=== PATIENT | male | born 1960 | race Caucasian/White ===

== ENCOUNTER 2016-07-23 10:42 | Emergency (ER) | payer MEDICAID ==
[2016-07-23] MEDS ORDERED: OXYCODONE-ACETAMINOPHEN 5-325 MG TABLET PO ONE (11:09)
--- NOTE | 2016-07-23 11:10 | ER Document Report ---
ED Medical Screen (RME) - General Stated Complaint: LEG PAIN Mode of Arrival: Wheelchair Information source: Patient Notes: Patient states he was on a ladder yesterday and fell about 5 feet. Patient complains of right thigh pain is concerned about possible fracture. I have greeted and performed a rapid initial assessment of this patient. A comprehensive ED assessment and evaluation of the patient, analysis of test results and completion of the medical decision making process will be conducted by additional ED providers. TRAVEL OUTSIDE OF THE [place] IN LAST 30 DAYS: No - Related Data Allergies/Adverse Reactions: No Known Allergies Allergy (Verified 07/23/16 11:08) Past Medical History Pulmonary Medical History: Reports: Hx Bronchitis, Hx COPD Malignancy Medical History: Reports Hx Skin Cancer GI Medical History: Reports: Hx Diverticulitis Musculoskeltal Medical History: Reports Hx Arthritis - Immunizations Hx Diphtheria, Pertussis, Tetanus Vaccination: Yes Physical Exam - Extremities General lower extremity: Tender - Right thigh
--- NOTE | 2016-07-23 12:08 | ER Document Report ---
HPI - HPI Patient complains to provider of: right leg pain Onset: Yesterday Onset/Duration: Persistent Severity: Severe Pain Level: 5 Associated Symptoms: None Exacerbated by: Movement Relieved by: Denies Similar symptoms previously: No Recently seen / treated by doctor: No - DERM Skin Color: Normal Past Medical History - General Information source: Patient - Social History Smoking Status: Current Every Day Smoker Cigarette use (# per day): Yes - 1ppd Chew tobacco use (# tins/day): No Frequency of alcohol use: Occasional Drug Abuse: None Occupation: [employer] Lives with: Alone Family History: Arthritis, CAD, CVA, DM, Hyperlipidemia, Hypertension, Malignancy, Thyroid Disfunction Patient has suicidal ideation: No Patient has homicidal ideation: No - Past Medical History Cardiac Medical History: Reports: Hx Congestive Heart Failure, Hx Coronary Artery Disease, Hx Hypertension Pulmonary Medical History: Reports: Hx Bronchitis, Hx COPD Renal/ Medical History: Denies: Hx Peritoneal Dialysis Malignancy Medical History: Reports Hx Skin Cancer GI Medical History: Reports: Hx Diverticulitis Musculoskeltal Medical History: Reports Hx Arthritis Past Surgical History: Reports: Hx Cardiac Surgery - Immunizations Hx Diphtheria, Pertussis, Tetanus Vaccination: Yes Vertical Provider Document - CONSTITUTIONAL Agree With Documented VS: Yes Exam Limitations: No Limitations General Appearance: WD/WN, Mild Distress - winces when anterior thigh palpated, no obvious deformity, no ecchymosis, left thigh 48.5cm, right thigh 49cm - INFECTION CONTROL TRAVEL OUTSIDE OF THE [place] IN LAST 30 DAYS: No - HEENT HEENT: Atraumatic, Normocephalic - NECK Neck: Normal Inspection, Supple. negative: Lymphadenopathy-Left, Lymphadenopathy-Right - RESPIRATORY Respiratory: Breath Sounds Normal, No Respiratory Distress O2 Sat by Pulse Oximetry: 98 - CARDIOVASCULAR Cardiovascular: Regular Rate - MUSCULOSKELETAL/EXTREMETIES Musculoskeletal/Extremeties: MAEW, FROM, Tender - reports pain anterior thigh, extends/flexes at knee and hip, no obvious deformity, no ecchymosis, left thigh 48.5cm, right thigh 49cm - NEURO Level of Consciousness: Awake, Alert, Appropriate Motor/Sensory: No Motor Deficit - DERM Integumentary: Warm, Dry Adult Front & Back Diagram: 1 - c/o tenderness Course - Vital Signs Vital signs: Temp Pulse Resp BP Pulse Ox 98.4 F 91 20 148/92 H 98 07/23/16 11:08 07/23/16 11:08 07/23/16 11:08 07/23/16 11:08 07/23/16 11:08
[2016-07-23] MEDS ORDERED: ASPIRIN 81 MG TABLET, CHEWABLE PO ONE (12:20)
--- NOTE | 2016-07-23 12:23 | ER Document Report ---
ED General - General Chief Complaint: Leg Injury Stated Complaint: LEG PAIN Mode of Arrival: Wheelchair Information source: Patient Notes: Patient presents to the emergency department with complaints of extreme cold cannot good reported shaking chest pain headache and productive cough. Patient reports symptoms started on with a sinus headache. He reports since then he's been extremely tired had diarrhea. Patient also complains of having sharp heartburn type chest pain suicide of his chest. He reports the pain radiates to his back. He also reports he has hot flashes when this happens. Patient does have a history of NC 2. Reports father of NC when he was approximately 37-38 years old. Patient also gives history of acute kidney failure years ago. Denies vomiting, reports slight fever a few days ago. TRAVEL OUTSIDE OF THE [place] IN LAST 30 DAYS: No - HPI Onset: Other - Onset/Duration: Persistent Quality of pain: Achy Severity: Moderate Pain Level: 3 Associated symptoms: Chest pain, Productive cough, Diarrhea, Fever Exacerbated by: Denies Relieved by: Denies - Related Data Allergies/Adverse Reactions: No Known Allergies Allergy (Verified 07/23/16 11:08) Past Medical History - General Information source: Patient - Social History Smoking Status: Current Every Day Smoker Cigarette use (# per day): Yes Chew tobacco use (# tins/day): No Frequency of alcohol use: Occasional Drug Abuse: None Family History: Arthritis, CAD - father of NC at age 37-38 yo, CVA, DM, Hyperlipidemia, Hypertension, Malignancy, Thyroid Disfunction Patient has suicidal ideation: No Patient has homicidal ideation: No - Past Medical History Cardiac Medical History: Reports: Hx Coronary Artery Disease, Hx Heart Attack Pulmonary Medical History: Reports: Hx Bronchitis, Hx COPD Renal/ Medical History: Reports: Other - acute renal failure. Denies: Hx Peritoneal Dialysis Malignancy Medical History: Reports Hx Skin Cancer GI Medical History: Reports: Hx Diverticulitis Musculoskeltal Medical History: Reports Hx Arthritis Past Surgical History: Reports: Hx Orthopedic Surgery - Immunizations Hx Diphtheria, Pertussis, Tetanus Vaccination: Yes Review of Systems - Review of Systems Notes: Review HPI for review of systems., All other systems negative Physical Exam - Vital signs Vitals: Temp Pulse Resp BP Pulse Ox 98.4 F 91 20 148/92 H 98 07/23/16 11:08 07/23/16 11:08 07/23/16 11:08 07/23/16 11:08 07/23/16 11:08 - Notes Notes: PHYSICAL EXAMINATION: GENERAL: Looks like he doesn't feel well, nontoxic looking HEAD: Atraumatic, normocephalic. EYES: Pupils equal round , extraocular movements intact, sclera anicteric, conjunctiva are normal. ENT: nares patent, Moist mucous membranes. NECK: Normal range of motion, supple without lymphadenopathy LUNGS: CTAB and equal. No wheezes rales or rhonchi. HEART: Regular rate and rhythm without murmurs left side chest wall ttp ABDOMEN: Soft, no tenderness. No guarding, no rebound BACK: C/O Left upper back trapezius area ttp EXTREMITIES: Normal range of motion, no pitting edema. No cyanosis. NEUROLOGICAL: Cranial nerves grossly intact. Normal sensory/motor SKIN: Warm, Dry, normal turgor, no rashes or lesions noted Course - Vital Signs Vital signs: Temp Pulse Resp BP Pulse Ox 98.4 F 91 20 148/92 H 98 07/23/16 11:08 07/23/16 11:08 07/23/16 11:08 07/23/16 11:08 07/23/16 11:08
--- NOTE | 2016-07-23 12:42 | ER Document Report ---
HPI - HPI Patient complains to provider of: right leg pain Onset: Yesterday Onset/Duration: Persistent Quality of pain: Achy Severity: Severe Pain Level: 5 Context: Patient presents emergency department with complaints of right thigh pain. Patient reports he was on a 5 foot ladder yesterday fell off onto grass/hard dirt. He reports he felt fine after he fell got up and walked around. Last night he woke up with right thigh pain. He denies past medical history of injury to the thigh. Denies other symptoms like fever headache nausea vomiting diarrhea. Patient is on Plavix. He did not hit his head. He is not confused denies headache. Answers all questions appropriately. 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 Lives with: Alone Family History: Arthritis, CAD, CVA, DM, Hyperlipidemia, Hypertension, Malignancy, Thyroid Disfunction Patient has suicidal ideation: No Patient has homicidal ideation: No - Past Medical History Cardiac Medical History: Reports: Hx Congestive Heart Failure, Hx Coronary Artery Disease Pulmonary Medical History: Reports: Hx Bronchitis, Hx COPD Renal/ Medical History: Denies: Hx Peritoneal Dialysis Malignancy Medical History: Reports Hx Skin Cancer GI Medical History: Reports: Hx Diverticulitis Musculoskeltal Medical History: Reports Hx Arthritis Past Surgical History: Reports: Hx Cardiac Surgery - Immunizations Hx Diphtheria, Pertussis, Tetanus Vaccination: Yes Vertical Provider Document - CONSTITUTIONAL Agree With Documented VS: Yes Exam Limitations: No Limitations General Appearance: WD/WN, Mild Distress - winces when thigh palpated - INFECTION CONTROL TRAVEL OUTSIDE OF THE [place] IN LAST 30 DAYS: No - HEENT HEENT: Atraumatic, Normocephalic - NECK Neck: Normal Inspection, Supple. negative: Lymphadenopathy-Left, Lymphadenopathy-Right - RESPIRATORY Respiratory: Breath Sounds Normal, No Respiratory Distress O2 Sat by Pulse Oximetry: 98 - CARDIOVASCULAR Cardiovascular: Regular Rate - MUSCULOSKELETAL/EXTREMETIES Musculoskeletal/Extremeties: MAEW, FROM, Tender - right thigh ttp, no obvious deformity, swelling no erythema no ecchymosis right eye 49 cm left thigh 48.5 cm , patient able to flex and extend that knee and hip. - NEURO Level of Consciousness: Awake, Alert, Appropriate Motor/Sensory: No Motor Deficit - DERM Integumentary: Warm, Dry Adult Front & Back Diagram: 1 - c/o pain Course - Re-evaluation Re-evalutation: 07/23/16 12:39 I have consulted the attending provider per [facility] guidelines. no ct advised, pt denies hitting his head on fall yesterday, no AMARAL, no confusion, no nv/ Patient instructed on results of x-ray. He reports the Percocet does help flexing the pain now. He was also instructed to follow up with his primary care provider. He verbalized understanding. - Vital Signs Vital signs: Temp Pulse Resp BP Pulse Ox 98.4 F 91 20 148/92 H 98 07/23/16 11:08 07/23/16 11:08 07/23/16 11:08 07/23/16 11:08 07/23/16 11:08 - Diagnostic Test Radiology reviewed: Image reviewed, Reports reviewed Discharge - Discharge Clinical Impression: Pain in right thigh Condition: Stable Disposition: HOME, SELF-CARE Instructions: Oral Narcotic Medication ([facility]), Ice Packs ([facility]) Additional Instructions: *You have been evaluated for right thigh pain *Rest/Ice packs/Elevate the thigh *Follow up with your primary care provider for recheck within 3 days *Take medication as prescribed *Return to ED for worsening condition, changes, needs Prescriptions: Oxycodone HCl/Acetaminophen [Percocet 5-325 mg Tablet] 1 - 2 tab PO ASDIR PRN # 15 tablet PRN Reason: Forms: Return to Work Referrals: LUIS VARGAS MD [Primary Care Provider] - Follow up in 3-5 days
[2016-07-23 12:55] VITALS: BP 138/88
== END 2016-07-23 12:55 | disposition home or self-care (01) ==
LOC: ER 10:42
DX: M79.604 Pain in right leg (principal); M79.651 Pain in right thigh; F17.210 Nicotine dependence, cigarettes, uncomplicated; W11.XXXA Fall on and from ladder, initial encounter; I50.9 Heart failure, unspecified; I25.10 Atherosclerotic heart disease of native coronary artery without angina pectoris; J44.9 Chronic obstructive pulmonary disease, unspecified; Z85.828 Personal history of other malignant neoplasm of skin
CPT/HCPCS: 99283

== ENCOUNTER → 2017-08-01 | Outpatient (CLI) | payer MEDICAID ==
[2017-08-01 19:45] LABS: ALANINE AMINOTRANSFERASE 37 U/L (21-72); ALBUMIN 4.5 g/dL (3.5-5.0); ALKALINE PHOSPHATASE 89 U/L (38-126); ASPARTATE AMINO TRANSFERASE 30 U/L (17-59); BILIRUBIN,DIRECT 0.4 mg/dL (0.0-0.4); BILIRUBIN,TOTAL 0.4 mg/dL (0.2-1.3); CHOLESTEROL 211.88 mg/dL (0-200); TOTAL PROTEIN 7.1 g/dL (6.3-8.2); TRIGLYCERIDES 264 mg/dL (<150)
[2017-08-01 19:55] LABS: FREE T3 3.99 pg/mL (2.77-5.27); FREE T4 (FREE THYROXINE) 1.52 ng/dL (0.78-2.19)
[2017-08-01 19:56] LABS: DIRECT LDL 136 mg/dL (<100)
[2017-08-01 19:57] LABS: VLDL CHOLESTEROL 52.8 mg/dL (10-31)
[2017-08-01 20:08] LABS: THYROID STIMULATING HORMONE 8.94 uIU/mL (0.47-4.68)
== END ==
LOC: OD 17:47
PROVIDERS: ATTEND Specialist
DX: I50.22 Chronic systolic (congestive) heart failure (principal); I42.8 Other cardiomyopathies; I25.10 Atherosclerotic heart disease of native coronary artery without angina pectoris; I10 Essential (primary) hypertension; F17.210 Nicotine dependence, cigarettes, uncomplicated; F10.188 Alcohol abuse with other alcohol-induced disorder; Z98.61 Coronary angioplasty status; E66.9 Obesity, unspecified; Z79.899 Other long term (current) drug therapy
CPT/HCPCS: 36415; 80061; 80076; 84439; 84443; 84481

== ENCOUNTER 2017-10-15 22:31 | Inpatient (IN) | payer SELFPAY ==
--- NOTE | 2017-10-16 00:02 | ER Document Report ---
ED Medical Screen (RME) - General Chief Complaint: Abdominal Pain Stated Complaint: ABDOMINAL PAIN Time Seen by Provider: 10/16/17 00:00 Mode of Arrival: Medic Information source: Patient TRAVEL OUTSIDE OF THE [place] IN LAST 30 DAYS: No - HPI Patient complains to provider of: DORA PAIN Notes: 10/16/17 00:01 Patient is here with complaints of abdominal pain. He states the pain is been present for about a week now. Pain is located in the left side of his abdomen. He has no nausea or vomiting. He does complain of some diarrhea. He denies any blood in the stool. No fever. No dysuria or hematuria. Is a prior history of diverticulitis. He believes that this may be what is causing his pain. Physical exam: Patient is in no distress. Left-sided abdominal tenderness on limited triage exam. Plan: CBC, CMP, lipase, urine, CT abdomen and pelvis with IV contrast. An initial examination was made on the patient as part of the triage process, and it was determined a more comprehensive evaluation was necessary. Initial labs were ordered and patient was transferred to another provider in the ED who assumed care and finished evaluation and plan. - Related Data Allergies/Adverse Reactions: No Known Allergies Allergy (Verified 07/23/16 11:08) Past Medical History - Past Medical History Cardiac Medical History: Reports: Hx Congestive Heart Failure, Hx Coronary Artery Disease Pulmonary Medical History: Reports: Hx Bronchitis, Hx COPD Renal/ Medical History: Denies: Hx Peritoneal Dialysis Malignancy Medical History: Reports Hx Skin Cancer GI Medical History: Reports: Hx Diverticulitis Musculoskeltal Medical History: Reports Hx Arthritis Past Surgical History: Reports: Hx Cardiac Surgery - Immunizations Hx Diphtheria, Pertussis, Tetanus Vaccination: Yes Physical Exam - Vital signs Vitals: Temp Pulse Resp BP 99.1 F 92 18 125/75 10/15/17 22:45 10/15/17 22:45 10/15/17 22:45 10/15/17 22:45 Course - Vital Signs Vital signs: Temp Pulse Resp BP Pulse Ox 99.1 F 92 18 125/75 10/15/17 22:45 10/15/17 22:45 10/15/17 22:45 10/15/17 22:45
[2017-10-16 00:22] LABS: ABSOLUTE BASOPHILS # (AUTO) 0.1 10^3/uL (0.0-0.2); ABSOLUTE LYMPHOCYTES (AUTO) 1.1 10^3/uL (0.5-4.7); ABSOLUTE MONOCYTES (AUTO) 1.5 10^3/uL (0.1-1.4); ABSOLUTE NEUT (AUTO) 10.9 10^3/uL (1.7-8.2); BASOPHILS % (AUTO) 0.5 % (0-2); EOSINOPHILS % (AUTO) 0.2 % (0-6); HEMATOCRIT 42.6 % (37.9-51.0); HEMOGLOBIN 14.2 g/dL (13.5-17.0); LYMPHOCYTES % (AUTO) 7.8 % (13-45); MEAN CORPUSCULAR HEMOGLOBIN 32.4 pg (27.0-33.4); MEAN CORPUSCULAR HGB CONC 33.3 g/dL (32.0-36.0); MEAN CORPUSCULAR VOLUME 97 fl (80-97); MONOCYTES % (AUTO) 11.3 % (3-13); PLATELET COUNT 111 10^3/uL (150-450); RED BLOOD COUNT 4.39 10^6/uL (4.35-5.55); SEGMENTED NEUTROPHILS % (AUTO) 80.2 % (42-78); TOTAL CELLS COUNTED % (AUTO) 100 %; WHITE BLOOD COUNT 13.6 10^3/uL (4.0-10.5)
[2017-10-16 00:49] LABS: ALANINE AMINOTRANSFERASE 43 U/L (21-72); ALBUMIN 3.6 g/dL (3.5-5.0); ALKALINE PHOSPHATASE 90 U/L (38-126); ANION GAP 10 (5-19); ASPARTATE AMINO TRANSFERASE 32 U/L (17-59); BILIRUBIN,DIRECT 0.4 mg/dL (0.0-0.4); BILIRUBIN,TOTAL 0.6 mg/dL (0.2-1.3); BLOOD UREA NITROGEN 25 mg/dL (7-20); CALCIUM 9.1 mg/dL (8.4-10.2); CARBON DIOXIDE 29 mmol/L (22-30); CHLORIDE 94 mmol/L (98-107); GLUCOSE 130 mg/dL (75-110); LIPASE 62.1 U/L (23-300); POTASSIUM 4.6 mmol/L (3.6-5.0); TOTAL PROTEIN 6.5 g/dL (6.3-8.2)
[2017-10-16] MEDS ORDERED: NORMAL SALINE 1000 ML 1,000 ML IV ONE (01:04)
[2017-10-16] MEDS ORDERED: CIPROFLOXACIN 400 MG/D5W RTU 400 MG/200 ML RTUPB IV ONE (01:50)
--- NOTE | 2017-10-16 01:54 | RADIOLOGY REPORT (SQ) ---
EXAM DESCRIPTION: CT ABDOMEN AND PELVIS WITH CONTRAST CLINICAL HISTORY: Left abdominal pain. COMPARISON: 04/07/2013 TECHNIQUE: CT of the abdomen and pelvis performed following IV administration of 100 mL of Isovue-370. DLP: 1957.26 mGycm FINDINGS: Lung Bases: The visualized lung bases are clear. Bones: No destructive bone lesions identified. Generative spondylosis of the visualized spine. Abdomen: Liver: The liver has normal size and density. No solid intrahepatic mass or biliary dilatation. Left renal cyst. Gallbladder: No calcified gallstones. Spleen, Pancreas, and Adrenal Glands: The spleen, pancreas, and adrenal glands are unremarkable. Kidneys: The kidneys have normal size and contour without evidence of solid mass or hydronephrosis. Vasculature: Aortoiliac atherosclerosis. IVC is unremarkable. The portal vein is patent. The proximal visceral and renal arteries are patent. Stomach: The stomach and duodenum have normal course. Other: No definite lymphadenopathy. Pelvis: Bladder: Urinary bladder is unremarkable. Bowel: Scattered diverticula of the colon. Short segment pericolic fat stranding as well as a well-circumscribed pericolic air and fluid collection measuring 3.4 x 2.0 cm compatible with an abscess. Appendix: Normal appendix. Pelvis: Prostate is not enlarged. IMPRESSION: 1. Acute diverticulitis of the descending colon with a 3.4 cm pericolic abscess. This exam was performed according to our departmental dose-optimization program, which includes automated exposure control, adjustment of the mA and/or kV according to patient size and/or use of iterative reconstruction technique.
[2017-10-16] MEDS ORDERED: METRONIDAZOLE 500 MG/NS RTU 100 ML IV ONE (02:01)
[2017-10-16] MEDS ORDERED: FENTANYL CITRATE INJ/PF 100 MCG/2 ML AMPUL IV ONE (02:06)
--- NOTE | 2017-10-16 02:07 | ER Document Report ---
ED GI/ - General Chief Complaint: Abdominal Pain Stated Complaint: ABDOMINAL PAIN Time Seen by Provider: 10/16/17 00:00 Mode of Arrival: Medic Notes: Patient is a 57-year-old male who has had worsening left lower quadrant pain for the last week. He is complaining of nausea but no vomiting denies diarrhea. Patient has a history of diverticulitis and this feels similar. Denies any dysuria. Possible fever at home. States that it hurts when he is walking TRAVEL OUTSIDE OF THE [place] IN LAST 30 DAYS: No - HPI Patient complains to provider of: Abdominal pain Onset: Other Timing/Duration: Worse Location: LLQ Associated symptoms: Nausea Exacerbated by: Movement Relieved by: Remaining still - Related Data Allergies/Adverse Reactions: No Known Allergies Allergy (Verified 07/23/16 11:08) Past Medical History - General Information source: Patient - Social History Smoking Status: Current Every Day Smoker Frequency of alcohol use: Occasional Family History: Arthritis, CAD, CVA, DM, Hyperlipidemia, Hypertension, Malignancy, Thyroid Disfunction Patient has suicidal ideation: No Patient has homicidal ideation: No - Past Medical History Cardiac Medical History: Reports: Hx Congestive Heart Failure, Hx Coronary Artery Disease Pulmonary Medical History: Reports: Hx Bronchitis, Hx COPD Renal/ Medical History: Denies: Hx Peritoneal Dialysis Malignancy Medical History: Reports Hx Skin Cancer GI Medical History: Reports: Hx Diverticulitis Musculoskeltal Medical History: Reports Hx Arthritis Past Surgical History: Reports: Hx Cardiac Surgery - Immunizations Hx Diphtheria, Pertussis, Tetanus Vaccination: Yes Review of Systems - Review of Systems Constitutional: Malaise EENT: No symptoms reported Cardiovascular: No symptoms reported Respiratory: No symptoms reported Gastrointestinal: See HPI Genitourinary: No symptoms reported Male Genitourinary: No symptoms reported Musculoskeletal: No symptoms reported Skin: No symptoms reported Hematologic/Lymphatic: No symptoms reported Neurological/Psychological: No symptoms reported Physical Exam - Vital signs Vitals: Temp Pulse Resp BP 99.1 F 92 18 125/75 10/15/17 22:45 10/15/17 22:45 10/15/17 22:45 10/15/17 22:45 Interpretation: Normal - General General appearance: Alert, Other - Appears uncomfortable - HEENT Head: Normocephalic, Atraumatic Eyes: Normal Pupils: PERRL - Respiratory Respiratory status: No respiratory distress Chest status: Nontender Breath sounds: Normal Chest palpation: Normal - Cardiovascular Rhythm: Regular Heart sounds: Normal auscultation Murmur: No - Abdominal Inspection: Normal Distension: Distended Bowel sounds: Normal Tenderness: Tender - Left lower quadrant, Guarding. No: Rebound Organomegaly: No organomegaly - Back Back: Normal, Nontender - Extremities General upper extremity: Normal inspection, Nontender, Normal color, Normal ROM , Normal temperature General lower extremity: Normal inspection, Nontender, Normal color, Normal ROM , Normal temperature, Normal weight bearing. No: Mary's sign - Neurological Neuro grossly intact: Yes Cognition: Normal Orientation: AAOx4 Mellissa Coma Scale Eye Opening: Spontaneous Mellissa Coma Scale Verbal: Oriented [place] Coma Scale Motor: Obeys Commands Mellissa Coma Scale Total: 15 Speech: Normal Motor strength normal: LUE, RUE, LLE, RLE Sensory: Normal - Psychological Associated symptoms: Normal affect, Normal mood - Skin Skin Temperature: Warm Skin Moisture: Dry Skin Color: Normal Course - Re-evaluation Re-evalutation: 10/16/17 01:[address] Bhandari regarding CT report of perforated diverticulitis with abscess. Will start IV ciprofloxacin and Flagyl, keep n.p.o., and admit to his service. 10/16/17 02:06 Patient is a 57-year-old male who presents with left lower quadrant pain over the last week that has been worsening as well as nausea. He has a history of diverticulitis. Unfortunately, tonight, CT showing perforation of diverticulitis with abscess formation. I have explained the results of the CT to the patient. He will be kept n.p.o. at this time. Cipro and Flagyl will be started. He will be getting fentanyl as needed for pain. He does not have any nausea since receiving Zofran in triage. Patient will continue to be fluid resuscitated. He is agreeable to this plan. Stable time of admission to the surgical service. - Vital Signs Vital signs: Temp Pulse Resp BP Pulse Ox 99.1 F 92 18 125/75 10/15/17 22:45 10/15/17 22:45 10/15/17 22:45 10/15/17 22:45 - Laboratory Result Diagrams: 10/15/17 22:10 10/15/17 22:10 Laboratory results interpreted by me: 10/15/17 10/15/17 22:10 22:10 WBC 13.6 H RDW 15.0 H Plt Count 111 L Seg Neutrophils % 80.2 H Lymphocytes % 7.8 L Absolute Neutrophils 10.9 H Absolute Monocytes 1.5 H Sodium 133.0 L Chloride 94 L BUN 25 H Creatinine 1.57 H Est GFR ( Amer) 55 L Est GFR (Non-Af Amer) 46 L Glucose 130 H Critical Care Note - Critical Care Note Total time excluding time spent on procedures (mins): 15 - Evaluation and management of perforated diverticulitis with abscess, multiple re-evaluations, coordination of admission, consultation with specialist, counseling of patient Discharge - Discharge Clinical Impression: Diverticulitis of large intestine with abscess Qualifiers: Diverticulitis bleeding: without bleeding Qualified Code(s): K57.20 - Diverticulitis of large intestine with perforation and abscess without bleeding Condition: Stable Disposition: ADMITTED INPATIENT Admitting Provider[facility] Admitted: Surgical Floor Scribe Attestation: 10/16/17 02:23 I personally performed the services described in the documentation, reviewed and edited the documentation which was dictated to the scribe in my presence, and it accurately records my words and actions.
[2017-10-16 02:40] LABS: APPEARANCE,URINE CLEAR; BILIRUBIN,URINE NEGATIVE (NEGATIVE); COLOR,URINE YELLOW; GLUCOSE, URINE NEGATIVE (NEGATIVE); KETONES,URINE NEGATIVE (NEGATIVE); LEUKOCYTE ESTERASE,URINE NEGATIVE (NEGATIVE); NITRITE,URINE NEGATIVE (NEGATIVE); PROTEIN,URINE 100 mg/dL (NEGATIVE); URINE SPECIFIC GRAVITY 1.023
[2017-10-16] MEDS ORDERED: ONDANSETRON HCL INJ/PF 4 MG/2 ML SDV IV PRN (06:50)
--- NOTE | 2017-10-16 08:41 | CONSULT/HISTORY AND PHYSICAL E ---
Consultation/History and Physical PATIENT NAME: CAT HECK : 1960 AGE: 57Y DATE: 10/16/2017 ROOM: 401 REFERRAL: Patient is seen at the request of a DrEdgardo ------ CHIEF COMPLAINT: Complicated diverticulitis. REPORT OF CONSULTATION: Patient is a 57-year-old white male with a history of morbid obesity, coronary artery disease, previous history of non-complicated diverticulitis who presents to the emergency department with a 1-week history of abdominal pain of the left lower quadrant, increased difficulty moving his bowels, fever and chills, although he did not take his temperature. He was seen in the emergency department where he was found to have abdominal tenderness, left lower quadrant; leukocytosis; and a CT scan obtained showing pericolonic abscess of the sigmoid colon consistent with Hinchey classification 1 complicated diverticulitis. Surgery was consulted. The patient was advised admission. He remained hemodynamically stable throughout his emergency department stay. PAST MEDICAL HISTORY: Significant for: Superficial skin cancers, history of coronary artery disease, history of impaired ejection fraction; morbid obesity, alcohol use, smoking abuse, arthritis. PAST SURGICAL HISTORY: Significant for skin cancer removal. IMMUNIZATIONS: Up to date. SOCIAL HISTORY: Patient smokes a pack plus cigarettes every day; uses alcohol several times a week. FAMILY HISTORY: Significant for coronary artery disease, diabetes, hypertension, hyperlipidemia and thyroid disease. 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 REVIEW OF SYSTEMS: CONSTITUTIONAL: Patient acknowledges malaise. EARS, NOSE, THROAT: Patient denies. CARDIOVASCULAR: Mild shortness of breath. RESPIRATORY: As above. GASTROINTESTINAL: As per HPI. GENITOURINARY: Patient denies. MUSCULOSKELETAL: Patient denies. Of note: Patient has never had a colonoscopy. PHYSICAL EXAMINATION: Patient examined on the 4th floor of [facility]. VITAL SIGNS: Heart rate 80, blood pressure 112/66, temperature 99.8, respirations 18. GENERAL: Patient appears to be in no acute distress. SKIN: Facial flushing. NECK: No obvious masses. SKIN: Multiple seborrheic keratoses. LUNGS: Occasional wheeze bilaterally. HEART: No evidence of murmur or gallop. ABDOMEN: Very distended with mild tympany. There are no peritoneal signs. There is left lower quadrant tenderness. The umbilicus is thinned. Organomegaly cannot be appreciated. Groin is without hernias. EXTREMITIES: Lower extremities with mild lichenification of the skin on the toes. There is +1-2 pretibial edema at the ankles. VASCULAR: Vascular exam reveals palpable radial, carotid, femoral, and popliteal pulses. DIAGNOSTICS: Laboratory profile shows a white blood cell count of 15,600; hemoglobin of 14.2, platelets of 111, and a BUN and creatinine of 25 and 1.57. Blood sugar of 130. Independent interpretation of a CT scan of the abdomen and pelvis with IV and with oral contrast shows obesity centrally; extensive diverticuloses of the colon; descending-sigmoid colon medially located pericolonic abscess approximately 3.5 cm in diameter; no free air; element of pericolonic stranding of the fat. IMPRESSION: 1. ACUTE DIVERTICULITIS WITH PERICOLONIC ABSCESS, CONTAINED; HINCHEY CLASSIFICATION 1. 2. MORBID OBESITY. 3. CHRONIC SMOKER WITH CHRONIC OBSTRUCTIVE PULMONARY DISEASE. 4. ALCOHOL USE. 5. HISTORY OF CONGESTIVE HEART FAILURE. 6. ACUTE RENAL INSUFFICIENCY, LIKELY DUE TO DEHYDRATION. 7. THROMBOCYTOPENIA. PLAN: 1. Will admit, keep n.p.o. and IV fluids and intravenous antibiotics; pericolonic abscess is medially positioned off of the sigmoid colon and may be inaccessible to percutaneous drainage. There is no clinical indication for operative intervention at this moment. 2. Patient's comorbidities including COPD, smoking abuse, morbid obesity, and history of congestive heart failure will place patient at increased perioperative risks for complications should he require surgery. TOTAL TIME: 40 minutes; critical time 12 minutes. [id number] PHY#: [id number] ID: [id number] JOB#: [id number] ACCT: [id number] cc:Mariah EASON, > [facility]
[2017-10-16] MEDS: NICOTINE 21 MG/24 HR PATCH.TD24 TD SCH (09:14)
[2017-10-16] MEDS: DOCUSATE SODIUM 100 MG CAPSULE PO SCH ×2 (09:14→16:50)
[2017-10-16] MEDS: KETOROLAC TROMETHAMINE INJ/PF 30 MG/1 ML SDV IV PRN ×2 (13:24→23:27)
[2017-10-16] MEDS ORDERED: NORMAL SALINE 1000 ML 1,000 ML IV PRN (13:29)
[2017-10-16] MEDS: METRONIDAZOLE 500 MG/NS RTU 100 ML IV SCH ×2 (15:18→22:10)
--- NOTE | 2017-10-16 18:21 | PDOC PROGRESS REPORT ---
Subjective Progress Note for:: 10/16/17 Subjective:: A little less abdominal pains Reason For Visit: ACUTE DIVERTICULITIS WITH PERICOLONIC ABSCESS Physical Exam Vital Signs: Temp Pulse Resp BP Pulse Ox 98.4 F 69 16 130/74 H 94 10/16/17 16:12 10/16/17 16:12 10/16/17 16:12 10/16/17 16:12 10/16/17 16:12 Intake & Output 10/15/17 10/16/17 10/17/17 06:59 06:59 06:59 Intake Total 240 Output Total 300 425 Balance -60 -425 Weight 105.7 kg Exam: Abdomen is soft with tenderness at the LLQ,localized. Results Impressions: Abdomen/Pelvis CT 10/16/17 00:00 IMPRESSION: 1. Acute diverticulitis of the descending colon with a 3.4 cm pericolic abscess. This exam was performed according to our departmental dose-optimization program, which includes automated exposure control, adjustment of the mA and/or kV according to patient size and/or use of iterative reconstruction technique. Assessment & Plan - Time Time Spent with patient: 15-24 minutes - Plan Summary Plan Summary: Continue bowel rest and IV antibiotics Check follow up blood work in am Resume cardiac meds po but hold Plavix until sure not needing surgery. Continue hydration.
[2017-10-16] MEDS: CARVEDILOL 12.5 MG TABLET PO SCH (22:10)
[2017-10-16] MEDS: CIPROFLOXACIN 400 MG/D5W RTU 400 MG/200 ML RTUPB IV SCH (22:11)
[2017-10-17 05:05] LABS: ABSOLUTE EOSINOPHILS # (AUTO) 0.1 10^3/uL (0.0-0.6); ABSOLUTE LYMPHOCYTES (AUTO) 0.7 10^3/uL (0.5-4.7); ABSOLUTE MONOCYTES (AUTO) 1.1 10^3/uL (0.1-1.4); ABSOLUTE NEUT (AUTO) 7.9 10^3/uL (1.7-8.2); BASOPHILS % (AUTO) 0.4 % (0-2); HEMATOCRIT 41.4 % (37.9-51.0); HEMOGLOBIN 13.9 g/dL (13.5-17.0); LYMPHOCYTES % (AUTO) 6.8 % (13-45); MEAN CORPUSCULAR HEMOGLOBIN 32.5 pg (27.0-33.4); MEAN CORPUSCULAR HGB CONC 33.5 g/dL (32.0-36.0); MEAN CORPUSCULAR VOLUME 97 fl (80-97); PLATELET COUNT 112 10^3/uL (150-450); RED BLOOD COUNT 4.27 10^6/uL (4.35-5.55); RED CELL DISTRIBUTION WIDTH 15.1 % (11.5-14.0); SEGMENTED NEUTROPHILS % (AUTO) 80.8 % (42-78); TOTAL CELLS COUNTED % (AUTO) 100 %; WHITE BLOOD COUNT 9.8 10^3/uL (4.0-10.5)
[2017-10-17] MEDS: METRONIDAZOLE 500 MG/NS RTU 100 ML IV SCH ×3 (05:09→22:12)
[2017-10-17 05:26] LABS: ANION GAP 13 (5-19); BLOOD UREA NITROGEN 29 mg/dL (7-20); CALCIUM 8.7 mg/dL (8.4-10.2); CARBON DIOXIDE 23 mmol/L (22-30); CHLORIDE 102 mmol/L (98-107); GLUCOSE 98 mg/dL (75-110); POTASSIUM 4.8 mmol/L (3.6-5.0); SODIUM 137.5 mmol/L (137-145)
[2017-10-17] MEDS: DOCUSATE SODIUM 100 MG CAPSULE PO SCH ×2 (09:40→17:36)
[2017-10-17] MEDS: CIPROFLOXACIN 400 MG/D5W RTU 400 MG/200 ML RTUPB IV SCH ×2 (09:40→22:11)
[2017-10-17] MEDS: NICOTINE 21 MG/24 HR PATCH.TD24 TD SCH (09:40)
[2017-10-17] MEDS: AMIODARONE HCL 200 MG TABLET PO SCH (09:40)
[2017-10-17] MEDS: CARVEDILOL 12.5 MG TABLET PO SCH ×2 (09:40→22:11)
--- NOTE | 2017-10-17 10:26 | PDOC PROGRESS REPORT ---
Subjective Progress Note for:: 10/17/17 Subjective:: Much less painful at the LLQ Had a good BM this am without discomfort Reason For Visit: ACUTE DIVERTICULITIS WITH PERICOLONIC ABSCESS Physical Exam Vital Signs: Temp Pulse Resp BP Pulse Ox 101.8 F H 94 16 189/92 H 90 L 10/17/17 08:50 10/17/17 08:50 10/17/17 08:50 10/17/17 08:50 10/17/17 08:50 Intake & Output 10/16/17 10/17/17 10/18/17 06:59 06:59 06:59 Intake Total 240 3000 Output Total 300 925 Balance -60 2075 Weight 105.7 kg 105.7 kg Exam: Abd is soft with mild LLQ tenderness. Results Laboratory Results: 10/17/17 03:59 10/17/17 03:50 10/17/17 10/17/17 03:50 03:59 WBC 9.8 RBC 4.27 L Hgb 13.9 Hct 41.4 MCV 97 MCH 32.5 MCHC 33.5 RDW 15.1 H Plt Count 112 L Seg Neutrophils % 80.8 H Lymphocytes % 6.8 L Monocytes % 11.0 Eosinophils % 1.0 Basophils % 0.4 Absolute Neutrophils 7.9 Absolute Lymphocytes 0.7 Absolute Monocytes 1.1 Absolute Eosinophils 0.1 Absolute Basophils 0.0 Sodium 137.5 Potassium 4.8 Chloride 102 Carbon Dioxide 23 Anion Gap 13 BUN 29 H Creatinine 1.36 H Est GFR ( Amer) > 60 Est GFR (Non-Af Amer) 54 L Glucose 98 Calcium 8.7 Impressions: Abdomen/Pelvis CT 10/16/17 00:00 IMPRESSION: 1. Acute diverticulitis of the descending colon with a 3.4 cm pericolic abscess. This exam was performed according to our departmental dose-optimization program, which includes automated exposure control, adjustment of the mA and/or kV according to patient size and/or use of iterative reconstruction technique. Assessment & Plan - Time Time Spent with patient: 15-24 minutes - Plan Summary Plan Summary: Start clears Continue IV antibiotics
[2017-10-17] MEDS ORDERED: FUROSEMIDE INJ/PF 40 MG/4 ML SDV IV ONE (20:30)
--- NOTE | 2017-10-17 21:22 | RADIOLOGY REPORT (SQ) ---
EXAM DESCRIPTION: CHEST SINGLE VIEW COMPLETED DATE/TIME: 10/17/2017 8:52 pm REASON FOR STUDY: chest congestion COMPARISON: 03/26/2015 EXAM PARAMETERS: NUMBER OF VIEWS: One view. TECHNIQUE: Single frontal radiographic view of the chest acquired. RADIATION DOSE: NA LIMITATIONS: None. FINDINGS: LUNGS AND PLEURA: No opacities, masses or pneumothorax. No pleural effusion. MEDIASTINUM AND HILAR STRUCTURES: No masses. Contour normal. HEART AND VASCULAR STRUCTURES: Heart normal in size. Normal vasculature. BONES: No acute findings. HARDWARE: None in the chest. OTHER: No other significant finding. IMPRESSION: NO ACUTE RADIOGRAPHIC FINDING IN THE CHEST. TECHNICAL DOCUMENTATION: JOB ID: [id number] [employer]- All Rights Reserved Reading location - IP/workstation name: [email or web address]
[2017-10-18] MEDS: METRONIDAZOLE 500 MG/NS RTU 100 ML IV SCH ×3 (05:19→21:57)
[2017-10-18] MEDS: AMIODARONE HCL 200 MG TABLET PO SCH (10:52)
[2017-10-18] MEDS: DOCUSATE SODIUM 100 MG CAPSULE PO SCH ×2 (10:52→18:53)
[2017-10-18] MEDS: CARVEDILOL 12.5 MG TABLET PO SCH ×2 (10:53→21:56)
[2017-10-18] MEDS: CIPROFLOXACIN 400 MG/D5W RTU 400 MG/200 ML RTUPB IV SCH ×2 (10:53→21:57)
[2017-10-18] MEDS: FUROSEMIDE 40 MG TABLET PO SCH ×2 (10:53→18:53)
[2017-10-18] MEDS: NICOTINE 21 MG/24 HR PATCH.TD24 TD SCH (10:53)
--- NOTE | 2017-10-18 20:49 | PDOC PROGRESS REPORT ---
Subjective Progress Note for:: 10/18/17 Subjective:: Had BM. Denies any pains Reason For Visit: ACUTE DIVERTICULITIS WITH PERICOLONIC ABSCESS Physical Exam Vital Signs: Temp Pulse Resp BP Pulse Ox 99.3 F 76 18 134/73 H 92 10/18/17 16:00 10/18/17 16:00 10/18/17 16:00 10/18/17 16:00 10/18/17 16:00 Intake & Output 10/17/17 10/18/17 10/19/17 06:59 06:59 06:59 Intake Total 3000 1874 Output Total 925 300 Balance 2075 1574 Weight 105.7 kg 106 kg Exam: Abd is soft with minimal tenderness LLQ Results Laboratory Results: 10/17/17 03:59 10/17/17 03:50 Impressions: Abdomen/Pelvis CT 10/16/17 00:00 IMPRESSION: 1. Acute diverticulitis of the descending colon with a 3.4 cm pericolic abscess. This exam was performed according to our departmental dose-optimization program, which includes automated exposure control, adjustment of the mA and/or kV according to patient size and/or use of iterative reconstruction technique. Chest X-Ray 10/17/17 00:00 IMPRESSION: NO ACUTE RADIOGRAPHIC FINDING IN THE CHEST. Assessment & Plan - Time Time Spent with patient: 15-24 minutes - Plan Summary Plan Summary: Continue to increase diet Continue IV antibiotics for at least 24 hrs. Re -evaluate in am for possible discharge on PO antibiotics next 10 days.
[2017-10-19] MEDS: METRONIDAZOLE 500 MG/NS RTU 100 ML IV SCH (05:32)
[2017-10-19 06:13] LABS: ANION GAP 10 (5-19); BLOOD UREA NITROGEN 20 mg/dL (7-20); CALCIUM 8.3 mg/dL (8.4-10.2); CARBON DIOXIDE 27 mmol/L (22-30); CHLORIDE 103 mmol/L (98-107); GLUCOSE 129 mg/dL (75-110); POTASSIUM 4.6 mmol/L (3.6-5.0); SODIUM 139.9 mmol/L (137-145)
--- NOTE | 2017-10-19 07:20 | PDOC CONSULTATION ---
Consultation Consult Date: 10/18/17 Attending physician:: THU PENN Consult reason:: Multiple medical problems History of Present Illness Admission Date/PCP: 10/16/17 02:30 Patient complains of: abdominal pain History of Present Illness: CAT HECK is a 57 year old male who presented with left lower quadrant pain x 1 week that has been worsening as well as nausea. He has a history of diverticulitis. Unfortunately, CT Abd/Pelvis showing perforation of diverticulitis with abscess formation. Cipro and Flagyl will be started in the emergency department. PMH includes COPD, CAD, CHF, continued tobacco use, and ETOH use "multiple times " per week. Past Medical History Cardiac Medical History: Reports: Congestive Heart Failure, Coronary Artery Disease Pulmonary Medical History: Reports: Bronchitis, Chronic Obstructive Pulmonary Disease (COPD) Malignancy Medical History: Reports: Skin Cancer GI Medical History: Reports: Diverticulitis Musculoskeltal Medical History: Reports: Arthritis Social History Smoking Status: Current Every Day Smoker Cigarettes Packs Per Day: 1 Number of Years Smokin Last Time Smoked: 10/15/17 Frequency of Alcohol Use: Occasional Hx Recreational Drug Use: No Hx Prescription Drug Abuse: No - Advance Directive Resuscitation Status: Full Code Family History Family History: Arthritis, CAD, CVA, DM, Hyperlipidemia, Hypertension, Malignancy, Thyroid Disfunction Parental Family History Reviewed: No Children Family History Reviewed: No Sibling(s) Family History Reviewed.: No Medication/Allergy Home Medications: Amiodarone HCl [Cordarone 200 mg Tablet] 200 mg PO DAILY 10/16/17 Carvedilol [Coreg 25 mg Tablet] 25 mg PO Q12 10/16/17 Clopidogrel Bisulfate [Plavix 75 mg Tablet] 75 mg PO DAILY 10/16/17 Furosemide [Lasix 40 mg Tablet] 40 mg PO BID 10/16/17 Spironolactone [Aldactone 25 mg Tablet] 25 mg PO DAILY 10/16/17 Allergies/Adverse Reactions: No Known Allergies Allergy (Verified 07/23/16 11:08) Physical Exam Vital Signs: Temp Pulse Resp BP Pulse Ox 99.3 F 76 18 134/73 H 92 10/18/17 16:00 10/18/17 16:00 10/18/17 16:00 10/18/17 16:00 10/18/17 16:00 Intake & Output 10/17/17 10/18/17 10/19/17 06:59 06:59 06:59 Intake Total 3000 1874 Output Total 925 300 Balance 2075 1574 Weight 105.7 kg 106 kg Results Laboratory Results: 10/17/17 03:59 10/17/17 03:50 Impressions: Abdomen/Pelvis CT 10/16/17 00:00 IMPRESSION: 1. Acute diverticulitis of the descending colon with a 3.4 cm pericolic abscess. This exam was performed according to our departmental dose-optimization program, which includes automated exposure control, adjustment of the mA and/or kV according to patient size and/or use of iterative reconstruction technique. Chest X-Ray 10/17/17 00:00 IMPRESSION: NO ACUTE RADIOGRAPHIC FINDING IN THE CHEST. Assessment & Plan - Diagnosis (1) Diverticulitis of large intestine with abscess Qualifiers: Diverticulitis bleeding: without bleeding Qualified Code(s): K57.20 - Diverticulitis of large intestine with perforation and abscess without bleeding Is this a current diagnosis for this admission?: Yes Plan: Patient presented with LLQ abdominal pain x [address] Abd/Pelvis shows perforation of diverticulitis with abscess formation. Patient admitted to surgical service. They are managing. No surgical intervention at this time. Pain adequately controlled. Advanced to clear liquid diet. Patient able to have bowel movements. (2) CHF (congestive heart failure) Qualifiers: Heart failure type: unspecified Heart failure chronicity: chronic Qualified Code(s): I50.9 - Heart failure, unspecified Is this a current diagnosis for this admission?: Yes Plan: Patient endorses a history of CHF. He was admitted to [facility] in 2015 for a new diagnosis of heart failure. ECHO from 2015 demonstrated LVEF 20%, global HYPOkinesis of the LV, significant systolic failure, small PFO with L to R shunt Continue home dose lasix, coreg, amiodarone and aldactone. No plan for aspirin therapy. (3) Coronary artery disease Qualifiers: Coronary Disease-Associated Artery/Lesion type: [place] artery [place] vs. transplanted heart: [place] heart Associated angina: without angina Qualified Code(s): I25.10 - Atherosclerotic heart disease of [place] coronary artery without angina pectoris Is this a current diagnosis for this admission?: Yes Plan: Patient endorses a history of CAD. Since he is at a high risk for bleeding, no plan to restart PLAVIX at this time.
[2017-10-19 08:13] VITALS: BP 148/87
[2017-10-19] MEDS ORDERED: CIPROFLOXACIN HCL 500 MG TABLET PO SCH (10:00)
== END 2017-10-19 08:28 | disposition home or self-care (01) | DRG 392 ==
LOC: ER 22:31 → EH 10-16 02:30 → 4N 10-16 03:47
PROVIDERS: ADMIT Surgery; ATTEND Surgery
DX: K57.20 Diverticulitis of large intestine with perforation and abscess without bleeding (principal); I50.9 Heart failure, unspecified; D69.6 Thrombocytopenia, unspecified; J44.9 Chronic obstructive pulmonary disease, unspecified; I25.10 Atherosclerotic heart disease of native coronary artery without angina pectoris; E86.0 Dehydration; N28.9 Disorder of kidney and ureter, unspecified; F17.210 Nicotine dependence, cigarettes, uncomplicated; E66.01 Morbid (severe) obesity due to excess calories; Z68.33 Body mass index [BMI] 33.0-33.9, adult; Z72.89 Other problems related to lifestyle
CPT/HCPCS: 36415; 71045; 74177; 80048; 80053; 81001; 83690; 83735; 84100; 85025; 87040; 99285; J0744; J1885; J1940; J3010; J3490; J7030

== ENCOUNTER 2017-12-07 16:00 | Inpatient (IN) | payer MEDICAID ==
[2017-12-07 17:17] LABS: HEMATOCRIT 41.8 % (37.9-51.0); HEMOGLOBIN 13.9 g/dL (13.5-17.0); MEAN CORPUSCULAR HEMOGLOBIN 30.8 pg (27.0-33.4); MEAN CORPUSCULAR HGB CONC 33.3 g/dL (32.0-36.0); MEAN CORPUSCULAR VOLUME 93 fl (80-97); PLATELET COUNT 234 10^3/uL (150-450); RED BLOOD COUNT 4.51 10^6/uL (4.35-5.55); RED CELL DISTRIBUTION WIDTH 15.2 % (11.5-14.0); WHITE BLOOD COUNT 22.1 10^3/uL (4.0-10.5)
[2017-12-07] MEDS ORDERED: HYDROMORPHONE HCL INJ/PF 2 MG/ML AMPULE IV ONE ×2 (17:32→20:14)
[2017-12-07] MEDS ORDERED: ONDANSETRON 4 MG TAB.RAPDIS PO ONE (17:33)
[2017-12-07 17:41] LABS: ABSOLUTE LYMPHOCYTES# (MANUAL) 2.7 10^3/uL (0.5-4.7); ABSOLUTE MONOCYTES # (MANUAL) 2.2 10^3/uL (0.1-1.4); ANISOCYTOSIS SLIGHT; BASOPHILS % (MANUAL) 0 % (0-2); EOSINOPHILS % (MANUAL) 1 % (0-6); LYMPHOCYTES % (MANUAL) 12 % (13-45); MONOCYTES % (MANUAL) 10 % (3-13); PLATELET CLUMPS PRESENT; PLATELET GIANT PRESENT; PLATELET LARGE PRESENT; POLYCHROMASIA SLIGHT; SEGMENTED NEUTROPHILS % (MAN) 77 % (42-78); TOTAL CELLS COUNTED 100; TOXIC GRANULATION SLIGHT
[2017-12-07 17:42] LABS: ALANINE AMINOTRANSFERASE 27 U/L (21-72); ALBUMIN 4.1 g/dL (3.5-5.0); ALKALINE PHOSPHATASE 101 U/L (38-126); ANION GAP 13 (5-19); ASPARTATE AMINO TRANSFERASE 18 U/L (17-59); BILIRUBIN,DIRECT 0.4 mg/dL (0.0-0.4); BILIRUBIN,TOTAL 0.6 mg/dL (0.2-1.3); BLOOD UREA NITROGEN 25 mg/dL (7-20); CALCIUM 9.7 mg/dL (8.4-10.2); CARBON DIOXIDE 28 mmol/L (22-30); CHLORIDE 105 mmol/L (98-107); GLUCOSE 100 mg/dL (75-110); LIPASE 142.8 U/L (23-300); POTASSIUM 4.2 mmol/L (3.6-5.0); SODIUM 145.5 mmol/L (137-145); TOTAL PROTEIN 7.3 g/dL (6.3-8.2)
[2017-12-07 17:55] LABS: APPEARANCE,URINE CLEAR; BILIRUBIN,URINE NEGATIVE (NEGATIVE); COLOR,URINE YELLOW; GLUCOSE, URINE NEGATIVE (NEGATIVE); KETONES,URINE NEGATIVE (NEGATIVE); LEUKOCYTE ESTERASE,URINE NEGATIVE (NEGATIVE); NITRITE,URINE NEGATIVE (NEGATIVE); PROTEIN,URINE 30 mg/dL (NEGATIVE); URINE SPECIFIC GRAVITY 1.019; UROBILINOGEN,URINE NEGATIVE mg/dL (<2.0)
[2017-12-07] MEDS ORDERED: METRONIDAZOLE 500 MG/NS RTU 500 MG/100 ML RTUPB IV ONE (18:14)
[2017-12-07] MEDS ORDERED: NORMAL SALINE 1000 ML 1,000 ML IV ONE ×2 (18:15→23:45)
--- NOTE | 2017-12-07 18:25 | ER Document Report ---
ED GI/ - General TRAVEL OUTSIDE OF THE [place] IN LAST 30 DAYS: No <CHRISTIANO KHAN - Last Filed: 12/07/17 18:43> <RICO MONK - Last Filed: 12/07/17 23:13> - General Chief Complaint: Abdominal Pain Stated Complaint: ABDOMINAL PAIN Time Seen by Provider: 12/07/17 17:13 Notes: Patient is here complaining of pain in the lower abdomen, more on the than on the right. The pain is similar to pain that he has had several times in the last couple of months and was diagnosed with diverticulitis. He was first seen here in early October and the light is and treated with IV antibiotics and then discharged on oral antibiotics. He returned in early November with a recurrence of the diverticulitis with abscess formation in the left abdomen and required percutaneous drainage. He went home and now has had recurrent pain and low- grade fever last night. Try to go to work today and was only able to take 4 hours before he decided to come here now. Has not had any vomiting. Had a bowel movement today. No blood seen in the bowel movement. Has had a low- grade fever. No other abdominal surgical procedures. (CHRISTIANO KHAN) - Related Data Allergies/Adverse Reactions: No Known Allergies Allergy (Verified 07/23/16 11:08) Past Medical History - Social History Smoking Status: Unknown if Ever Smoked Family History: Reviewed & Not Pertinent, Arthritis, CAD, CVA, DM, Hyperlipidemia, Hypertension, Malignancy, Thyroid Disfunction Patient has suicidal ideation: No Patient has homicidal ideation: No - Past Medical History Cardiac Medical History: Reports: Hx Congestive Heart Failure, Hx Coronary Artery Disease Pulmonary Medical History: Reports: Hx Bronchitis, Hx COPD Malignancy Medical History: Reports Hx Skin Cancer GI Medical History: Reports: Hx Diverticulitis Musculoskeltal Medical History: Reports Hx Arthritis Past Surgical History: Reports: Hx Abdominal Surgery - Percutaneous drainage of abscess earlier this month., Hx Cardiac Surgery - Immunizations Hx Diphtheria, Pertussis, Tetanus Vaccination: Yes <CHRISTIANO KHAN - Last Filed: 12/07/17 18:43> Review of Systems <CHRISTIANO KHAN - Last Filed: 12/07/17 18:43> <RICO MONK - Last Filed: 12/07/17 23:13> - Review of Systems Notes: REVIEW OF SYSTEMS: CONSTITUTIONAL : Denies fever. EENT: Denies eye, ear, nose or mouth or throat pain or other symptoms. CARDIOVASCULAR: Denies chest pain. RESPIRATORY: Denies cough, chest congestion, or shortness of breath. GASTROINTESTINAL: See HPI. GENITOURINARY: Denies difficulty or painful urinating, urinary frequency, blood in urine. MUSCULOSKELETAL: Denies back or neck pain. Denies joint pain or swelling. SKIN: Denies rash or skin lesions. NEUROLOGICAL: Denies LOC or altered mental status. Denies headache. Denies sensory loss or motor deficits. ALL OTHER SYSTEMS REVIEWED AND NEGATIVE. (CHRISTIANO KHAN) Physical Exam - Vital signs Interpretation: Normal. No: Febrile <CHRISTIANO KHAN - Last Filed: 12/07/17 18:43> <RICO MONK - Last Filed: 12/07/17 23:13> - Vital signs Vitals: Temp Pulse Resp BP Pulse Ox 98.6 F 98 17 148/78 H 94 12/07/17 16:24 12/07/17 16:24 12/07/17 16:24 12/07/17 16:24 12/07/17 16:24 - Notes Notes: PHYSICAL EXAMINATION: GENERAL: Well-appearing, in no acute distress. Anxious. Vital signs are all essentially normal. HEAD: Atraumatic, normocephalic. EYES: Pupils equal round and reactive to light, extraocular movements intact. ENT: oropharynx clear without exudates. Moist mucous membranes. NECK: Normal range of motion, supple. LUNGS: Breath sounds clear and equal bilaterally. HEART: Regular rate and rhythm without murmurs. ABDOMEN: Diffuse tenderness in the lower abdomen, more so on the left side with some guarding on the left. No actual rebound felt. Bowel sounds are present. No bruits heard. BACK: No tenderness throughout entire back. EXTREMITIES: Normal range of motion without pain. NEUROLOGICAL: Normal speech, normal gait. Normal sensory, motor, and reflex exams. Awake, alert, and oriented x3. Cranial nerves normal. PSYCH: Normal mood, normal affect. SKIN: Warm, dry, no rashes. (CHRISTIANO KHAN) Course - Laboratory Result Diagrams: 12/07/17 16:47 12/07/17 16:47 <CHRISTIANO KHAN - Last Filed: 12/07/17 18:43> - Laboratory Result Diagrams: 12/07/17 16:47 12/07/17 16:47 <RICO MONK - Last Filed: 12/07/17 23:13> - Re-evaluation Re-evalutation: 12/07/17 18:43 approximately 1 hour ago, I contacted Dr. Roberson, employee relations consultant surgeon, regarding what type of CT to order. He wants a CT with oral contrast. I will be turning this patient over to Dr. Monk, as my shift is coming to an end (CHRISTIANO KHAN) 12/07/17 22:10 There does not appear to be an abscess but with patient's WBC count elevated contacted surgery for consult. At this time will admit to the hospitalist for IV antibiotics and possible surgical consult/surgery if needed. (RICO MONK ) - Vital Signs Vital signs: Temp Pulse Resp BP Pulse Ox 98.6 F 98 17 148/78 H 94 12/07/17 16:24 12/07/17 16:24 12/07/17 16:24 12/07/17 16:24 12/07/17 16:24 - Laboratory Laboratory results interpreted by me: 12/07/17 12/07/17 12/07/17 16:47 16:47 16:47 WBC 22.1 H RDW 15.2 H Lymphocytes % (Manual) 12 L Abs Neuts (Manual) 17.0 H Abs Monocytes (Manual) 2.2 H Sodium 145.5 H BUN 25 H Urine Protein 30 H Discharge <CHRISTIANO KHAN - Last Filed: 12/07/17 18:43> - Discharge Admitting Provider: Surgicalist Lobo Roberson Unit Admitted: Medical Floor <RICO MONK - Last Filed: 12/07/17 23:13> - Discharge Clinical Impression: Diverticulitis large intestine Qualifiers: Diverticulitis bleeding: without bleeding Diverticulitis complication: unspecified complication status Qualified Code(s): K57.32 - Diverticulitis of large intestine without perforation or abscess without bleeding Condition: Good Disposition: ADMITTED INPATIENT
--- NOTE | 2017-12-07 21:33 | RADIOLOGY REPORT (SQ) ---
EXAM DESCRIPTION: CT ABD/PELVIS WITH IV ORAL COMPLETED DATE/TIME: 12/07/2017 9:04 pm REASON FOR STUDY: Abdominal pain, Hx diverticulitis 2 recent COMPARISON: 11/13/2017. TECHNIQUE: CT scan of the abdomen and pelvis performed using helical scanning technique with dynamic intravenous contrast injection. No oral contrast. Images reviewed with lung, soft tissue, and bone windows. Reconstructed coronal and sagittal MPR images reviewed. Delayed images for evaluation of the urinary system also acquired. All images stored on PACS. All CT scanners at this facility use dose modulation, iterative reconstruction, and/or weight based d osing when appropriate to reduce radiation dose to as low as reasonably achievable (ALARA). [facility]: Dose Right [facility]: CareDose [facility]: Dose Right [facility]: Teradose 4D [facility]: [employer] CONTRAST TYPE AND DOSE: contrast/concentration: Isovue 370.00 mg/ml; Total Contrast Delivered: 100.0 ml; Total Saline Delivered: 70.0 ml RENAL FUNCTION: BUN 25 creatinine 1.09. RADIATION DOSE: CT Rad equipment meets quality standard of care and radiation dose reduction techniq ues were employed. CTDIvol: 17.2 - 18.8 mGy. DLP: 1935 mGy-cm.. LIMITATIONS: None. FINDINGS: LOWER CHEST: No significant findings. No nodules or infiltrates. LIVER: Normal size. Small cyst. No masses. No dilated ducts. SPLEEN: Normal size. No focal lesions. PANCREAS: No masses. No significant calcifications. No adjacent inflammation or peripancreatic fluid collections. Pancreatic duct not dilated. GALLBLADDER: No identified stones by CT criteria. No inflammatory changes to suggest cholecystitis. ADRENAL GLANDS: No significant masses or asymmetry. RIGHT KIDNEY AND URETER: No solid masses. No significant calcifications. No hydronephrosis or hyd roureter. LEFT KIDNEY AND URETER: No solid masses. No significant calcifications. No hydronephrosis or hydr oureter. AORTA AND VESSELS: No aneurysm. No dissection. Renal arteries, SMA, celiac without stenosis. RETROPERITONEUM: No retroperitoneal adenopathy, hemorrhage or masses. BOWEL AND PERITONEAL CAVITY: Numerous colonic diverticuli in the descending and sigmoid colon. Mild focal density medial to the descending colon at the site of previous abscess and drainage. Currently no drainable abscess. There is also focal inflammatory change in the mid sigmoid colon which was no t present on the prior study. No focal abscess in this area. No free fluid or peritoneal masses. APPENDIX: Normal. PELVIS: No mass. No free fluid. Normal bladder. ABDOMINAL WALL: No masses. No hernias. BONES: No significant or acute findings. Degenerative changes in the spine. OTHER: No other significant finding. IMPRESSION: 1. NEW AREA OF ACUTE DIVERTICULITIS IN THE MID SIGMOID COLON. NO EVIDENCE OF ABSCESS. 2. PREVIOUS AREA OF DIVERTICULITIS INVOLVING THE DESCENDING COLON. THERE IS MILD FOCAL DENSITY MEDIA L TO THE DESCENDING COLON AT THE SITE OF THE PREVIOUS ABSCESS WHICH HAD BEEN DRAINED PERCUTANEOUSLY. CURRENTLY NO DRAINABLE ABSCESS. 3. NO OTHER SIGNIFICANT OR ACUTE FINDING IN THE ABDOMEN OR PELVIS ON CT SCAN WITH IV CONTRAST. TECHNICAL DOCUMENTATION: JOB ID: [id number] Quality ID # [id number]: Final reports with documentation of one or more dose reduction techniques (e.g., Au tomated exposure control, adjustment of the mA and/or kV according to patient size, use of iterative reconstruction technique) 2010 [employer]- All Rights Reserved Reading location - IP/workstation name: [email or web address]
[2017-12-07] MEDS ORDERED: CIPROFLOXACIN 400 MG/D5W RTU 400 MG/200 ML RTUPB IV SCH (22:00)
[2017-12-07] MEDS ORDERED: VANCOMYCIN HCL INJ 1000 MG VIAL IV ONE (23:26)
[2017-12-07] MEDS ORDERED: PIPERACILLIN/TAZOBACTAM 3.375 GM VIAL IV ONE (23:26)
[2017-12-07] MEDS ORDERED: ENOXAPARIN SODIUM INJ 40 MG/0.4 ML DISP.SYRIN SUBCUT ONE (23:45)
[2017-12-07] MEDS ORDERED: FAMOTIDINE INJ/PF 20 MG/2 ML SDV IV ONE (23:45)
[2017-12-07] MEDS ORDERED: PIPERACILLIN/TAZOBACTAM 3.375 GM VIAL IV PRN (23:45)
[2017-12-07] MEDS ORDERED: ONDANSETRON HCL INJ/PF 4 MG/2 ML SDV IV PRN (23:47)
[2017-12-08] MEDS ORDERED: PIPERACILLIN SODIUM/TAZOBACTAM 3.375 GM in NORMAL SALINE 100 ML IV SCH ×2
[2017-12-08] MEDS: HYDROMORPHONE HCL INJ/PF 2 MG/ML AMPULE IV PRN ×2 (00:26→03:42)
[2017-12-08] MEDS ORDERED: PIPERACILLIN/TAZOBACTAM 3.375 GM VIAL IV ONE (04:58)
[2017-12-08 04:59] LABS: ABSOLUTE BASOPHILS # (AUTO) 0.1 10^3/uL (0.0-0.2); ABSOLUTE EOSINOPHILS # (AUTO) 0.2 10^3/uL (0.0-0.6); ABSOLUTE LYMPHOCYTES (AUTO) 1.9 10^3/uL (0.5-4.7); ABSOLUTE MONOCYTES (AUTO) 1.3 10^3/uL (0.1-1.4); ABSOLUTE NEUT (AUTO) 12.1 10^3/uL (1.7-8.2); BASOPHILS % (AUTO) 0.7 % (0-2); EOSINOPHILS % (AUTO) 1.5 % (0-6); HEMATOCRIT 35.9 % (37.9-51.0); MEAN CORPUSCULAR HEMOGLOBIN 31.2 pg (27.0-33.4); MEAN CORPUSCULAR HGB CONC 33.4 g/dL (32.0-36.0); MEAN CORPUSCULAR VOLUME 93 fl (80-97); MONOCYTES % (AUTO) 8.3 % (3-13); PLATELET COUNT 228 10^3/uL (150-450); RED BLOOD COUNT 3.85 10^6/uL (4.35-5.55); RED CELL DISTRIBUTION WIDTH 15.1 % (11.5-14.0); SEGMENTED NEUTROPHILS % (AUTO) 77.5 % (42-78); TOTAL CELLS COUNTED % (AUTO) 100 %; WHITE BLOOD COUNT 15.6 10^3/uL (4.0-10.5)
[2017-12-08] MEDS: NORMAL SALINE 1000 ML 1,000 ML IV PRN ×2 (05:21→14:40)
[2017-12-08] MEDS: PIPERACILLIN SODIUM/TAZOBACTAM 3.375 GM in NORMAL SALINE 100 ML IV SCH ×4 (05:21→23:12)
[2017-12-08 05:29] LABS: ANION GAP 8 (5-19); BLOOD UREA NITROGEN 19 mg/dL (7-20); CALCIUM 8.4 mg/dL (8.4-10.2); CARBON DIOXIDE 23 mmol/L (22-30); CHLORIDE 108 mmol/L (98-107); GLUCOSE 138 mg/dL (75-110); SODIUM 139.2 mmol/L (137-145)
[2017-12-08] MEDS: MORPHINE SULFATE 10 MG/ML INJ IV PRN ×8 (06:03→23:12)
[2017-12-08] MEDS ORDERED: PHARMACY COMMUNICATION ORDER MC NR (07:45)
--- NOTE | 2017-12-08 08:31 | RADIOLOGY REPORT (SQ) ---
EXAM DESCRIPTION: CHEST SINGLE VIEW COMPLETED DATE/TIME: 12/08/2017 8:19 am REASON FOR STUDY: NGT placement verification COMPARISON: 11/17/2017. FINDINGS: Single-view lower chest upper abdomen. Nasogastric tube has its tip appropriately located in the stomach. Probable basilar subsegmental atelectasis. Nonobstructive bowel gas pattern. IMPRESSION: Nasogastric tube with tip appropriately within the stomach. TECHNICAL DOCUMENTATION: JOB ID: [id number] Reading location - IP/workstation name: [email or web address]
[2017-12-08] MEDS: BENZOCAINE/MENTHOL SORE THROAT LOZENGE BUCCAL PRN ×5 (08:38→20:38)
[2017-12-08] MEDS: CARVEDILOL 12.5 MG TABLET NG SCH ×2 (09:12→21:49)
[2017-12-08] MEDS: CLOPIDOGREL BISULFATE 75 MG TABLET NG SCH (09:13)
[2017-12-08] MEDS: AMIODARONE HCL 200 MG TABLET NG SCH (09:13)
[2017-12-08] MEDS: ASPIRIN 81 MG TABLET, CHEWABLE NG SCH (09:13)
[2017-12-08] MEDS: SPIRONOLACTONE 25 MG TABLET NG SCH (09:13)
[2017-12-08] MEDS: NICOTINE 21 MG/24 HR PATCH.TD24 TD SCH (09:13)
[2017-12-08] MEDS: FAMOTIDINE INJ/PF 20 MG/2 ML SDV IV SCH ×2 (09:14→21:48)
[2017-12-08] MEDS: VANCOMYCIN HCL 1,000 MG in DEXTROSE 5%-WATER 250 ML IV SCH ×2 (09:59→19:04)
[2017-12-08] MEDS ORDERED: CARVEDILOL 12.5 MG TABLET PO SCH (10:00)
[2017-12-08] MEDS ORDERED: ASPIRIN 81 MG TABLET, ENT COATED PO SCH (10:00)
[2017-12-08] MEDS ORDERED: CLOPIDOGREL BISULFATE 75 MG TABLET PO SCH (10:00)
[2017-12-08] MEDS ORDERED: SPIRONOLACTONE 25 MG TABLET PO SCH (10:00)
[2017-12-08] MEDS ORDERED: AMIODARONE HCL 200 MG TABLET PO SCH (10:00)
--- NOTE | 2017-12-08 12:46 | RADIOLOGY REPORT (SQ) ---
EXAM DESCRIPTION: CHEST SINGLE VIEW COMPLETED DATE/TIME: 12/08/2017 12:25 pm REASON FOR STUDY: assess NG tube placement COMPARISON: 12/08/2017 earlier. FINDINGS: Single view AP portable semi upright image including the lower chest and upper abdomen. Diminished bibasilar aeration, unchanged. Nasogastric tube with its tip appropriately within the stomach. TECHNICAL DOCUMENTATION: JOB ID: [id number] Reading location - IP/workstation name: [email or web address]
--- NOTE | 2017-12-08 12:54 | PDOC PROGRESS REPORT ---
Subjective Progress Note for:: 12/08/17 Subjective:: reports flatus and liquid stools, decreased abdominal pain Reason For Visit: DIVERTICULITIS OF LARGE INTESTINE Physical Exam Vital Signs: Temp Pulse Resp BP Pulse Ox 98.9 F 70 16 118/64 100 12/08/17 11:26 12/08/17 11:26 12/08/17 11:26 12/08/17 11:26 12/08/17 11:26 Intake & Output 12/07/17 12/08/17 12/09/17 06:59 06:59 06:59 Intake Total 806 0 Balance 806 0 Weight 98 kg General appearance: PRESENT: no acute distress, cooperative Respiratory exam: PRESENT: clear to auscultation adelaida Cardiovascular exam: PRESENT: RRR GI/Abdominal exam: PRESENT: distended, normal bowel sounds, soft, tenderness - lower quadrants Results Laboratory Results: 12/08/17 04:50 12/08/17 04:50 12/08/17 12/08/17 04:50 04:50 WBC 15.6 H RBC 3.85 L Hgb 12.0 L Hct 35.9 L MCV 93 MCH 31.2 MCHC 33.4 RDW 15.1 H Plt Count 228 Seg Neutrophils % 77.5 Lymphocytes % 12.0 L Monocytes % 8.3 Eosinophils % 1.5 Basophils % 0.7 Absolute Neutrophils 12.1 H Absolute Lymphocytes 1.9 Absolute Monocytes 1.3 Absolute Eosinophils 0.2 Absolute Basophils 0.1 Sodium 139.2 Potassium 4.0 Chloride 108 H Carbon Dioxide 23 Anion Gap 8 BUN 19 Creatinine 0.88 Est GFR ( Amer) > 60 Est GFR (Non-Af Amer) > 60 Glucose 138 H Calcium 8.4 Impressions: Abdomen/Pelvis CT 12/07/17 00:00 IMPRESSION: 1. NEW AREA OF ACUTE DIVERTICULITIS IN THE MID SIGMOID COLON. NO EVIDENCE OF ABSCESS. 2. PREVIOUS AREA OF DIVERTICULITIS INVOLVING THE DESCENDING COLON. THERE IS MILD FOCAL DENSITY MEDIAL TO THE DESCENDING COLON AT THE SITE OF THE PREVIOUS ABSCESS WHICH HAD BEEN DRAINED PERCUTANEOUSLY. CURRENTLY NO DRAINABLE ABSCESS. 3. NO OTHER SIGNIFICANT OR ACUTE FINDING IN THE ABDOMEN OR PELVIS ON CT SCAN WITH IV CONTRAST. Assessment & Plan - Diagnosis (1) Diverticulitis large intestine Qualifiers: Diverticulitis bleeding: without bleeding Diverticulitis complication: without perforation or abscess Qualified Code(s): K57.32 - Diverticulitis of large intestine without perforation or abscess without bleeding Is this a current diagnosis for this admission?: Yes - Plan Summary Plan Summary: A/ Acute sigmoid diverticulits, new infectious focus from more recent in past October when left colon was affected with abscess formation No recurrent or pericolonic abscess remnant VSS, AF WBC decreased to 15 Flatus and stools (liquid present) Scant NGT output Decreased abdominal girth and pain P/ Cntinue NPO Continue Vanco/Zosy when patient WBC normalizes and symptoms regress, diet can be advanced Possible phone consultation with [facility] specialist to plan appropriate home abx regimen (oral vs IV) and duration When infection is under control, patient should have colonoscopy and left colectomy at once during surgery to minimize the risk of perforating the colon during elective colonoscopy which might require emergent surgery
[2017-12-08] MEDS: ENOXAPARIN SODIUM INJ 40 MG/0.4 ML DISP.SYRIN SUBCUT SCH (21:48)
[2017-12-08] MEDS ORDERED: VANCOMYCIN HCL 1,000 MG in DEXTROSE 5%-WATER 250 ML IV SCH (22:00)
[2017-12-09] MEDS: MORPHINE SULFATE 10 MG/ML INJ IV PRN ×9 (01:10→21:42)
[2017-12-09] MEDS: BENZOCAINE/MENTHOL SORE THROAT LOZENGE BUCCAL PRN ×4 (01:10→10:01)
[2017-12-09] MEDS: VANCOMYCIN HCL 1,000 MG in DEXTROSE 5%-WATER 250 ML IV SCH ×3 (01:38→18:17)
[2017-12-09] MEDS: NORMAL SALINE 1000 ML 1,000 ML IV PRN ×2 (01:39→15:06)
[2017-12-09 05:14] LABS: ABSOLUTE BASOPHILS # (AUTO) 0.1 10^3/uL (0.0-0.2); ABSOLUTE EOSINOPHILS # (AUTO) 0.5 10^3/uL (0.0-0.6); ABSOLUTE LYMPHOCYTES (AUTO) 1.1 10^3/uL (0.5-4.7); ABSOLUTE NEUT (AUTO) 5.7 10^3/uL (1.7-8.2); BASOPHILS % (AUTO) 1.2 % (0-2); EOSINOPHILS % (AUTO) 5.6 % (0-6); HEMATOCRIT 34.3 % (37.9-51.0); HEMOGLOBIN 11.6 g/dL (13.5-17.0); LYMPHOCYTES % (AUTO) 13.3 % (13-45); MEAN CORPUSCULAR HEMOGLOBIN 31.5 pg (27.0-33.4); MEAN CORPUSCULAR VOLUME 93 fl (80-97); MONOCYTES % (AUTO) 11.6 % (3-13); PLATELET COUNT 220 10^3/uL (150-450); RED BLOOD COUNT 3.69 10^6/uL (4.35-5.55); RED CELL DISTRIBUTION WIDTH 15.1 % (11.5-14.0); SEGMENTED NEUTROPHILS % (AUTO) 68.3 % (42-78); TOTAL CELLS COUNTED % (AUTO) 100 %; WHITE BLOOD COUNT 8.3 10^3/uL (4.0-10.5)
[2017-12-09] MEDS: PIPERACILLIN SODIUM/TAZOBACTAM 3.375 GM in NORMAL SALINE 100 ML IV SCH ×3 (05:44→17:43)
[2017-12-09 06:18] LABS: ANION GAP 9 (5-19); BLOOD UREA NITROGEN 13 mg/dL (7-20); CALCIUM 8.7 mg/dL (8.4-10.2); CARBON DIOXIDE 23 mmol/L (22-30); CHLORIDE 109 mmol/L (98-107); GLUCOSE 118 mg/dL (75-110); SODIUM 140.5 mmol/L (137-145)
[2017-12-09] MEDS: AMIODARONE HCL 200 MG TABLET NG SCH (10:02)
[2017-12-09] MEDS: FAMOTIDINE INJ/PF 20 MG/2 ML SDV IV SCH ×2 (10:02→21:42)
[2017-12-09] MEDS: CLOPIDOGREL BISULFATE 75 MG TABLET NG SCH (10:02)
[2017-12-09] MEDS: CARVEDILOL 12.5 MG TABLET NG SCH (10:02)
[2017-12-09] MEDS: ASPIRIN 81 MG TABLET, CHEWABLE NG SCH (10:03)
[2017-12-09] MEDS: SPIRONOLACTONE 25 MG TABLET NG SCH (10:03)
[2017-12-09] MEDS: NICOTINE 21 MG/24 HR PATCH.TD24 TD SCH (10:04)
--- NOTE | 2017-12-09 17:07 | PDOC PROGRESS REPORT ---
Subjective Progress Note for:: 12/09/17 Subjective:: continues to pass flatus Less LLQ pains Reason For Visit: DIVERTICULITIS OF LARGE INTESTINE Physical Exam Vital Signs: Temp Pulse Resp BP Pulse Ox 98.1 F 73 17 140/81 H 98 12/09/17 15:24 12/09/17 15:24 12/09/17 15:24 12/09/17 15:24 12/09/17 15:24 Intake & Output 12/08/17 12/09/17 12/10/17 06:59 06:59 06:59 Intake Total 806 2914 0 Output Total 550 1100 Balance 806 2364 -1100 Weight 98 kg 100.1 kg Exam: abd is soft with mild tenderness RLQ Results Laboratory Results: 12/09/17 05:05 12/09/17 10:11 12/09/17 12/09/17 12/09/17 05:05 05:05 10:11 WBC 8.3 RBC 3.69 L Hgb 11.6 L Hct 34.3 L MCV 93 MCH 31.5 MCHC 34.0 RDW 15.1 H Plt Count 220 Seg Neutrophils % 68.3 Lymphocytes % 13.3 Monocytes % 11.6 Eosinophils % 5.6 Basophils % 1.2 Absolute Neutrophils 5.7 Absolute Lymphocytes 1.1 Absolute Monocytes 1.0 Absolute Eosinophils 0.5 Absolute Basophils 0.1 Sodium 140.5 Potassium 4.0 Chloride 109 H Carbon Dioxide 23 Anion Gap 9 BUN 13 Creatinine 0.90 0.93 Est GFR ( Amer) > 60 > 60 Est GFR (Non-Af Amer) > 60 > 60 Glucose 118 H Calcium 8.7 Impressions: Abdomen/Pelvis CT 12/07/17 00:00 IMPRESSION: 1. NEW AREA OF ACUTE DIVERTICULITIS IN THE MID SIGMOID COLON. NO EVIDENCE OF ABSCESS. 2. PREVIOUS AREA OF DIVERTICULITIS INVOLVING THE DESCENDING COLON. THERE IS MILD FOCAL DENSITY MEDIAL TO THE DESCENDING COLON AT THE SITE OF THE PREVIOUS ABSCESS WHICH HAD BEEN DRAINED PERCUTANEOUSLY. CURRENTLY NO DRAINABLE ABSCESS. 3. NO OTHER SIGNIFICANT OR ACUTE FINDING IN THE ABDOMEN OR PELVIS ON CT SCAN WITH IV CONTRAST. Assessment & Plan - Time Time Spent with patient: 15-24 minutes - Plan Summary Plan Summary: D/C NGT and start clears Continue antibiotic therapy PIC line for continued IV antibiotics x 14 days
[2017-12-09] MEDS ORDERED: NORMAL SALINE 1000 ML 1,000 ML IV PRN (20:58)
[2017-12-09] MEDS: ENOXAPARIN SODIUM INJ 40 MG/0.4 ML DISP.SYRIN SUBCUT SCH (21:42)
[2017-12-09] MEDS: CARVEDILOL 12.5 MG TABLET PO SCH (21:42)
[2017-12-10] MEDS: PIPERACILLIN SODIUM/TAZOBACTAM 3.375 GM in NORMAL SALINE 100 ML IV SCH ×2 (00:42→05:59)
[2017-12-10] MEDS: MORPHINE SULFATE 10 MG/ML INJ IV PRN ×3 (00:42→08:17)
[2017-12-10] MEDS: VANCOMYCIN HCL 1,000 MG in DEXTROSE 5%-WATER 250 ML IV SCH (03:04)
[2017-12-10 07:45] LABS: ABSOLUTE BASOPHILS # (AUTO) 0.1 10^3/uL (0.0-0.2); ABSOLUTE EOSINOPHILS # (AUTO) 0.4 10^3/uL (0.0-0.6); ABSOLUTE LYMPHOCYTES (AUTO) 1.3 10^3/uL (0.5-4.7); BASOPHILS % (AUTO) 1.1 % (0-2); EOSINOPHILS % (AUTO) 5.2 % (0-6); HEMATOCRIT 37.2 % (37.9-51.0); HEMOGLOBIN 12.6 g/dL (13.5-17.0); LYMPHOCYTES % (AUTO) 16.7 % (13-45); MEAN CORPUSCULAR HEMOGLOBIN 32.5 pg (27.0-33.4); MEAN CORPUSCULAR VOLUME 96 fl (80-97); MONOCYTES % (AUTO) 12.6 % (3-13); PLATELET COUNT 193 10^3/uL (150-450); RED BLOOD COUNT 3.89 10^6/uL (4.35-5.55); RED CELL DISTRIBUTION WIDTH 14.9 % (11.5-14.0); SEGMENTED NEUTROPHILS % (AUTO) 64.4 % (42-78); TOTAL CELLS COUNTED % (AUTO) 100 %; WHITE BLOOD COUNT 7.7 10^3/uL (4.0-10.5)
[2017-12-10 08:04] LABS: ANION GAP 11 (5-19); BLOOD UREA NITROGEN 18 mg/dL (7-20); CALCIUM 8.9 mg/dL (8.4-10.2); CARBON DIOXIDE 22 mmol/L (22-30); CHLORIDE 108 mmol/L (98-107); GLUCOSE 99 mg/dL (75-110); POTASSIUM 4.4 mmol/L (3.6-5.0); SODIUM 140.9 mmol/L (137-145)
[2017-12-10] MEDS: SPIRONOLACTONE 25 MG TABLET PO SCH (10:03)
[2017-12-10] MEDS: FAMOTIDINE INJ/PF 20 MG/2 ML SDV IV SCH ×2 (10:04→21:49)
[2017-12-10] MEDS: AMIODARONE HCL 200 MG TABLET PO SCH (10:04)
[2017-12-10] MEDS: CARVEDILOL 12.5 MG TABLET PO SCH ×2 (10:04→21:49)
[2017-12-10] MEDS: NICOTINE 21 MG/24 HR PATCH.TD24 TD SCH (10:04)
[2017-12-10] MEDS: CLOPIDOGREL BISULFATE 75 MG TABLET PO SCH (10:04)
[2017-12-10] MEDS: ASPIRIN 81 MG TABLET, CHEWABLE PO SCH (10:04)
[2017-12-10] MEDS: RINGERS SOLUTION,LACTATED 1,000 ML IV PRN ×2 (10:05→20:56)
[2017-12-10] MEDS ORDERED: KETOROLAC TROMETHAMINE INJ/PF 30 MG/1 ML SDV IV PRN (14:02)
[2017-12-10 15:54] LABS: ANION GAP 9 (5-19); BLOOD UREA NITROGEN 20 mg/dL (7-20); CALCIUM 8.8 mg/dL (8.4-10.2); CARBON DIOXIDE 23 mmol/L (22-30); CHLORIDE 108 mmol/L (98-107); GLUCOSE 117 mg/dL (75-110); POTASSIUM 4.7 mmol/L (3.6-5.0); SODIUM 139.9 mmol/L (137-145)
[2017-12-10] MEDS: PIPERACILLIN SODIUM/TAZOBACTAM 2.25 GM in NORMAL SALINE 50 ML IV SCH ×2 (16:02→21:49)
[2017-12-10] MEDS ORDERED: ACETAMINOPHEN INJ/PF 1000 MG/100 ML SDV IV SCH (18:00)
[2017-12-10] MEDS: ACETAMINOPHEN 1,000 MG/100 ML RTUPB IV SCH (18:21)
--- NOTE | 2017-12-10 18:25 | PDOC PROGRESS REPORT ---
Subjective Progress Note for:: 12/10/17 Subjective:: No new complaints, tolerating full liquids This morning patient's creatinine was noted to have jumped up to 1 2.78. His vancomycin was held and started on IV. His creatinine was repeated this afternoon and it is now up to 3.34 Reason For Visit: DIVERTICULITIS OF LARGE INTESTINE Physical Exam Vital Signs: Temp Pulse Resp BP Pulse Ox 98.6 F 64 16 148/82 H 98 12/10/17 14:48 12/10/17 14:48 12/10/17 14:48 12/10/17 14:48 12/10/17 14:48 Intake & Output 12/09/17 12/10/17 12/11/17 06:59 06:59 06:59 Intake Total 2914 2880 625 Output Total 550 1200 275 Balance 2364 1680 350 Weight 100.1 kg 101.2 kg General appearance: PRESENT: no acute distress GI/Abdominal exam: PRESENT: other - Remains distended and mildly tympanitic sore no peritoneal signs mild guarding left lower quadrant Results Laboratory Results: 12/10/17 07:15 12/10/17 15:30 12/10/17 12/10/17 12/10/17 07:15 07:15 15:30 WBC 7.7 RBC 3.89 L Hgb 12.6 L Hct 37.2 L MCV 96 MCH 32.5 MCHC 34.0 RDW 14.9 H Plt Count 193 Seg Neutrophils % 64.4 Lymphocytes % 16.7 Monocytes % 12.6 Eosinophils % 5.2 Basophils % 1.1 Absolute Neutrophils 5.0 Absolute Lymphocytes 1.3 Absolute Monocytes 1.0 Absolute Eosinophils 0.4 Absolute Basophils 0.1 Sodium 140.9 139.9 Potassium 4.4 4.7 Chloride 108 H 108 H Carbon Dioxide 22 23 Anion Gap 11 9 BUN 18 20 Creatinine 2.78 H 3.34 H Est GFR ( Amer) 29 L 23 L Est GFR (Non-Af Amer) 24 L 19 L Glucose 99 117 H Calcium 8.9 8.8 Impressions: Abdomen/Pelvis CT 12/07/17 00:00 IMPRESSION: 1. NEW AREA OF ACUTE DIVERTICULITIS IN THE MID SIGMOID COLON. NO EVIDENCE OF ABSCESS. 2. PREVIOUS AREA OF DIVERTICULITIS INVOLVING THE DESCENDING COLON. THERE IS MILD FOCAL DENSITY MEDIAL TO THE DESCENDING COLON AT THE SITE OF THE PREVIOUS ABSCESS WHICH HAD BEEN DRAINED PERCUTANEOUSLY. CURRENTLY NO DRAINABLE ABSCESS. 3. NO OTHER SIGNIFICANT OR ACUTE FINDING IN THE ABDOMEN OR PELVIS ON CT SCAN WITH IV CONTRAST. Assessment & Plan - Diagnosis (1) Diverticulitis large intestine Qualifiers: Diverticulitis bleeding: without bleeding Diverticulitis complication: without perforation or abscess Qualified Code(s): K57.32 - Diverticulitis of large intestine without perforation or abscess without bleeding Is this a current diagnosis for this admission?: Yes Plan: Recurrence complicated left colonic and sigmoid colon diverticulitis with abscess, currently on intravenous antibiotics. His vancomycin has been stopped , and his PICC line has been held according to radiology guidelines. Currently the patient's gastrointestinal system appears to be functioning satisfactorily with him tolerating full liquids, and having minimal abdominal pain. Recommendations: 1. We will consult nephrology 2. We will keep in house;I believe given the complexity of this patient's recurrent complicated diverticular problem with multiple abscesses that he will require surgery this admission. This may require a diverting ileostomy versus a colostomy. 3. We will also have him evaluated by cardiology. (3) CHF (congestive heart failure) Qualifiers: Heart failure type: unspecified Heart failure chronicity: chronic Qualified Code(s): I50.9 - Heart failure, unspecified Is this a current diagnosis for this admission?: Yes
[2017-12-10] MEDS: ENOXAPARIN SODIUM INJ 40 MG/0.4 ML DISP.SYRIN SUBCUT SCH (21:31)
[2017-12-11] MEDS: ACETAMINOPHEN 1,000 MG/100 ML RTUPB IV SCH ×4 (00:06→18:32)
[2017-12-11] MEDS: PIPERACILLIN SODIUM/TAZOBACTAM 2.25 GM in NORMAL SALINE 50 ML IV SCH ×3 (03:02→15:14)
[2017-12-11 05:45] LABS: ABSOLUTE BASOPHILS # (AUTO) 0.1 10^3/uL (0.0-0.2); ABSOLUTE EOSINOPHILS # (AUTO) 0.5 10^3/uL (0.0-0.6); ABSOLUTE LYMPHOCYTES (AUTO) 1.3 10^3/uL (0.5-4.7); ABSOLUTE MONOCYTES (AUTO) 0.8 10^3/uL (0.1-1.4); ABSOLUTE NEUT (AUTO) 3.3 10^3/uL (1.7-8.2); BASOPHILS % (AUTO) 1.8 % (0-2); EOSINOPHILS % (AUTO) 8.3 % (0-6); HEMATOCRIT 35.2 % (37.9-51.0); HEMOGLOBIN 11.7 g/dL (13.5-17.0); LYMPHOCYTES % (AUTO) 21.9 % (13-45); MEAN CORPUSCULAR HEMOGLOBIN 30.9 pg (27.0-33.4); MEAN CORPUSCULAR HGB CONC 33.2 g/dL (32.0-36.0); MEAN CORPUSCULAR VOLUME 93 fl (80-97); MONOCYTES % (AUTO) 12.8 % (3-13); PLATELET COUNT 110 10^3/uL (150-450); RED BLOOD COUNT 3.79 10^6/uL (4.35-5.55); RED CELL DISTRIBUTION WIDTH 14.8 % (11.5-14.0); SEGMENTED NEUTROPHILS % (AUTO) 55.2 % (42-78); TOTAL CELLS COUNTED % (AUTO) 100 %
[2017-12-11] MEDS: RINGERS SOLUTION,LACTATED 1,000 ML IV PRN ×2 (05:51→13:48)
[2017-12-11 06:08] LABS: ANION GAP 9 (5-19); BLOOD UREA NITROGEN 23 mg/dL (7-20); CALCIUM 8.7 mg/dL (8.4-10.2); CARBON DIOXIDE 23 mmol/L (22-30); CHLORIDE 107 mmol/L (98-107); GLUCOSE 98 mg/dL (75-110); POTASSIUM 4.9 mmol/L (3.6-5.0)
[2017-12-11] MEDS: CARVEDILOL 12.5 MG TABLET PO SCH ×2 (11:07→21:58)
[2017-12-11] MEDS: FAMOTIDINE INJ/PF 20 MG/2 ML SDV IV SCH ×2 (11:07→22:00)
[2017-12-11] MEDS: AMIODARONE HCL 200 MG TABLET PO SCH (11:08)
[2017-12-11] MEDS: SPIRONOLACTONE 25 MG TABLET PO SCH (11:08)
[2017-12-11] MEDS: CLOPIDOGREL BISULFATE 75 MG TABLET PO SCH (11:09)
[2017-12-11] MEDS: ASPIRIN 81 MG TABLET, CHEWABLE PO SCH (11:09)
[2017-12-11] MEDS: NICOTINE 21 MG/24 HR PATCH.TD24 TD SCH (11:09)
--- NOTE | 2017-12-11 14:25 | XCELERA REPORT ---
[address] [address] Transthoracic Echocardiogram Report Name: CAT HECK Age: 57 yrs Gender: Male : 1960 Patient Status: Inpatient Patient Location: [address] [place] [address] Study Date: 12/11/2017 08:31 AM Procedure: A two-dimensional transthoracic echocardiogram with color flow and Doppler was performed. Study Quality: Fair. Reason For Study: Heart murmur and preop cardiac clearance History: Heart murmur and preop cardiac clearance. Ordering Physician: JOAN AMIN Performed By: Mary Contreras Interpretation Summary The left ventricle is normal in size. There is normal left ventricular wall thickness. LV EF is 65% Left ventricular systolic function is normal. Doppler measurements suggest impaired left ventricular relaxation, which is associated with grade I/IV or mild diastolic dysfunction No defenite regional wall motion abnormality. There is no thrombus. The right ventricle is grossly normal size. The left atrial size is normal. There is no evidence of mitral valve prolapse. There is no mitral valve stenosis. There is no mitral regurgitation noted. There is no aortic valve stenosis There is no LVOT obstruction. No aortic regurgitation is present. There is no tricuspid stenosis. No tricuspid regurgitation. Unable to calculate RVSP ( Pulmonary Hypertension ) due to insufficiet TR jet. There is no pulmonic valvular regurgitation. There is no pulmonic valvular stenosis. There is no pericardial effusion. MMode/2D Measurements & Calculations RVDd: 3.6 cm LVIDd: 6.4 cm FS: 41.2 % Ao root diam: 3.3 cm IVSd: 0.87 cm LVIDs: 3.8 cm EDV(Teich): 209.9 mlAo root area: 8.4 cm2 LVPWd: 0.87 cmESV(Teich): 61.0 ml EF(Teich): 71.0 % LVOT diam: 2.2 cm LVOT area: 3.7 cm2 Doppler Measurements & Calculations MV E max ace: MV dec slope: Ao V2 max: LV V1 max P.1 cm/sec 128.9 cm/sec 4.8 mmHg MV A max ace: 549.9 cm/sec2 Ao max PG: LV V1 max: 138.3 cm/sec MV dec time: 6.6 mmHg 109.6 cm/sec MV E/A: 0.82 0.21 sec JOCELYN(V,D): 3.2 cm2 PA V2 max: Pulm Sys Ace: 85.2 cm/sec 58.9 cm/sec PA max P.9 mmHgPulm [place] Ace: 53.3 cm/sec Pulm A Revs Ace: 25.5 cm/sec Pulm A Revs Dur: 0.13 sec Pulm S/D: 1.1 Left Ventricle The left ventricle is normal in size. There is normal left ventricular wall thickness. LV EF is 65%. Left ventricular systolic function is normal. Doppler measurements suggest impaired left ventricular relaxation, which is associated with grade I/IV or mild diastolic dysfunction. No defenite regional wall motion abnormality. There is no thrombus. There is no ventricular septal defect visualized. Right Ventricle The right ventricle is grossly normal size. Atria The right atrium is normal. The left atrial size is normal. The interatrial septum is intact with no evidence for an atrial septal defect. Mitral Valve There is no evidence of mitral valve prolapse. There is no vegetation seen on the mitral valve. There is no mitral valve stenosis. There is no mitral regurgitation noted. Aortic Valve There is no aortic valvular vegetation. There is no aortic valve stenosis. There is no LVOT obstruction. No aortic regurgitation is present. Tricuspid Valve There is no tricuspid stenosis. No tricuspid regurgitation. Unable to calculate RVSP ( Pulmonary Hypertension ) due to insufficiet TR jet. Pulmonic Valve There is no pulmonic valvular stenosis. There is no pulmonic valvular regurgitation. Great Vessels The aortic root is not well visualized but is probably normal size. Effusions There is no pericardial effusion. : JOAN AMIN > Joan Amin
--- NOTE | 2017-12-11 15:40 | PDOC PROGRESS REPORT ---
Subjective Progress Note for:: 12/11/17 Subjective:: Less LLQ pains today and tolerating liquid diet Reason For Visit: DIVERTICULITIS OF LARGE INTESTINE Physical Exam Vital Signs: Temp Pulse Resp BP Pulse Ox 97.9 F 66 18 164/91 H 100 12/11/17 10:52 12/11/17 10:52 12/11/17 10:52 12/11/17 10:52 12/11/17 10:52 Intake & Output 12/10/17 12/11/17 12/12/17 06:59 06:59 06:59 Intake Total 2880 5015 450 Output Total 1200 275 Balance 1680 4740 450 Weight 101.2 kg 104.6 kg Exam: Abdomen relatively soft with mild tenderness LLQ Results Laboratory Results: 12/11/17 05:38 12/11/17 05:38 12/10/17 12/11/17 12/11/17 15:30 05:38 05:38 WBC 6.0 RBC 3.79 L Hgb 11.7 L Hct 35.2 L MCV 93 MCH 30.9 MCHC 33.2 RDW 14.8 H Plt Count 110 L Seg Neutrophils % 55.2 Lymphocytes % 21.9 Monocytes % 12.8 Eosinophils % 8.3 H Basophils % 1.8 Absolute Neutrophils 3.3 Absolute Lymphocytes 1.3 Absolute Monocytes 0.8 Absolute Eosinophils 0.5 Absolute Basophils 0.1 Sodium 139.9 139.0 Potassium 4.7 4.9 Chloride 108 H 107 Carbon Dioxide 23 23 Anion Gap 9 9 BUN 20 23 H Creatinine 3.34 H 4.03 H Est GFR ( Amer) 23 L 19 L Est GFR (Non-Af Amer) 19 L 15 L Glucose 117 H 98 Calcium 8.8 8.7 Impressions: Abdomen/Pelvis CT 12/07/17 00:00 IMPRESSION: 1. NEW AREA OF ACUTE DIVERTICULITIS IN THE MID SIGMOID COLON. NO EVIDENCE OF ABSCESS. 2. PREVIOUS AREA OF DIVERTICULITIS INVOLVING THE DESCENDING COLON. THERE IS MILD FOCAL DENSITY MEDIAL TO THE DESCENDING COLON AT THE SITE OF THE PREVIOUS ABSCESS WHICH HAD BEEN DRAINED PERCUTANEOUSLY. CURRENTLY NO DRAINABLE ABSCESS. 3. NO OTHER SIGNIFICANT OR ACUTE FINDING IN THE ABDOMEN OR PELVIS ON CT SCAN WITH IV CONTRAST. Assessment & Plan - Time Time Spent with patient: 15-24 minutes - Plan Summary Plan Summary: Creatinine 4. Obtaining cardio and renal consults Hold Picc line and Plavix
--- NOTE | 2017-12-11 16:27 | PDOC CONSULTATION ---
Consultation Consult Date: 12/11/17 Consult reason:: ROLAN Mares History of Present Illness Admission Date/PCP: 12/07/17 23:14 History of Present Illness: CAT HECK is a 57 year old male With a history of hypertension, hyperlipidemia, CAD, and history of recurrent diverticulitis came in with complaints of nausea, vomiting,fever with chills and left lower quadrant pain quite similar to his previous attacks of acute diverticulitis. In the past he has had recurrent acute diverticulitis with history of abscess formation and has had drainage done. He had a CT scan with contrast done on the and confirmed he had left colon diverticulitis and was admitted for further evaluation and management. He was initially begun on Cipro/Flagyl/vancomycin and then later converted to IV Pip - Tazo. His Vanco levels on the was 15. His abdominal pains are better. He continues to have 2-3 loose stools a day. His urine output has been good untill the last 24 hours it might have dropped some. No history of any fever or chills now. His labs and medications were reviewed. I also did review the echocardiogram done on this admission by Dr. Lemus that shows normal LV ejection fraction with a mild LV diastolic function. Past Medical History Cardiac Medical History: Reports: Atrial Fibrillation, Coronary Artery Disease, Hypertension-primary Pulmonary Medical History: Reports: Bronchitis, Chronic Obstructive Pulmonary Disease (COPD) Malignancy Medical History: Reports: Skin Cancer GI Medical History: Reports: Diverticulitis Musculoskeltal Medical History: Reports: Arthritis Psychiatric Medical History: Denies: Depression Past Surgical History Past Surgical History: Reports: Coronary Stent Social History Smoking Status: Current Every Day Smoker Cigarettes Packs Per Day: 1 Number of Years Smokin Last Time Smoked: 12/07/17 Frequency of Alcohol Use: Rare Hx Recreational Drug Use: Yes - in 1970s denies current alcohol Drugs: Marijuana Hx Prescription Drug Abuse: No Family History Parental Family History Reviewed: Yes - Negative for CKD Children Family History Reviewed: No Sibling(s) Family History Reviewed.: No Medication/Allergy Home Medications: Amiodarone HCl [Cordarone 200 mg Tablet] 200 mg PO DAILY 10/16/17 Carvedilol [Coreg 25 mg Tablet] 25 mg PO Q12 10/16/17 Clopidogrel Bisulfate [Plavix 75 mg Tablet] 75 mg PO DAILY 10/16/17 Spironolactone [Aldactone 25 mg Tablet] 25 mg PO DAILY 10/16/17 Aspirin [Aspirin EC] 81 mg PO DAILY 11/13/17 Furosemide [Lasix 40 mg Tablet] 40 mg PO BID 12/08/17 Wilmer-3 Fatty Acids/Fish Oil [Fish Oil 1,000 mg Capsule] 1 each PO DAILY Allergies/Adverse Reactions: No Known Allergies Allergy (Verified 07/23/16 11:08) Review of Systems Constitutional: ABSENT: fatigue, fever(s), headache(s), night sweats, weakness Nose, Mouth, and Throat: ABSENT: mouth pain, sore throat Cardiovascular: ABSENT: dyspnea on exertion, edema, orthropnea, palpitations Respiratory: ABSENT: dyspnea, hemoptysis Gastrointestinal: PRESENT: abdominal pain, diarrhea, nausea. ABSENT: dysphagia , heartburn, hematemesis, hematochezia, vomiting Genitourinary: ABSENT: difficulty urinating, dysuria, hematuria Integumentary: ABSENT: lesions, pruritus, rash Neurological: ABSENT: abnormal gait, abnormal speech, focal weakness Hematologic/Lymphatic: ABSENT: easy bleeding, easy bruising, lymphadenopathy Physical Exam Vital Signs: Temp Pulse Resp BP Pulse Ox 97.9 F 66 18 164/91 H 100 12/11/17 10:52 12/11/17 10:52 12/11/17 10:52 12/11/17 10:52 12/11/17 10:52 Intake & Output 12/10/17 12/11/17 12/12/17 06:59 06:59 06:59 Intake Total 2880 5015 450 Output Total 1200 275 Balance 1680 4740 450 Weight 101.2 kg 104.6 kg General appearance: PRESENT: no acute distress Eye exam: PRESENT: conjunctiva pink, EOMI, PERRLA. ABSENT: scleral icterus Mouth exam: PRESENT: moist, neck supple Neck exam: ABSENT: lymphadenopathy, meningismus, tenderness, thyromegaly, tracheal deviation Respiratory exam: PRESENT: clear to auscultation adelaida. ABSENT: crackles, rhonchi Cardiovascular exam: PRESENT: +S1, +S2 GI/Abdominal exam: PRESENT: soft, tenderness - Mild in the left lower quadrant.. ABSENT: guarding, organomegaly Extremities exam: ABSENT: pedal edema Neurological exam: PRESENT: alert, awake, oriented to person, oriented to place , oriented to time Skin exam: ABSENT: erythema, rash Results Laboratory Results: 12/11/17 05:38 12/11/17 05:38 12/10/17 12/11/17 12/11/17 15:30 05:38 05:38 WBC 6.0 RBC 3.79 L Hgb 11.7 L Hct 35.2 L MCV 93 MCH 30.9 MCHC 33.2 RDW 14.8 H Plt Count 110 L Seg Neutrophils % 55.2 Lymphocytes % 21.9 Monocytes % 12.8 Eosinophils % 8.3 H Basophils % 1.8 Absolute Neutrophils 3.3 Absolute Lymphocytes 1.3 Absolute Monocytes 0.8 Absolute Eosinophils 0.5 Absolute Basophils 0.1 Sodium 139.9 139.0 Potassium 4.7 4.9 Chloride 108 H 107 Carbon Dioxide 23 23 Anion Gap 9 9 BUN 20 23 H Creatinine 3.34 H 4.03 H Est GFR ( Amer) 23 L 19 L Est GFR (Non-Af Amer) 19 L 15 L Glucose 117 H 98 Calcium 8.8 8.7 Impressions: Abdomen/Pelvis CT 12/07/17 00:00 IMPRESSION: 1. NEW AREA OF ACUTE DIVERTICULITIS IN THE MID SIGMOID COLON. NO EVIDENCE OF ABSCESS. 2. PREVIOUS AREA OF DIVERTICULITIS INVOLVING THE DESCENDING COLON. THERE IS MILD FOCAL DENSITY MEDIAL TO THE DESCENDING COLON AT THE SITE OF THE PREVIOUS ABSCESS WHICH HAD BEEN DRAINED PERCUTANEOUSLY. CURRENTLY NO DRAINABLE ABSCESS. 3. NO OTHER SIGNIFICANT OR ACUTE FINDING IN THE ABDOMEN OR PELVIS ON CT SCAN WITH IV CONTRAST. Assessment & Plan - Diagnosis (1) WYATT (acute kidney injury) Plan: Progressively worsening renal numbers. His urine output had been good but since yesterday it shows it is also dropping.Differentials here includes ATN/ contrast-induced nephropathy/acute interstitial nephritis.Rare possibility of diverticulitis and obstructive uropathy.Will discontinue his Piperacillin and instead start him on a combination of IV ceftazidime and Flagyl. If surgicalist wants to change the antibiotic regimen please feel free to do so if this seems inadequate. DC Ringer lactate and start him on half normal saline. Get labs and a renal ultrasound.We will continue to monitor. (2) Diverticulitis large intestine Qualifiers: Diverticulitis bleeding: without bleeding Diverticulitis complication: without perforation or abscess Qualified Code(s): K57.32 - Diverticulitis of large intestine without perforation or abscess without bleeding Is this a current diagnosis for this admission?: Yes Plan: Clinically and symptomatically improving. Changes have been made to his antibiotics for obvious reasons including possible allergic interstitial nephritis. (3) Hypertension Plan: Stable.
[2017-12-11] MEDS: 1/2 NORMAL SALINE 1,000 ML IV PRN (18:31)
--- NOTE | 2017-12-11 19:44 | EKG REPORT ---
SEVERITY:- ABNORMAL ECG - SINUS RHYTHM.BASELINE ARTIFACT FIRST DEGREE AV BLOCK REPEAT EKG : Confirmed by: Joan Zarate MD 11-Dec-2017 19:43:15
[2017-12-11] MEDS: FUROSEMIDE INJ/PF 20 MG/2 ML SDV IV SCH (21:59)
[2017-12-11] MEDS ORDERED: ENOXAPARIN SODIUM INJ 30 MG/0.3 ML DISP.SYRIN SUBCUT SCH (22:00)
[2017-12-11] MEDS ORDERED: METRONIDAZOLE 500 MG/NS RTU 250 MG in CONTAINER,EMPTY 1 EACH IV SCH (22:00)
--- NOTE | 2017-12-11 22:20 | PROGRESS NOTE E ---
Progress Note NAME: CAT HECK : 1960 AGE: 57Y DATE: 12/11/2017 ROOM: 335 INITIAL NOTE: The date of initial visit is 12/11/2017, but formal consult will be done after the patient's stress test, which I have ordered. Reason For Consultation: Preoperative cardiac risk assessment for bowel surgery , in a patient with coronary artery disease, history of circumflex stent, and prior history of cardiomyopathy. HISTORY: The patient is well known to me. 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 The patient is not yet ready for surgery. His renal functions are also worsening. 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 The patient has no anginal symptoms. His EF which was severely reduced at the time of his CA in 2014 later normalized and his ejection fraction now is normal. The patient has no anginal symptoms but he is not very active and he is an active smoker. Hence, an IV Lexiscan Cardiolite stress test will be ordered for tomorrow. This has been discussed with the patient. Formal consult will follow after the results of the stress test. We will follow with you. DICTATING PHYSICIAN: MINNIE AMIN M.D. [id number] YUVALY#: [id number] ID: [id number] JOB#: [id number] ACCT: [id number] cc: > YOSHID
[2017-12-12] MEDS: ACETAMINOPHEN 1,000 MG/100 ML RTUPB IV SCH ×5 (00:09→23:09)
[2017-12-12] MEDS ORDERED: METRONIDAZOLE 500 MG/NS RTU 250 MG in CONTAINER,EMPTY 1 EACH IV ONE (00:15)
[2017-12-12 00:34] LABS: APPEARANCE,URINE CLEAR; BILIRUBIN,URINE NEGATIVE (NEGATIVE); COLOR,URINE STRAW; GLUCOSE, URINE NEGATIVE (NEGATIVE); KETONES,URINE NEGATIVE (NEGATIVE); LEUKOCYTE ESTERASE,URINE NEGATIVE (NEGATIVE); NITRITE,URINE NEGATIVE (NEGATIVE); PROTEIN,URINE NEGATIVE (NEGATIVE); URINE SPECIFIC GRAVITY 1.004; UROBILINOGEN,URINE NEGATIVE mg/dL (<2.0)
[2017-12-12] MEDS: METRONIDAZOLE 500 MG/NS RTU 250 MG in CONTAINER,EMPTY 1 EACH IV SCH ×3 (05:51→21:38)
[2017-12-12 07:21] LABS: ALANINE AMINOTRANSFERASE 25 U/L (21-72); ALBUMIN 2.9 g/dL (3.5-5.0); ALKALINE PHOSPHATASE 74 U/L (38-126); ANION GAP 9 (5-19); ASPARTATE AMINO TRANSFERASE 15 U/L (17-59); BILIRUBIN,DIRECT 0.4 mg/dL (0.0-0.4); BILIRUBIN,TOTAL 0.4 mg/dL (0.2-1.3); BLOOD UREA NITROGEN 26 mg/dL (7-20); CALCIUM 8.3 mg/dL (8.4-10.2); CARBON DIOXIDE 24 mmol/L (22-30); CHLORIDE 106 mmol/L (98-107); GLUCOSE 97 mg/dL (75-110); SODIUM 138.6 mmol/L (137-145); TOTAL PROTEIN 5.3 g/dL (6.3-8.2)
--- NOTE | 2017-12-12 07:54 | RADIOLOGY REPORT (SQ) ---
EXAM DESCRIPTION: U/S RETROPERITON (RENAL/AORTA) COMPLETED DATE/TIME: 12/12/2017 7:09 am REASON FOR STUDY: WYATT inbackground of left diverticulitis COMPARISON: CT abdomen pelvis 12/07/2017 TECHNIQUE: Dynamic and static grayscale images acquired of the kidneys and bladder and recorded on P ACS. Additional selected color Doppler and spectral images recorded. LIMITATIONS: Large patient, limited view of the left kidney because of left upper quadrant bowel gas FINDINGS: RIGHT KIDNEY: Normal size, 9 cm in length. Normal echogenicity. No solid or suspicious mas ses. No hydronephrosis. No calcifications. LEFT KIDNEY: Normal size, 11 cm in length. Not well visualized, no gross hydronephrosis. BLADDER: No masses. Incompletely distended OTHER FINDINGS: No other significant finding. IMPRESSION: No hydronephrosis TECHNICAL DOCUMENTATION: JOB ID: [id number] [employer]- All Rights Reserved Reading location - IP/workstation name: [email or web address]
[2017-12-12] MEDS: CEFTAZIDIME PENTAHYDRATE 1 GM in DEXTROSE 5%-WATER 50 ML IV SCH (08:38)
[2017-12-12 09:07] LABS: ABSOLUTE BASOPHILS # (AUTO) 0.1 10^3/uL (0.0-0.2); ABSOLUTE EOSINOPHILS # (AUTO) 0.4 10^3/uL (0.0-0.6); ABSOLUTE LYMPHOCYTES (AUTO) 1.3 10^3/uL (0.5-4.7); ABSOLUTE MONOCYTES (AUTO) 0.9 10^3/uL (0.1-1.4); ABSOLUTE NEUT (AUTO) 5.2 10^3/uL (1.7-8.2); BASOPHILS % (AUTO) 1.4 % (0-2); EOSINOPHILS % (AUTO) 5.3 % (0-6); HEMOGLOBIN 12.2 g/dL (13.5-17.0); LYMPHOCYTES % (AUTO) 16.9 % (13-45); MEAN CORPUSCULAR HEMOGLOBIN 30.6 pg (27.0-33.4); MEAN CORPUSCULAR HGB CONC 33.1 g/dL (32.0-36.0); MEAN CORPUSCULAR VOLUME 93 fl (80-97); MONOCYTES % (AUTO) 10.9 % (3-13); RED CELL DISTRIBUTION WIDTH 14.4 % (11.5-14.0); SEGMENTED NEUTROPHILS % (AUTO) 65.5 % (42-78); TOTAL CELLS COUNTED % (AUTO) 100 %
[2017-12-12 09:10] LABS: PLATELET COUNT 241 10^3/uL (150-450)
[2017-12-12] MEDS: ASPIRIN 81 MG TABLET, CHEWABLE PO SCH (09:40)
[2017-12-12] MEDS: CARVEDILOL 12.5 MG TABLET PO SCH ×2 (09:40→21:36)
[2017-12-12] MEDS: CLONIDINE HCL 0.1 MG TABLET PO SCH (09:40)
[2017-12-12] MEDS: AMIODARONE HCL 200 MG TABLET PO SCH (09:40)
[2017-12-12] MEDS: FAMOTIDINE INJ/PF 20 MG/2 ML SDV IV SCH ×2 (09:40→21:35)
[2017-12-12] MEDS: NICOTINE 21 MG/24 HR PATCH.TD24 TD SCH (09:41)
[2017-12-12] MEDS: FUROSEMIDE INJ/PF 20 MG/2 ML SDV IV SCH ×2 (09:41→21:36)
[2017-12-12] MEDS: CLOPIDOGREL BISULFATE 75 MG TABLET PO SCH (09:42)
--- NOTE | 2017-12-12 12:50 | PDOC PROGRESS REPORT ---
Subjective Progress Note for:: 12/12/17 Subjective:: Feels more comfortable. Practically no pains. Has bm Reason For Visit: DIVERTICULITIS OF LARGE INTESTINE Physical Exam Vital Signs: Temp Pulse Resp BP Pulse Ox 98.3 F 69 18 139/84 H 97 12/12/17 11:13 12/12/17 11:13 12/12/17 11:13 12/12/17 11:13 12/12/17 11:13 Intake & Output 12/11/17 12/12/17 12/13/17 06:59 06:59 06:59 Intake Total 5015 3775 275 Output Total 275 Balance 4740 3775 275 Weight 104.6 kg 107.7 kg Exam: ABD ID SOFT WITH MINIMAL TENDERNESS llq Results Laboratory Results: 12/12/17 08:52 12/12/17 06:44 12/12/17 12/12/17 12/12/17 00:10 06:44 06:44 WBC Cancelled RBC Cancelled Hgb Cancelled Hct Cancelled MCV Cancelled MCH Cancelled MCHC Cancelled RDW Cancelled Plt Count Cancelled Seg Neutrophils % Cancelled Lymphocytes % Cancelled Monocytes % Cancelled Eosinophils % Cancelled Basophils % Cancelled Absolute Neutrophils Cancelled Absolute Lymphocytes Cancelled Absolute Monocytes Cancelled Absolute Eosinophils Cancelled Absolute Basophils Cancelled Sodium 138.6 Potassium 5.0 Chloride 106 Carbon Dioxide 24 Anion Gap 9 BUN 26 H Creatinine 5.23 H Est GFR ( Amer) 14 L Est GFR (Non-Af Amer) 11 L Glucose 97 Calcium 8.3 L Total Bilirubin 0.4 AST 15 L ALT 25 Alkaline Phosphatase 74 Total Protein 5.3 L Albumin 2.9 L Urine Color STRAW Urine Appearance CLEAR Urine pH 5.0 Ur Specific [place] 1.004 Urine Protein NEGATIVE Urine Glucose (UA) NEGATIVE Urine Ketones NEGATIVE Urine Blood NEGATIVE Urine Nitrite NEGATIVE Ur Leukocyte Esterase NEGATIVE Urine WBC (Auto) 1 12/12/17 08:52 WBC 8.0 RBC 4.00 L Hgb 12.2 L Hct 37.0 L MCV 93 MCH 30.6 MCHC 33.1 RDW 14.4 H Plt Count 241 D Seg Neutrophils % 65.5 Lymphocytes % 16.9 Monocytes % 10.9 Eosinophils % 5.3 Basophils % 1.4 Absolute Neutrophils 5.2 Absolute Lymphocytes 1.3 Absolute Monocytes 0.9 Absolute Eosinophils 0.4 Absolute Basophils 0.1 Sodium Potassium Chloride Carbon Dioxide Anion Gap BUN Creatinine Est GFR ( Amer) Est GFR (Non-Af Amer) Glucose Calcium Total Bilirubin AST ALT Alkaline Phosphatase Total Protein Albumin Urine Color Urine Appearance Urine pH Ur Specific [place] Urine Protein Urine Glucose (UA) Urine Ketones Urine Blood Urine Nitrite Ur Leukocyte Esterase Urine WBC (Auto) Impressions: Abdomen/Pelvis CT 12/07/17 00:00 IMPRESSION: 1. NEW AREA OF ACUTE DIVERTICULITIS IN THE MID SIGMOID COLON. NO EVIDENCE OF ABSCESS. 2. PREVIOUS AREA OF DIVERTICULITIS INVOLVING THE DESCENDING COLON. THERE IS MILD FOCAL DENSITY MEDIAL TO THE DESCENDING COLON AT THE SITE OF THE PREVIOUS ABSCESS WHICH HAD BEEN DRAINED PERCUTANEOUSLY. CURRENTLY NO DRAINABLE ABSCESS. 3. NO OTHER SIGNIFICANT OR ACUTE FINDING IN THE ABDOMEN OR PELVIS ON CT SCAN WITH IV CONTRAST. Renal Ultrasound 12/12/17 00:00 IMPRESSION: No hydronephrosis Assessment & Plan - Time Time Spent with patient: 15-24 minutes - Plan Summary Plan Summary: Appreciate Renal and cardio consults. Creat today is increased to about 5 For Cardiac Stress testing in am May not be ready for surgery tomorrow with increasing Creatinine.
[2017-12-12] MEDS: HEPARIN SOD (PORCINE) 5,000 UNIT/ML 1 ML SYRINGE SUBCUT SCH ×2 (14:07→21:38)
--- NOTE | 2017-12-12 14:30 | PDOC PROGRESS REPORT ---
Subjective Progress Note for:: 12/12/17 Reason For Visit: Patient seen today. Generally feeling better. Pain in his left lower abdomen is also improving. Is having more formed stools. He denies any history of fever or chills. No complaints of any chest pain or shortness of breath. Labs and medications were reviewed with the patient. His creatinine is progressively worsening and currently is over 5. No strict I's and O's have been done. However he states he is making decent amount of urine.He is in the process of going to get a stress test today. Physical Exam Vital Signs: Temp Pulse Resp BP Pulse Ox 98.3 F 69 18 139/84 H 97 12/12/17 11:13 12/12/17 11:13 12/12/17 11:13 12/12/17 11:13 12/12/17 11:13 Intake & Output 12/11/17 12/12/17 12/13/17 06:59 06:59 06:59 Intake Total 5015 3775 275 Output Total 275 Balance 4740 3775 275 Weight 104.6 kg 107.7 kg General appearance: PRESENT: no acute distress Respiratory exam: PRESENT: clear to auscultation adelaida. ABSENT: crackles, rhonchi Cardiovascular exam: PRESENT: +S1, +S2 GI/Abdominal exam: PRESENT: soft. ABSENT: guarding, organomegaly Extremities exam: PRESENT: pedal edema Neurological exam: PRESENT: alert, awake, oriented to person, oriented to place , oriented to time Psychiatric exam: PRESENT: appropriate affect Skin exam: ABSENT: erythema, mottled, rash Results Laboratory Results: 12/12/17 08:52 12/12/17 06:44 12/12/17 12/12/17 12/12/17 00:10 06:44 06:44 WBC Cancelled RBC Cancelled Hgb Cancelled Hct Cancelled MCV Cancelled MCH Cancelled MCHC Cancelled RDW Cancelled Plt Count Cancelled Seg Neutrophils % Cancelled Lymphocytes % Cancelled Monocytes % Cancelled Eosinophils % Cancelled Basophils % Cancelled Absolute Neutrophils Cancelled Absolute Lymphocytes Cancelled Absolute Monocytes Cancelled Absolute Eosinophils Cancelled Absolute Basophils Cancelled Sodium 138.6 Potassium 5.0 Chloride 106 Carbon Dioxide 24 Anion Gap 9 BUN 26 H Creatinine 5.23 H Est GFR ( Amer) 14 L Est GFR (Non-Af Amer) 11 L Glucose 97 Calcium 8.3 L Total Bilirubin 0.4 AST 15 L ALT 25 Alkaline Phosphatase 74 Total Protein 5.3 L Albumin 2.9 L Urine Color STRAW Urine Appearance CLEAR Urine pH 5.0 Ur Specific [place] 1.004 Urine Protein NEGATIVE Urine Glucose (UA) NEGATIVE Urine Ketones NEGATIVE Urine Blood NEGATIVE Urine Nitrite NEGATIVE Ur Leukocyte Esterase NEGATIVE Urine WBC (Auto) 1 12/12/17 08:52 WBC 8.0 RBC 4.00 L Hgb 12.2 L Hct 37.0 L MCV 93 MCH 30.6 MCHC 33.1 RDW 14.4 H Plt Count 241 D Seg Neutrophils % 65.5 Lymphocytes % 16.9 Monocytes % 10.9 Eosinophils % 5.3 Basophils % 1.4 Absolute Neutrophils 5.2 Absolute Lymphocytes 1.3 Absolute Monocytes 0.9 Absolute Eosinophils 0.4 Absolute Basophils 0.1 Sodium Potassium Chloride Carbon Dioxide Anion Gap BUN Creatinine Est GFR ( Amer) Est GFR (Non-Af Amer) Glucose Calcium Total Bilirubin AST ALT Alkaline Phosphatase Total Protein Albumin Urine Color Urine Appearance Urine pH Ur Specific [place] Urine Protein Urine Glucose (UA) Urine Ketones Urine Blood Urine Nitrite Ur Leukocyte Esterase Urine WBC (Auto) Impressions: Abdomen/Pelvis CT 12/07/17 00:00 IMPRESSION: 1. NEW AREA OF ACUTE DIVERTICULITIS IN THE MID SIGMOID COLON. NO EVIDENCE OF ABSCESS. 2. PREVIOUS AREA OF DIVERTICULITIS INVOLVING THE DESCENDING COLON. THERE IS MILD FOCAL DENSITY MEDIAL TO THE DESCENDING COLON AT THE SITE OF THE PREVIOUS ABSCESS WHICH HAD BEEN DRAINED PERCUTANEOUSLY. CURRENTLY NO DRAINABLE ABSCESS. 3. NO OTHER SIGNIFICANT OR ACUTE FINDING IN THE ABDOMEN OR PELVIS ON CT SCAN WITH IV CONTRAST. Renal Ultrasound 12/12/17 00:00 IMPRESSION: No hydronephrosis Assessment & Plan - Diagnosis (1) WYATT (acute kidney injury) Plan: Apparently nonoliguric. Strict I's and O's needs to be documented. 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 No indications for renal replacements currently. Obviously worsening renal numbers are concerning. Continue current medications. Monitor closely. (2) Diverticulitis large intestine Qualifiers: Diverticulitis bleeding: without bleeding Diverticulitis complication: without perforation or abscess Qualified Code(s): K57.32 - Diverticulitis of large intestine without perforation or abscess without bleeding Is this a current diagnosis for this admission?: Yes Plan: Currently improving. Continue current medications. Further management as per surgicallist. (3) Hypertension Plan: Uncontrolled. Start on clonidine.
[2017-12-13] MEDS: ACETAMINOPHEN 1,000 MG/100 ML RTUPB IV SCH ×2 (05:01→11:11)
[2017-12-13] MEDS: METRONIDAZOLE 500 MG/NS RTU 250 MG in CONTAINER,EMPTY 1 EACH IV SCH ×3 (05:01→21:55)
[2017-12-13] MEDS: HEPARIN SOD (PORCINE) 5,000 UNIT/ML 1 ML SYRINGE SUBCUT SCH ×3 (05:01→21:56)
[2017-12-13 07:03] LABS: ANION GAP 10 (5-19); BLOOD UREA NITROGEN 30 mg/dL (7-20); CALCIUM 8.2 mg/dL (8.4-10.2); CARBON DIOXIDE 22 mmol/L (22-30); CHLORIDE 107 mmol/L (98-107); CREATINE KINASE 23 U/L (55-170); GLUCOSE 89 mg/dL (75-110); POTASSIUM 4.9 mmol/L (3.6-5.0); SODIUM 138.5 mmol/L (137-145)
[2017-12-13] MEDS: CEFTAZIDIME PENTAHYDRATE 1 GM in DEXTROSE 5%-WATER 50 ML IV SCH (09:21)
[2017-12-13] MEDS: CLONIDINE HCL 0.1 MG TABLET PO SCH (11:08)
[2017-12-13] MEDS: CARVEDILOL 12.5 MG TABLET PO SCH ×2 (11:09→21:53)
[2017-12-13] MEDS: AMIODARONE HCL 200 MG TABLET PO SCH (11:09)
[2017-12-13] MEDS: ASPIRIN 81 MG TABLET, CHEWABLE PO SCH (11:09)
[2017-12-13] MEDS: FAMOTIDINE INJ/PF 20 MG/2 ML SDV IV SCH ×2 (11:10→21:54)
[2017-12-13] MEDS: FUROSEMIDE INJ/PF 20 MG/2 ML SDV IV SCH ×2 (11:10→21:54)
[2017-12-13] MEDS: CLOPIDOGREL BISULFATE 75 MG TABLET PO SCH (11:11)
[2017-12-13] MEDS: NICOTINE 21 MG/24 HR PATCH.TD24 TD SCH (12:19)
[2017-12-13] MEDS ORDERED: REGADENOSON INJ 0.4 MG/5 ML DISP.SYRIN IV ONE (12:35)
--- NOTE | 2017-12-13 14:49 | PDOC PROGRESS REPORT ---
Subjective Progress Note for:: 12/13/17 Reason For Visit: Patient was seen today. He denies any specific complaints. Overall he says he feels better compared to what he was when he came in. No abdominal pains. Began on liquid feeds. Tolerating. No complaints of any chest pain or shortness of breath. He has had a stress test done earlier. No history of any fever or chills. He still continues to make decent amount of urine output. Labs and medications were reviewed with the patient. Physical Exam Vital Signs: Temp Pulse Resp BP Pulse Ox 97.3 F 71 16 152/87 H 97 12/12/17 23:24 12/12/17 23:24 12/12/17 23:24 12/12/17 23:24 12/12/17 23:24 Intake & Output 12/12/17 12/13/17 12/14/17 06:59 06:59 06:59 Intake Total 3775 4719 Output Total 1275 Balance 3775 3444 Weight 107.7 kg 106.4 kg General appearance: PRESENT: no acute distress Respiratory exam: PRESENT: clear to auscultation adelaida. ABSENT: crackles, rhonchi Cardiovascular exam: PRESENT: +S1, +S2 GI/Abdominal exam: PRESENT: soft. ABSENT: guarding, organomegaly Extremities exam: PRESENT: pedal edema Neurological exam: PRESENT: alert, awake, oriented to person, oriented to place , oriented to time Skin exam: PRESENT: normal color. ABSENT: erythema, rash Results Laboratory Results: 12/12/17 08:52 12/13/17 06:33 12/13/17 06:33 Sodium 138.5 Potassium 4.9 Chloride 107 Carbon Dioxide 22 Anion Gap 10 BUN 30 H Creatinine 6.10 H Est GFR ( Amer) 12 L Est GFR (Non-Af Amer) 10 L Glucose 89 Calcium 8.2 L 12/13/17 06:33 Creatine Kinase 23 L Impressions: Abdomen/Pelvis CT 12/07/17 00:00 IMPRESSION: 1. NEW AREA OF ACUTE DIVERTICULITIS IN THE MID SIGMOID COLON. NO EVIDENCE OF ABSCESS. 2. PREVIOUS AREA OF DIVERTICULITIS INVOLVING THE DESCENDING COLON. THERE IS MILD FOCAL DENSITY MEDIAL TO THE DESCENDING COLON AT THE SITE OF THE PREVIOUS ABSCESS WHICH HAD BEEN DRAINED PERCUTANEOUSLY. CURRENTLY NO DRAINABLE ABSCESS. 3. NO OTHER SIGNIFICANT OR ACUTE FINDING IN THE ABDOMEN OR PELVIS ON CT SCAN WITH IV CONTRAST. Renal Ultrasound 12/12/17 00:00 IMPRESSION: No hydronephrosis Assessment & Plan - Diagnosis (1) WYATT (acute kidney injury) Plan: Worsening renal numbers. However remains nonoliguric. I would continue current lines of management. No indications for renal replacements. However I did talk about hemodialysis if he continues to get worse over the next few days. He understands the reasonings, the procedure and the complications and is willing to proceed along those lines if it comes to that. (2) Diverticulitis large intestine Qualifiers: Diverticulitis bleeding: without bleeding Diverticulitis complication: without perforation or abscess Qualified Code(s): K57.32 - Diverticulitis of large intestine without perforation or abscess without bleeding Is this a current diagnosis for this admission?: Yes Plan: Currently improving. Continue current medications. Further management as per surgicallist. (3) Hypertension Plan: Relatively controlled.Monitor.
--- NOTE | 2017-12-13 16:53 | PDOC PROGRESS REPORT ---
Subjective Progress Note for:: 12/13/17 Subjective:: This is a 57-year-old male with acute diverticulitis and acute renal failure. The patient is feeling better today. His abdominal pain is lessening. The patient is scheduled to complete his stress test today. The patient denies any chest pain, shortness of breath, fevers, chills, nausea, vomiting, malaise, fatigue, dizziness, orthostasis, or headache. Reason For Visit: DIVERTICULITIS OF LARGE INTESTINE Physical Exam Vital Signs: Temp Pulse Resp BP Pulse Ox 97.3 F 71 16 152/87 H 97 12/12/17 23:24 12/12/17 23:24 12/12/17 23:24 12/12/17 23:24 12/12/17 23:24 Intake & Output 12/12/17 12/13/17 12/14/17 06:59 06:59 06:59 Intake Total 3775 4719 Output Total 1275 Balance 3775 3444 Weight 107.7 kg 106.4 kg General appearance: PRESENT: morbidly obese Eye exam: PRESENT: EOMI, PERRLA. ABSENT: scleral icterus Mouth exam: PRESENT: neck supple Teeth exam: PRESENT: poor dentation Neck exam: ABSENT: lymphadenopathy, tenderness, thyromegaly, tracheal deviation Respiratory exam: PRESENT: clear to auscultation adelaida. ABSENT: chest wall tenderness, wheezes Cardiovascular exam: PRESENT: RRR Pulses: PRESENT: normal radial pulses Vascular exam: PRESENT: normal capillary refill. ABSENT: pallor GI/Abdominal exam: PRESENT: soft - Mild left-sided, other - Obese. ABSENT: ascites, distended Rectal exam: PRESENT: deferred Extremities exam: ABSENT: clubbing Musculoskeletal exam: ABSENT: deformity Neurological exam: PRESENT: alert, awake, oriented to person, oriented to place , oriented to time, oriented to situation, CN II-XII grossly intact. ABSENT: motor sensory deficit Psychiatric exam: ABSENT: agitated, anxious, depressed Skin exam: ABSENT: cyanosis, erythema, jaundice Results Laboratory Results: 12/12/17 08:52 12/13/17 06:33 12/13/17 06:33 Sodium 138.5 Potassium 4.9 Chloride 107 Carbon Dioxide 22 Anion Gap 10 BUN 30 H Creatinine 6.10 H Est GFR ( Amer) 12 L Est GFR (Non-Af Amer) 10 L Glucose 89 Calcium 8.2 L 06/28/18 06:33 Creatine Kinase 23 L Impressions: Abdomen/Pelvis CT 12/07/17 00:00 IMPRESSION: 1. NEW AREA OF ACUTE DIVERTICULITIS IN THE MID SIGMOID COLON. NO EVIDENCE OF ABSCESS. 2. PREVIOUS AREA OF DIVERTICULITIS INVOLVING THE DESCENDING COLON. THERE IS MILD FOCAL DENSITY MEDIAL TO THE DESCENDING COLON AT THE SITE OF THE PREVIOUS ABSCESS WHICH HAD BEEN DRAINED PERCUTANEOUSLY. CURRENTLY NO DRAINABLE ABSCESS. 3. NO OTHER SIGNIFICANT OR ACUTE FINDING IN THE ABDOMEN OR PELVIS ON CT SCAN WITH IV CONTRAST. Renal Ultrasound 12/12/17 00:00 IMPRESSION: No hydronephrosis Assessment & Plan - Diagnosis (1) WYATT (acute kidney injury) Is this a current diagnosis for this admission?: Yes (2) Diverticulitis large intestine Qualifiers: Diverticulitis bleeding: without bleeding Diverticulitis complication: without perforation or abscess Qualified Code(s): K57.32 - Diverticulitis of large intestine without perforation or abscess without bleeding Is this a current diagnosis for this admission?: Yes - Plan Summary Plan Summary: This is a 57-year-old male with acute diverticulitis that is recurrent. I recommended that the patient undergo surgical intervention for his diverticulitis, however his acute renal failure is complicating the issue. Patient underwent a stress test today. Are awaiting these results. Hopefully, his kidney function will improve and surgery can be performed. Will follow closely. Abdominal exam appears to be improving.
[2017-12-13] MEDS: 1/2 NORMAL SALINE 1,000 ML IV PRN (21:55)
[2017-12-14] MEDS: METRONIDAZOLE 500 MG/NS RTU 250 MG in CONTAINER,EMPTY 1 EACH IV SCH ×3 (05:02→21:29)
[2017-12-14] MEDS: HEPARIN SOD (PORCINE) 5,000 UNIT/ML 1 ML SYRINGE SUBCUT SCH ×3 (05:02→21:30)
[2017-12-14 06:54] LABS: HEMATOCRIT 35.7 % (37.9-51.0); MEAN CORPUSCULAR HEMOGLOBIN 30.8 pg (27.0-33.4); MEAN CORPUSCULAR HGB CONC 33.5 g/dL (32.0-36.0); MEAN CORPUSCULAR VOLUME 92 fl (80-97); RED BLOOD COUNT 3.88 10^6/uL (4.35-5.55); RED CELL DISTRIBUTION WIDTH 14.7 % (11.5-14.0); WHITE BLOOD COUNT 7.7 10^3/uL (4.0-10.5)
[2017-12-14 06:55] LABS: PLATELET COUNT 190 10^3/uL (150-450)
[2017-12-14 07:14] LABS: ANION GAP 10 (5-19); BLOOD UREA NITROGEN 33 mg/dL (7-20); CALCIUM 8.5 mg/dL (8.4-10.2); CARBON DIOXIDE 23 mmol/L (22-30); CHLORIDE 109 mmol/L (98-107); GLUCOSE 93 mg/dL (75-110); POTASSIUM 5.2 mmol/L (3.6-5.0); SODIUM 141.7 mmol/L (137-145)
[2017-12-14] MEDS: FAMOTIDINE INJ/PF 20 MG/2 ML SDV IV SCH ×2 (11:18→21:30)
[2017-12-14] MEDS: ASPIRIN 81 MG TABLET, CHEWABLE PO SCH (11:19)
[2017-12-14] MEDS: FUROSEMIDE INJ/PF 20 MG/2 ML SDV IV SCH ×2 (11:19→21:30)
[2017-12-14] MEDS: CARVEDILOL 12.5 MG TABLET PO SCH ×2 (11:19→21:29)
[2017-12-14] MEDS: CEFTAZIDIME PENTAHYDRATE 1 GM in DEXTROSE 5%-WATER 50 ML IV SCH (11:20)
[2017-12-14] MEDS: NICOTINE 21 MG/24 HR PATCH.TD24 TD SCH (11:20)
[2017-12-14] MEDS: CLONIDINE HCL 0.1 MG TABLET PO SCH (11:20)
[2017-12-14] MEDS: CLOPIDOGREL BISULFATE 75 MG TABLET PO SCH (11:21)
--- NOTE | 2017-12-14 17:17 | PDOC PROGRESS REPORT ---
Subjective Progress Note for:: 12/14/17 Reason For Visit: Patient seen today. Generally doing better. No abdominal pains nausea vomiting or fever. Good urine output. Labs and medications were reviewed with the patient. Unfortunately renal numbers are still on a downward trend. Fortunately he is nonoliguric which augurs well for him.Denies any chest pain or shortness of breath. Physical Exam Vital Signs: Temp Pulse Resp BP Pulse Ox 98.3 F 74 16 151/79 H 97 12/14/17 08:24 12/14/17 08:24 12/14/17 08:24 12/14/17 08:24 12/14/17 08:24 Intake & Output 12/13/17 12/14/17 12/15/17 06:59 06:59 06:59 Intake Total 4719 3388 Output Total 1275 2075 Balance 3444 1313 Weight 106.4 kg 105.5 kg General appearance: PRESENT: no acute distress Respiratory exam: PRESENT: clear to auscultation adelaida. ABSENT: crackles, rhonchi Cardiovascular exam: PRESENT: +S1, +S2 GI/Abdominal exam: PRESENT: soft. ABSENT: guarding, organomegaly Extremities exam: PRESENT: pedal edema Neurological exam: PRESENT: alert, awake, oriented to person, oriented to place , oriented to time Psychiatric exam: PRESENT: anxious Skin exam: ABSENT: cyanosis, erythema, mottled, rash Results Laboratory Results: 12/14/17 06:39 12/14/17 06:39 12/14/17 12/14/17 06:39 06:39 WBC 7.7 RBC 3.88 L Hgb 12.0 L Hct 35.7 L MCV 92 MCH 30.8 MCHC 33.5 RDW 14.7 H Plt Count 190 Sodium 141.7 Potassium 5.2 H Chloride 109 H Carbon Dioxide 23 Anion Gap 10 BUN 33 H Creatinine 6.73 H Est GFR ( Amer) 10 L Est GFR (Non-Af Amer) 9 L Glucose 93 Calcium 8.5 12/13/17 06:33 Creatine Kinase 23 L Impressions: Abdomen/Pelvis CT 12/07/17 00:00 IMPRESSION: 1. NEW AREA OF ACUTE DIVERTICULITIS IN THE MID SIGMOID COLON. NO EVIDENCE OF ABSCESS. 2. PREVIOUS AREA OF DIVERTICULITIS INVOLVING THE DESCENDING COLON. THERE IS MILD FOCAL DENSITY MEDIAL TO THE DESCENDING COLON AT THE SITE OF THE PREVIOUS ABSCESS WHICH HAD BEEN DRAINED PERCUTANEOUSLY. CURRENTLY NO DRAINABLE ABSCESS. 3. NO OTHER SIGNIFICANT OR ACUTE FINDING IN THE ABDOMEN OR PELVIS ON CT SCAN WITH IV CONTRAST. Renal Ultrasound 12/12/17 00:00 IMPRESSION: No hydronephrosis Assessment & Plan - Diagnosis (1) WYATT (acute kidney injury) Is this a current diagnosis for this admission?: Yes Plan: Worsening renal numbers. However remains nonoliguric. electrolytes are stable but for mild hyperkalemia whch needs to be monitored. I would continue current lines of management. No indications for renal replacements. However I did talk about hemodialysis if he continues to get worse over the next few days. He understands the reasonings, the procedure and the complications and is willing to proceed along those lines if it comes to that.Unfortunately I am going to be off for the weekend. Please consult me over the phone via the switchboard if needs be. (2) Diverticulitis large intestine Qualifiers: Diverticulitis bleeding: without bleeding Diverticulitis complication: without perforation or abscess Qualified Code(s): K57.32 - Diverticulitis of large intestine without perforation or abscess without bleeding Is this a current diagnosis for this admission?: Yes Plan: Currently improving. Continue current medications. Further management as per surgicallist. (3) Hypertension Plan: Relatively controlled.Monitor.
--- NOTE | 2017-12-14 20:29 | Progress Note ---
Provider Note Provider Note: I was told by Dr. Long that he had reviewed patient's stress test. Patient was noted to have severe fixed defect in the inferolateral wall of the left ventricle and no ischemia. He verbally told me that the patient was cleared for surgery.
[2017-12-14] MEDS: 1/2 NORMAL SALINE 1,000 ML IV PRN (21:40)
[2017-12-15] MEDS: METRONIDAZOLE 500 MG/NS RTU 250 MG in CONTAINER,EMPTY 1 EACH IV SCH ×3 (05:13→21:36)
[2017-12-15] MEDS: HEPARIN SOD (PORCINE) 5,000 UNIT/ML 1 ML SYRINGE SUBCUT SCH ×3 (05:13→21:38)
[2017-12-15 06:47] LABS: ANION GAP 11 (5-19); BLOOD UREA NITROGEN 34 mg/dL (7-20); CALCIUM 8.4 mg/dL (8.4-10.2); CARBON DIOXIDE 24 mmol/L (22-30); CHLORIDE 109 mmol/L (98-107); GLUCOSE 97 mg/dL (75-110); SODIUM 143.8 mmol/L (137-145)
--- NOTE | 2017-12-15 08:08 | PDOC PROGRESS REPORT ---
Subjective Progress Note for:: 12/14/17 Subjective:: no pains Reason For Visit: DIVERTICULITIS OF LARGE INTESTINE Physical Exam Vital Signs: Temp Pulse Resp BP Pulse Ox 98.0 F 70 18 164/98 H 98 12/15/17 03:34 12/15/17 03:34 12/15/17 03:34 12/15/17 03:34 12/15/17 03:34 Intake & Output 12/14/17 12/15/17 12/16/17 06:59 06:59 06:59 Intake Total 3388 5221 Output Total 2075 2400 Balance 1313 2821 Weight 105.5 kg 106.4 kg Exam: abdomen is soft and non tender Results Laboratory Results: 12/14/17 06:39 12/15/17 06:26 12/15/17 06:26 Sodium 143.8 Potassium 5.0 Chloride 109 H Carbon Dioxide 24 Anion Gap 11 BUN 34 H Creatinine 6.85 H Est GFR ( Amer) 10 L Est GFR (Non-Af Amer) 8 L Glucose 97 Calcium 8.4 12/13/17 06:33 Creatine Kinase 23 L Impressions: Abdomen/Pelvis CT 12/07/17 00:00 IMPRESSION: 1. NEW AREA OF ACUTE DIVERTICULITIS IN THE MID SIGMOID COLON. NO EVIDENCE OF ABSCESS. 2. PREVIOUS AREA OF DIVERTICULITIS INVOLVING THE DESCENDING COLON. THERE IS MILD FOCAL DENSITY MEDIAL TO THE DESCENDING COLON AT THE SITE OF THE PREVIOUS ABSCESS WHICH HAD BEEN DRAINED PERCUTANEOUSLY. CURRENTLY NO DRAINABLE ABSCESS. 3. NO OTHER SIGNIFICANT OR ACUTE FINDING IN THE ABDOMEN OR PELVIS ON CT SCAN WITH IV CONTRAST. Renal Ultrasound 12/12/17 00:00 IMPRESSION: No hydronephrosis Assessment & Plan - Time Time Spent with patient: 15-24 minutes - Plan Summary Plan Summary: BUN and creatinine increasing. K5.2. Patient however voided >1200 ccs past 24 hrs. Appreciate Nephrology follow up. If needs Dialysis we can place HD catheter Continue monitoring Kidney function and antibiotic
[2017-12-15] MEDS: CEFTAZIDIME PENTAHYDRATE 1 GM in DEXTROSE 5%-WATER 50 ML IV SCH (08:24)
[2017-12-15] MEDS: CLOPIDOGREL BISULFATE 75 MG TABLET PO SCH (09:24)
[2017-12-15] MEDS: ASPIRIN 81 MG TABLET, CHEWABLE PO SCH (09:39)
[2017-12-15] MEDS: NICOTINE 21 MG/24 HR PATCH.TD24 TD SCH (09:39)
[2017-12-15] MEDS: FUROSEMIDE INJ/PF 20 MG/2 ML SDV IV SCH ×2 (09:39→21:37)
[2017-12-15] MEDS: FAMOTIDINE INJ/PF 20 MG/2 ML SDV IV SCH ×2 (09:39→21:37)
[2017-12-15] MEDS: CLONIDINE HCL 0.1 MG TABLET PO SCH (09:39)
[2017-12-15] MEDS: CARVEDILOL 12.5 MG TABLET PO SCH ×2 (09:39→21:37)
--- NOTE | 2017-12-15 12:22 | PDOC PROGRESS REPORT ---
Subjective Progress Note for:: 12/14/17 Subjective:: Patient seems to be doing better with gradual improvement. Pt is denying any chest arm or neck discomfort. Patient denying any PND, orthopnea. Patient denied any sustained palpitations, dizziness, syncope, near syncope. Patient denying any fever chills. Patient denying any other significant discomfort. Patient is maintaining sinus rhythm. Patient had a nuclear stress test which showed mainly fixed defect in the inferolateral wall. Review of systems: Rest review of systems negative. Medications: Medications have been reviewed. Reason For Visit: DIVERTICULITIS OF LARGE INTESTINE Physical Exam Vital Signs: Temp Pulse Resp BP Pulse Ox 97.8 F 69 20 159/92 H 99 12/14/17 19:36 12/14/17 19:36 12/14/17 19:36 12/14/17 19:36 12/14/17 19:36 Intake & Output 12/13/17 12/14/17 12/15/17 06:59 06:59 06:59 Intake Total 4719 3388 4271 Output Total 1275 2075 1050 Balance 3444 1313 3221 Weight 106.4 kg 105.5 kg Exam: GENERAL: well-nourished and in no acute distress. Alert and oriented x3 HEAD: Atraumatic, normocephalic. EYES: Pupils equal round and reactive to light, extraocular movements intact, sclera anicteric, conjunctiva are normal. ENT: TMs normal, nares patent, oropharynx clear without exudates. Moist mucous membranes. No oral ulcerations or bleeding gums noted NECK: supple without lymphadenopathy. Trachea is central. No cervical or axillary lymphadenopathy noted. Carotids are 2+, JVD WNL LUNGS: Respiration seems nonlabored, no significant accessory muscle action noted. Breath sounds clear to auscultation bilaterally and equal noted. No wheezes rales or rhonchi noted. No significant dullness noted on percussion. CHEST: Palpation of the chest wall shows no significant chest wall tenderness. 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 ABDOMEN: Soft, no significant tenderness appreciated, normoactive bowel sounds. No guarding, no rebound. No rigidity noted . No masses appreciated. EXTREMITIES: Pedal pulses are 1-2+, no calf tenderness noted. No clubbing or cyanosis. negative pedal edema noted NEUROLOGICAL: Focused neurological exam showed no significant neurologic deficit. Normal speech, no focal weakness appreciated. PSYCH: Normal mood, normal affect. Judgment and insight within normal limits. SKIN: No significant ecchymosis, skin is noted to be warm. MUSCULOSKELETAL EXAM: No significant acute joint swelling noted. Results Laboratory Results: 12/14/17 06:39 12/14/17 06:39 12/14/17 12/14/17 06:39 06:39 WBC 7.7 RBC 3.88 L Hgb 12.0 L Hct 35.7 L MCV 92 MCH 30.8 MCHC 33.5 RDW 14.7 H Plt Count 190 Sodium 141.7 Potassium 5.2 H Chloride 109 H Carbon Dioxide 23 Anion Gap 10 BUN 33 H Creatinine 6.73 H Est GFR ( Amer) 10 L Est GFR (Non-Af Amer) 9 L Glucose 93 Calcium 8.5 12/13/17 06:33 Creatine Kinase 23 L EKG Comments: Telemetry showed sinus rhythm without any sustained tachycardia or bradycardia. Impressions: Abdomen/Pelvis CT 12/07/17 00:00 IMPRESSION: 1. NEW AREA OF ACUTE DIVERTICULITIS IN THE MID SIGMOID COLON. NO EVIDENCE OF ABSCESS. 2. PREVIOUS AREA OF DIVERTICULITIS INVOLVING THE DESCENDING COLON. THERE IS MILD FOCAL DENSITY MEDIAL TO THE DESCENDING COLON AT THE SITE OF THE PREVIOUS ABSCESS WHICH HAD BEEN DRAINED PERCUTANEOUSLY. CURRENTLY NO DRAINABLE ABSCESS. 3. NO OTHER SIGNIFICANT OR ACUTE FINDING IN THE ABDOMEN OR PELVIS ON CT SCAN WITH IV CONTRAST. Renal Ultrasound 12/12/17 00:00 IMPRESSION: No hydronephrosis Assessment & Plan - Diagnosis (1) Preoperative cardiovascular examination Is this a current diagnosis for this admission?: Yes (2) Diverticulitis large intestine Qualifiers: Diverticulitis bleeding: without bleeding Diverticulitis complication: without perforation or abscess Qualified Code(s): K57.32 - Diverticulitis of large intestine without perforation or abscess without bleeding Is this a current diagnosis for this admission?: Yes (3) Coronary artery disease Qualifiers: Coronary Disease-Associated Artery/Lesion type: [place] artery [place] vs. transplanted heart: [place] heart Associated angina: without angina Qualified Code(s): I25.10 - Atherosclerotic heart disease of [place] coronary artery without angina pectoris Is this a current diagnosis for this admission?: Yes (4) Hypertension Qualifiers: Hypertension type: essential hypertension Qualified Code(s): I10 - Essential (primary) hypertension Is this a current diagnosis for this admission?: Yes (5) COPD (chronic obstructive pulmonary disease) Qualifiers: Emphysema type: unspecified Is this a current diagnosis for this admission?: Yes (6) Acute renal failure Qualifiers: Acute renal failure type: unspecified Qualified Code(s): N17.9 - Acute kidney failure, unspecified Is this a current diagnosis for this admission?: Yes - Notes Notes: Preop cardiovascular examination: Patient currently is stable without any chest pain. Nuclear stress test was negative for ischemia but positive for fixed defect. Patient maintaining sinus rhythm. No clinical CHF noted. Patient therefore cleared for surgery. Diverticulitis: Currently stable. Surgeons following. Coronary artery disease: Patient on a stable regimen. Patient has history of prior myocardial infarction but there is no ongoing angina or angina equivalent symptoms. Hypertension: Currently stable. Blood pressure goal is 135/85 or less. COPD: Currently stable. Acute renal failure: Patient being followed by rock worker. Results of nuclear stress test were discussed with the patient. Previously completed echocardiogram results were reviewed. - Time Time with patient: Greater than 35 minutes - CODE STATUS was discussed, patient remains full code. Surrogate decision-maker unchanged. Multiple medical problems were addressed. More than 50% of the time spent coordinating care, discussing management plans with involved caregivers. Management plans discussed with involved personnels. Medical decision making was of moderate to high complexity, patient's has multiple comorbidities. Medications reviewed and adjusted accordingly: Yes
--- NOTE | 2017-12-15 12:25 | PDOC PROGRESS REPORT ---
Subjective Progress Note for:: 12/15/17 Subjective:: Patient seems to be doing better. Surgeons note reviewed. It seems patient may not have abdominal surgery. Pt is denying any chest arm or neck discomfort. Patient denying any PND, orthopnea. Patient denied any sustained palpitations, dizziness, syncope, near syncope. Patient denying any fever chills. Patient denying any other significant discomfort. Patient is maintaining sinus rhythm. Patient had a nuclear stress test which showed mainly fixed defect in the inferolateral wall. 2D echocardiogram results were reviewed. Review of systems: Rest review of systems negative. Medications: Medications have been reviewed. Reason For Visit: DIVERTICULITIS OF LARGE INTESTINE Physical Exam Vital Signs: Temp Pulse Resp BP Pulse Ox 98.5 F 73 16 164/97 H 99 12/15/17 08:00 12/15/17 08:00 12/15/17 08:00 12/15/17 08:00 12/15/17 08:00 Intake & Output 12/14/17 12/15/17 12/16/17 06:59 06:59 06:59 Intake Total 3388 5221 Output Total 2075 2400 Balance 1313 2821 Weight 105.5 kg 106.4 kg Exam: GENERAL: well-nourished and in no acute distress. Alert and oriented x3 HEAD: Atraumatic, normocephalic. EYES: Pupils equal round and reactive to light, extraocular movements intact, sclera anicteric, conjunctiva are normal. ENT: TMs normal, nares patent, oropharynx clear without exudates. Moist mucous membranes. No oral ulcerations or bleeding gums noted NECK: supple without lymphadenopathy. Trachea is central. No cervical or axillary lymphadenopathy noted. Carotids are 2+, JVD WNL LUNGS: Respiration seems nonlabored, no significant accessory muscle action noted. Breath sounds clear to auscultation bilaterally and equal noted. No wheezes rales or rhonchi noted. No significant dullness noted on percussion. CHEST: Palpation of the chest wall shows no significant chest wall tenderness. 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 ABDOMEN: Soft, no significant tenderness appreciated, normoactive bowel sounds. No guarding, no rebound. No rigidity noted . No masses appreciated. EXTREMITIES: Pedal pulses are 1-2+, no calf tenderness noted. No clubbing or cyanosis. negative pedal edema noted NEUROLOGICAL: Focused neurological exam showed no significant neurologic deficit. Normal speech, no focal weakness appreciated. PSYCH: Normal mood, normal affect. Judgment and insight within normal limits. SKIN: No significant ecchymosis, skin is noted to be warm. MUSCULOSKELETAL EXAM: No significant acute joint swelling noted. Results Laboratory Results: 12/14/17 06:39 12/15/17 06:26 12/15/17 06:26 Sodium 143.8 Potassium 5.0 Chloride 109 H Carbon Dioxide 24 Anion Gap 11 BUN 34 H Creatinine 6.85 H Est GFR ( Amer) 10 L Est GFR (Non-Af Amer) 8 L Glucose 97 Calcium 8.4 12/13/17 06:33 Creatine Kinase 23 L Impressions: Abdomen/Pelvis CT 12/07/17 00:00 IMPRESSION: 1. NEW AREA OF ACUTE DIVERTICULITIS IN THE MID SIGMOID COLON. NO EVIDENCE OF ABSCESS. 2. PREVIOUS AREA OF DIVERTICULITIS INVOLVING THE DESCENDING COLON. THERE IS MILD FOCAL DENSITY MEDIAL TO THE DESCENDING COLON AT THE SITE OF THE PREVIOUS ABSCESS WHICH HAD BEEN DRAINED PERCUTANEOUSLY. CURRENTLY NO DRAINABLE ABSCESS. 3. NO OTHER SIGNIFICANT OR ACUTE FINDING IN THE ABDOMEN OR PELVIS ON CT SCAN WITH IV CONTRAST. Renal Ultrasound 12/12/17 00:00 IMPRESSION: No hydronephrosis Assessment & Plan - Diagnosis (1) Preoperative cardiovascular examination Is this a current diagnosis for this admission?: Yes (2) Diverticulitis large intestine Qualifiers: Diverticulitis bleeding: without bleeding Diverticulitis complication: without perforation or abscess Qualified Code(s): K57.32 - Diverticulitis of large intestine without perforation or abscess without bleeding Is this a current diagnosis for this admission?: Yes (3) Coronary artery disease Qualifiers: Coronary Disease-Associated Artery/Lesion type: [place] artery [place] vs. transplanted heart: [place] heart Associated angina: without angina Qualified Code(s): I25.10 - Atherosclerotic heart disease of [place] coronary artery without angina pectoris Is this a current diagnosis for this admission?: Yes (4) Hypertension Qualifiers: Hypertension type: essential hypertension Qualified Code(s): I10 - Essential (primary) hypertension Is this a current diagnosis for this admission?: Yes (5) COPD (chronic obstructive pulmonary disease) Qualifiers: Emphysema type: unspecified Is this a current diagnosis for this admission?: Yes (6) Acute renal failure Qualifiers: Acute renal failure type: unspecified Qualified Code(s): N17.9 - Acute kidney failure, unspecified Is this a current diagnosis for this admission?: Yes - Notes Notes: Preop cardiovascular examination: Patient cleared for surgery. Timing at the choosing of surgeons. Diverticulitis: Currently stable. Surgeons following. Patient currently being treated medically. Coronary artery disease: Patient on a stable regimen. Patient has history of prior myocardial infarction but there is no ongoing angina or angina equivalent symptoms. Hypertension: Currently stable. Blood pressure goal is 135/85 or less. COPD: Currently stable. Acute renal failure: Patient being followed by operations intelligence superintendent. Results of nuclear stress test were discussed with the patient. Previously completed echocardiogram results were reviewed. At this point, will see patient on as needed basis. Please reconsult if needed. - Time Time with patient: 15-25 minutes - CODE STATUS was discussed, patient remains full code. Surrogate decision-maker unchanged. Multiple medical problems were addressed. More than 50% of the time spent coordinating care, discussing management plans with involved caregivers. Management plans discussed with involved personnels. Medical decision making was of moderate to high complexity , patient's has multiple comorbidities. Medications reviewed and adjusted accordingly: Yes
--- NOTE | 2017-12-15 20:05 | CONSULTATION REPORT E ---
Consultation Report NAME: CAT HECK : 1960 AGE: 57Y DATE: 12/13/2017 336 A TO: MINNIE AMIN M.D. FROM: RHONDA POWERS M.D. Requesting Physician The patient is seen at 5:00 p.m. on 12/13/2017. Although the patient has been previously seen by me, official consult was on 12/13/2017. REASON FOR CONSULTATION: Patient with history of coronary artery disease, cardiomyopathy, history of circumflex stent, for preoperative cardiac risk assessment for abdominal surgery due to diverticulitis. HISTORY: The patient is well known to me. He is a patient of mine in the office. I first met him in 2014. Since then, he has been following up with me. The patient is a 57-year-old male who presented with left lower abdominal pain and was diagnosed with diverticulitis. He has been treated with antibiotics and the thought process is that the patient is going to need surgery, but this has been postponed due to the patient's renal function being abnormal. The patient's GFR is normal. The patient came down to 19 mL/hour, which is acute renal failure, nonoliguric. The patient denies any chest pain or discomfort. There is no shortness of breath. There is no PND, orthopnea, or leg edema. There are no palpitations. There is no ventricular or atrial arrhythmias, and there is no syncope or presyncope. PAST MEDICAL HISTORY: Positive for history of COPD. The patient has cut down on his smoking, but continues to smoke. He has a past history of significant alcohol abuse, which he has now cut down. He rarely takes alcohol. He has a history of COPD and was admitted with acute exacerbation of COPD and CHF in 2014. Then, he was found to have severe LV systolic dysfunction and LV ejection fraction being severely reduced. He had a stress test, which was abnormal in the inferolateral area, showing reversible ischemia, and he was transferred to [facility], where he had a stent in his circumflex. He also had a LifeVest at the time. Subsequently, due to ventricular arrhythmia, was placed on amiodarone. The patient subsequently had echocardiogram serially. In 2015, the LV ejection fraction, which was severely reduced, came to low normal. At present this admission, the LV ejection fraction is 60%. The patient has no anginal symptoms, although he probably had a myocardial infarction in the past. He has a history of ventricular arrhythmias, for which he is on amiodarone. There is no history of atrial fibrillation or flutter. He has no history of hypertension, diabetes mellitus, or thyroid disease. There is no history of TIA or CVA. No history of peptic ulcer disease. PAST SURGICAL HISTORY: Positive for skin cancer removal, cardiac catheterization and stent placement. FAMILY HISTORY: Positive for arthritis, coronary artery disease, diabetes mellitus, hyperlipidemia, hypertension, malignancy, thyroid dysfunction, and CVA. ADVANCE DIRECTIVES: The patient is a full code. His mother is the surrogate healthcare decision maker. REVIEW OF SYMPTOMS: CONSTITUTIONAL: Denies any fever, chills, or rigors. HEAD: Denies history of headache or head injury. EYES: No history of amblyopia or diplopia. No history of amaurosis fugax. EARS: No history of hearing loss, no history of tinnitus, no history of recurrent ear infections. NOSE: No history of nosebleeds. No history of hay fever. No history of nasal polyps. MOUTH: No history of altered taste sensation. No ulcers in the mouth. No bleeding from the gums. THROAT: No odynophagia, dysphagia. No history of recurrent sore throats. SKIN: No skin rashes. No urticaria or ecchymosis. No skin lesions. No history of bruises or yellowish discoloration of the skin. There is no psoriasis. LUNGS: History of COPD. The patient continues to smoke, but has cut down. No recent symptoms of wheezing or symptoms of acute exacerbation of COPD. He has no history of asthma, although he has wheezing intermittently when he has acute exacerbation of COPD, which has not occurred in a long time. He has no history of sleep apnea. No history of pulmonary embolism, no history of hemoptysis. No history of pleuritic chest pain. CARDIAC: History of cardiomyopathy, ischemic, which has recovered. History of circumflex stent. No anginal symptoms. No PND, orthopnea, or leg edema. No shortness of breath with moderate or less than moderate exertion. No palpitations, no syncope. No leg edema. GASTROINTESTINAL: Abdominal patient. Patient diagnosed with diverticulitis. No history of gastrointestinal bleed. No history of fatty food intolerance. No history of cirrhosis. No history of hepatitis. No history of jaundice. MUSCULOSKELETAL: Denies arthritis or collagen vascular disease. ENDOCRINE: No history of diabetes mellitus or thyroid disease. No history of polydipsia or polyuria. No history of heat or cold intolerance. RENAL: No past history of chronic kidney disease, but the patient has acute renal failure. GFR is 19. There are no symptoms of hematuria, pyuria, or dysuria. No symptoms of UTI. No symptoms of enlarged prostate. GLASS CHECKER: No history of TIA or CVA. No history of headache, migraines, or seizures. No gait imbalance. PSYCHIATRIC: No history of anxiety or depression. No suicidal ideation. No homicidal ideation. VASCULAR: No history of calf or buttock claudication. No history of DVT. HEMATOLOGIC: No history of bleeding diathesis. No history of clotting disorders. ALLERGIES: The patient has no known allergies. MEDICATIONS: 1. Aspirin 81 mg p.o. daily. 2. Benzocaine menthol 1 per mouth q.12 hours as needed. 3. Coreg 25 mg p.o. q.12 hours. 4. Amiodarone 200 mg p.o. daily. 5. Plavix 75 mg p.o. daily. 6. Pepcid 10 mg IV q.12 hours. 7. Lasix 20 mg IV q.12 hours. 8. Heparin 5000 units subcutaneously q.8 hours. 9. Ceftazidime 1 gram IV every morning. 10. IV normal saline at 50 mL per hour. 11. Nicoderm patch 21 mg/24 hours, 1 daily. 12. Flagyl 250 mg IV q.8 hours. 13. Zofran 4 mg IV q.6 hours as needed. PHYSICAL EXAMINATION: GENERAL: The patient is moderately obese, but well groomed at present, in no acute distress. HEENT: Head is atraumatic/normocephalic. Eyes: Pupils are equal, round, regular, reactive to light and accommodation. Extraocular movements are normal. There is no conjunctival pallor. There is no scleral icterus. Ears: Tympanic membranes are intact. External auditory canals are clear. Nose: There is no deviation of the nasal septum. There is no inflammation of the nasal mucous membranes. There are no nasal polyps. Mouth: Mucous membranes in the mouth are moist. Tongue is moist. There are no ulcers. There is no bleeding from the gums. Throat: There is no redness of the oropharynx. There are no exudates. VITAL SIGNS: Temperature 97.7 degrees Fahrenheit, pulse 66 beats per minute, blood pressure 159/81, respirations 18 per minute, O2 sat 100% on room air. NECK: Supple. There is no JVD. Carotids are equal. There is no bruit. There is no lymphadenopathy. There is no goiter. Trachea is central. SKIN: There are no skin rashes. There are no skin lesions. There is no petechiae or ecchymosis. LUNGS: Diminished air entry, prolonged expiration without any rhonchi, rales, or wheezing. On percussion, there is hyperresonance. HEART: S1, S2 heard. There is no S3 gallop. There is no S4 gallop. There is a systolic murmur left sternal border and apex. There is no rub. ABDOMEN: Soft, obese. There is mild discomfort on pressing the right lower quadrant, but there is no rebound, guarding, or rigidity. There is no hepatosplenomegaly. Bowel sounds are well heard. EXTREMITIES: Femorals are diminished. Leg pulses are diminished. There is no femoral bruit. There is no pedal edema. There is no DVT or cellulitis. There is no cyanosis or clubbing. There is no calf tenderness. GLASS CHECKER: The patient is conscious, awake, alert, oriented x3 with no focal deficits. NOTE: The patient's chest x-ray on 12/08/2017 shows diminished bibasilar atelectasis, unchanged. Most likely secondary to atelectasis. The patient's echocardiogram done on 12/11/2017 shows that the left ventricle is normal in size. There is normal left ventricular wall thickness. LV ejection fraction is normal at 65%. There is mild LV diastolic dysfunction. There is no definite regional wall motion abnormality. There is no thrombus. There is no tricuspid regurgitation. Unable to calculate RVSP. There is no tricuspid stenosis. There is no aortic stenosis. There is no aortic regurgitation. There is no evidence of mitral valve stenosis or mitral valve prolapse. There is no mitral regurgitation. There is no pericardial effusion. The patient had a Cardiolite stress test on 12/13/2017 which showed no reversible ischemia. There is a fixed defect to the inferior wall, AND inferolateral wall. White count 8000, hemoglobin 12.2, hematocrit 37, platelet count 241,000. The patient's C. difficile toxin is negative. The patient's sodium is 138, potassium 4.9, chloride 107. His CO2 is 22. BUN 30, creatinine 6.10. GFR is reduced at 10, which is acute kidney disease, stage V. The patient's liver function tests done on 12/07/2017 are within normal limits. His lipase is 142.8, albumin 4.1, total protein 7.3. His albumin has come down on 12/12/2017 to 2.9. IMPRESSION: 1. Acute diverticulitis. 2. Acute renal failure, most likely ATN secondary to infection. 3. Coronary artery disease, history of circumflex stent. No anginal symptoms. Stress test shows fixed defect with no reversible ischemia. 4. Cardiomyopathy, resolved. LV ejection fraction is within normal limits. 5. Chronic obstructive pulmonary disease without any acute exacerbation. 6. Past history of alcohol abuse. At present, the patient rarely drinks alcohol. 7. Tobacco abuse disorder RECOMMENDATIONS: 1. As mentioned, discontinue the patient's amiodarone since the patient's LV ejection fraction is normal and there is no evidence of any ventricular arrhythmia. The patient does not have any syncope. 2. Watch the patient closely for any type of angina or congestive heart failure. 3. Note Nephrology is on consult for Renal. Would follow his advice and direction of management. 4. Preoperative cardiac risk assessment. The patient would be an acceptable risk for this procedure under general or spinal anesthesia. Perioperatively monitor the patient on school lunch monitor, and postoperatively will get serial EKG 's. The echo and stress findings are discussed with the patient, and discussed with the attending physician, and also discussed with the surgeon. Will follow with you. The patient's medications have been reviewed. The patient was seen at 5:00 p.m., and 55 minutes spent on the patient, with more than 50% of time spent in direct patient care, medical decision making of high complexity. His medications have been reviewed, and medications have been adjusted. Amiodarone has been discontinued. Dr. Ventura will follow tomorrow. DICTATING PHYSICIAN: MINNIE AMIN M.D. [id number] PHY#: [id number] ID: [id number] JOB#: [id number] ACCT: [id number] cc:MINNIE AMIN M.D. > [facility]
[2017-12-15] MEDS: 1/2 NORMAL SALINE 1,000 ML IV PRN (21:33)
--- NOTE | 2017-12-16 02:43 | PDOC PROGRESS REPORT ---
Subjective Progress Note for:: 12/15/17 Subjective:: comfortable. Voiding Reason For Visit: DIVERTICULITIS OF LARGE INTESTINE Physical Exam Vital Signs: Temp Pulse Resp BP Pulse Ox 97.7 F 61 16 149/86 H 99 12/16/17 00:11 12/16/17 00:11 12/16/17 00:11 12/16/17 00:11 12/16/17 00:11 Intake & Output 12/14/17 12/15/17 12/16/17 06:59 06:59 06:59 Intake Total 3388 5221 3171 Output Total 2075 2400 1075 Balance 1313 2821 2096 Weight 105.5 kg 106.4 kg Exam: abd is soft and non tender Results Laboratory Results: 12/14/17 06:39 12/15/17 06:26 12/15/17 06:26 Sodium 143.8 Potassium 5.0 Chloride 109 H Carbon Dioxide 24 Anion Gap 11 BUN 34 H Creatinine 6.85 H Est GFR ( Amer) 10 L Est GFR (Non-Af Amer) 8 L Glucose 97 Calcium 8.4 12/13/17 06:33 Creatine Kinase 23 L Impressions: Abdomen/Pelvis CT 12/07/17 00:00 IMPRESSION: 1. NEW AREA OF ACUTE DIVERTICULITIS IN THE MID SIGMOID COLON. NO EVIDENCE OF ABSCESS. 2. PREVIOUS AREA OF DIVERTICULITIS INVOLVING THE DESCENDING COLON. THERE IS MILD FOCAL DENSITY MEDIAL TO THE DESCENDING COLON AT THE SITE OF THE PREVIOUS ABSCESS WHICH HAD BEEN DRAINED PERCUTANEOUSLY. CURRENTLY NO DRAINABLE ABSCESS. 3. NO OTHER SIGNIFICANT OR ACUTE FINDING IN THE ABDOMEN OR PELVIS ON CT SCAN WITH IV CONTRAST. Renal Ultrasound 12/12/17 00:00 IMPRESSION: No hydronephrosis Assessment & Plan - Time Time Spent with patient: 15-24 minutes - Plan Summary Plan Summary: His Creatinine is plateuing and K decreased to 5.0 without meds. Continue medical mx primarily with hydration. Continue to Monitor Kidney fxn
[2017-12-16] MEDS: HEPARIN SOD (PORCINE) 5,000 UNIT/ML 1 ML SYRINGE SUBCUT SCH ×3 (05:09→21:39)
[2017-12-16] MEDS: METRONIDAZOLE 500 MG/NS RTU 250 MG in CONTAINER,EMPTY 1 EACH IV SCH ×3 (05:09→21:39)
[2017-12-16 06:55] LABS: ALANINE AMINOTRANSFERASE 20 U/L (21-72); ALBUMIN 2.8 g/dL (3.5-5.0); ALKALINE PHOSPHATASE 65 U/L (38-126); ANION GAP 10 (5-19); ASPARTATE AMINO TRANSFERASE 11 U/L (17-59); BILIRUBIN,DIRECT 0.3 mg/dL (0.0-0.4); BILIRUBIN,TOTAL 0.3 mg/dL (0.2-1.3); BLOOD UREA NITROGEN 35 mg/dL (7-20); CALCIUM 8.7 mg/dL (8.4-10.2); CARBON DIOXIDE 24 mmol/L (22-30); CHLORIDE 109 mmol/L (98-107); GLUCOSE 93 mg/dL (75-110); POTASSIUM 5.2 mmol/L (3.6-5.0); SODIUM 143.2 mmol/L (137-145); TOTAL PROTEIN 5.2 g/dL (6.3-8.2)
[2017-12-16] MEDS: CEFTAZIDIME PENTAHYDRATE 1 GM in DEXTROSE 5%-WATER 50 ML IV SCH (07:39)
[2017-12-16] MEDS: CLOPIDOGREL BISULFATE 75 MG TABLET PO SCH (09:44)
--- NOTE | 2017-12-16 09:49 | PDOC PROGRESS REPORT ---
Subjective Progress Note for:: 12/16/17 Subjective:: no pains. Voiding well. Reason For Visit: DIVERTICULITIS OF LARGE INTESTINE Physical Exam Vital Signs: Temp Pulse Resp BP Pulse Ox 97.8 F 78 16 169/94 H 97 12/16/17 08:57 12/16/17 08:57 12/16/17 08:57 12/16/17 08:57 12/16/17 08:57 Intake & Output 12/15/17 12/16/17 12/17/17 06:59 06:59 06:59 Intake Total 5221 4023 Output Total 2400 2175 Balance 2821 1848 Weight 106.4 kg 104.5 kg Exam: abd is soft and non tender Results Laboratory Results: 12/14/17 06:39 12/16/17 06:12 12/16/17 06:12 Sodium 143.2 Potassium 5.2 H Chloride 109 H Carbon Dioxide 24 Anion Gap 10 BUN 35 H Creatinine 6.89 H Est GFR ( Amer) 10 L Est GFR (Non-Af Amer) 8 L Glucose 93 Calcium 8.7 Total Bilirubin 0.3 AST 11 L ALT 20 L Alkaline Phosphatase 65 Total Protein 5.2 L Albumin 2.8 L 12/13/17 06:33 Creatine Kinase 23 L Impressions: Abdomen/Pelvis CT 12/07/17 00:00 IMPRESSION: 1. NEW AREA OF ACUTE DIVERTICULITIS IN THE MID SIGMOID COLON. NO EVIDENCE OF ABSCESS. 2. PREVIOUS AREA OF DIVERTICULITIS INVOLVING THE DESCENDING COLON. THERE IS MILD FOCAL DENSITY MEDIAL TO THE DESCENDING COLON AT THE SITE OF THE PREVIOUS ABSCESS WHICH HAD BEEN DRAINED PERCUTANEOUSLY. CURRENTLY NO DRAINABLE ABSCESS. 3. NO OTHER SIGNIFICANT OR ACUTE FINDING IN THE ABDOMEN OR PELVIS ON CT SCAN WITH IV CONTRAST. Renal Ultrasound 12/12/17 00:00 IMPRESSION: No hydronephrosis Assessment & Plan - Time Time Spent with patient: 15-24 minutes - Plan Summary Plan Summary: BUN Creat plateuing. K 5.[address] Borges and inform him of labs and U.O. 2400 ccs past 24 hrs. Continue gentle hydration and IV antibiotics
[2017-12-16] MEDS: FAMOTIDINE INJ/PF 20 MG/2 ML SDV IV SCH ×2 (10:08→21:38)
[2017-12-16] MEDS: FUROSEMIDE INJ/PF 20 MG/2 ML SDV IV SCH ×2 (10:08→21:38)
[2017-12-16] MEDS: NICOTINE 21 MG/24 HR PATCH.TD24 TD SCH (10:09)
[2017-12-16] MEDS: CARVEDILOL 12.5 MG TABLET PO SCH ×2 (10:12→21:37)
[2017-12-16] MEDS: CLONIDINE HCL 0.1 MG TABLET PO SCH (10:12)
[2017-12-16] MEDS: ASPIRIN 81 MG TABLET, CHEWABLE PO SCH (10:12)
[2017-12-16] MEDS ORDERED: ONDANSETRON 4 MG TAB.RAPDIS PO PRN (13:34)
--- NOTE | 2017-12-16 22:40 | DRAGON STRESS TEST REPORT ---
2 Day Intravenous Lexiscan Cardiolite stress test using single photon emmision computerized tomography. Date of Resting procedure: 12/12/17. Date of Stress procedure: 12/13/17. Ordering Provider: Dr. Joan Zarate Indication: Patient with history of coronary artery disease, history of circumflex stent, for preoperative cardiac risk assessment.. Coronary risk factors: Age, hypertension, and tobacco abuse disorder. Resting EKG: Sinus Rhythm. Nonspecific minor IVCD Stress EKG: No changes of ischemia. The patient had no chest pain or discomfort, and there were no arrhythmias seen. Reason for termination: Protocol. Conclusions: Normal EKG and hemodynamic response to IV Lexiscan. Nuclear data: At rest , on 12/12/2017, the patient was given 14.75 millicuries of technetium 99m sestamibi injected intravenously. As per protocol rest non gated SPECT images were obtained. Subsequently on 12/13/17, the patient was given intravenous Lexiscan at a dose of 0.4 mg in 5 mL intravenously, followed by flush with normal saline. Subsequently the stress dose of 43.9 millicuries of technetium 99m sestamibi was injected intravenously. As per protocol stress gated images were obtained. Nuclear interpretation: Review of images showed that there was a mild perfusion defect in both the rest and stress images involving the inferior wall and inferolateral wall. This area had decreased motion contraction and thickening by gated study, and hence consistent with a prior scar/MD. The rest of the segments of the myocardium had normal perfusion at rest, and normal perfusion post stress with IV Lexiscan. All segments of the myocardium had normal motion, contraction, and thickening by gated study. T. I D. ratio was normal at 1.08. Computer read rest, and stress left ventricular ejection fraction were 39 %, and 45 %, respectively. Visually both the stress and rest ejection fractions were normal, and greater than 55%. Conclusion: 1. There is no scintigraphic evidence of Lexiscan induced myocardial ischemia. 2. There is scintigraphic evidence of mild myocardial infarction/scar involving the inferior wall and the inferolateral wall. Recommendations: 1. Would maximize medical treatment of coronary artery disease. 2. Check echo to correlate LV ejection fraction. 3.Aggressive risk factor modification, and treating the underlying co- morbidities. [facility]
[2017-12-17] MEDS: 1/2 NORMAL SALINE 1,000 ML IV PRN ×2 (02:46→12:54)
[2017-12-17] MEDS: METRONIDAZOLE IV SCH ×3 (06:25→23:06)
[2017-12-17] MEDS: [UNRECOGNIZED DRUG - OTHER] IV SCH ×3 (06:25→23:06)
[2017-12-17] MEDS: HEPARIN SOD (PORCINE) 5,000 UNIT/ML 1 ML SYRINGE SUBCUT SCH ×3 (06:29→23:07)
[2017-12-17] MEDS: FUROSEMIDE INJ/PF 20 MG/2 ML SDV IV SCH ×2 (08:02→18:28)
[2017-12-17] MEDS: CARVEDILOL 12.5 MG TABLET PO SCH ×2 (08:05→23:05)
[2017-12-17 08:07] LABS: ALANINE AMINOTRANSFERASE 18 U/L (21-72); ALBUMIN 3.1 g/dL (3.5-5.0); ALKALINE PHOSPHATASE 69 U/L (38-126); ANION GAP 11 (5-19); ASPARTATE AMINO TRANSFERASE 12 U/L (17-59); BILIRUBIN,DIRECT 0.3 mg/dL (0.0-0.4); BILIRUBIN,TOTAL 0.3 mg/dL (0.2-1.3); BLOOD UREA NITROGEN 29 mg/dL (7-20); CALCIUM 8.8 mg/dL (8.4-10.2); CARBON DIOXIDE 21 mmol/L (22-30); CHLORIDE 117 mmol/L (98-107); GLUCOSE 95 mg/dL (75-110); SODIUM 149.4 mmol/L (137-145); TOTAL PROTEIN 5.6 g/dL (6.3-8.2)
[2017-12-17] MEDS: CLONIDINE HCL 0.1 MG TABLET PO SCH ×2 (08:07→23:04)
--- NOTE | 2017-12-17 09:11 | PDOC PROGRESS REPORT ---
Subjective Reason For Visit: DIVERTICULITIS OF LARGE INTESTINE No complaints; tolerating a diet without limitations. Physical Exam Vital Signs: Temp Pulse Resp BP Pulse Ox 97.6 F 90 16 168/101 H 93 12/17/17 07:45 12/17/17 07:45 12/17/17 07:45 12/17/17 07:45 12/17/17 07:45 Intake & Output 12/16/17 12/17/17 12/18/17 06:59 06:59 06:59 Intake Total 4023 4520 Output Total 2175 1800 Balance 1848 2720 Weight 104.5 kg 104.5 kg General appearance: PRESENT: no acute distress GI/Abdominal exam: PRESENT: other - Rotund, less distended compared to last week. No peritoneal signs Results Laboratory Results: 12/14/17 06:39 12/17/17 07:30 12/17/17 07:30 Sodium 149.4 H Potassium 5.0 Chloride 117 H Carbon Dioxide 21 L Anion Gap 11 BUN 29 H Creatinine 6.47 H Est GFR ( Amer) 11 L Est GFR (Non-Af Amer) 9 L Glucose 95 Calcium 8.8 Total Bilirubin 0.3 AST 12 L ALT 18 L Alkaline Phosphatase 69 Total Protein 5.6 L Albumin 3.1 L 12/13/17 06:33 Creatine Kinase 23 L Impressions: Abdomen/Pelvis CT 12/07/17 00:00 IMPRESSION: 1. NEW AREA OF ACUTE DIVERTICULITIS IN THE MID SIGMOID COLON. NO EVIDENCE OF ABSCESS. 2. PREVIOUS AREA OF DIVERTICULITIS INVOLVING THE DESCENDING COLON. THERE IS MILD FOCAL DENSITY MEDIAL TO THE DESCENDING COLON AT THE SITE OF THE PREVIOUS ABSCESS WHICH HAD BEEN DRAINED PERCUTANEOUSLY. CURRENTLY NO DRAINABLE ABSCESS. 3. NO OTHER SIGNIFICANT OR ACUTE FINDING IN THE ABDOMEN OR PELVIS ON CT SCAN WITH IV CONTRAST. Renal Ultrasound 12/12/17 00:00 IMPRESSION: No hydronephrosis Assessment & Plan - Diagnosis (1) Diverticulitis large intestine Qualifiers: Diverticulitis bleeding: without bleeding Diverticulitis complication: without perforation or abscess Qualified Code(s): K57.32 - Diverticulitis of large intestine without perforation or abscess without bleeding Is this a current diagnosis for this admission?: Yes Plan: Hospital day 10 for the patient admitted with exacerbation complicated diverticulitis, clinically stable, satisfactory GI function tolerating a regular diet; acute kidney injury may have reached its richi Commendations: 1. I spoke with Dr. Scott Borges, urologist. He believes patient should remain hospitalized until creatinine approximately 5. Furthermore we agreed deferring interval colon resection until acute kidney injury resolved would be in the patient's best interest. Undergoing surgical resection would likely to patient over into complete renal failure. 2. I spoke with Dr. Wylie, hospitalist, regarding the above. She will accept patient in transfer. I have recommended continuing intravenous antibiotics while hospitalized then discontinuing antimicrobial therapy. 3. Surgical reconsultation available during this hospitalization if indicated; otherwise patient can follow-up with Dr. Giordano at [place] [facility] who likely perform patient's interval colectomy. (3) CHF (congestive heart failure) Qualifiers: Heart failure type: unspecified Heart failure chronicity: chronic Qualified Code(s): I50.9 - Heart failure, unspecified Is this a current diagnosis for this admission?: Yes
[2017-12-17] MEDS: NICOTINE 21 MG/24 HR PATCH.TD24 TD SCH (10:12)
[2017-12-17] MEDS: LACTOBACILLUS ACIDOPHILUS 250 MG TAB PO SCH ×2 (10:12→18:27)
[2017-12-17] MEDS: ASPIRIN 81 MG TABLET, CHEWABLE PO SCH (10:12)
[2017-12-17] MEDS: CLOPIDOGREL BISULFATE 75 MG TABLET PO SCH (10:13)
[2017-12-17] MEDS: CEFTAZIDIME PENTAHYDRATE 1 GM in DEXTROSE 5%-WATER 50 ML IV SCH (10:14)
[2017-12-17] MEDS: FAMOTIDINE INJ/PF 20 MG/2 ML SDV IV SCH ×2 (10:15→23:06)
[2017-12-17 11:24] LABS: PHOSPHORUS 5.6 mg/dL (2.5-4.5)
[2017-12-17] MEDS ORDERED: BUTALB/ACETAMINOPHEN/CAFFEINE 1 TAB EACH PO ONE (16:15)
--- NOTE | 2017-12-17 17:11 | PDOC PROGRESS REPORT ---
Subjective Progress Note for:: 12/17/17 Subjective:: The patient is a 57-year-old male with past medical history of COPD Tobacco dependence Alcohol abuse-currently in remission Coronary artery disease status post stenting of the left circumflex artery in 2014 Arthritis Morbid obesity Recurrent diverticulitis Prior history of cardiomyopathy which has resolved and currently has normal left ventricular ejection fraction He first presented to this hospital on October 16 with acute diverticulitis associated with a pericolonic abscess. At the time it was felt that there was no clinical indication for surgery and the plan was to possibly perform percutaneous drainage if indicated. He improved with a course of antibiotics and was discharged, however he presented back again on November 13 with abdominal pain and fevers, and was again admitted and treated conservatively with antibiotics since emergent colectomy was not indicated. The abscess was drained by IR and he was discharged on November 20 to complete a course of oral Ciprofloxacin and Flagyl. On December 07 the patient presented back to the hospital with lower abdominal pain. CAT scan of the abdomen and pelvis showed a new site of acute diverticulitis in the sigmoid colon with resolution of the previous site of abscess and inflammation. He was started on IV fluids, IV vancomycin and Zosyn. He subsequently developed acute renal failure with decreasing urine output and rising creatinine levels. The patient was evaluated by Dr. 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 Renal ultrasound was normal. He had a preop cardiology evaluation, in anticipation of possible requirement of a colectomy. This has been postponed given his acute renal failure. Echocardiogram showed a left ventricular ejection fraction of 65% with impaired relaxation. No significant valvular abnormalities. Cardiolite stress test was within normal limits. I was called by Dr. Bhandari this morning requesting to transfer the patient's care to the medical team, given no plans for surgery at present. He has recommended follow-up with Dr. Giordano at the [facility] for an interval colectomy once his kidney function improves. The patient was started on a solid diet last night, which he tolerated ok. Denies abdominal pain. Reason For Visit: DIVERTICULITIS OF LARGE INTESTINE Physical Exam Vital Signs: Temp Pulse Resp BP Pulse Ox 97.6 F 90 16 168/101 H 93 12/17/17 07:45 12/17/17 07:45 12/17/17 07:45 12/17/17 07:45 12/17/17 07:45 Intake & Output 12/16/17 12/17/17 12/18/17 06:59 06:59 06:59 Intake Total 4023 4520 Output Total 2175 1800 Balance 1848 2720 Weight 104.5 kg 104.5 kg General appearance: PRESENT: no acute distress, obese Head exam: PRESENT: normocephalic Ear exam: PRESENT: normal external ear exam Mouth exam: PRESENT: moist Neck exam: ABSENT: tracheal deviation Respiratory exam: PRESENT: rhonchi, symmetrical, unlabored Cardiovascular exam: PRESENT: RRR - he involve GI/Abdominal exam: PRESENT: normal bowel sounds, soft. ABSENT: tenderness Rectal exam: PRESENT: deferred Gentrourinary exam: ABSENT: indwelling catheter Extremities exam: PRESENT: pedal edema Neurological exam: PRESENT: alert - While, awake, oriented to person, oriented to place, oriented to time, oriented to situation Psychiatric exam: PRESENT: appropriate affect Results Laboratory Results: 12/14/17 06:39 12/17/17 07:30 12/17/17 07:30 Sodium 149.4 H Potassium 5.0 Chloride 117 H Carbon Dioxide 21 L Anion Gap 11 BUN 29 H Creatinine 6.47 H Est GFR ( Amer) 11 L Est GFR (Non-Af Amer) 9 L Glucose 95 Calcium 8.8 Total Bilirubin 0.3 AST 12 L ALT 18 L Alkaline Phosphatase 69 Total Protein 5.6 L Albumin 3.1 L 12/13/17 06:33 Creatine Kinase 23 L Impressions: Abdomen/Pelvis CT 12/07/17 00:00 IMPRESSION: 1. NEW AREA OF ACUTE DIVERTICULITIS IN THE MID SIGMOID COLON. NO EVIDENCE OF ABSCESS. 2. PREVIOUS AREA OF DIVERTICULITIS INVOLVING THE DESCENDING COLON. THERE IS MILD FOCAL DENSITY MEDIAL TO THE DESCENDING COLON AT THE SITE OF THE PREVIOUS ABSCESS WHICH HAD BEEN DRAINED PERCUTANEOUSLY. CURRENTLY NO DRAINABLE ABSCESS. 3. NO OTHER SIGNIFICANT OR ACUTE FINDING IN THE ABDOMEN OR PELVIS ON CT SCAN WITH IV CONTRAST. Renal Ultrasound 12/12/17 00:00 IMPRESSION: No hydronephrosis Assessment & Plan - Diagnosis (1) Acute diverticulitis of intestine Is this a current diagnosis for this admission?: Yes Plan: Date 11 of antibiotics. Would complete a 2-week course, and switch to oral once able to tolerate. He is currently on a regular diet. (2) Acute renal failure Qualifiers: Acute renal failure type: unspecified Qualified Code(s): N17.9 - Acute kidney failure, unspecified Is this a current diagnosis for this admission?: Yes Plan: [place] to be secondary to allergic interstitial nephritis most likely due to antibiotics. He is being followed by the nephrology service. Continue to monitor renal function, urine output. Continue IV fluids. Avoid nephrotoxic agents. (3) COPD (chronic obstructive pulmonary disease) Qualifiers: Emphysema type: unspecified Is this a current diagnosis for this admission?: Yes (4) Coronary artery disease Qualifiers: Coronary Disease-Associated Artery/Lesion type: [place] artery [place] vs. transplanted heart: [place] heart Associated angina: without angina Qualified Code(s): I25.10 - Atherosclerotic heart disease of [place] coronary artery without angina pectoris Is this a current diagnosis for this admission?: Yes Plan: On aspirin Plavix and Coreg. (5) Hypertension Is this a current diagnosis for this admission?: Yes Plan: On Coreg and clonidine. Lasix and spironolactone on hold. (6) Tobacco abuse Is this a current diagnosis for this admission?: Yes Plan: Nicotine patch - Time Time Spent with patient: 35 or more minutes
[2017-12-17] MEDS ORDERED: POLYETHYLENE GLYCOL 3350 POWDER 17 GM/1 PACKET PO ONE (17:30)
[2017-12-17] MEDS ORDERED: DOCUSATE SODIUM 100 MG CAPSULE PO ONE (18:00)
[2017-12-18 04:28] LABS: ABSOLUTE BASOPHILS # (AUTO) 0.1 10^3/uL (0.0-0.2); ABSOLUTE EOSINOPHILS # (AUTO) 0.5 10^3/uL (0.0-0.6); ABSOLUTE LYMPHOCYTES (AUTO) 1.5 10^3/uL (0.5-4.7); ABSOLUTE MONOCYTES (AUTO) 0.8 10^3/uL (0.1-1.4); ABSOLUTE NEUT (AUTO) 5.8 10^3/uL (1.7-8.2); BASOPHILS % (AUTO) 1.3 % (0-2); EOSINOPHILS % (AUTO) 5.3 % (0-6); HEMATOCRIT 32.6 % (37.9-51.0); HEMOGLOBIN 10.8 g/dL (13.5-17.0); MEAN CORPUSCULAR HEMOGLOBIN 30.5 pg (27.0-33.4); MEAN CORPUSCULAR HGB CONC 33.1 g/dL (32.0-36.0); MEAN CORPUSCULAR VOLUME 92 fl (80-97); PLATELET COUNT 140 10^3/uL (150-450); RED BLOOD COUNT 3.54 10^6/uL (4.35-5.55); RED CELL DISTRIBUTION WIDTH 15.2 % (11.5-14.0); SEGMENTED NEUTROPHILS % (AUTO) 67.4 % (42-78); TOTAL CELLS COUNTED % (AUTO) 100 %; WHITE BLOOD COUNT 8.5 10^3/uL (4.0-10.5)
[2017-12-18 04:53] LABS: ANION GAP 11 (5-19); BLOOD UREA NITROGEN 33 mg/dL (7-20); CALCIUM 8.6 mg/dL (8.4-10.2); CARBON DIOXIDE 23 mmol/L (22-30); CHLORIDE 112 mmol/L (98-107); GLUCOSE 114 mg/dL (75-110); PHOSPHORUS 5.1 mg/dL (2.5-4.5); POTASSIUM 5.4 mmol/L (3.6-5.0); SODIUM 145.7 mmol/L (137-145)
[2017-12-18] MEDS: [UNRECOGNIZED DRUG - OTHER] IV SCH (06:05)
[2017-12-18] MEDS: METRONIDAZOLE IV SCH (06:05)
--- NOTE | 2017-12-18 08:03 | PDOC PROGRESS REPORT ---
Subjective Progress Note for:: 12/17/17 Reason For Visit: Patient seen today. He is still in good spirits. He denies any such chest pain or shortness of breath. No abdominal pains. Tolerating a good diet. No complaints of any fever or chills. Good urine output. Labs and medications were reviewed with the patient shows a slight improvement in his renal functions as of today. Physical Exam Vital Signs: Temp Pulse Resp BP Pulse Ox 97.6 F 90 16 168/101 H 93 12/17/17 07:45 12/17/17 07:45 12/17/17 07:45 12/17/17 07:45 12/17/17 07:45 Intake & Output 12/16/17 12/17/17 12/18/17 06:59 06:59 06:59 Intake Total 4023 4520 473 Output Total 2175 1800 275 Balance 1848 2720 198 Weight 104.5 kg 104.5 kg General appearance: PRESENT: no acute distress Respiratory exam: PRESENT: clear to auscultation adelaida. ABSENT: crackles, rhonchi Cardiovascular exam: PRESENT: +S1, +S2 GI/Abdominal exam: PRESENT: soft. ABSENT: guarding, organomegaly Neurological exam: PRESENT: alert, awake, oriented to person, oriented to place Psychiatric exam: PRESENT: appropriate affect Skin exam: ABSENT: dry, erythema, mottled, rash Results Laboratory Results: 12/14/17 06:39 12/17/17 07:30 12/17/17 07:30 Sodium 149.4 H Potassium 5.0 Chloride 117 H Carbon Dioxide 21 L Anion Gap 11 BUN 29 H Creatinine 6.47 H Est GFR ( Amer) 11 L Est GFR (Non-Af Amer) 9 L Glucose 95 Calcium 8.8 Total Bilirubin 0.3 AST 12 L ALT 18 L Alkaline Phosphatase 69 Total Protein 5.6 L Albumin 3.1 L 12/13/17 06:33 Creatine Kinase 23 L Impressions: Abdomen/Pelvis CT 12/07/17 00:00 IMPRESSION: 1. NEW AREA OF ACUTE DIVERTICULITIS IN THE MID SIGMOID COLON. NO EVIDENCE OF ABSCESS. 2. PREVIOUS AREA OF DIVERTICULITIS INVOLVING THE DESCENDING COLON. THERE IS MILD FOCAL DENSITY MEDIAL TO THE DESCENDING COLON AT THE SITE OF THE PREVIOUS ABSCESS WHICH HAD BEEN DRAINED PERCUTANEOUSLY. CURRENTLY NO DRAINABLE ABSCESS. 3. NO OTHER SIGNIFICANT OR ACUTE FINDING IN THE ABDOMEN OR PELVIS ON CT SCAN WITH IV CONTRAST. Renal Ultrasound 12/12/17 00:00 IMPRESSION: No hydronephrosis Assessment & Plan - Diagnosis (1) WYATT (acute kidney injury) Is this a current diagnosis for this admission?: Yes Plan: Nonoliguric. Electrolytes are stable. Renal numbers shows is stabilizing and slightly better. I would continue present lines of management. It looks like he should be better in the next couple of days. Once his creatinine drops into the fives he can be discharged home and I can see him in my office in about few days with labs. I would postpone any interval surgery until renal functions are better and was discussed with Dr. Bhandari earlier today. (2) Diverticulitis large intestine Qualifiers: Diverticulitis bleeding: without bleeding Diverticulitis complication: without perforation or abscess Qualified Code(s): K57.32 - Diverticulitis of large intestine without perforation or abscess without bleeding Is this a current diagnosis for this admission?: Yes Plan: Improving. Asymptomatic. Tolerating diet well. (3) Hypertension Is this a current diagnosis for this admission?: Yes Plan: Uncontrolled. Titrate medications. Monitor. See response as renal functions improves.
[2017-12-18] MEDS: 1/2 NORMAL SALINE 1,000 ML IV PRN (08:57)
[2017-12-18] MEDS: HEPARIN SOD (PORCINE) 5,000 UNIT/ML 1 ML SYRINGE SUBCUT SCH ×2 (09:11→22:21)
[2017-12-18] MEDS: CARVEDILOL 12.5 MG TABLET PO SCH ×2 (09:13→22:15)
[2017-12-18] MEDS: ASPIRIN 81 MG TABLET, CHEWABLE PO SCH (09:14)
[2017-12-18] MEDS: NICOTINE 21 MG/24 HR PATCH.TD24 TD SCH (09:14)
[2017-12-18] MEDS: CLOPIDOGREL BISULFATE 75 MG TABLET PO SCH (09:15)
[2017-12-18] MEDS: LACTOBACILLUS ACIDOPHILUS 250 MG TAB PO SCH ×2 (09:15→17:06)
[2017-12-18] MEDS: DOCUSATE SODIUM 100 MG CAPSULE PO SCH (09:15)
[2017-12-18] MEDS: CLONIDINE HCL 0.1 MG TABLET PO SCH ×2 (09:15→22:20)
[2017-12-18] MEDS: POLYETHYLENE GLYCOL 3350 POWDER 17 GM/1 PACKET PO SCH (09:16)
[2017-12-18] MEDS: FUROSEMIDE INJ/PF 20 MG/2 ML SDV IV SCH (09:17)
[2017-12-18] MEDS: FAMOTIDINE INJ/PF 20 MG/2 ML SDV IV SCH ×2 (09:18→22:15)
[2017-12-18] MEDS: CEFTAZIDIME PENTAHYDRATE 1 GM in DEXTROSE 5%-WATER 50 ML IV SCH (09:20)
[2017-12-18] MEDS ORDERED: BUTALB/ACETAMINOPHEN/CAFFEINE 1 TAB EACH PO PRN (09:27)
[2017-12-18] MEDS: MAGNESIUM OXIDE 400 MG TABLET PO SCH (12:31)
--- NOTE | 2017-12-18 13:57 | PDOC PROGRESS REPORT ---
Subjective Progress Note for:: 12/18/17 Subjective:: The patient is a 57-year-old male with past medical history of COPD Tobacco dependence Alcohol abuse-currently in remission Coronary artery disease status post stenting of the left circumflex artery in 2015 Arthritis Morbid obesity Recurrent diverticulitis Prior history of cardiomyopathy which has resolved and currently has normal left ventricular ejection fraction He first presented to this hospital on October 16 with acute diverticulitis associated with a pericolonic abscess. At the time it was felt that there was no clinical indication for surgery and the plan was to possibly perform percutaneous drainage if indicated. He improved with a course of antibiotics and was discharged, however he presented back again on November 13 with abdominal pain and fevers, and was again admitted and treated conservatively with antibiotics since emergent colectomy was not indicated. The abscess was drained by IR and he was discharged on November 20 to complete a course of oral Ciprofloxacin and Flagyl. On December 07 the patient presented back to the hospital with lower abdominal pain. CAT scan of the abdomen and pelvis showed a new site of acute diverticulitis in the sigmoid colon with resolution of the previous site of abscess and inflammation. He was started on IV fluids, IV vancomycin and Zosyn. He subsequently developed acute renal failure with decreasing urine output and rising creatinine levels. The patient was evaluated by Dr. 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 Renal ultrasound was normal. He had a preop cardiology evaluation, in anticipation of possible requirement of a colectomy. This has been postponed given his acute renal failure. Echocardiogram showed a left ventricular ejection fraction of 65% with impaired relaxation. No significant valvular abnormalities. Cardiolite stress test was within normal limits. I was called by Dr. Bhandari on 12/17/17 requesting to transfer the patient's care to the medical team, given no plans for surgery at present due to renal function. He has recommended follow-up with Dr. Giordano at the [place] [facility] for an interval colectomy once his kidney function improves. The patient was started on a solid diet which he has been able to tolerate. He is having regular bowel movements. His renal failure is being managed by Dr. Borges with IV fluids and Lasix. Denies abdominal pain. He reported a tension headache which resolved with Fioricet. Reason For Visit: DIVERTICULITIS OF LARGE INTESTINE Physical Exam Vital Signs: Temp Pulse Resp BP Pulse Ox 97.4 F 72 18 150/89 H 94 12/18/17 11:13 12/18/17 11:13 12/18/17 11:13 12/18/17 11:13 12/18/17 11:13 Intake & Output 12/17/17 12/18/17 12/19/17 06:59 06:59 06:59 Intake Total 4520 4735 Output Total 1800 2175 Balance 2720 2560 Weight 104.5 kg 107.6 kg General appearance: PRESENT: no acute distress, obese Head exam: PRESENT: normocephalic Mouth exam: PRESENT: moist Neck exam: ABSENT: tracheal deviation Respiratory exam: PRESENT: symmetrical, unlabored. ABSENT: wheezes Cardiovascular exam: PRESENT: RRR GI/Abdominal exam: PRESENT: normal bowel sounds, soft. ABSENT: tenderness Rectal exam: PRESENT: deferred Gentrourinary exam: ABSENT: indwelling catheter Extremities exam: PRESENT: pedal edema Neurological exam: PRESENT: alert, awake, oriented to person, oriented to place , oriented to time, oriented to situation Psychiatric exam: PRESENT: appropriate affect Results Laboratory Results: 12/18/17 04:20 12/18/17 04:20 12/18/17 12/18/17 04:20 04:20 WBC 8.5 RBC 3.54 L Hgb 10.8 L Hct 32.6 L MCV 92 MCH 30.5 MCHC 33.1 RDW 15.2 H Plt Count 140 L Seg Neutrophils % 67.4 Lymphocytes % 17.0 Monocytes % 9.0 Eosinophils % 5.3 Basophils % 1.3 Absolute Neutrophils 5.8 Absolute Lymphocytes 1.5 Absolute Monocytes 0.8 Absolute Eosinophils 0.5 Absolute Basophils 0.1 Sodium 145.7 H Potassium 5.4 H Chloride 112 H Carbon Dioxide 23 Anion Gap 11 BUN 33 H Creatinine 6.01 H Est GFR ( Amer) 12 L Est GFR (Non-Af Amer) 10 L Glucose 114 H Calcium 8.6 Phosphorus 5.1 H Magnesium 1.7 12/13/17 12/18/17 06:33 04:20 Creatine Kinase 23 L NT-Pro-B Natriuret Pep 9070 H Impressions: Abdomen/Pelvis CT 12/07/17 00:00 IMPRESSION: 1. NEW AREA OF ACUTE DIVERTICULITIS IN THE MID SIGMOID COLON. NO EVIDENCE OF ABSCESS. 2. PREVIOUS AREA OF DIVERTICULITIS INVOLVING THE DESCENDING COLON. THERE IS MILD FOCAL DENSITY MEDIAL TO THE DESCENDING COLON AT THE SITE OF THE PREVIOUS ABSCESS WHICH HAD BEEN DRAINED PERCUTANEOUSLY. CURRENTLY NO DRAINABLE ABSCESS. 3. NO OTHER SIGNIFICANT OR ACUTE FINDING IN THE ABDOMEN OR PELVIS ON CT SCAN WITH IV CONTRAST. Renal Ultrasound 12/12/17 00:00 IMPRESSION: No hydronephrosis Assessment & Plan - Diagnosis (1) Acute diverticulitis of intestine Is this a current diagnosis for this admission?: Yes Plan: Date 12 of antibiotics. He should complete a 2-week course, and switch to oral once able to tolerate. He is currently on a regular diet. (2) Acute renal failure Qualifiers: Acute renal failure type: unspecified Qualified Code(s): N17.9 - Acute kidney failure, unspecified Is this a current diagnosis for this admission?: Yes Plan: [place]oy to be secondary to allergic interstitial nephritis most likely due to antibiotics. Continue to monitor renal function. Urine output is adequate. Continue IV fluids and lasix per Dr. Borges who is managing his renal failure. Avoid nephrotoxic agents. (3) COPD (chronic obstructive pulmonary disease) Qualifiers: Emphysema type: unspecified Is this a current diagnosis for this admission?: Yes (4) Coronary artery disease Qualifiers: Coronary Disease-Associated Artery/Lesion type: [place] artery [place] vs. transplanted heart: [place] heart Associated angina: without angina Qualified Code(s): I25.10 - Atherosclerotic heart disease of [place] coronary artery without angina pectoris Is this a current diagnosis for this admission?: Yes Plan: On Aspirin Plavix and Coreg. (5) Hypertension Is this a current diagnosis for this admission?: Yes Plan: On Coreg and clonidine. (6) Tobacco abuse Is this a current diagnosis for this admission?: Yes Plan: Nicotine patch - Time Time Spent with patient: 25-34 minutes
[2017-12-18] MEDS ORDERED: METRONIDAZOLE 250 MG in NORMAL SALINE 50 ML IV SCH (14:00)
--- NOTE | 2017-12-18 16:53 | PDOC PROGRESS REPORT ---
Subjective Progress Note for:: 12/18/17 Reason For Visit: Patient seen today in the hospital. He continues to do better. No abdominal pains, fever or chills. No complaints of chest pain or shortness of breath. Labs and medications were reviewed with the patient. Good urine output. Renal numbers are slowly improving. Physical Exam Vital Signs: Temp Pulse Resp BP Pulse Ox 97.4 F 72 18 150/89 H 94 12/18/17 11:13 12/18/17 11:13 12/18/17 11:13 12/18/17 11:13 12/18/17 11:13 Intake & Output 12/17/17 12/18/17 12/19/17 06:59 06:59 06:59 Intake Total 4520 4735 Output Total 1800 2175 Balance 2720 2560 Weight 104.5 kg 107.6 kg General appearance: PRESENT: no acute distress Respiratory exam: PRESENT: clear to auscultation adelaida. ABSENT: crackles, rhonchi Cardiovascular exam: PRESENT: +S1, +S2 GI/Abdominal exam: PRESENT: soft. ABSENT: guarding, organomegaly Extremities exam: PRESENT: +1 edema Neurological exam: PRESENT: alert, awake, oriented to person, oriented to place Skin exam: ABSENT: erythema, mottled Results Laboratory Results: 12/18/17 04:20 12/18/17 04:20 12/18/17 12/18/17 04:20 04:20 WBC 8.5 RBC 3.54 L Hgb 10.8 L Hct 32.6 L MCV 92 MCH 30.5 MCHC 33.1 RDW 15.2 H Plt Count 140 L Seg Neutrophils % 67.4 Lymphocytes % 17.0 Monocytes % 9.0 Eosinophils % 5.3 Basophils % 1.3 Absolute Neutrophils 5.8 Absolute Lymphocytes 1.5 Absolute Monocytes 0.8 Absolute Eosinophils 0.5 Absolute Basophils 0.1 Sodium 145.7 H Potassium 5.4 H Chloride 112 H Carbon Dioxide 23 Anion Gap 11 BUN 33 H Creatinine 6.01 H Est GFR ( Amer) 12 L Est GFR (Non-Af Amer) 10 L Glucose 114 H Calcium 8.6 Phosphorus 5.1 H Magnesium 1.7 12/13/17 12/18/17 06:33 04:20 Creatine Kinase 23 L NT-Pro-B Natriuret Pep 9070 H Impressions: Abdomen/Pelvis CT 12/07/17 00:00 IMPRESSION: 1. NEW AREA OF ACUTE DIVERTICULITIS IN THE MID SIGMOID COLON. NO EVIDENCE OF ABSCESS. 2. PREVIOUS AREA OF DIVERTICULITIS INVOLVING THE DESCENDING COLON. THERE IS MILD FOCAL DENSITY MEDIAL TO THE DESCENDING COLON AT THE SITE OF THE PREVIOUS ABSCESS WHICH HAD BEEN DRAINED PERCUTANEOUSLY. CURRENTLY NO DRAINABLE ABSCESS. 3. NO OTHER SIGNIFICANT OR ACUTE FINDING IN THE ABDOMEN OR PELVIS ON CT SCAN WITH IV CONTRAST. Renal Ultrasound 12/12/17 00:00 IMPRESSION: No hydronephrosis Assessment & Plan - Diagnosis (1) WYATT (acute kidney injury) Is this a current diagnosis for this admission?: Yes Plan: Nonoliguric. Electrolytes are stable. Renal numbers shows is stabilizing and improving. However now developing fluid overload which is mutifactorial/ Will dc all IV antibiotics and IVF. Start PO Flagyl and cipro instead. It looks like he should be better in the next couple of days. Once his creatinine drops into the fives he can be discharged home and I can see him in my office in about few days with labs. (2) Diverticulitis large intestine Qualifiers: Diverticulitis bleeding: without bleeding Diverticulitis complication: without perforation or abscess Qualified Code(s): K57.32 - Diverticulitis of large intestine without perforation or abscess without bleeding Is this a current diagnosis for this admission?: Yes Plan: Improving. Asymptomatic. Tolerating diet well. Convert IV to PO antibiotics. (3) Hypertension Is this a current diagnosis for this admission?: Yes Plan: Uncontrolled. Titrate medications. Increase clonidine to 3 times daily. Monitor. See response as renal functions improves.
[2017-12-18] MEDS ORDERED: FUROSEMIDE INJ/PF 20 MG/2 ML SDV IV ONE ×2 (17:15→22:00)
[2017-12-18] MEDS ORDERED: FUROSEMIDE INJ/PF 20 MG/2 ML SDV IV SCH (18:00)
[2017-12-18] MEDS: METRONIDAZOLE 250 MG TABLET PO SCH (22:16)
[2017-12-19] MEDS: CLONIDINE HCL 0.1 MG TABLET PO SCH ×3 (06:38→22:33)
[2017-12-19] MEDS: METRONIDAZOLE 250 MG TABLET PO SCH ×3 (06:38→22:32)
[2017-12-19] MEDS: FUROSEMIDE INJ/PF 20 MG/2 ML SDV IV SCH ×3 (06:39→22:33)
[2017-12-19 07:51] LABS: ANION GAP 11 (5-19); BLOOD UREA NITROGEN 35 mg/dL (7-20); CALCIUM 8.9 mg/dL (8.4-10.2); CARBON DIOXIDE 24 mmol/L (22-30); CHLORIDE 110 mmol/L (98-107); GLUCOSE 107 mg/dL (75-110); POTASSIUM 5.4 mmol/L (3.6-5.0); SODIUM 145.1 mmol/L (137-145)
[2017-12-19] MEDS: HEPARIN SOD (PORCINE) 5,000 UNIT/ML 1 ML SYRINGE SUBCUT SCH ×2 (09:46→22:34)
[2017-12-19] MEDS: NICOTINE 21 MG/24 HR PATCH.TD24 TD SCH (09:48)
[2017-12-19] MEDS: FAMOTIDINE INJ/PF 20 MG/2 ML SDV IV SCH ×2 (09:48→22:33)
[2017-12-19] MEDS: CARVEDILOL 12.5 MG TABLET PO SCH ×2 (09:50→22:32)
[2017-12-19] MEDS: LACTOBACILLUS ACIDOPHILUS 250 MG TAB PO SCH ×2 (09:50→17:48)
[2017-12-19] MEDS: POLYETHYLENE GLYCOL 3350 POWDER 17 GM/1 PACKET PO SCH (09:50)
[2017-12-19] MEDS: CLOPIDOGREL BISULFATE 75 MG TABLET PO SCH (09:51)
[2017-12-19] MEDS: ASPIRIN 81 MG TABLET, CHEWABLE PO SCH (09:51)
[2017-12-19] MEDS: CIPROFLOXACIN HCL 500 MG TABLET PO SCH (09:51)
[2017-12-19] MEDS: MAGNESIUM OXIDE 400 MG TABLET PO SCH (09:51)
[2017-12-19] MEDS: DOCUSATE SODIUM 100 MG CAPSULE PO SCH (09:51)
--- NOTE | 2017-12-19 13:03 | PDOC PROGRESS REPORT ---
Subjective Progress Note for:: 12/19/17 Reason For Visit: Seen patient today. He is enjoying his lunch as I see him. No c/o chest pains, dyspnea, abdominal pains, fever or chills. Labs and medications were reviewed with him. His creatinine is coming down and K is some high t 5.5. Physical Exam Vital Signs: Temp Pulse Resp BP Pulse Ox 97.9 F 74 18 161/90 H 95 12/19/17 08:00 12/19/17 08:00 12/19/17 08:00 12/19/17 08:00 12/19/17 08:00 Intake & Output 12/18/17 12/19/17 12/20/17 06:59 06:59 06:59 Intake Total 4735 2521 Output Total 2175 2180 Balance 2560 341 Weight 107.6 kg 107.2 kg General appearance: PRESENT: no acute distress Respiratory exam: PRESENT: clear to auscultation adelaida. ABSENT: crackles Cardiovascular exam: PRESENT: +S1, +S2 GI/Abdominal exam: PRESENT: soft. ABSENT: guarding, organomegaly Neurological exam: PRESENT: alert, awake, oriented to person, oriented to place , oriented to time Psychiatric exam: PRESENT: appropriate affect Skin exam: ABSENT: cyanosis, erythema, rash Results Laboratory Results: 12/18/17 04:20 12/19/17 07:04 12/19/17 07:04 Sodium 145.1 H Potassium 5.4 H Chloride 110 H Carbon Dioxide 24 Anion Gap 11 BUN 35 H Creatinine 5.55 H Est GFR ( Amer) 13 L Est GFR (Non-Af Amer) 11 L Glucose 107 Calcium 8.9 12/13/17 12/18/17 06:33 04:20 Creatine Kinase 23 L NT-Pro-B Natriuret Pep 9070 H Impressions: Abdomen/Pelvis CT 12/07/17 00:00 IMPRESSION: 1. NEW AREA OF ACUTE DIVERTICULITIS IN THE MID SIGMOID COLON. NO EVIDENCE OF ABSCESS. 2. PREVIOUS AREA OF DIVERTICULITIS INVOLVING THE DESCENDING COLON. THERE IS MILD FOCAL DENSITY MEDIAL TO THE DESCENDING COLON AT THE SITE OF THE PREVIOUS ABSCESS WHICH HAD BEEN DRAINED PERCUTANEOUSLY. CURRENTLY NO DRAINABLE ABSCESS. 3. NO OTHER SIGNIFICANT OR ACUTE FINDING IN THE ABDOMEN OR PELVIS ON CT SCAN WITH IV CONTRAST. Renal Ultrasound 12/12/17 00:00 IMPRESSION: No hydronephrosis Assessment & Plan - Diagnosis (1) WYATT (acute kidney injury) Is this a current diagnosis for this admission?: Yes Plan: Non Oliguric. Pottasium is high at 5.5. Renal numbers shows is stabilizing and improving. I believe if his renal numbers are continuing to be better as of tomorrow he can be discharged home and I can see him in my office in about few days with labs. I have given a lab slip to him that needs to be done before he sees me in my office. Advised him on a low K diet till I see him in my office. (2) Diverticulitis large intestine Qualifiers: Diverticulitis bleeding: without bleeding Diverticulitis complication: without perforation or abscess Qualified Code(s): K57.32 - Diverticulitis of large intestine without perforation or abscess without bleeding Is this a current diagnosis for this admission?: Yes Plan: Improving. Asymptomatic. Tolerating diet well. Currently on PO antibiotics. (3) Hypertension Is this a current diagnosis for this admission?: Yes Plan: Uncontrolled. Titrate medications. Monitor. See response as renal functions and fluid status improves.
--- NOTE | 2017-12-19 17:02 | PDOC PROGRESS REPORT ---
Subjective Progress Note for:: 12/19/17 Subjective:: Doing better. Renal function slowing improving. Major complaint is volume overload, has gained ~20lbs since admission. Feels that abdomen and legs are more distended. IV Lasix has helped. Denies fevers, chills, CP, SOB. PO appetite has been good. UOP excellent. Closely followed by nephrology this admission. Reason For Visit: DIVERTICULITIS OF LARGE INTESTINE Physical Exam Vital Signs: Temp Pulse Resp BP Pulse Ox 97.9 F 74 18 161/90 H 95 12/19/17 08:00 12/19/17 08:00 12/19/17 08:00 12/19/17 08:00 12/19/17 08:00 Intake & Output 12/18/17 12/19/17 12/20/17 06:59 06:59 06:59 Intake Total 4735 2521 Output Total 2175 2180 Balance 2560 341 Weight 107.6 kg 107.2 kg General appearance: PRESENT: no acute distress, cooperative, obese Head exam: PRESENT: normocephalic Mouth exam: PRESENT: moist Respiratory exam: PRESENT: unlabored. ABSENT: tachypnea Cardiovascular exam: PRESENT: +S1, +S2. ABSENT: tachycardia GI/Abdominal exam: PRESENT: distended, normal bowel sounds, soft Extremities exam: PRESENT: +2 edema Neurological exam: PRESENT: alert, awake, CN II-XII grossly intact Psychiatric exam: PRESENT: appropriate affect Skin exam: PRESENT: warm Results Laboratory Results: 12/18/17 04:20 12/19/17 07:04 12/19/17 07:04 Sodium 145.1 H Potassium 5.4 H Chloride 110 H Carbon Dioxide 24 Anion Gap 11 BUN 35 H Creatinine 5.55 H Est GFR ( Amer) 13 L Est GFR (Non-Af Amer) 11 L Glucose 107 Calcium 8.9 12/13/17 12/18/17 06:33 04:20 Creatine Kinase 23 L NT-Pro-B Natriuret Pep 9070 H Impressions: Abdomen/Pelvis CT 12/07/17 00:00 IMPRESSION: 1. NEW AREA OF ACUTE DIVERTICULITIS IN THE MID SIGMOID COLON. NO EVIDENCE OF ABSCESS. 2. PREVIOUS AREA OF DIVERTICULITIS INVOLVING THE DESCENDING COLON. THERE IS MILD FOCAL DENSITY MEDIAL TO THE DESCENDING COLON AT THE SITE OF THE PREVIOUS ABSCESS WHICH HAD BEEN DRAINED PERCUTANEOUSLY. CURRENTLY NO DRAINABLE ABSCESS. 3. NO OTHER SIGNIFICANT OR ACUTE FINDING IN THE ABDOMEN OR PELVIS ON CT SCAN WITH IV CONTRAST. Renal Ultrasound 12/12/17 00:00 IMPRESSION: No hydronephrosis Assessment & Plan - Diagnosis (1) Acute diverticulitis of intestine Is this a current diagnosis for this admission?: Yes Plan: Improved clinically, on Day 13/14 of antibiotics. Currently on Cipro and Flagyl. - Plan to have surgical intervention (tomasa-colectomy) after acute infection has resolved - Will follow up with gen surgery as an outpatient (2) Acute renal failure Qualifiers: Acute renal failure type: unspecified Qualified Code(s): N17.9 - Acute kidney failure, unspecified Is this a current diagnosis for this admission?: Yes Plan: Thought to be secondary to AIN secondary to antibiotics. - Cr improved, 5.5 today - Good UOP - Continue IV lasix to help with diuresis given massive volume overload - Avoid nephrotoxic agents - Followed by nephrology, Dr. Borges, who plans to see patient as outpatient - If Cr continues to downtrend, likely can d/c to home in next 24 hours (3) Hypertension Qualifiers: Hypertension type: essential hypertension Qualified Code(s): I10 - Essential (primary) hypertension Is this a current diagnosis for this admission?: Yes (4) Acute on chronic systolic (congestive) heart failure Is this a current diagnosis for this admission?: Yes Plan: HFpEF - TTE from 12/11: EF 65% with Grade 1-2 DD - Has had volume overload from IVF - Now diuresing - Time Time Spent with patient: Less than 15 minutes Anticipated discharge: Home, Home with Homehealth Within: within 24 hours
[2017-12-19] MEDS ORDERED: IPRATROPIUM/ALBUTEROL 0.5-2.5 MG/3 ML AMPUL NEB PRN (20:11)
[2017-12-20] MEDS: IPRATROPIUM/ALBUTEROL 0.5-2.5 MG/3 ML AMPUL NEB SCH ×2 (00:32→07:49)
[2017-12-20] MEDS ORDERED: IPRATROPIUM/ALBUTEROL 0.5-2.5 MG/3 ML AMPUL NEB PRN (04:30)
[2017-12-20] MEDS: CLONIDINE HCL 0.1 MG TABLET PO SCH ×2 (06:08→13:57)
[2017-12-20] MEDS: FUROSEMIDE INJ/PF 20 MG/2 ML SDV IV SCH (06:09)
[2017-12-20] MEDS: METRONIDAZOLE 250 MG TABLET PO SCH ×2 (06:09→13:58)
[2017-12-20 06:35] LABS: ANION GAP 10 (5-19); BLOOD UREA NITROGEN 41 mg/dL (7-20); CARBON DIOXIDE 26 mmol/L (22-30); CHLORIDE 110 mmol/L (98-107); GLUCOSE 110 mg/dL (75-110); SODIUM 145.9 mmol/L (137-145)
[2017-12-20 10:45] LABS: PHOSPHORUS 4.3 mg/dL (2.5-4.5)
[2017-12-20] MEDS: CIPROFLOXACIN HCL 500 MG TABLET PO SCH (11:20)
[2017-12-20] MEDS: ASPIRIN 81 MG TABLET, CHEWABLE PO SCH (11:21)
[2017-12-20] MEDS: CARVEDILOL 12.5 MG TABLET PO SCH (11:21)
[2017-12-20] MEDS: DOCUSATE SODIUM 100 MG CAPSULE PO SCH (11:23)
[2017-12-20] MEDS: MAGNESIUM OXIDE 400 MG TABLET PO SCH (11:23)
[2017-12-20] MEDS: CLOPIDOGREL BISULFATE 75 MG TABLET PO SCH (11:23)
[2017-12-20] MEDS: LACTOBACILLUS ACIDOPHILUS 250 MG TAB PO SCH (11:23)
[2017-12-20] MEDS: POLYETHYLENE GLYCOL 3350 POWDER 17 GM/1 PACKET PO SCH (11:24)
[2017-12-20] MEDS: FAMOTIDINE INJ/PF 20 MG/2 ML SDV IV SCH (11:25)
[2017-12-20] MEDS: NICOTINE 21 MG/24 HR PATCH.TD24 TD SCH (11:25)
--- NOTE | 2017-12-20 13:36 | PDOC DISCHARGE SUMMARY ---
General - Admit/Disc Date/PCP Admission Date/Primary Care Provider: 12/07/17 23:14 Discharge Date: 12/20/17 - Discharge Diagnosis (1) Acute diverticulitis of intestine Is this a current diagnosis for this admission?: Yes (2) Acute renal failure Is this a current diagnosis for this admission?: Yes (3) COPD (chronic obstructive pulmonary disease) Is this a current diagnosis for this admission?: Yes (4) Coronary artery disease Is this a current diagnosis for this admission?: Yes (5) Hypertension Is this a current diagnosis for this admission?: Yes (6) Tobacco abuse Is this a current diagnosis for this admission?: Yes - Additional Information Discharge Diet: As Tolerated, Other (Comments) - Low potassium Discharge Activity: Activity As Tolerated Prescriptions: Ciprofloxacin HCl [Cipro 500 mg Tablet] 500 mg PO DAILY 5 Days #5 tablet Clonidine HCl [Catapres 0.1 mg Tablet] 0.1 mg PO Q8 30 Days #90 tablet Furosemide [Lasix 40 mg Tablet] 40 mg PO BID 10 Days #20 tablet Ipratropium/Albuterol Sulfate [Duoneb 3 ml Ampul] 3 ml NEB RTQ6HP PRN 30 Days # 30 vial.neb PRN Reason: Lactobacillus Acidophilus [Bacid 250 mg Tablet] 500 mg PO BID 30 Days #60 tab Magnesium Oxide [Mag-Ox 400 mg Tablet] 400 mg PO MOWEFR 30 Days #20 tablet Metronidazole [Flagyl 250 mg Tablet] 250 mg PO Q8 5 Days #15 tablet Nicotine [Nicoderm 21 mg/24 Hr Transderm Patch] 1 each TD DAILY 30 Days #30 patch.td24 Home Medications: Carvedilol [Coreg 25 mg Tablet] 25 mg PO Q12 10/16/17 Clopidogrel Bisulfate [Plavix 75 mg Tablet] 75 mg PO DAILY 10/16/17 Aspirin [Aspirin EC] 81 mg PO DAILY 11/13/17 Starlight-3 Fatty Acids/Fish Oil [Fish Oil 1,000 mg Capsule] 1 each PO DAILY Carvedilol [Coreg 12.5 mg Tablet] 25 mg PO Q12 tablet 12/20/17 Ciprofloxacin HCl [Cipro 500 mg Tablet] 500 mg PO DAILY 5 Days #5 tablet Clonidine HCl [Catapres 0.1 mg Tablet] 0.1 mg PO Q8 30 Days #90 tablet 12/20/17 Docusate Sodium [Colace 100 mg Capsule] 200 mg PO DAILY capsule 12/20/17 Furosemide [Lasix 40 mg Tablet] 40 mg PO BID tablet 12/20/17 Furosemide [Lasix 40 mg Tablet] 40 mg PO BID 10 Days #20 tablet 12/20/17 Ipratropium/Albuterol Sulfate [Duoneb 3 ml Ampul] 3 ml NEB RTQ6HP PRN 30 Days # 30 vial.neb 12/20/17 Lactobacillus Acidophilus [Bacid 250 mg Tablet] 500 mg PO BID 30 Days #60 tab Magnesium Oxide [Mag-Ox 400 mg Tablet] 400 mg PO MOWEFR 30 Days #20 tablet 12/20 Metronidazole [Flagyl 250 mg Tablet] 250 mg PO Q8 5 Days #15 tablet 12/20/17 Nicotine [Nicoderm 21 mg/24 Hr Transderm Patch] 1 each TD DAILY 30 Days #30 patch.td24 12/20/17 Polyethylene Glycol 3350 [Miralax Powder 17 gm/Packet] 17 gm PO DAILY powd.pack 12/20/17 History of Present Illness History of Present Illness: The patient is a 57-year-old male with past medical history of COPD Tobacco dependence Alcohol abuse-currently in remission Coronary artery disease status post stenting of the left circumflex artery in 2014 Arthritis Morbid obesity Recurrent diverticulitis Prior history of cardiomyopathy which has resolved and currently has normal left ventricular ejection fraction He first presented to this hospital on October 16 with acute diverticulitis associated with a pericolonic abscess. At the time it was felt that there was no clinical indication for surgery and the plan was to possibly perform percutaneous drainage if indicated. He improved with a course of antibiotics and was discharged, however he presented back again on November 13 with abdominal pain and fevers, and was again admitted and treated conservatively with antibiotics since emergent colectomy was not indicated. The abscess was drained by IR and he was discharged on November 20 to complete a course of oral Ciprofloxacin and Flagyl. On December 07 the patient presented back to the hospital with lower abdominal pain. CAT scan of the abdomen and pelvis showed a new site of acute diverticulitis in the sigmoid colon with resolution of the previous site of abscess and inflammation. He was started on IV fluids, IV vancomycin and Zosyn. He subsequently developed acute renal failure with decreasing urine output and rising creatinine levels. The patient was evaluated by Dr. 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 Renal ultrasound was normal. He had a preop cardiology evaluation, in anticipation of possible requirement of a colectomy. This has been postponed given his acute renal failure. Echocardiogram showed a left ventricular ejection fraction of 65% with impaired relaxation. No significant valvular abnormalities. Cardiolite stress test was within normal limits. I was called by Dr. Bhandari on 12/17/17 requesting to transfer the patient's care to the medical team, given no plans for surgery at present due to renal function. He has recommended follow-up with Dr. Giordano at the [facility] for an interval colectomy once his kidney function improves. The patient was started on a solid diet which he has been able to tolerate. He is having regular bowel movements. His renal failure was being managed by Dr. Borges with IV fluids and Lasix. Creatinine today is 5.1. IV fluids were stopped since he is positive. I discussed the case with Dr. Borges who agrees with discharging him home with 40 of Lasix p.o. twice a day. He is to follow-up with Dr. Giordano from the surgical service later this week. He is to follow-up with his primary care physician in [address] Borges next week with follow-up kidney function testing next week. He was also given a prescription for Flagyl and ciprofloxacin for another 5 days. He was instructed to come back to the hospital for increasing pain or fever. The patient has been tolerating a regular diet well. He was instructed on a low potassium diet. He denies any abdominal pain. Hospital Course Hospital Course: As above. Physical Exam Vital Signs: Temp Pulse Resp BP Pulse Ox 98.2 F 73 18 152/82 H 95 12/19/17 23:31 12/20/17 07:49 12/20/17 07:49 12/20/17 00:00 12/20/17 07:49 Intake & Output 12/19/17 12/20/17 12/21/17 06:59 06:59 06:59 Intake Total 2521 1142 Output Total 2180 2500 Balance 341 -1358 Weight 107.2 kg 105.324 kg General appearance: PRESENT: no acute distress Respiratory exam: PRESENT: symmetrical, unlabored GI/Abdominal exam: PRESENT: soft. ABSENT: tenderness Results Laboratory Results: 12/18/17 04:20 12/20/17 06:01 12/20/17 12/20/17 06:01 06:01 Sodium 145.9 H Potassium 5.0 Chloride 110 H Carbon Dioxide 26 Anion Gap 10 BUN 41 H Creatinine 5.15 H Est GFR ( Amer) 14 L Est GFR (Non-Af Amer) 12 L Glucose 110 Calcium 9.0 Phosphorus 4.3 Magnesium 1.8 12/13/17 12/18/17 06:33 04:20 Creatine Kinase 23 L NT-Pro-B Natriuret Pep 9070 H Impressions: Abdomen/Pelvis CT 12/07/17 00:00 IMPRESSION: 1. NEW AREA OF ACUTE DIVERTICULITIS IN THE MID SIGMOID COLON. NO EVIDENCE OF ABSCESS. 2. PREVIOUS AREA OF DIVERTICULITIS INVOLVING THE DESCENDING COLON. THERE IS MILD FOCAL DENSITY MEDIAL TO THE DESCENDING COLON AT THE SITE OF THE PREVIOUS ABSCESS WHICH HAD BEEN DRAINED PERCUTANEOUSLY. CURRENTLY NO DRAINABLE ABSCESS. 3. NO OTHER SIGNIFICANT OR ACUTE FINDING IN THE ABDOMEN OR PELVIS ON CT SCAN WITH IV CONTRAST. Renal Ultrasound 12/12/17 00:00 IMPRESSION: No hydronephrosis Qualifiers - * PATIENT BEING DISCHARGED WITH ANY OF THE FOLLOWING DIAGNOSIS: No
[2017-12-20 14:36] VITALS: BP 108/69
[2017-12-20] MEDS ORDERED: FUROSEMIDE 40 MG TABLET PO SCH (18:00)
== END 2017-12-20 15:25 | disposition home or self-care (01) | DRG 392 ==
LOC: ER 16:00 → EH 23:14 → 3S 12-08 02:15 → 5 12-17 02:18
PROVIDERS: ADMIT Surgery; ATTEND Surgery
PROC: 0D9670Z Drainage of Stomach with Drainage Device, Via Natural or Artificial Opening (ICD-10-PCS; principal; 2017-12-08)
DX: K57.32 Diverticulitis of large intestine without perforation or abscess without bleeding (principal); N17.9 Acute kidney failure, unspecified; J44.9 Chronic obstructive pulmonary disease, unspecified; I49.8 Other specified cardiac arrhythmias; I25.10 Atherosclerotic heart disease of native coronary artery without angina pectoris; I10 Essential (primary) hypertension; F10.11 Alcohol abuse, in remission; M19.90 Unspecified osteoarthritis, unspecified site; E66.9 Obesity, unspecified; Z68.35 Body mass index [BMI] 35.0-35.9, adult; Z79.82 Long term (current) use of aspirin; Z79.02 Long term (current) use of antithrombotics/antiplatelets; Z79.899 Other long term (current) drug therapy; Z95.5 Presence of coronary angioplasty implant and graft; Z85.828 Personal history of other malignant neoplasm of skin; F17.200 Nicotine dependence, unspecified, uncomplicated
CPT/HCPCS: 36415; 71045; 74177; 76770; 78452; 80048; 80053; 80202; 81001; 82550; 82565; 83605; 83690; 83735; 83880; 84100; 85025; 85027; 87040; 87493; 93005; 93010; 93017; 93306; 94640; 94799; 96361; 96365; 96366; 96367; 96375; 96376; 99285; A9500; J0131; J0713; J0744; J1170; J1644; J1650; J1885; J1940; J2270; J2543; J2785; J3370; J3490; J7030; J7060; J7120; J7620; Q9969; S0028; S0119

== ENCOUNTER → 2017-12-26 | Outpatient (CLI) | payer MEDICAID ==
[2017-12-26 12:29] LABS: HEMATOCRIT 38.6 % (37.9-51.0); HEMOGLOBIN 12.9 g/dL (13.5-17.0); MEAN CORPUSCULAR HEMOGLOBIN 31.1 pg (27.0-33.4); MEAN CORPUSCULAR HGB CONC 33.4 g/dL (32.0-36.0); MEAN CORPUSCULAR VOLUME 93 fl (80-97); PLATELET COUNT 165 10^3/uL (150-450); RED BLOOD COUNT 4.15 10^6/uL (4.35-5.55); WHITE BLOOD COUNT 10.3 10^3/uL (4.0-10.5)
[2017-12-26 12:45] LABS: APPEARANCE,URINE CLEAR; BILIRUBIN,URINE NEGATIVE (NEGATIVE); COLOR,URINE YELLOW; GLUCOSE, URINE NEGATIVE (NEGATIVE); KETONES,URINE NEGATIVE (NEGATIVE); LEUKOCYTE ESTERASE,URINE NEGATIVE (NEGATIVE); NITRITE,URINE NEGATIVE (NEGATIVE); PROTEIN,URINE NEGATIVE (NEGATIVE); URINE SPECIFIC GRAVITY 1.008; UROBILINOGEN,URINE NEGATIVE mg/dL (<2.0)
[2017-12-26 12:55] LABS: ANION GAP 13 (5-19); BLOOD UREA NITROGEN 30 mg/dL (7-20); CALCIUM 9.5 mg/dL (8.4-10.2); CARBON DIOXIDE 33 mmol/L (22-30); CHLORIDE 101 mmol/L (98-107); GLUCOSE 111 mg/dL (75-110); POTASSIUM 5.4 mmol/L (3.6-5.0); SODIUM 146.7 mmol/L (137-145)
== END ==
LOC: OD 11:29
PROVIDERS: ATTEND Internal Medicine Nephrology
DX: I10 Essential (primary) hypertension (principal); N17.8 Other acute kidney failure; K57.00 Diverticulitis of small intestine with perforation and abscess without bleeding
CPT/HCPCS: 36415; 80048; 81001; 85027

== ENCOUNTER → 2018-01-04 | Outpatient (CLI) | payer MEDICAID ==
[2018-01-04 14:28] LABS: ANION GAP 15 (5-19); BLOOD UREA NITROGEN 32 mg/dL (7-20); CALCIUM 9.8 mg/dL (8.4-10.2); CARBON DIOXIDE 28 mmol/L (22-30); CHLORIDE 99 mmol/L (98-107); GLUCOSE 121 mg/dL (75-110); POTASSIUM 5.4 mmol/L (3.6-5.0); SODIUM 142.2 mmol/L (137-145)
== END ==
LOC: OD 12:34
PROVIDERS: ATTEND Internal Medicine Nephrology
DX: N17.9 Acute kidney failure, unspecified (principal); E87.5 Hyperkalemia
CPT/HCPCS: 36415; 80048; 83735

== ENCOUNTER 2018-02-05 06:15 | Day surgery (SDC) | payer MEDICAID ==
[2018-01-29 09:57] LABS: HEMATOCRIT 40.9 % (37.9-51.0); HEMOGLOBIN 14.2 g/dL (13.5-17.0); MEAN CORPUSCULAR HEMOGLOBIN 32.9 pg (27.0-33.4); MEAN CORPUSCULAR HGB CONC 34.7 g/dL (32.0-36.0); MEAN CORPUSCULAR VOLUME 95 fl (80-97); PLATELET COUNT 118 10^3/uL (150-450); RED BLOOD COUNT 4.31 10^6/uL (4.35-5.55); RED CELL DISTRIBUTION WIDTH 16.8 % (11.5-14.0); WHITE BLOOD COUNT 7.6 10^3/uL (4.0-10.5)
--- NOTE | 2018-01-29 14:02 | EKG REPORT ---
SEVERITY:- NORMAL ECG - SINUS RHYTHM : Confirmed by: Robert Rosales MD 29-Jan-2018 14:01:33
[~2018-02-05 06:15] MED LIST: ACETAMINOPHEN 325 MG TABLET PO PRN; RINGERS SOLUTION,LACTATED 1,000 ML IV PRN
[2018-02-05] MEDS ORDERED: PROPOFOL INJ 200 MG/20 ML VIAL IV ONE (06:42)
[2018-02-05 07:14] LABS: INTERNATIONAL RATION (INR) 0.94; PARTIAL THROMBOPLASTIN TIME 30.5 SEC (23.5-35.8); PROTHROMBIN TIME 13.1 SEC (11.4-15.4)
[2018-02-05] MEDS ORDERED: FENTANYL CITRATE INJ/PF 100 MCG/2 ML AMPUL IV PRN ×3 (08:20)
[2018-02-05] MEDS ORDERED: PROMETHAZINE HCL INJ 25 MG/1 ML VIAL IV PRN ×2 (08:20)
[2018-02-05] MEDS ORDERED: DIPHENHYDRAMINE HCL 50 MG/ML VIAL IV PRN (08:20)
[2018-02-05] MEDS ORDERED: MEPERIDINE HCL/PF INJ 25 MG/1 ML DISP.SYRIN IV PRN (08:20)
--- NOTE | 2018-02-05 08:50 | Discharge Summary ---
Discharge Summary (SDC) - Discharge Final Diagnosis: History of diverticulitis, diverticulosis, colon polyps Date of Surgery: 02/05/18 Discharge Date: 02/05/18 Condition: Stable Discharge Diet: As Tolerated Respiratory Treatments at Home: Deep Breathing/Coughing, Incentive Spirometer Discharge Activity: Slowly Increase Activity Report the Following to Your Physician Immediately: Shortness of Breath, Nausea , Vomiting, Increase in Pain, Fever over 101 Degrees, Unusual Bleeding, Redness , Swelling, Warmth, Increased Soreness
--- NOTE | 2018-02-05 08:56 | Operative Report ---
Nonrecallable Operative Report DATE OF SURGERY: 02/05/18 PREOPERATIVE DIAGNOSIS: History of diverticulitis POSTOPERATIVE DIAGNOSIS: 1. Diverticulosis. 2. Multiple colon polyps. OPERATION: 1. Colonoscopy to the cecum. 2. Hot biopsy of smaller colon polyps. 3. Snare polypectomy of large or colon polyps. SURGEON: LONNY MCCRACKEN ANESTHESIA: GA TISSUE REMOVED OR ALTERED: 1. Descending colon polyp 2. 2. Polyp at 30 cm. 3. Polyp at 20 cm 3. 4. Rectal polyp. COMPLICATIONS: None apparent ESTIMATED BLOOD LOSS: Minimal PROCEDURE: Procedure in detail: After informed consent was obtained, the patient was laid in the left lateral decubitus position in the operating room. The colonoscope was inserted into the rectum. It was passed up the rectum, sigmoid colon, descending colon, across the transverse colon, down the ascending colon, and into the cecum. The ileocecal valve and appendiceal orifice were identified. The scope was then withdrawn, circumferentially noting the mucosa. The prep was good. The scope was pulled back past the ascending colon. In the ascending colon 2 small polyps were identified adjacent to one another. They were very small, and were not amenable to snare polypectomy. Hot biopsy forcep was used to remove the small polyps in their entirety. The scope was pulled down past the transverse colon, descending colon, and into the sigmoid colon. In the sigmoid colon at approximately 30 cm another small polyp was identified. This was also removed via hot biopsy forceps. Scope was pulled down to 20 cm , near the rectosigmoid junction. There were 3 larger polyps identified in this area. These were removed via snare polypectomy. Scope was pulled into the rectum. In the rectum another larger polyp was identified and removed via snare polypectomy. A retroflexion maneuver was performed in the rectum, noting no significant internal hemorrhoids. The scope was straightened, air was suctioned from the rectum, the scope was removed, and the procedure was concluded. All sponge, instrument, and needle counts were correct 2. Condition: Stable.
[2018-02-05 10:27] VITALS: BP 112/58
== END 2018-02-05 10:35 | disposition home or self-care (01) ==
LOC: OROUT 06:15
PROVIDERS: ATTEND Surgery
DX: K57.30 Diverticulosis of large intestine without perforation or abscess without bleeding (principal); K63.5 Polyp of colon; D12.2 Benign neoplasm of ascending colon; D12.6 Benign neoplasm of colon, unspecified; F17.210 Nicotine dependence, cigarettes, uncomplicated; E66.9 Obesity, unspecified; J43.9 Emphysema, unspecified; I25.10 Atherosclerotic heart disease of native coronary artery without angina pectoris; M19.90 Unspecified osteoarthritis, unspecified site; I11.0 Hypertensive heart disease with heart failure; I50.20 Unspecified systolic (congestive) heart failure; F10.188 Alcohol abuse with other alcohol-induced disorder; Z68.30 Body mass index [BMI] 30.0-30.9, adult; Z79.899 Other long term (current) drug therapy; Z79.02 Long term (current) use of antithrombotics/antiplatelets; Z79.82 Long term (current) use of aspirin; Z01.810 Encounter for preprocedural cardiovascular examination; Z98.61 Coronary angioplasty status
CPT/HCPCS: 45384; 45385; 93005; 36415 ×2; 84132; 85027; 85610; 85730; 88305 ×2; 93010; J2704; 811

== ENCOUNTER → 2018-02-05 | Outpatient (CLI) | payer MEDICAID ==
[2018-02-05 13:29] LABS: APPEARANCE,URINE CLEAR; BILIRUBIN,URINE NEGATIVE (NEGATIVE); COLOR,URINE YELLOW; GLUCOSE, URINE NEGATIVE (NEGATIVE); KETONES,URINE NEGATIVE (NEGATIVE); LEUKOCYTE ESTERASE,URINE NEGATIVE (NEGATIVE); NITRITE,URINE NEGATIVE (NEGATIVE); PROTEIN,URINE NEGATIVE (NEGATIVE); URINE SPECIFIC GRAVITY 1.016; UROBILINOGEN,URINE NEGATIVE mg/dL (<2.0)
[2018-02-05 13:31] LABS: HEMATOCRIT 41.5 % (37.9-51.0); HEMOGLOBIN 13.7 g/dL (13.5-17.0); MEAN CORPUSCULAR HEMOGLOBIN 31.5 pg (27.0-33.4); MEAN CORPUSCULAR VOLUME 95 fl (80-97); PLATELET COUNT 102 10^3/uL (150-450); RED BLOOD COUNT 4.36 10^6/uL (4.35-5.55); RED CELL DISTRIBUTION WIDTH 17.3 % (11.5-14.0); WHITE BLOOD COUNT 12.8 10^3/uL (4.0-10.5)
[2018-02-05 14:02] LABS: ANION GAP 12 (5-19); BLOOD UREA NITROGEN 20 mg/dL (7-20); CALCIUM 9.2 mg/dL (8.4-10.2); CARBON DIOXIDE 27 mmol/L (22-30); CHLORIDE 102 mmol/L (98-107); GLUCOSE 99 mg/dL (75-110); POTASSIUM 3.9 mmol/L (3.6-5.0); SODIUM 140.7 mmol/L (137-145)
== END ==
LOC: OD 11:59
PROVIDERS: ATTEND Internal Medicine Nephrology
DX: N17.9 Acute kidney failure, unspecified (principal); E87.5 Hyperkalemia
CPT/HCPCS: 36415; 80048; 81001; 85027

== ENCOUNTER → 2018-02-13 | Outpatient (CLI) | payer MEDICAID ==
--- NOTE | 2018-02-13 13:10 | RADIOLOGY REPORT (SQ) ---
EXAM DESCRIPTION: LUMBAR SPINE 2 VIEWS COMPLETED DATE/TIME: 02/13/2018 12:45 pm REASON FOR STUDY: MARIFER LBP WITH RT SIDED SCIATICA, UNSPEC CHRONICITY M54.41 LUMBAGO WITH SCIATICA, R IGHT SIDE COMPARISON: None. NUMBER OF VIEWS: Two views. TECHNIQUE: AP and lateral radiographic images acquired of the lumbar spine. LIMITATIONS: None. FINDINGS: MINERALIZATION: Normal. SEGMENTATION: Normal. No transitional anatomy. ALIGNMENT: Minimal grade 1 anterolisthesis of L4 on L5. VERTEBRAE: Maintained height. No fracture or worrisome bone lesion. DISCS: Mild disc space narrowing throughout the spine. Prominent bridging osteophytes throughout the lumbar spine. POSTERIOR ELEMENTS: Hypertrophic facet changes from L3-S1. HARDWARE: None in the spine. PARASPINAL SOFT TISSUES: Normal. PELVIS: Intact as visualized. No fractures or worrisome bone lesions. SI joints intact. OTHER: No other significant finding. IMPRESSION: Minimal anterolisthesis of L4 on L5. Multilevel degenerative disc disease, spondylosis, and facet arthropathy. TECHNICAL DOCUMENTATION: JOB ID: [id number] [employer] All Rights Reserved Reading location - IP/workstation name: [email or web address]
== END ==
LOC: OD 12:27
PROVIDERS: ATTEND Family Medicine
DX: M54.41 Lumbago with sciatica, right side (principal); M51.36 Other intervertebral disc degeneration, lumbar region
CPT/HCPCS: 72100

== ENCOUNTER 2018-03-22 08:50 | Inpatient (IN) | payer MEDICAID ==
--- NOTE | 2018-03-14 09:30 | RADIOLOGY REPORT (SQ) ---
EXAM DESCRIPTION: CHEST PA/LATERAL COMPLETED DATE/TIME: 03/14/2018 9:16 am REASON FOR STUDY: PRE-OP COMPARISON: 11/17/2017 EXAM PARAMETERS: NUMBER OF VIEWS: two views TECHNIQUE: Digital Frontal and Lateral radiographic views of the chest acquired. RADIATION DOSE: NA LIMITATIONS: none FINDINGS: LUNGS AND PLEURA: Interstitial markings are prominent bilaterally. Similar findings were present on prior exam. No effusions. No consolidation. MEDIASTINUM AND HILAR STRUCTURES: No masses or contour abnormalities. HEART AND VASCULAR STRUCTURES: Heart normal size. No evidence for failure. BONES: No acute findings. HARDWARE: None in the chest. OTHER: No other significant finding. IMPRESSION: Stable chest with mild prominence of interstitial markings. No consolidation or overt f ailure. TECHNICAL DOCUMENTATION: JOB ID: [id number] [employer]- All Rights Reserved Reading location - IP/workstation name: [email or web address]
[2018-03-14 09:49] LABS: ALANINE AMINOTRANSFERASE 31 U/L (21-72); ALBUMIN 3.9 g/dL (3.5-5.0); ALKALINE PHOSPHATASE 81 U/L (38-126); ANION GAP 6 (5-19); ASPARTATE AMINO TRANSFERASE 23 U/L (17-59); BILIRUBIN,DIRECT 0.5 mg/dL (0.0-0.4); BILIRUBIN,TOTAL 0.6 mg/dL (0.2-1.3); BLOOD UREA NITROGEN 27 mg/dL (7-20); CALCIUM 9.3 mg/dL (8.4-10.2); CARBON DIOXIDE 31 mmol/L (22-30); CHLORIDE 101 mmol/L (98-107); GLUCOSE 159 mg/dL (75-110); POTASSIUM 4.9 mmol/L (3.6-5.0); SODIUM 138.3 mmol/L (137-145); TOTAL PROTEIN 6.8 g/dL (6.3-8.2)
--- NOTE | 2018-03-14 14:39 | EKG REPORT ---
SEVERITY:- NORMAL ECG - SINUS RHYTHM : Confirmed by: Joan Zarate MD 14-Mar-2018 14:39:17
[2018-03-15 07:27] LABS: HEMATOCRIT 46.7 % (37.9-51.0); HEMOGLOBIN 15.9 g/dL (13.5-17.0); MEAN CORPUSCULAR HEMOGLOBIN 32.3 pg (27.0-33.4); MEAN CORPUSCULAR VOLUME 95 fl (80-97); RED BLOOD COUNT 4.91 10^6/uL (4.35-5.55); RED CELL DISTRIBUTION WIDTH 15.7 % (11.5-14.0); WHITE BLOOD COUNT 10.5 10^3/uL (4.0-10.5)
[2018-03-15 08:03] LABS: PLATELET COUNT 110 10^3/uL (150-450)
[~2018-03-22 08:50] MED LIST changes: +ACETAMINOPHEN 1,000 MG/100 ML RTUPB IV ONE; -ACETAMINOPHEN 325 MG TABLET PO PRN; +BUPIVACAINE HCL 0.5 % INJ/PF 30 ML SDV ONE; +CEFOXITIN SODIUM 2 GM in DEXTROSE 5%-WATER 100 ML IV PRN; +DEXAMETHASONE SOD PHOSPHATE INJ 4 MG/1 ML VIAL ONE; +FENTANYL CITRATE INJ/PF 100 MCG/2 ML AMPUL ONE; +HYDROMORPHONE HCL INJ/PF 2 MG/ML AMPULE ONE; +LACTATED RINGERS 1000 ML IV PRN; +LIDOCAINE 0.5% INJ-PF (5 MG/ML) 50 ML SDV SUBCUT PRN; +MIDAZOLAM 2 MG/2 ML INJ ONE; +ONDANSETRON HCL INJ/PF 4 MG/2 ML SDV ONE; +PROPOFOL INJ 200 MG/20 ML VIAL IV ONE; -RINGERS SOLUTION,LACTATED 1,000 ML IV PRN; +SUGAMMADEX SODIUM 200 MG/2 ML SDV IV ONE
--- NOTE | 2018-03-22 09:30 | RADIOLOGY REPORT (SQ) ---
EXAM DESCRIPTION: CHEST SINGLE VIEW COMPLETED DATE/TIME: 03/22/2018 9:23 am REASON FOR STUDY: preop COMPARISON: 03/14/2018 EXAM PARAMETERS: NUMBER OF VIEWS: One view. TECHNIQUE: Single frontal radiographic view of the chest acquired. RADIATION DOSE: NA LIMITATIONS: None. FINDINGS: LUNGS AND PLEURA: No opacities, masses or pneumothorax. No pleural effusion. MEDIASTINUM AND HILAR STRUCTURES: No masses. Contour normal. HEART AND VASCULAR STRUCTURES: Heart normal in size. Normal vasculature. BONES: No acute findings. HARDWARE: None in the chest. OTHER: No other significant finding. IMPRESSION: NO ACUTE RADIOGRAPHIC FINDING IN THE CHEST. TECHNICAL DOCUMENTATION: JOB ID: [id number] [employer]- All Rights Reserved Reading location - IP/workstation name: [email or web address]
[2018-03-22] MEDS ORDERED: ALBUTEROL SULFATE 0.083% NEB 2.5 MG/3 ML AMPUL NEB ONE (09:38)
[2018-03-22 10:06] LABS: INTERNATIONAL RATION (INR) 0.91; PROTHROMBIN TIME 12.7 SEC (11.4-15.4)
[2018-03-22 10:07] LABS: PARTIAL THROMBOPLASTIN TIME 34.1 SEC (23.5-35.8)
[2018-03-22 10:23] LABS: ABSOLUTE BASOPHILS # (AUTO) 0.1 10^3/uL (0.0-0.2); ABSOLUTE EOSINOPHILS # (AUTO) 0.2 10^3/uL (0.0-0.6); ABSOLUTE LYMPHOCYTES (AUTO) 1.7 10^3/uL (0.5-4.7); ABSOLUTE MONOCYTES (AUTO) 0.8 10^3/uL (0.1-1.4); ABSOLUTE NEUT (AUTO) 6.6 10^3/uL (1.7-8.2); BASOPHILS % (AUTO) 0.7 % (0-2); EOSINOPHILS % (AUTO) 1.9 % (0-6); HEMATOCRIT 47.2 % (37.9-51.0); HEMOGLOBIN 15.9 g/dL (13.5-17.0); LYMPHOCYTES % (AUTO) 18.1 % (13-45); MEAN CORPUSCULAR HGB CONC 33.7 g/dL (32.0-36.0); MEAN CORPUSCULAR VOLUME 95 fl (80-97); MONOCYTES % (AUTO) 8.6 % (3-13); PLATELET COUNT 196 10^3/uL (150-450); RED BLOOD COUNT 4.97 10^6/uL (4.35-5.55); RED CELL DISTRIBUTION WIDTH 15.1 % (11.5-14.0); SEGMENTED NEUTROPHILS % (AUTO) 70.7 % (42-78); TOTAL CELLS COUNTED % (AUTO) 100 %; WHITE BLOOD COUNT 9.3 10^3/uL (4.0-10.5)
[2018-03-22] MEDS ORDERED: MEPERIDINE HCL/PF INJ 25 MG/1 ML DISP.SYRIN IV PRN ×2 (12:11→17:41)
[2018-03-22] MEDS ORDERED: DIPHENHYDRAMINE HCL 50 MG/ML VIAL IV PRN ×2 (12:11→17:41)
[2018-03-22] MEDS ORDERED: PROMETHAZINE HCL INJ 25 MG/1 ML VIAL IV PRN ×3 (12:11→17:41)
[2018-03-22] MEDS ORDERED: FENTANYL CITRATE INJ/PF 100 MCG/2 ML AMPUL IV PRN ×6 (12:11→17:41)
[2018-03-22] MEDS ORDERED: FENTANYL CITRATE INJ/PF 100 MCG/2 ML AMPUL ONE ×2 (13:04→20:43)
[2018-03-22] MEDS ORDERED: DEXMEDETOMIDINE INJ 80 MCG/20 ML VIAL IV ONE (14:46)
[2018-03-22] MEDS ORDERED: ONDANSETRON HCL INJ/PF 4 MG/2 ML SDV IV PRN (17:41)
[2018-03-22] MEDS ORDERED: MORPHINE SULFATE 10 MG/ML INJ ONE ×2 (18:25→22:56)
[2018-03-22] MEDS ORDERED: MIDAZOLAM 2 MG/2 ML INJ ONE ×2 (18:25→20:24)
[2018-03-22] MEDS ORDERED: IPRATROPIUM/ALBUTEROL 0.5-2.5 MG/3 ML AMPUL NEB ONE (20:14)
[2018-03-22] MEDS: MIDAZOLAM 2 MG/2 ML INJ IV PRN ×3 (20:22→23:00)
[2018-03-22] MEDS: RINGERS SOLUTION,LACTATED 1,000 ML IV PRN (20:34)
--- NOTE | 2018-03-22 20:51 | RADIOLOGY REPORT (SQ) ---
EXAM DESCRIPTION: CHEST SINGLE VIEW COMPLETED DATE/TIME: 03/22/2018 8:37 pm REASON FOR STUDY: ETT placement COMPARISON: Chest films 03/22/2018, 03/14/2018 EXAM PARAMETERS: NUMBER OF VIEWS: One view. TECHNIQUE: Single frontal radiographic view of the chest acquired. RADIATION DOSE: NA LIMITATIONS: None. FINDINGS: LUNGS AND PLEURA: Patchy left retrocardiac airspace disease worrisome for pneumonia. Ques tion trace left pleural. Right lung well inflated and clear. No pneumothorax MEDIASTINUM AND HILAR STRUCTURES: No masses. Contour normal. HEART AND VASCULAR STRUCTURES: Mild cardiomegaly BONES: No acute findings. HARDWARE: Endotracheal tube tip 5 cm above the nelly. Nasogastric tube tip and side port in the sto mach. OTHER: No other significant finding. IMPRESSION: Left lower lobe airspace disease with trace left pleural effusion Endotracheal and nasogastric tubes in good positioning TECHNICAL DOCUMENTATION: JOB ID: [id number] [employer]- All Rights Reserved Reading location - IP/workstation name: [email or web address]
[2018-03-22] MEDS: METOPROLOL TARTRATE PF/INJ 5 MG/5 ML SDV IV SCH (21:27)
[2018-03-22] MEDS: FENTANYL CITRATE/PF 600 MCG/60 ML BAG IV PRN (21:32)
[2018-03-22] MEDS: CEFOXITIN SODIUM 2 GM in DEXTROSE 5%-WATER 100 ML IV SCH (22:13)
[2018-03-22] MEDS ORDERED: PHARMACY COMMUNICATION ORDER MC NR (23:45)
[2018-03-23] MEDS ORDERED: MORPHINE SULFATE 10 MG/ML INJ IV PRN (00:18)
[2018-03-23] MEDS: MIDAZOLAM 2 MG/2 ML INJ IV PRN ×3 (00:18→02:33)
[2018-03-23] MEDS ORDERED: ONDANSETRON HCL INJ/PF 4 MG/2 ML SDV IV PRN (00:18)
[2018-03-23] MEDS ORDERED: ACETAMINOPHEN 1,000 MG/100 ML RTUPB IV ONE (00:30)
[2018-03-23] MEDS: FENTANYL CITRATE/PF 600 MCG/60 ML BAG IV PRN (02:34)
[2018-03-23] MEDS: RINGERS SOLUTION,LACTATED 1,000 ML IV PRN (04:50)
[2018-03-23 04:58] LABS: ALANINE AMINOTRANSFERASE 33 U/L (21-72); ALKALINE PHOSPHATASE 56 U/L (38-126); ANION GAP 5 (5-19); ASPARTATE AMINO TRANSFERASE 30 U/L (17-59); BILIRUBIN,DIRECT 0.5 mg/dL (0.0-0.4); BILIRUBIN,TOTAL 0.6 mg/dL (0.2-1.3); BLOOD UREA NITROGEN 23 mg/dL (7-20); CARBON DIOXIDE 24 mmol/L (22-30); CHLORIDE 106 mmol/L (98-107); GLUCOSE 133 mg/dL (75-110); SODIUM 135.2 mmol/L (137-145); TOTAL PROTEIN 5.6 g/dL (6.3-8.2)
[2018-03-23 05:20] LABS: POTASSIUM 5.7 mmol/L (3.6-5.0)
[2018-03-23] MEDS: METOPROLOL TARTRATE PF/INJ 5 MG/5 ML SDV IV SCH ×3 (05:49→21:33)
[2018-03-23] MEDS: CEFOXITIN SODIUM 2 GM in DEXTROSE 5%-WATER 100 ML IV SCH (05:50)
[2018-03-23] MEDS: MORPHINE SULFATE 10 MG/ML INJ IV PRN ×2 (07:12→09:21)
--- NOTE | 2018-03-23 08:30 | PDOC PROGRESS REPORT ---
Subjective Progress Note for:: 03/23/18 Reason For Visit: K57.80 DVTRCLI OF INTEST, PART UNSP, W PERF AND A Physical Exam Vital Signs: Temp Pulse Resp BP Pulse Ox 98.1 F 70 15 150/92 H 100 03/23/18 06:23 03/22/18 20:22 03/23/18 07:15 03/23/18 06:23 03/23/18 07:15 Intake & Output 03/22/18 03/23/18 03/24/18 06:59 06:59 06:59 Intake Total 1293 1000 Output Total 742 30 Balance 551 970 Weight 102.1 kg Results Laboratory Results: 03/23/18 06:42 03/23/18 04:27 03/22/18 03/22/18 03/23/18 09:37 09:37 04:27 WBC 9.3 Cancelled RBC 4.97 Cancelled Hgb 15.9 Cancelled Hct 47.2 Cancelled MCV 95 Cancelled MCH 32.0 Cancelled MCHC 33.7 Cancelled RDW 15.1 H Cancelled Plt Count 196 Cancelled Seg Neutrophils % 70.7 Cancelled Lymphocytes % 18.1 Cancelled Monocytes % 8.6 Cancelled Eosinophils % 1.9 Cancelled Basophils % 0.7 Cancelled Absolute Neutrophils 6.6 Cancelled Absolute Lymphocytes 1.7 Cancelled Absolute Monocytes 0.8 Cancelled Absolute Eosinophils 0.2 Cancelled Absolute Basophils 0.1 Cancelled Sodium Potassium 4.6 Chloride Carbon Dioxide Anion Gap BUN Creatinine Est GFR ( Amer) Est GFR (Non-Af Amer) Glucose Calcium Total Bilirubin AST ALT Alkaline Phosphatase Total Protein Albumin 03/23/18 03/23/18 04:27 06:42 WBC Cancelled RBC Cancelled Hgb Cancelled Hct Cancelled MCV Cancelled MCH Cancelled MCHC Cancelled RDW Cancelled Plt Count Cancelled Seg Neutrophils % Cancelled Lymphocytes % Cancelled Monocytes % Cancelled Eosinophils % Cancelled Basophils % Cancelled Absolute Neutrophils Cancelled Absolute Lymphocytes Cancelled Absolute Monocytes Cancelled Absolute Eosinophils Cancelled Absolute Basophils Cancelled Sodium 135.2 L Potassium 5.7 H D Chloride 106 Carbon Dioxide 24 Anion Gap 5 BUN 23 H Creatinine 1.18 Est GFR ( Amer) > 60 Est GFR (Non-Af Amer) > 60 Glucose 133 H Calcium 8.0 L Total Bilirubin 0.6 AST 30 ALT 33 Alkaline Phosphatase 56 Total Protein 5.6 L Albumin 3.0 L Impressions: Chest X-Ray 03/22/18 00:00 IMPRESSION: Left lower lobe airspace disease with trace left pleural effusion Endotracheal and nasogastric tubes in good positioning Assessment & Plan - Diagnosis (1) Diverticulitis of large intestine with abscess Qualifiers: Diverticulitis bleeding: without bleeding Is this a current diagnosis for this admission?: Yes - Plan Summary Plan Summary: This is a 58-year-old male status post laparoscopic/hand-assisted left hemicolectomy with splenic flexure takedown handsewn anastomosis. Patient also underwent diverting loop ileostomy for protection. Patient was left on the ventilator overnight. He awakens to command. Spontaneous breaths on CPAP approach 1400. Patient has good urine output. Vital signs are stable. Plan for extubation today. Hyperkalemia: Change IV fluids to normal saline. One dose of IV Lasix. Once extubated, initiate aggressive pulmonary toilet. Start subcutaneous heparin for DVT prophylaxis. Continue teds and SCDs.
[2018-03-23 08:36] LABS: ABSOLUTE LYMPHOCYTES (AUTO) 1.2 10^3/uL (0.5-4.7); ABSOLUTE MONOCYTES (AUTO) 1.3 10^3/uL (0.1-1.4); ABSOLUTE NEUT (AUTO) 14.2 10^3/uL (1.7-8.2); BASOPHILS % (AUTO) 0.2 % (0-2); HEMATOCRIT 42.2 % (37.9-51.0); LYMPHOCYTES % (AUTO) 7.2 % (13-45); MEAN CORPUSCULAR HGB CONC 33.3 g/dL (32.0-36.0); MEAN CORPUSCULAR VOLUME 96 fl (80-97); MONOCYTES % (AUTO) 7.9 % (3-13); PLATELET COUNT 181 10^3/uL (150-450); RED BLOOD COUNT 4.39 10^6/uL (4.35-5.55); RED CELL DISTRIBUTION WIDTH 15.2 % (11.5-14.0); SEGMENTED NEUTROPHILS % (AUTO) 84.7 % (42-78); TOTAL CELLS COUNTED % (AUTO) 100 %; WHITE BLOOD COUNT 16.8 10^3/uL (4.0-10.5)
[2018-03-23] MEDS ORDERED: FUROSEMIDE INJ/PF 20 MG/2 ML SDV IV ONE (09:00)
[2018-03-23] MEDS: ACETAMINOPHEN 1,000 MG/100 ML RTUPB IV SCH ×2 (09:19→17:21)
[2018-03-23] MEDS: ASPIRIN 81 MG TABLET, CHEWABLE GT SCH (09:20)
[2018-03-23] MEDS: NORMAL SALINE 1000 ML 1,000 ML IV PRN ×2 (09:21→17:22)
[2018-03-23] MEDS ORDERED: ASPIRIN 81 MG TABLET, ENT COATED PO SCH (10:00)
[2018-03-23] MEDS: HYDROMORPHONE HCL INJ/PF 2 MG/ML AMPULE IV PRN ×5 (11:34→23:57)
[2018-03-23] MEDS: HEPARIN SOD (PORCINE) 5,000 UNIT/ML 1 ML SYRINGE SUBCUT SCH ×2 (13:26→21:33)
--- NOTE | 2018-03-23 15:12 | Operative Report ---
Nonrecallable Operative Report DATE OF SURGERY: 03/22/18 PREOPERATIVE DIAGNOSIS: Recurrent diverticulitis POSTOPERATIVE DIAGNOSIS: Recurrent diverticulitis of the entire left and sigmoid colon OPERATION: 1. Laparoscopic, hand-assisted left hemicolectomy. 2. Laparoscopic splenic flexure takedown. 3. Handsewn colorectal anastomosis. 4. Flexible sigmoidoscopy. 5. Diverting loop ileostomy. SURGEON: LONNY MCCRACKEN ANESTHESIA: GA TISSUE REMOVED OR ALTERED: Left hemicolectomy COMPLICATIONS: Failure of the EEA stapler to adequately seal the anastomosis. This required a hand sewn anastomosis. ESTIMATED BLOOD LOSS: 300 cc PROCEDURE: Drains/implants: 15 Italian round Zhen drain in the pelvis. Procedure in detail: After informed consent was obtained, the patient was brought into the operating room and laid in the lithotomy position. The area of the abdomen was prepped and draped in a normal sterile fashion. A 15 blade scalpel was used to create a supraumbilical incision. This was deepened through the use of sharp and blunt dissection. The linea alba fascia was incised sharply. The abdomen was entered sharply. The balloon trocar was inserted, and pneumoperitoneum was achieved. A right lower quadrant 12 mm trocar was placed under direct laparoscopic visualization another 5 mm left upper quadrant trocar was placed in similar fashion. The camera was inserted into the abdomen, and a survey was taken. There were a large amount of adhesions and chronic inflammation throughout the left and sigmoid colon. The patient was obese, with a large amount of omentum and intra-abdominal fat. Secondary to these reasons, a hand-assisted approach was preferred. A lower midline incision was created. The applied medical gel port was inserted into the abdominal cavity. Dissection was begun at the sigmoid colon. The rectosigmoid junction was identified. Using a mixture of blunt and sharp dissection the sigmoid colon was elevated away from the left lateral pelvic sidewall and retracted anteriorly. The rectosigmoid junction was identified. The colon was divided at the rectosigmoid junction, where the tenia were found to splay out. This was completed with an Endo NELDA stapling device, using blue loads. Next, dissection was carried up the sigmoid and left colon. This was done in the lateral to medial fashion. The colon was retracted anteriorly and the mesentery was divided immediately adjacent to the wall of the colon. This was done using the harmonic scalpel. Next attention was turned to freeing of the splenic flexure. Another right upper quadrant 5 mm trocar was placed under direct laparoscopic visualization. The omentum was elevated anteriorly and removed from the transverse colon. Next, the attachments of the proximal descending colon, splenic flexure, and distal transverse colon were divided superiorly and laterally. This allowed mobilization of the splenic flexure down into the pelvis. Once this was completed, the distal transverse colon was divided with the Endo NELDA stapling device. The left colon was then removed from the patient , through the hand assist port. Attention was then turned to dilation of the rectum. Serial dilators were inserted into the anus and up the rectum to the rectosigmoid junction. 25, 29, and 33 mm dilators were used in sequence. All of these passed easily. Secondary to this, a 29 EEA stapler was chosen to create the anastomosis. The distal transverse colon was brought out through the hand port and the anvil was inserted into the colon. The colon was then divided using the Endo NELDA stapling device, leaving the anvil within the colon. The spike was then brought out through the staple line, leaving the anvil in place in the distal transverse colon. The transverse colon was returned to the abdominal cavity and pneumoperitoneum was re-achieved. The EEA stapler was inserted into the rectum. It passed very easily to the rectosigmoid junction. The spike was deployed through the staple line. The anvil was attached to the handpiece. The stapler was tightened and fired according to court messenger recommendation. The stapler was then removed from the anus and the interior of the stapler was checked. 2 concentric donuts of tissue were found within the stapler. Once this was confirmed, flexible sigmoidoscopy was undertaken. The flexible sigmoidoscope was inserted into the rectum and air was insufflated. The anastomosis was found to be leaking with air insufflation. This confirmed that the stapled anastomosis did not deploy correctly. Once this was confirmed air was suctioned from the rectum, and the flexible sigmoidoscope was removed. I then returned to the table to address the leaking anastomosis. The gel port was removed from the patient and retractors were placed on the patient. The anastomosis was visualized through the hand port incision. The anastomosis was taken down sharply. It was felt that a handsewn anastomosis would be required in light of the stapler failure. The colorectal anastomosis was created using 3-0 PDS suture in simple running fashion for the inner layer. 3-0 Vicryl Lembert sutures were used for the outer layer. The anastomosis was then tested using the flexible sigmoidoscope. Air was insufflated into the rectum and the anastomosis was visualized. The anastomosis was large enough to admit the passage of the flexible sigmoidoscope. No air could be seen leaking from the anastomosis. Air was suctioned from the rectum, and the sigmoidoscope was removed from the patient. The anastomosis appeared to be in good order, however owing to the long and difficult surgery, a diverting loop ileostomy was felt to be prudent. The 12 mm trocar was removed from the right lower quadrant and the incision was lengthened somewhat. The small bowel was brought up through the incision and held in place with an 18 Italian red rubber catheter. Attention was then turned to closure of the abdomen. Abdomen was copiously irrigated and suctioned. A 15 Italian round Zhen drain was placed in the pelvis, in the vicinity of the anastomosis. The drain was sutured in place using 2-0 nylon suture. The lower midline GelPort incision was closed using #1 PDS suture in simple running fashion. The superior 12 mm trocar site was closed using 0 Vicryl suture in [id number] fashion. The overlying skin was then closed using skin jose manuel. Attention was then turned to the maturing of the ileostomy. The small bowel was opened and matured in Aretha fashion. It was done using 3-0 Vicryl suture circumferentially. Once this was complete, an ostomy appliance was placed. Dressings were fashioned, and the procedure was concluded. All sponge, instrument, and needle counts were correct x2. Condition: Fair.
[2018-03-23] MEDS ORDERED: HYDROMORPHONE HCL INJ/PF 2 MG/ML AMPULE IV ONE (17:30)
[2018-03-23] MEDS: IPRATROPIUM/ALBUTEROL 0.5-2.5 MG/3 ML AMPUL NEB PRN ×2 (20:03→23:43)
[2018-03-23] MEDS ORDERED: CALCIUM CARBONATE 500 MG TAB.CHEW GT PRN (22:58)
[2018-03-23] MEDS ORDERED: FAMOTIDINE 20 MG TABLET GT ONE (23:30)
[2018-03-23] MEDS: HYDRALAZINE HCL INJ/PF 20 MG/1 ML SDV IV PRN (23:57)
[2018-03-24] MEDS: ACETAMINOPHEN 1,000 MG/100 ML RTUPB IV SCH ×3 (02:30→18:22)
[2018-03-24] MEDS: HYDROMORPHONE HCL INJ/PF 2 MG/ML AMPULE IV PRN ×7 (03:05→21:26)
[2018-03-24] MEDS: NORMAL SALINE 1000 ML 1,000 ML IV PRN (04:04)
[2018-03-24 04:14] LABS: ABSOLUTE LYMPHOCYTES (AUTO) 0.9 10^3/uL (0.5-4.7); ABSOLUTE NEUT (AUTO) 13.4 10^3/uL (1.7-8.2); EOSINOPHILS % (AUTO) 0.2 % (0-6); HEMATOCRIT 41.2 % (37.9-51.0); HEMOGLOBIN 13.7 g/dL (13.5-17.0); LYMPHOCYTES % (AUTO) 5.9 % (13-45); MEAN CORPUSCULAR HGB CONC 33.2 g/dL (32.0-36.0); MEAN CORPUSCULAR VOLUME 97 fl (80-97); MONOCYTES % (AUTO) 6.8 % (3-13); PLATELET COUNT 145 10^3/uL (150-450); RED BLOOD COUNT 4.27 10^6/uL (4.35-5.55); RED CELL DISTRIBUTION WIDTH 15.1 % (11.5-14.0); SEGMENTED NEUTROPHILS % (AUTO) 87.1 % (42-78); TOTAL CELLS COUNTED % (AUTO) 100 %; WHITE BLOOD COUNT 15.3 10^3/uL (4.0-10.5)
[2018-03-24 04:47] LABS: ANION GAP 9 (5-19); BLOOD UREA NITROGEN 17 mg/dL (7-20); CALCIUM 8.4 mg/dL (8.4-10.2); CARBON DIOXIDE 25 mmol/L (22-30); CHLORIDE 106 mmol/L (98-107); GLUCOSE 128 mg/dL (75-110); SODIUM 139.7 mmol/L (137-145)
[2018-03-24 05:15] LABS: POTASSIUM 4.4 mmol/L (3.6-5.0)
[2018-03-24] MEDS: METOPROLOL TARTRATE PF/INJ 5 MG/5 ML SDV IV SCH ×3 (05:41→21:26)
[2018-03-24] MEDS: HEPARIN SOD (PORCINE) 5,000 UNIT/ML 1 ML SYRINGE SUBCUT SCH ×3 (05:42→21:26)
[2018-03-24] MEDS ORDERED: NORMAL SALINE 1000 ML 1,000 ML IV PRN (07:02)
[2018-03-24] MEDS ORDERED: GLUCAGON,HUMAN RECOMB 1 MG INJ SUBCUT PRN (07:54)
[2018-03-24] MEDS ORDERED: DEXTROSE 40% GEL 15 GM TUBE PO PRN (07:54)
[2018-03-24] MEDS ORDERED: DEXTROSE 50%-WATER 25 GM/50 ML DISP.SYRIN IV PRN ×2 (07:54)
--- NOTE | 2018-03-24 07:56 | PDOC PROGRESS REPORT ---
Subjective Reason For Visit: K57.80 DVTRCLI OF INTEST, PART UNSP, W PERF AND A Physical Exam Vital Signs: Temp Pulse Resp BP Pulse Ox 98.1 F 95 16 163/88 H 96 03/24/18 07:00 03/24/18 04:00 03/24/18 07:00 03/24/18 06:23 03/24/18 07:00 Intake & Output 03/23/18 03/24/18 03/25/18 06:59 06:59 06:59 Intake Total 1293 3722 Output Total 742 2195 Balance 551 1527 Weight 102.1 kg 103.3 kg Results Laboratory Results: 03/24/18 03:51 03/24/18 03:51 03/23/18 03/24/18 03/24/18 08:29 03:51 03:51 WBC 16.8 H 15.3 H RBC 4.39 4.27 L Hgb 14.0 13.7 Hct 42.2 41.2 MCV 96 97 MCH 32.0 32.0 MCHC 33.3 33.2 RDW 15.2 H 15.1 H Plt Count 181 145 L Seg Neutrophils % 84.7 H 87.1 H Lymphocytes % 7.2 L 5.9 L Monocytes % 7.9 6.8 Eosinophils % 0.0 0.2 Basophils % 0.2 0.0 Absolute Neutrophils 14.2 H 13.4 H Absolute Lymphocytes 1.2 0.9 Absolute Monocytes 1.3 1.0 Absolute Eosinophils 0.0 0.0 Absolute Basophils 0.0 0.0 Sodium 139.7 Potassium 4.4 D Chloride 106 Carbon Dioxide 25 Anion Gap 9 BUN 17 Creatinine 0.86 Est GFR ( Amer) > 60 Est GFR (Non-Af Amer) > 60 Glucose 128 H Calcium 8.4 Impressions: Chest X-Ray 03/22/18 00:00 IMPRESSION: Left lower lobe airspace disease with trace left pleural effusion Endotracheal and nasogastric tubes in good positioning Assessment & Plan - Diagnosis (1) Diverticulitis of large intestine with abscess Qualifiers: Diverticulitis bleeding: without bleeding Qualified Code(s): K57.20 - Diverticulitis of large intestine with perforation and abscess without bleeding Is this a current diagnosis for this admission?: Yes - Plan Summary Plan Summary: This is a 58-year-old male status post laparoscopic/hand-assisted left hemicolectomy with splenic flexure takedown and handsewn anastomosis. Patient also underwent diverting loop ileostomy for protection. Patient was extubated yesterday. The patient still complains of pain. He complains of distention today. His ileostomy is pink and patent, but it is not productive of air or stool yet. His incisions are clean, dry, and intact. His drain is productive of serosanguineous output. I will make the patient n.p.o. except for meds and await bowel function. Continue IV fluids. Discontinue Cheek today. Aggressive pulmonary toilet. Out of bed, physical therapy, ambulate. Continue subcutaneous heparin for DVT prophylaxis. Continue teds and SCDs.
[2018-03-24] MEDS: ASPIRIN 81 MG TABLET, CHEWABLE GT SCH (09:21)
[2018-03-24] MEDS: FAMOTIDINE 20 MG TABLET GT SCH ×2 (09:22→21:25)
[2018-03-24] MEDS: IPRATROPIUM/ALBUTEROL 0.5-2.5 MG/3 ML AMPUL NEB PRN (18:06)
[2018-03-25] MEDS: HYDROMORPHONE HCL INJ/PF 2 MG/ML AMPULE IV PRN ×6 (00:26→20:12)
[2018-03-25] MEDS: ACETAMINOPHEN 1,000 MG/100 ML RTUPB IV SCH (01:07)
[2018-03-25] MEDS: HYDRALAZINE HCL INJ/PF 20 MG/1 ML SDV IV PRN (02:22)
[2018-03-25 04:05] LABS: HEMATOCRIT 42.8 % (37.9-51.0); HEMOGLOBIN 14.2 g/dL (13.5-17.0); MEAN CORPUSCULAR HEMOGLOBIN 32.2 pg (27.0-33.4); MEAN CORPUSCULAR HGB CONC 33.2 g/dL (32.0-36.0); MEAN CORPUSCULAR VOLUME 97 fl (80-97); PLATELET COUNT 187 10^3/uL (150-450); RED BLOOD COUNT 4.41 10^6/uL (4.35-5.55); RED CELL DISTRIBUTION WIDTH 15.2 % (11.5-14.0); WHITE BLOOD COUNT 8.4 10^3/uL (4.0-10.5)
[2018-03-25 04:28] LABS: ANION GAP 10 (5-19); BLOOD UREA NITROGEN 15 mg/dL (7-20); CALCIUM 8.8 mg/dL (8.4-10.2); CARBON DIOXIDE 23 mmol/L (22-30); CHLORIDE 106 mmol/L (98-107); GLUCOSE 105 mg/dL (75-110); POTASSIUM 5.2 mmol/L (3.6-5.0); SODIUM 138.8 mmol/L (137-145)
[2018-03-25] MEDS: METOPROLOL TARTRATE PF/INJ 5 MG/5 ML SDV IV SCH (05:05)
[2018-03-25] MEDS: HEPARIN SOD (PORCINE) 5,000 UNIT/ML 1 ML SYRINGE SUBCUT SCH ×3 (05:05→21:06)
--- NOTE | 2018-03-25 07:25 | RADIOLOGY REPORT (SQ) ---
EXAM DESCRIPTION: X-ray single view chest. CLINICAL HISTORY: 58 years Male, shortness of breath COMPARISON: 03/22/2018 TECHNIQUE: Single portable view of the chest performed on 03/25/2018 at 6:37 AM FINDINGS: The lungs are relatively well expanded. Again, there is mild opacification along the inferior medial left hemithorax which may be due to atelectasis versus a possible pneumonic infiltrate. There is slightly improved aeration of the left lung base since the prior study. There is no evidence of a pneumothorax. The cardiac silhouette is mildly prominent and may be accentuated by the portable technique. The mediastinal contours are normal. No acute osseous abnormality is identified. No focal soft tissue abnormalities are seen. Lines and tubes: There has been interval removal of the endotracheal tube and feeding tube. IMPRESSION: 1. Interval removal of the endotracheal tube and feeding tube. 2. Mild opacification along the inferior medial left hemithorax which may be due to atelectasis versus a possible pneumonic infiltrate. 3. Slightly improved aeration of the left lung base since the prior study. 4. Prominence of the cardiac silhouette.
[2018-03-25] MEDS ORDERED: OXYCODONE-ACETAMINOPHEN 5-325 MG TABLET PO PRN (08:07)
[2018-03-25] MEDS ORDERED: FUROSEMIDE INJ/PF 20 MG/2 ML SDV IV ONE (09:00)
--- NOTE | 2018-03-25 09:10 | PDOC PROGRESS REPORT ---
Subjective Reason For Visit: K57.80 DVTRCLI OF INTEST, PART UNSP, W PERF AND A Physical Exam Vital Signs: Temp Pulse Resp BP Pulse Ox 97.9 F 96 14 170/95 H 97 03/25/18 08:00 03/25/18 08:00 03/25/18 06:00 03/25/18 05:55 03/25/18 06:00 Intake & Output 03/24/18 03/25/18 03/26/18 06:59 06:59 06:59 Intake Total 3822 1300 Output Total 2195 1515 225 Balance 1627 -215 -225 Weight 103.3 kg 101.9 kg Results Laboratory Results: 03/25/18 03:51 03/25/18 03:51 03/25/18 03/25/18 03:51 03:51 WBC 8.4 RBC 4.41 Hgb 14.2 Hct 42.8 MCV 97 MCH 32.2 MCHC 33.2 RDW 15.2 H Plt Count 187 Sodium 138.8 Potassium 5.2 H Chloride 106 Carbon Dioxide 23 Anion Gap 10 BUN 15 Creatinine 0.72 Est GFR ( Amer) > 60 Est GFR (Non-Af Amer) > 60 Glucose 105 Calcium 8.8 Impressions: Chest X-Ray 03/25/18 06:00 IMPRESSION: 1. Interval removal of the endotracheal tube and feeding tube. 2. Mild opacification along the inferior medial left hemithorax which may be due to atelectasis versus a possible pneumonic infiltrate. 3. Slightly improved aeration of the left lung base since the prior study. 4. Prominence of the cardiac silhouette. Assessment & Plan - Diagnosis (1) Diverticulitis of large intestine with abscess Qualifiers: Diverticulitis bleeding: without bleeding Qualified Code(s): K57.20 - Diverticulitis of large intestine with perforation and abscess without bleeding Is this a current diagnosis for this admission?: Yes - Plan Summary Plan Summary: This is a 58-year-old male status post laparoscopic/hand-assisted left hemicolectomy with splenic flexure takedown and handsewn anastomosis. Patient also underwent diverting loop ileostomy for protection. The patient still complains of pain. His distention is improving. His ileostomy is pink and patent, and he has a small amount of liquid stool in the bag. His incisions are clean, dry, and intact. His drain is productive of serosanguineous output. I will restart the patient on liquids. Discontinue IV fluids. Continue aggressive pulmonary toilet. Out of bed, physical therapy, ambulate. Continue subcutaneous heparin for DVT prophylaxis. Continue teds and SCDs. Transfer to floor. One dose of IV Lasix today. Recheck labs tomorrow.
[2018-03-25] MEDS: OXYCODONE-ACETAMINOPHEN 5-325 MG TABLET GT PRN ×4 (09:49→22:26)
[2018-03-25] MEDS: FAMOTIDINE 20 MG TABLET GT SCH ×2 (09:49→21:06)
[2018-03-25] MEDS: ASPIRIN 81 MG TABLET, CHEWABLE GT SCH (09:50)
[2018-03-26] MEDS: HYDROMORPHONE HCL INJ/PF 2 MG/ML AMPULE IV PRN ×8 (00:11→23:32)
[2018-03-26] MEDS: OXYCODONE-ACETAMINOPHEN 5-325 MG TABLET GT PRN ×5 (02:26→21:05)
[2018-03-26 04:22] LABS: ANION GAP 5 (5-19); BLOOD UREA NITROGEN 15 mg/dL (7-20); CALCIUM 8.7 mg/dL (8.4-10.2); CARBON DIOXIDE 27 mmol/L (22-30); CHLORIDE 104 mmol/L (98-107); GLUCOSE 118 mg/dL (75-110); POTASSIUM 4.2 mmol/L (3.6-5.0); SODIUM 135.7 mmol/L (137-145)
[2018-03-26] MEDS: HEPARIN SOD (PORCINE) 5,000 UNIT/ML 1 ML SYRINGE SUBCUT SCH ×3 (05:26→21:05)
[2018-03-26] MEDS: ASPIRIN 81 MG TABLET, CHEWABLE GT SCH (11:11)
[2018-03-26] MEDS: FAMOTIDINE 20 MG TABLET GT SCH ×2 (11:12→21:05)
[2018-03-26] MEDS ORDERED: NITROGLYCERIN 0.3 MG SL PRN (11:32)
[2018-03-26] MEDS ORDERED: CARVEDILOL 12.5 MG TABLET PO SCH (12:00)
[2018-03-26] MEDS: CLONIDINE HCL 0.1 MG TABLET GT SCH ×2 (14:21→21:06)
--- NOTE | 2018-03-26 16:40 | PDOC PROGRESS REPORT ---
Subjective Progress Note for:: 03/26/18 Reason For Visit: K57.80 DVTRCLI OF INTEST, PART UNSP, W PERF AND A Physical Exam Vital Signs: Temp Pulse Resp BP Pulse Ox 98.1 F 109 H 16 169/91 H 95 03/26/18 08:47 03/26/18 16:12 03/26/18 16:12 03/26/18 08:47 03/26/18 16:12 Intake & Output 03/25/18 03/26/18 03/27/18 06:59 06:59 06:59 Intake Total 1300 1400 742 Output Total 1515 2495 410 Balance -215 -1095 332 Weight 101.9 kg Results Laboratory Results: 03/25/18 03:51 03/26/18 03:55 03/26/18 03:55 Sodium 135.7 L Potassium 4.2 Chloride 104 Carbon Dioxide 27 Anion Gap 5 BUN 15 Creatinine 0.75 Est GFR ( Amer) > 60 Est GFR (Non-Af Amer) > 60 Glucose 118 H Calcium 8.7 Impressions: Chest X-Ray 03/25/18 06:00 IMPRESSION: 1. Interval removal of the endotracheal tube and feeding tube. 2. Mild opacification along the inferior medial left hemithorax which may be due to atelectasis versus a possible pneumonic infiltrate. 3. Slightly improved aeration of the left lung base since the prior study. 4. Prominence of the cardiac silhouette. Assessment & Plan - Diagnosis (1) Diverticulitis of large intestine with abscess Qualifiers: Diverticulitis bleeding: without bleeding Qualified Code(s): K57.20 - Diverticulitis of large intestine with perforation and abscess without bleeding Is this a current diagnosis for this admission?: Yes - Plan Summary Plan Summary: This is a 58-year-old male status post laparoscopic/hand-assisted left hemicolectomy with splenic flexure takedown and handsewn anastomosis. Patient also underwent diverting loop ileostomy for protection. The patient's pain is improving. His distention has almost completely resolved. His ileostomy is pink, patent, and he has a good amount of liquid stool in the bag. His lower midline incision is slightly erythematous. His drain is productive of serosanguineous fluid. Continue aggressive pulmonary toilet. Out of bed, physical therapy, ambulate. Continue subcutaneous heparin for DVT prophylaxis. Continue teds and SCDs. Recheck labs tomorrow. Advance diet. Will remove several jose manuel from lower abdominal wound at bedside and initiate damp dressing changes.
[2018-03-26] MEDS: GABAPENTIN 100 MG CAPSULE GT SCH (19:39)
[2018-03-26] MEDS: CARVEDILOL 12.5 MG TABLET GT SCH (21:08)
[2018-03-27] MEDS: HYDROMORPHONE HCL INJ/PF 2 MG/ML AMPULE IV PRN ×6 (04:03→22:38)
[2018-03-27 05:00] LABS: ABSOLUTE BASOPHILS # (AUTO) 0.1 10^3/uL (0.0-0.2); ABSOLUTE EOSINOPHILS # (AUTO) 0.4 10^3/uL (0.0-0.6); ABSOLUTE LYMPHOCYTES (AUTO) 1.3 10^3/uL (0.5-4.7); ABSOLUTE MONOCYTES (AUTO) 1.2 10^3/uL (0.1-1.4); ABSOLUTE NEUT (AUTO) 7.1 10^3/uL (1.7-8.2); BASOPHILS % (AUTO) 0.6 % (0-2); EOSINOPHILS % (AUTO) 4.4 % (0-6); HEMATOCRIT 37.2 % (37.9-51.0); HEMOGLOBIN 12.5 g/dL (13.5-17.0); LYMPHOCYTES % (AUTO) 12.8 % (13-45); MEAN CORPUSCULAR HEMOGLOBIN 31.8 pg (27.0-33.4); MEAN CORPUSCULAR HGB CONC 33.7 g/dL (32.0-36.0); MEAN CORPUSCULAR VOLUME 94 fl (80-97); MONOCYTES % (AUTO) 11.6 % (3-13); PLATELET COUNT 229 10^3/uL (150-450); RED BLOOD COUNT 3.95 10^6/uL (4.35-5.55); RED CELL DISTRIBUTION WIDTH 14.8 % (11.5-14.0); SEGMENTED NEUTROPHILS % (AUTO) 70.6 % (42-78); TOTAL CELLS COUNTED % (AUTO) 100 %
[2018-03-27] MEDS: OXYCODONE-ACETAMINOPHEN 5-325 MG TABLET GT PRN ×4 (05:34→20:36)
[2018-03-27] MEDS: CLONIDINE HCL 0.1 MG TABLET GT SCH ×3 (05:35→21:02)
[2018-03-27] MEDS: HEPARIN SOD (PORCINE) 5,000 UNIT/ML 1 ML SYRINGE SUBCUT SCH ×3 (05:35→21:03)
[2018-03-27] MEDS: ASPIRIN 81 MG TABLET, CHEWABLE GT SCH (10:58)
[2018-03-27] MEDS: FUROSEMIDE 40 MG TABLET GT SCH (10:58)
[2018-03-27] MEDS: CLOPIDOGREL BISULFATE 75 MG TABLET GT SCH (10:58)
[2018-03-27] MEDS: GABAPENTIN 100 MG CAPSULE GT SCH ×2 (10:59→17:42)
[2018-03-27] MEDS: CARVEDILOL 12.5 MG TABLET GT SCH ×2 (10:59→21:02)
[2018-03-27] MEDS: FAMOTIDINE 20 MG TABLET GT SCH ×2 (10:59→21:03)
--- NOTE | 2018-03-27 11:50 | PDOC PROGRESS REPORT ---
Subjective Reason For Visit: K57.80 DVTRCLI OF INTEST, PART UNSP, W PERF AND A Physical Exam Vital Signs: Temp Pulse Resp BP Pulse Ox 98.8 F 72 18 116/71 97 03/27/18 07:54 03/27/18 07:54 03/27/18 07:54 03/27/18 07:54 03/27/18 08:10 Intake & Output 03/26/18 03/27/18 03/28/18 06:59 06:59 06:59 Intake Total 1400 1494 Output Total 2495 985 Balance -1095 509 Weight 103.2 kg Results Laboratory Results: 03/27/18 04:53 03/26/18 03:55 03/27/18 04:53 WBC 10.0 RBC 3.95 L Hgb 12.5 L Hct 37.2 L MCV 94 MCH 31.8 MCHC 33.7 RDW 14.8 H Plt Count 229 Seg Neutrophils % 70.6 Lymphocytes % 12.8 L Monocytes % 11.6 Eosinophils % 4.4 Basophils % 0.6 Absolute Neutrophils 7.1 Absolute Lymphocytes 1.3 Absolute Monocytes 1.2 Absolute Eosinophils 0.4 Absolute Basophils 0.1 Impressions: Chest X-Ray 03/25/18 06:00 IMPRESSION: 1. Interval removal of the endotracheal tube and feeding tube. 2. Mild opacification along the inferior medial left hemithorax which may be due to atelectasis versus a possible pneumonic infiltrate. 3. Slightly improved aeration of the left lung base since the prior study. 4. Prominence of the cardiac silhouette. Assessment & Plan - Diagnosis (1) Diverticulitis of large intestine with abscess Qualifiers: Diverticulitis bleeding: without bleeding Qualified Code(s): K57.20 - Diverticulitis of large intestine with perforation and abscess without bleeding Is this a current diagnosis for this admission?: Yes - Plan Summary Plan Summary: This is a 58-year-old male status post laparoscopic/hand-assisted left hemicolectomy with splenic flexure takedown and handsewn anastomosis. Patient also underwent diverting loop ileostomy for protection. The patient's pain is improving. His distention has resolved. His ileostomy is pink, patent, and he has a good amount of liquid stool in the bag. His lower midline incision is slightly erythematous. His drain is productive of serosanguineous fluid. Continue aggressive pulmonary toilet. Out of bed, physical therapy, ambulate. Continue subcutaneous heparin for DVT prophylaxis. Continue teds and SCDs. Damp dressing changes to lower midline incision.
[2018-03-27] MEDS: CHOLESTYRAMINE/ASPARTAME 4 GM PACKET PO SCH (14:26)
[2018-03-28] MEDS: OXYCODONE-ACETAMINOPHEN 5-325 MG TABLET GT PRN ×6 (00:38→22:58)
[2018-03-28] MEDS: HYDROMORPHONE HCL INJ/PF 2 MG/ML AMPULE IV PRN ×5 (02:02→16:04)
[2018-03-28] MEDS: HEPARIN SOD (PORCINE) 5,000 UNIT/ML 1 ML SYRINGE SUBCUT SCH ×3 (05:04→22:59)
[2018-03-28] MEDS: CLONIDINE HCL 0.1 MG TABLET GT SCH ×3 (05:05→22:55)
[2018-03-28] MEDS: CARVEDILOL 12.5 MG TABLET GT SCH ×2 (09:00→22:58)
[2018-03-28] MEDS: FAMOTIDINE 20 MG TABLET GT SCH ×2 (09:00→22:57)
[2018-03-28] MEDS: CLOPIDOGREL BISULFATE 75 MG TABLET GT SCH (09:01)
[2018-03-28] MEDS: ASPIRIN 81 MG TABLET, CHEWABLE GT SCH (09:01)
[2018-03-28] MEDS: GABAPENTIN 100 MG CAPSULE GT SCH ×2 (09:01→17:27)
[2018-03-28] MEDS: FUROSEMIDE 40 MG TABLET GT SCH (09:01)
[2018-03-28] MEDS: CHOLESTYRAMINE/ASPARTAME 4 GM PACKET PO SCH (09:13)
[2018-03-28] MEDS: NICOTINE 21 MG/24 HR PATCH.TD24 TD SCH (11:18)
[2018-03-28] MEDS: OXYCODONE HCL IR 5 MG TABLET PO PRN ×2 (18:27→22:55)
[2018-03-29] MEDS: OXYCODONE HCL IR 5 MG TABLET PO PRN ×5 (03:41→20:19)
[2018-03-29] MEDS: OXYCODONE-ACETAMINOPHEN 5-325 MG TABLET GT PRN ×5 (03:42→20:20)
[2018-03-29] MEDS: HEPARIN SOD (PORCINE) 5,000 UNIT/ML 1 ML SYRINGE SUBCUT SCH ×3 (06:04→22:10)
[2018-03-29] MEDS: CLONIDINE HCL 0.1 MG TABLET GT SCH ×3 (06:12→22:09)
--- NOTE | 2018-03-29 07:48 | PDOC PROGRESS REPORT ---
Subjective Progress Note for:: 03/28/18 Reason For Visit: K57.80 DVTRCLI OF INTEST, PART UNSP, W PERF AND A Physical Exam Vital Signs: Intake & Output 03/28/18 06:59 Intake Total 595 Output Total 1608 Balance -1013 Weight 97.5 kg Results Laboratory Results: 03/27/18 04:53 03/26/18 03:55 Impressions: Chest X-Ray 03/25/18 06:00 IMPRESSION: 1. Interval removal of the endotracheal tube and feeding tube. 2. Mild opacification along the inferior medial left hemithorax which may be due to atelectasis versus a possible pneumonic infiltrate. 3. Slightly improved aeration of the left lung base since the prior study. 4. Prominence of the cardiac silhouette. Assessment & Plan - Diagnosis (1) Diverticulitis of large intestine with abscess Qualifiers: Diverticulitis bleeding: without bleeding Qualified Code(s): K57.20 - Diverticulitis of large intestine with perforation and abscess without bleeding Is this a current diagnosis for this admission?: Yes - Plan Summary Plan Summary: This is a 58-year-old male status post laparoscopic/hand-assisted left hemicolectomy with splenic flexure takedown and handsewn anastomosis. Patient also underwent diverting loop ileostomy for protection. The patient's pain is improving. His distention has resolved. His ileostomy is pink, patent, and he has a good amount of liquid stool in the bag. His lower midline incision has a dressing in-place. His drain is productive of serosanguineous fluid. Continue aggressive pulmonary toilet. Out of bed, physical therapy, ambulate. Continue subcutaneous heparin for DVT prophylaxis. Continue teds and SCDs. Cont damp dressing changes to lower midline incision.
[2018-03-29] MEDS: ASPIRIN 81 MG TABLET, CHEWABLE GT SCH (11:23)
[2018-03-29] MEDS: CARVEDILOL 12.5 MG TABLET GT SCH ×2 (11:24→22:08)
[2018-03-29] MEDS: FAMOTIDINE 20 MG TABLET GT SCH ×2 (11:25→22:09)
[2018-03-29] MEDS: GABAPENTIN 100 MG CAPSULE GT SCH ×2 (11:25→17:53)
[2018-03-29] MEDS: FUROSEMIDE 40 MG TABLET GT SCH (11:25)
[2018-03-29] MEDS: CLOPIDOGREL BISULFATE 75 MG TABLET GT SCH (11:25)
[2018-03-29] MEDS: NICOTINE 21 MG/24 HR PATCH.TD24 TD SCH (11:27)
[2018-03-29] MEDS: CHOLESTYRAMINE/ASPARTAME 4 GM PACKET PO SCH (11:27)
--- NOTE | 2018-03-29 13:16 | PDOC PROGRESS REPORT ---
Subjective Reason For Visit: K57.80 DVTRCLI OF INTEST, PART UNSP, W PERF AND A Physical Exam Vital Signs: Temp Pulse Resp BP Pulse Ox 98.0 F 64 20 118/62 98 03/29/18 07:18 03/29/18 07:18 03/29/18 07:18 03/29/18 07:18 03/29/18 07:18 Intake & Output 03/28/18 03/29/18 03/30/18 06:59 06:59 06:59 Intake Total 595 983 459 Output Total 1608 350 400 Balance -1013 633 59 Weight 97.5 kg 98 kg Results Laboratory Results: 03/27/18 04:53 03/26/18 03:55 Impressions: Chest X-Ray 03/25/18 06:00 IMPRESSION: 1. Interval removal of the endotracheal tube and feeding tube. 2. Mild opacification along the inferior medial left hemithorax which may be due to atelectasis versus a possible pneumonic infiltrate. 3. Slightly improved aeration of the left lung base since the prior study. 4. Prominence of the cardiac silhouette. Assessment & Plan - Diagnosis (1) Diverticulitis of large intestine with abscess Qualifiers: Diverticulitis bleeding: without bleeding Qualified Code(s): K57.20 - Diverticulitis of large intestine with perforation and abscess without bleeding Is this a current diagnosis for this admission?: Yes - Plan Summary Plan Summary: This is a 58-year-old male status post laparoscopic/hand-assisted left hemicolectomy with splenic flexure takedown and handsewn anastomosis. Patient also underwent diverting loop ileostomy for protection. The patient's pain is improving. His distention has resolved. His ileostomy is pink, patent, and he has a good amount of liquid stool in the bag. His lower midline incision has a dressing in-place. His drain is productive of serosanguineous fluid. Continue aggressive pulmonary toilet. Out of bed, physical therapy, ambulate. Continue subcutaneous heparin for DVT prophylaxis. Continue teds and SCDs. Cont damp dressing changes to lower midline incision. Still requiring IV pain medications. Discharge planning.
[2018-03-30] MEDS: OXYCODONE-ACETAMINOPHEN 5-325 MG TABLET GT PRN ×6 (00:25→21:56)
[2018-03-30] MEDS: OXYCODONE HCL IR 5 MG TABLET PO PRN ×6 (00:26→21:55)
[2018-03-30] MEDS: CLONIDINE HCL 0.1 MG TABLET GT SCH ×3 (06:14→21:54)
[2018-03-30] MEDS: HEPARIN SOD (PORCINE) 5,000 UNIT/ML 1 ML SYRINGE SUBCUT SCH ×3 (06:17→21:55)
[2018-03-30] MEDS: CARVEDILOL 12.5 MG TABLET GT SCH ×2 (10:53→21:53)
[2018-03-30] MEDS: NICOTINE 21 MG/24 HR PATCH.TD24 TD SCH (10:53)
[2018-03-30] MEDS: CLOPIDOGREL BISULFATE 75 MG TABLET GT SCH (10:56)
[2018-03-30] MEDS: FAMOTIDINE 20 MG TABLET GT SCH ×2 (10:56→21:54)
[2018-03-30] MEDS: GABAPENTIN 100 MG CAPSULE GT SCH ×2 (10:56→17:54)
[2018-03-30] MEDS: CHOLESTYRAMINE/ASPARTAME 4 GM PACKET PO SCH (10:58)
[2018-03-30] MEDS: ASPIRIN 81 MG TABLET, CHEWABLE GT SCH (11:00)
--- NOTE | 2018-03-30 13:38 | PDOC PROGRESS REPORT ---
Subjective Reason For Visit: K57.80 DVTRCLI OF INTEST, PART UNSP, W PERF AND A Physical Exam Vital Signs: Temp Pulse Resp BP Pulse Ox 98.2 F 65 16 133/69 H 96 03/30/18 10:55 03/30/18 10:55 03/30/18 10:55 03/30/18 10:55 03/30/18 10:55 Intake & Output 03/29/18 03/30/18 03/31/18 06:59 06:59 06:59 Intake Total 983 1021 473 Output Total 350 1475 300 Balance 633 -454 173 Weight 98 kg 97.4 kg Results Laboratory Results: 03/27/18 04:53 03/26/18 03:55 Impressions: Chest X-Ray 03/25/18 06:00 IMPRESSION: 1. Interval removal of the endotracheal tube and feeding tube. 2. Mild opacification along the inferior medial left hemithorax which may be due to atelectasis versus a possible pneumonic infiltrate. 3. Slightly improved aeration of the left lung base since the prior study. 4. Prominence of the cardiac silhouette. Assessment & Plan - Diagnosis (1) Diverticulitis of large intestine with abscess Qualifiers: Diverticulitis bleeding: without bleeding Qualified Code(s): K57.20 - Diverticulitis of large intestine with perforation and abscess without bleeding Is this a current diagnosis for this admission?: Yes - Plan Summary Plan Summary: This is a 58-year-old male status post laparoscopic/hand-assisted left hemicolectomy with splenic flexure takedown and handsewn anastomosis. Patient also underwent diverting loop ileostomy for protection. The patient's pain is improving. His distention has resolved. His ileostomy is pink, patent, and he has a good amount of liquid stool in the bag. His lower midline incision has a dressing in-place. His drain is productive of serosanguineous fluid. Continue aggressive pulmonary toilet. Out of bed, physical therapy, ambulate. Continue subcutaneous heparin for DVT prophylaxis. Continue teds and SCDs. Cont damp dressing changes to lower midline incision. Still requiring IV pain medications, increase oral meds Discharge planning.
[2018-03-31] MEDS: OXYCODONE HCL IR 5 MG TABLET PO PRN ×5 (02:22→20:27)
[2018-03-31] MEDS: OXYCODONE-ACETAMINOPHEN 5-325 MG TABLET GT PRN ×5 (02:23→20:26)
[2018-03-31] MEDS: CLONIDINE HCL 0.1 MG TABLET GT SCH ×3 (05:53→21:42)
[2018-03-31] MEDS: HEPARIN SOD (PORCINE) 5,000 UNIT/ML 1 ML SYRINGE SUBCUT SCH ×3 (05:53→21:43)
[2018-03-31 06:08] LABS: ANION GAP 7 (5-19); BLOOD UREA NITROGEN 15 mg/dL (7-20); CALCIUM 8.8 mg/dL (8.4-10.2); CARBON DIOXIDE 23 mmol/L (22-30); CHLORIDE 105 mmol/L (98-107); GLUCOSE 122 mg/dL (75-110); POTASSIUM 4.4 mmol/L (3.6-5.0)
[2018-03-31] MEDS: CHOLESTYRAMINE/ASPARTAME 4 GM PACKET PO SCH (09:49)
[2018-03-31] MEDS: CLOPIDOGREL BISULFATE 75 MG TABLET GT SCH (09:50)
[2018-03-31] MEDS: FAMOTIDINE 20 MG TABLET GT SCH ×2 (09:50→21:42)
[2018-03-31] MEDS: ASPIRIN 81 MG TABLET, CHEWABLE GT SCH (09:50)
[2018-03-31] MEDS: GABAPENTIN 100 MG CAPSULE GT SCH ×2 (09:50→17:26)
[2018-03-31] MEDS: NICOTINE 21 MG/24 HR PATCH.TD24 TD SCH (09:50)
[2018-03-31] MEDS: CARVEDILOL 12.5 MG TABLET GT SCH ×2 (09:50→21:43)
--- NOTE | 2018-03-31 11:31 | PDOC PROGRESS REPORT ---
Subjective Progress Note for:: 03/31/18 Reason For Visit: K57.80 DVTRCLI OF INTEST, PART UNSP, W PERF AND A Physical Exam Vital Signs: Temp Pulse Resp BP Pulse Ox 97.4 F 62 14 107/58 L 95 03/31/18 07:33 03/31/18 07:33 03/31/18 07:33 03/31/18 07:33 03/31/18 07:33 Intake & Output 03/30/18 03/31/18 04/01/18 06:59 06:59 06:59 Intake Total 1021 1032 Output Total 1475 970 140 Balance -454 62 -140 Weight 97.4 kg 96.2 kg Results Laboratory Results: 03/27/18 04:53 03/31/18 05:15 03/31/18 05:15 Sodium 135.0 L Potassium 4.4 Chloride 105 Carbon Dioxide 23 Anion Gap 7 BUN 15 Creatinine 0.81 Est GFR ( Amer) > 60 Est GFR (Non-Af Amer) > 60 Glucose 122 H Calcium 8.8 Impressions: Chest X-Ray 03/25/18 06:00 IMPRESSION: 1. Interval removal of the endotracheal tube and feeding tube. 2. Mild opacification along the inferior medial left hemithorax which may be due to atelectasis versus a possible pneumonic infiltrate. 3. Slightly improved aeration of the left lung base since the prior study. 4. Prominence of the cardiac silhouette. Assessment & Plan - Diagnosis (1) Diverticulitis of large intestine with abscess Qualifiers: Diverticulitis bleeding: without bleeding Qualified Code(s): K57.20 - Diverticulitis of large intestine with perforation and abscess without bleeding Is this a current diagnosis for this admission?: Yes - Plan Summary Plan Summary: This is a 58-year-old male status post laparoscopic/hand-assisted left hemicolectomy with splenic flexure takedown and handsewn anastomosis. Patient also underwent diverting loop ileostomy for protection. The patient's pain is improving. His distention has resolved. His ileostomy is pink, patent, and he has a good amount of liquid stool in the bag. His lower midline incision has a dressing in-place. There was a small amount of bleeding from the wound yeterday , but it has resolved. His drain is productive of serosanguineous fluid. Continue aggressive pulmonary toilet. Out of bed, physical therapy, ambulate. Continue subcutaneous heparin for DVT prophylaxis. Continue teds and SCDs. Cont damp dressing changes to lower midline incision. Cont current pain meds. Discharge planning for ileostomy care and home wound VAC. Pt had 70cc out of SEE over 12 hours. Keep SEE in-place for today. OK to shower. Restart Lasix.
[2018-03-31] MEDS: FUROSEMIDE 40 MG TABLET PO SCH (12:12)
[2018-04-01] MEDS: OXYCODONE-ACETAMINOPHEN 5-325 MG TABLET GT PRN ×2 (00:32→04:49)
[2018-04-01] MEDS: OXYCODONE HCL IR 5 MG TABLET PO PRN ×7 (00:33→21:21)
[2018-04-01] MEDS: CLONIDINE HCL 0.1 MG TABLET GT SCH ×3 (05:14→21:21)
[2018-04-01] MEDS: HEPARIN SOD (PORCINE) 5,000 UNIT/ML 1 ML SYRINGE SUBCUT SCH (05:14)
[2018-04-01] MEDS ORDERED: HYDROMORPHONE HCL INJ/PF 2 MG/ML AMPULE ONE (09:09)
[2018-04-01] MEDS: NICOTINE 21 MG/24 HR PATCH.TD24 TD SCH (09:53)
[2018-04-01] MEDS: FAMOTIDINE 20 MG TABLET GT SCH ×2 (09:53→21:21)
[2018-04-01] MEDS: ASPIRIN 81 MG TABLET, CHEWABLE GT SCH (09:53)
[2018-04-01] MEDS: GABAPENTIN 100 MG CAPSULE GT SCH ×2 (09:53→17:12)
[2018-04-01] MEDS: FUROSEMIDE 40 MG TABLET PO SCH (09:54)
[2018-04-01] MEDS: CHOLESTYRAMINE/ASPARTAME 4 GM PACKET PO SCH (10:04)
[2018-04-01 10:09] LABS: HEMATOCRIT 37.2 % (37.9-51.0); HEMOGLOBIN 12.2 g/dL (13.5-17.0); MEAN CORPUSCULAR HGB CONC 32.9 g/dL (32.0-36.0); MEAN CORPUSCULAR VOLUME 94 fl (80-97); PLATELET COUNT 293 10^3/uL (150-450); RED BLOOD COUNT 3.95 10^6/uL (4.35-5.55); RED CELL DISTRIBUTION WIDTH 14.7 % (11.5-14.0); WHITE BLOOD COUNT 14.9 10^3/uL (4.0-10.5)
[2018-04-01] MEDS: OXYCODONE-ACETAMINOPHEN 5-325 MG TABLET PO PRN ×3 (12:21→21:21)
[2018-04-01] MEDS: CARVEDILOL 12.5 MG TABLET GT SCH ×2 (12:32→21:22)
--- NOTE | 2018-04-01 13:51 | PDOC PROGRESS REPORT ---
Subjective Reason For Visit: K57.80 DVTRCLI OF INTEST, PART UNSP, W PERF AND A Physical Exam Vital Signs: Temp Pulse Resp BP Pulse Ox 98.3 F 74 17 117/65 96 04/01/18 11:24 04/01/18 11:24 04/01/18 11:24 04/01/18 11:24 04/01/18 11:24 Intake & Output 03/31/18 04/01/18 04/02/18 06:59 06:59 06:59 Intake Total 1032 950 375 Output Total 970 1470 60 Balance 62 -520 315 Weight 96.2 kg 96.8 kg Results Laboratory Results: 04/01/18 09:59 03/31/18 05:15 04/01/18 09:59 WBC 14.9 H RBC 3.95 L Hgb 12.2 L Hct 37.2 L MCV 94 MCH 31.0 MCHC 32.9 RDW 14.7 H Plt Count 293 Impressions: Chest X-Ray 03/25/18 06:00 IMPRESSION: 1. Interval removal of the endotracheal tube and feeding tube. 2. Mild opacification along the inferior medial left hemithorax which may be due to atelectasis versus a possible pneumonic infiltrate. 3. Slightly improved aeration of the left lung base since the prior study. 4. Prominence of the cardiac silhouette. Assessment & Plan - Diagnosis (1) Diverticulitis of large intestine with abscess Qualifiers: Diverticulitis bleeding: without bleeding Qualified Code(s): K57.20 - Diverticulitis of large intestine with perforation and abscess without bleeding Is this a current diagnosis for this admission?: Yes - Plan Summary Plan Summary: This is a 58-year-old male status post laparoscopic/hand-assisted left hemicolectomy with splenic flexure takedown and handsewn anastomosis. Patient also underwent diverting loop ileostomy for protection. The patient's pain is improving. His distention has resolved. His ileostomy is pink, patent, and he has a good amount of liquid stool in the bag. There was bleeding from the wound again today. The dressing was removed, and the wound was inspected. There is no significant active bleeding. There is some nonspecific oozing in the base of the wound. His drain is productive of serosanguineous fluid. Continue aggressive pulmonary toilet. Out of bed, physical therapy, ambulate. Discontinue subcutaneous heparin and Plavix due to bleeding. For DVT prophylaxis, continue teds and SCDs. Wound VAC to midline incision. Cont current pain meds. Discharge planning for ileostomy care and home wound VAC. Discontinue SEE drain. OK to shower.
--- NOTE | 2018-04-01 13:57 | Operative Report ---
Nonrecallable Operative Report DATE OF SURGERY: 04/01/18 PREOPERATIVE DIAGNOSIS: Large, midline joseph wound POSTOPERATIVE DIAGNOSIS: Large, midline abdominal wound. Measurements: 13 x 6 x 4 cm. OPERATION: Placement of negative pressure wound management system to lower midline abdominal wound. SURGEON: LONNY MCCRACKEN ANESTHESIA: Other - None TISSUE REMOVED OR ALTERED: None COMPLICATIONS: None apparent ESTIMATED BLOOD LOSS: Minimal PROCEDURE: Drains/implants: Negative pressure wound management system placed on lower midline abdominal wound. Procedure in detail: After informed consent was obtained from the patient, he was laid in the supine position in the hospital room. The damp dressing was removed from the lower midline abdominal incision. A Xeroform dressing was placed at the base of the wound. The midline wound measured 13 cm long x 6 cm wide by 4 cm deep. The black wound VAC sponge was cut to an appropriate size and placed into the wound. The occlusive dressing was placed, and suction was applied. The wound VAC was found to have a good seal. At this time the procedure was concluded. All sponge, instrument, and needle counts were correct. Condition: Stable.
[2018-04-02] MEDS: OXYCODONE-ACETAMINOPHEN 5-325 MG TABLET PO PRN ×4 (01:20→23:03)
[2018-04-02] MEDS: OXYCODONE HCL IR 5 MG TABLET PO PRN ×5 (01:20→23:02)
[2018-04-02 05:24] LABS: HEMOGLOBIN 11.8 g/dL (13.5-17.0); MEAN CORPUSCULAR HEMOGLOBIN 31.1 pg (27.0-33.4); MEAN CORPUSCULAR HGB CONC 33.6 g/dL (32.0-36.0); MEAN CORPUSCULAR VOLUME 93 fl (80-97); PLATELET COUNT 387 10^3/uL (150-450); RED BLOOD COUNT 3.78 10^6/uL (4.35-5.55); RED CELL DISTRIBUTION WIDTH 14.4 % (11.5-14.0); WHITE BLOOD COUNT 16.9 10^3/uL (4.0-10.5)
[2018-04-02] MEDS: CLONIDINE HCL 0.1 MG TABLET GT SCH ×3 (05:31→23:04)
[2018-04-02 06:00] LABS: ANION GAP 7 (5-19); BLOOD UREA NITROGEN 18 mg/dL (7-20); CARBON DIOXIDE 24 mmol/L (22-30); CHLORIDE 101 mmol/L (98-107); GLUCOSE 119 mg/dL (75-110); POTASSIUM 5.6 mmol/L (3.6-5.0)
[2018-04-02 06:06] LABS: ABSOLUTE LYMPHOCYTES# (MANUAL) 3.4 10^3/uL (0.5-4.7); ABSOLUTE MONOCYTES # (MANUAL) 1.5 10^3/uL (0.1-1.4); ABSOLUTE NEUTROPHILS# (MANUAL) 11.8 10^3/uL (1.7-8.2); BASOPHILS % (MANUAL) 0 % (0-2); EOSINOPHILS % (MANUAL) 1 % (0-6); LYMPHOCYTES % (MANUAL) 20 % (13-45); MONOCYTES % (MANUAL) 9 % (3-13); SEGMENTED NEUTROPHILS % (MAN) 70 % (42-78); TOTAL CELLS COUNTED 100
[2018-04-02 06:18] LABS: ANISOCYTOSIS SLIGHT; OVALOCYTES SLIGHT; PLATELET COMMENT ADEQUATE; POIKILOCYTOSIS SLIGHT; TOXIC GRANULATION 1+; TOXIC VACUOLATION PRESENT
[2018-04-02] MEDS: NICOTINE 21 MG/24 HR PATCH.TD24 TD SCH (09:34)
[2018-04-02] MEDS: ASPIRIN 81 MG TABLET, CHEWABLE GT SCH (09:34)
[2018-04-02] MEDS: CHOLESTYRAMINE/ASPARTAME 4 GM PACKET PO SCH (09:34)
[2018-04-02] MEDS: GABAPENTIN 100 MG CAPSULE GT SCH ×2 (09:35→17:21)
[2018-04-02] MEDS: FAMOTIDINE 20 MG TABLET GT SCH ×2 (09:35→23:04)
[2018-04-02] MEDS: CARVEDILOL 12.5 MG TABLET GT SCH ×2 (09:35→23:04)
[2018-04-02] MEDS: FUROSEMIDE 40 MG TABLET PO SCH (09:36)
--- NOTE | 2018-04-02 15:53 | PDOC PROGRESS REPORT ---
Subjective Progress Note for:: 04/02/18 Reason For Visit: K57.80 DVTRCLI OF INTEST, PART UNSP, W PERF AND A Physical Exam Vital Signs: Temp Pulse Resp BP Pulse Ox 98.2 F 79 13 120/66 96 04/02/18 12:00 04/02/18 12:00 04/02/18 12:00 04/02/18 12:00 04/02/18 12:00 Intake & Output 04/01/18 04/02/18 04/03/18 06:59 06:59 06:59 Intake Total 950 834 Output Total 1470 1385 Balance -520 -551 Weight 96.8 kg 97.7 kg Results Laboratory Results: 04/02/18 05:16 04/02/18 05:16 04/02/18 04/02/18 05:16 05:16 WBC 16.9 H RBC 3.78 L Hgb 11.8 L Hct 35.0 L MCV 93 MCH 31.1 MCHC 33.6 RDW 14.4 H Plt Count 387 Seg Neutrophils % Not Reportable Lymphocytes % Not Reportable Monocytes % Not Reportable Eosinophils % Not Reportable Basophils % Not Reportable Absolute Neutrophils Not Reportable Absolute Lymphocytes Not Reportable Absolute Monocytes Not Reportable Absolute Eosinophils Not Reportable Absolute Basophils Not Reportable Sodium 132.0 L Potassium 5.6 H Chloride 101 Carbon Dioxide 24 Anion Gap 7 BUN 18 Creatinine 0.99 Est GFR ( Amer) > 60 Est GFR (Non-Af Amer) > 60 Glucose 119 H Calcium 9.0 Impressions: Chest X-Ray 03/25/18 06:00 IMPRESSION: 1. Interval removal of the endotracheal tube and feeding tube. 2. Mild opacification along the inferior medial left hemithorax which may be due to atelectasis versus a possible pneumonic infiltrate. 3. Slightly improved aeration of the left lung base since the prior study. 4. Prominence of the cardiac silhouette. Assessment & Plan - Diagnosis (1) Diverticulitis of large intestine with abscess Qualifiers: Diverticulitis bleeding: without bleeding Qualified Code(s): K57.20 - Diverticulitis of large intestine with perforation and abscess without bleeding Is this a current diagnosis for this admission?: Yes - Plan Summary Plan Summary: This is a 58-year-old male status post laparoscopic/hand-assisted left hemicolectomy with splenic flexure takedown and handsewn anastomosis. Patient also underwent diverting loop ileostomy for protection. The patient's pain is improving. His ileostomy is pink, patent, and he has a good amount of liquid stool in the bag. There was bleeding from the wound again yesterday. The dressing was removed, and the wound was inspected. There was no significant active bleeding. A wound VAC was placed in the lower midline wound. There is a good seal at present. Continue aggressive pulmonary toilet. Out of bed, physical therapy, ambulate. No subcutaneous heparin or Plavix due to bleeding. For DVT prophylaxis, continue teds and SCDs. Cont wound VAC to midline incision. Cont current pain meds. Discharge planning for ileostomy care and home wound VAC. Awaiting wound VAC approval. OK to shower.
[2018-04-03] MEDS: OXYCODONE HCL IR 5 MG TABLET PO PRN ×5 (03:32→21:18)
[2018-04-03] MEDS: OXYCODONE-ACETAMINOPHEN 5-325 MG TABLET PO PRN ×5 (03:33→21:18)
[2018-04-03] MEDS: CLONIDINE HCL 0.1 MG TABLET GT SCH ×3 (05:37→21:19)
[2018-04-03] MEDS: FUROSEMIDE 40 MG TABLET PO SCH (10:08)
[2018-04-03] MEDS: ASPIRIN 81 MG TABLET, CHEWABLE GT SCH (10:09)
[2018-04-03] MEDS: FAMOTIDINE 20 MG TABLET GT SCH ×2 (10:09→21:19)
[2018-04-03] MEDS: CARVEDILOL 12.5 MG TABLET GT SCH ×2 (10:09→21:19)
[2018-04-03] MEDS: GABAPENTIN 100 MG CAPSULE GT SCH ×2 (10:10→17:15)
[2018-04-03] MEDS: NICOTINE 21 MG/24 HR PATCH.TD24 TD SCH (10:11)
[2018-04-03] MEDS: CHOLESTYRAMINE/ASPARTAME 4 GM PACKET PO SCH (10:11)
[2018-04-03] MEDS ORDERED: HYDROMORPHONE HCL INJ/PF 2 MG/ML AMPULE IV ONE (12:00)
--- NOTE | 2018-04-03 12:08 | Operative Report ---
Nonrecallable Operative Report DATE OF SURGERY: 04/03/18 PREOPERATIVE DIAGNOSIS: Open midline abdominal wound. POSTOPERATIVE DIAGNOSIS: Same as above OPERATION: Removal and replacement of negative pressure wound management system SURGEON: LONNY MCCRACKEN ANESTHESIA: Other - None TISSUE REMOVED OR ALTERED: None COMPLICATIONS: None apparent ESTIMATED BLOOD LOSS: None PROCEDURE: Procedure in detail: After informed consent was obtained from the patient, he was laid in the supine position in the hospital room. The previous wound VAC device was removed from the patient's abdominal wound. His wound measured 13 x 6 x 4 cm. The base of the wound appeared healthy without obvious necrosis, infection, or active bleeding. The wound VAC sponge was trimmed to an appropriate size and placed into the wound. The occlusive dressing was placed, and the suction was applied. The dressing held good suction. The procedure at this time was concluded. All sponge, instrument, and needle counts were correct. Condition: Stable.
--- NOTE | 2018-04-03 12:10 | PDOC PROGRESS REPORT ---
Subjective Reason For Visit: K57.80 DVTRCLI OF INTEST, PART UNSP, W PERF AND A Physical Exam Vital Signs: Temp Pulse Resp BP Pulse Ox 98.3 F 73 20 123/59 L 90 L 04/03/18 00:22 04/03/18 00:22 04/03/18 00:22 04/03/18 00:22 04/03/18 00:22 Intake & Output 04/02/18 04/03/18 04/04/18 06:59 06:59 06:59 Intake Total 834 644 Output Total 1385 600 Balance -551 44 Weight 97.7 kg 97.5 kg Results Laboratory Results: 04/02/18 05:16 04/02/18 05:16 Impressions: Chest X-Ray 03/25/18 06:00 IMPRESSION: 1. Interval removal of the endotracheal tube and feeding tube. 2. Mild opacification along the inferior medial left hemithorax which may be due to atelectasis versus a possible pneumonic infiltrate. 3. Slightly improved aeration of the left lung base since the prior study. 4. Prominence of the cardiac silhouette. Assessment & Plan - Diagnosis (1) Diverticulitis of large intestine with abscess Qualifiers: Diverticulitis bleeding: without bleeding Qualified Code(s): K57.20 - Diverticulitis of large intestine with perforation and abscess without bleeding Is this a current diagnosis for this admission?: Yes - Plan Summary Plan Summary: This is a 58-year-old male status post laparoscopic/hand-assisted left hemicolectomy with splenic flexure takedown and handsewn anastomosis. Patient also underwent diverting loop ileostomy for protection. The patient's pain is improving. His ileostomy is pink, patent, and he has a good amount of liquid stool in the bag. A wound VAC is in-place in the lower midline wound. Continue aggressive pulmonary toilet. Out of bed, physical therapy, ambulate. No subcutaneous heparin or Plavix due to bleeding. For DVT prophylaxis, continue teds and SCDs. Wound VAC to midline incision. Change today. Cont current pain meds. Discharge planning. Home tomorrow. OK to shower.
[2018-04-04] MEDS: OXYCODONE HCL IR 5 MG TABLET PO PRN ×2 (01:28→06:31)
[2018-04-04] MEDS: OXYCODONE-ACETAMINOPHEN 5-325 MG TABLET PO PRN ×2 (01:28→06:32)
[2018-04-04] MEDS: CLONIDINE HCL 0.1 MG TABLET GT SCH (06:22)
--- NOTE | 2018-04-04 08:24 | PDOC DISCHARGE SUMMARY ---
General - Admit/Disc Date/PCP Admission Date/Primary Care Provider: 03/22/18 08:50 MEGAN GUO MD Discharge Date: 04/04/18 - Discharge Diagnosis (1) Diverticulitis of large intestine with abscess Is this a current diagnosis for this admission?: Yes - Additional Information Discharge Diet: As Tolerated Discharge Activity: No Lifting Over 10 Pounds Home Medications: Aspirin [Ecotrin 81 mg EC Tablet] 81 mg PO DAILY 04/01/18 Carvedilol [Coreg 25 mg Tablet] 25 mg PO Q12 04/01/18 Clopidogrel Bisulfate [Plavix 75 mg Tablet] 75 mg PO DAILY 04/01/18 Fish Oil/Dha/Epa [Fish Oil 1,200 mg Fish Oil] 1 each PO DAILY 04/01/18 Furosemide [Lasix 40 mg Tablet] 40 mg PO BID 04/01/18 Gabapentin [Neurontin 300 mg Capsule] 300 mg PO Q12 04/01/18 Nitroglycerin [Nitrostat 0.4 mg (1/150 Gr) Tabs 25/Bottle] 1 tab SL Q5MP PRN History of Present Illness History of Present Illness: CAT HECK is a 58 year old male with recurrent complicated diverticulitis. The patient presented for elective colon resection. He was admitted to the hospital and underwent laparoscopic, hand-assisted left hemicolectomy with splenic flexure takedown. Hospital Course Hospital Course: The patient was admitted to the hospital and underwent laparoscopic, hand- assisted left hemicolectomy with splenic flexure takedown. The patient required a hand sewn colorectal anastomosis due to failure of the EEA stapler. A diverting ileostomy was placed to protect the anastomosis. Patient was sent to the floor in stable condition. The patient's vital signs were stable, his breathing was good. His ileostomy began functioning, and he was placed on a regular diet. During his stay, the patient accumulated increasing redness of the skin around the lower midline incision. Skin jose manuel were removed and the wound was opened. VAC was placed on the wound to assist with granulation tissue. 04/04/2018 the patient was doing well, he was tolerating regular diet, he was ambulating normally, he was using oral pain medications, his home health/ home wound VAC were approved, and it was felt that he had reached maximal hospital benefit and was fit for discharge. Physical Exam Vital Signs: Temp Pulse Resp BP Pulse Ox 98.4 F 69 18 114/59 L 97 04/04/18 08:01 04/04/18 08:01 04/04/18 08:01 04/04/18 08:01 04/04/18 08:01 Intake & Output 04/03/18 04/04/18 04/05/18 06:59 06:59 06:59 Intake Total 644 1192 Output Total 600 1300 Balance 44 -108 Weight 97.5 kg 96.7 kg Results Laboratory Results: 04/02/18 05:16 04/02/18 05:16 Impressions: Chest X-Ray 03/25/18 06:00 IMPRESSION: 1. Interval removal of the endotracheal tube and feeding tube. 2. Mild opacification along the inferior medial left hemithorax which may be due to atelectasis versus a possible pneumonic infiltrate. 3. Slightly improved aeration of the left lung base since the prior study. 4. Prominence of the cardiac silhouette. Qualifiers - * PATIENT BEING DISCHARGED WITH ANY OF THE FOLLOWING DIAGNOSIS: No Plan Discharge Plan: Discharge home. Diet: As tolerated. Activity: No lifting more than 10 pounds x 6 weeks after surgery. Wound VAC to lower midline incision, change per home health protocol (3 times per week). Oxycodone 15 mg p.o. every 6 hours as needed pain. Time Spent: Less than 30 Minutes
[2018-04-04 08:46] VITALS: BP 94/60
[2018-04-04] MEDS: ASPIRIN 81 MG TABLET, CHEWABLE GT SCH (09:05)
[2018-04-04] MEDS: FAMOTIDINE 20 MG TABLET GT SCH (09:05)
[2018-04-04] MEDS: FUROSEMIDE 40 MG TABLET PO SCH (09:05)
[2018-04-04] MEDS: NICOTINE 21 MG/24 HR PATCH.TD24 TD SCH (09:06)
[2018-04-04] MEDS: CARVEDILOL 12.5 MG TABLET GT SCH (09:06)
[2018-04-04] MEDS: CHOLESTYRAMINE/ASPARTAME 4 GM PACKET PO SCH (09:06)
[2018-04-04] MEDS: GABAPENTIN 100 MG CAPSULE GT SCH (09:06)
--- NOTE | 2018-05-02 07:25 | Progress Note ---
Provider Note Provider Note: Response to query: 1. Bleeding from subcutaneous tissue. 2. Bleeding was not hemodynamically significant. It was absolutely related to Plavix. 3/4. The wound (skin) was opened by me at the bedside due to redness. There was no active purulence or abscess. The fascia was completely intact.
== END 2018-04-04 09:52 | disposition home or self-care (01) | DRG 330 ==
LOC: INOR 08:50 → EDSTATUS 11:00 → ICU 19:55 → 3S 03-26 09:05 → 4N 04-02 10:38
PROVIDERS: ADMIT Surgery; ATTEND Surgery
PROC: 0D1B0Z4 Bypass Ileum to Cutaneous, Open Approach (ICD-10-PCS; 2018-03-22)
PROC: 0DJD8ZZ Inspection of Lower Intestinal Tract, Via Natural or Artificial Opening Endoscopic (ICD-10-PCS; 2018-03-22)
PROC: 0DTG0ZZ Resection of Left Large Intestine, Open Approach (ICD-10-PCS; principal; 2018-03-22 11:00)
PROC: 2W13X6Z Compression of Abdominal Wall using Pressure Dressing (ICD-10-PCS; 2018-04-01)
PROC: 2W03X6Z Change Pressure Dressing on Abdominal Wall (ICD-10-PCS; 2018-04-03)
DX: K57.80 Diverticulitis of intestine, part unspecified, with perforation and abscess without bleeding (principal); L76.22 Postprocedural hemorrhage of skin and subcutaneous tissue following other procedure; D68.32 Hemorrhagic disorder due to extrinsic circulating anticoagulants; M19.90 Unspecified osteoarthritis, unspecified site; I25.10 Atherosclerotic heart disease of native coronary artery without angina pectoris; K66.0 Peritoneal adhesions (postprocedural) (postinfection); T45.525A Adverse effect of antithrombotic drugs, initial encounter; Y92.230 Patient room in hospital as the place of occurrence of the external cause; I10 Essential (primary) hypertension; F17.210 Nicotine dependence, cigarettes, uncomplicated; E66.9 Obesity, unspecified; Z95.5 Presence of coronary angioplasty implant and graft; Z83.3 Family history of diabetes mellitus; Z80.7 Family history of other malignant neoplasms of lymphoid, hematopoietic and related tissues; Z79.82 Long term (current) use of aspirin; Z79.02 Long term (current) use of antithrombotics/antiplatelets
CPT/HCPCS: 00790; 36415; 71045; 71046; 80048; 80053; 84132; 85025; 85027; 85610; 85730; 88307; 93005; 93010; 94002; 94003; 94640; 94799; G8978-GP; G8979-GP; J0131; J0360; J0694; J1100; J1170; J1644; J1940; J2250; J2270; J2405; J2704; J3010; J3490; J7030; J7120; J7620

== ENCOUNTER → 2018-06-04 | Outpatient (CLI) | payer MEDICAID ==
--- NOTE | 2018-06-04 13:25 | RADIOLOGY REPORT (SQ) ---
EXAM DESCRIPTION: BARIUM ENEMA COMPLETED DATE/TIME: 06/04/2018 11:31 am REASON FOR STUDY: DIVERTICULITIS (K57.80), ILEOSTOMY STATUS (Z93.2) Z93.2 ILEOSTOMY STATUS K57.80 DVTRCLI OF INTEST, PART UNSP, W PERF AND ABSCESS W/O COMPARISON: CT abdomen pelvis 12/07/2017 FLUOROSCOPY TIME: 3.2 minutes 36 digital images saved to PACS. TECHNIQUE: Following retrograde filling of the colon with barium and air, fluoroscopic spot and over head imaging of the colon was obtained and saved to PACS. LIMITATIONS: None. FINDINGS: Patient has a right lower quadrant ileostomy and history of left hemicolectomy for diverti cular disease. Client Care Coordinator film demonstrates a normal bowel gas pattern. [place] gentle drip infusion of Gastrografin per rectum was performed. About 20 to 25 cm from the re ctum, a tight stricture is present with apple core appearance, at about the level of the anastomotic jose manuel post left colectomy. This stricture persists throughout the study. Differential is anastomo tic stricture versus colon neoplasm creating an apple core like lesion. Endoscopy recommended for fo llowup. Remainder of the colon is otherwise unremarkable. There is reflux of contrast into a normal-appearing terminal ileum. At least 30 cm of distal ileum i s present, adjacent to the right lower quadrant ileostomy. IMPRESSION: Tight narrowing at the anastomosis post left hemicolectomy. An apple core type lesion i s present about 20 to 25 cm from the rectum, differential is postoperative scarring versus tumor. En doscopic correlation recommended COMMENT: Quality ID 145: Final reports for procedures using fluoroscopy that document radiation exp osure indices, or exposure time and number of fluorographic images (if radiation exposure indices are not available) TECHNICAL DOCUMENTATION: JOB ID: [id number] [employer]- All Rights Reserved Reading location - IP/workstation name: [facility]-[email or web address]
== END ==
LOC: RAD 09:45
PROVIDERS: ATTEND Surgery
DX: K57.80 Diverticulitis of intestine, part unspecified, with perforation and abscess without bleeding (principal); Z93.2 Ileostomy status
CPT/HCPCS: 74270

== ENCOUNTER 2018-07-02 07:51 | Day surgery (SDC) | payer MEDICAID ==
[2018-06-26 09:43] LABS: HEMATOCRIT 42.2 % (37.9-51.0); HEMOGLOBIN 13.8 g/dL (13.5-17.0); MEAN CORPUSCULAR HEMOGLOBIN 28.6 pg (27.0-33.4); MEAN CORPUSCULAR HGB CONC 32.8 g/dL (32.0-36.0); MEAN CORPUSCULAR VOLUME 87 fl (80-97); PLATELET COUNT 231 10^3/uL (150-450); RED BLOOD COUNT 4.84 10^6/uL (4.35-5.55); RED CELL DISTRIBUTION WIDTH 14.4 % (11.5-14.0); WHITE BLOOD COUNT 12.3 10^3/uL (4.0-10.5)
[2018-06-26 10:12] LABS: ANION GAP 9 (5-19); BLOOD UREA NITROGEN 28 mg/dL (7-20); CALCIUM 10.1 mg/dL (8.4-10.2); CARBON DIOXIDE 28 mmol/L (22-30); CHLORIDE 105 mmol/L (98-107); GLUCOSE 128 mg/dL (75-110); POTASSIUM 5.4 mmol/L (3.6-5.0); SODIUM 141.8 mmol/L (137-145)
--- NOTE | 2018-06-26 11:08 | EKG REPORT ---
SEVERITY:- OTHERWISE NORMAL ECG - SINUS RHYTHM ATRIAL PREMATURE COMPLEX : Confirmed by: Robert Rosales MD 26-Jun-2018 11:07:50
[~2018-07-02 07:51] MED LIST changes: -ACETAMINOPHEN 1,000 MG/100 ML RTUPB IV ONE; -BUPIVACAINE HCL 0.5 % INJ/PF 30 ML SDV ONE; -CEFOXITIN SODIUM 2 GM in DEXTROSE 5%-WATER 100 ML IV PRN; -DEXAMETHASONE SOD PHOSPHATE INJ 4 MG/1 ML VIAL ONE; -FENTANYL CITRATE INJ/PF 100 MCG/2 ML AMPUL ONE; -HYDROMORPHONE HCL INJ/PF 2 MG/ML AMPULE ONE; -MIDAZOLAM 2 MG/2 ML INJ ONE; -ONDANSETRON HCL INJ/PF 4 MG/2 ML SDV ONE; -PROPOFOL INJ 200 MG/20 ML VIAL IV ONE; -SUGAMMADEX SODIUM 200 MG/2 ML SDV IV ONE
[2018-07-02] MEDS ORDERED: ALBUTEROL SULFATE 0.083% NEB 2.5 MG/3 ML AMPUL NEB ONE (08:55)
[2018-07-02] MEDS ORDERED: PROPOFOL INJ 200 MG/20 ML VIAL IV ONE (08:59)
[2018-07-02 09:39] LABS: INTERNATIONAL RATION (INR) 0.91; PARTIAL THROMBOPLASTIN TIME 23.2 SEC (23.5-35.8); POTASSIUM 5.9 mmol/L (3.6-5.0); PROTHROMBIN TIME 12.7 SEC (11.4-15.4)
[2018-07-02] MEDS ORDERED: DEXTROSE 50%-WATER 25 GM/50 ML DISP.SYRIN IV ONE (09:57)
[2018-07-02] MEDS ORDERED: INSULIN REG, HUMAN 100 UNIT/ML 3 ML VIAL (PYX) ONE (09:58)
[2018-07-02] MEDS ORDERED: INSULIN REG, HUMAN 100 UNIT/ML 3 ML VIAL (PYX) SUBCUT PRN (10:00)
[2018-07-02] MEDS ORDERED: DEXTROSE 50%-WATER 25 GM/50 ML DISP.SYRIN IV PRN (10:01)
[2018-07-02 10:27] LABS: ANION GAP 10 (5-19); BLOOD UREA NITROGEN 25 mg/dL (7-20); CARBON DIOXIDE 26 mmol/L (22-30); CHLORIDE 105 mmol/L (98-107); GLUCOSE 125 mg/dL (75-110); SODIUM 140.8 mmol/L (137-145)
[2018-07-02] MEDS ORDERED: OXYCODONE-ACETAMINOPHEN 5-325 MG TABLET PO PRN ×2 (11:33)
[2018-07-02] MEDS ORDERED: MEPERIDINE HCL/PF INJ 25 MG/1 ML DISP.SYRIN IV PRN (11:33)
[2018-07-02] MEDS ORDERED: DIPHENHYDRAMINE HCL 50 MG/ML VIAL IV PRN (11:33)
[2018-07-02] MEDS ORDERED: PROMETHAZINE HCL INJ 25 MG/1 ML VIAL IV PRN ×2 (11:33)
[2018-07-02] MEDS ORDERED: FENTANYL CITRATE INJ/PF 100 MCG/2 ML AMPUL IV PRN ×3 (11:33)
--- NOTE | 2018-07-02 12:33 | Discharge Summary ---
Discharge Summary (SDC) - Discharge Final Diagnosis: anastomotic stricture of the colon Date of Surgery: 07/02/18 Discharge Date: 07/02/18 Condition: Stable Treatment or Instructions: d/c home. diet as tolerated. activity as tolerated. f/u with me in one week. Referrals: MEGAN GUO MD [Primary Care Provider] - Discharge Diet: As Tolerated Respiratory Treatments at Home: Deep Breathing/Coughing, Incentive Spirometer Discharge Activity: Activity As Tolerated Home Care Assistance: None Needed Report the Following to Your Physician Immediately: Shortness of Breath, Nausea, Vomiting, Increase in Pain, Fever over 101 Degrees, Unusual Bleeding, Redness, Swelling, Warmth
[2018-07-02 14:20] VITALS: BP 148/84
--- NOTE | 2018-07-04 08:12 | Operative Report ---
Nonrecallable Operative Report DATE OF SURGERY: 07/02/18 PREOPERATIVE DIAGNOSIS: anastomotic stricture of the colon POSTOPERATIVE DIAGNOSIS: same as above OPERATION: 1. flexible sigmoidoscpy. 2. Balloon dilation of anastomotic stricture to 15 mm diameter SURGEON: LONNY MCCRACKEN ANESTHESIA: LMAC TISSUE REMOVED OR ALTERED: None COMPLICATIONS: None apparent ESTIMATED BLOOD LOSS: Minimal PROCEDURE: After informed consent was obtained, the patient was brought into the operating room and laid in the left lateral decubitus position. The flexible sigmoidoscope was inserted into the rectum. It was passed up into the sigmoid colon to the area of the anastomosis. There was a stricture at the anastomosis. The scope could not be passed through the anastomosis. After this was identified, a dilating balloon was inserted into the anastomosis. It was inflated to 12 mm and held for 2 minutes. The balloon was taken down. There was no damage to the mucosa. Next the balloon was inflated to 14 mm and held for 1 minute. No evidence of damage to the mucosa was seen. Next, the balloon was inflated to 15 mm and held for 2 minutes. After the colonic stricture was dilated to 15 mm the scope was able to pass the area very easily. There was no evidence of damage to the colon. There was no active bleeding. Once this was confirmed, the scope was withdrawn, air was suctioned from the rectum, and the procedure was concluded. All sponge, instrument, and needle counts were correct x2. Condition: Stable.
== END 2018-07-02 13:30 | disposition home or self-care (01) ==
LOC: OROUT 07:51
PROVIDERS: ATTEND Surgery
DX: K56.699 Other intestinal obstruction unspecified as to partial versus complete obstruction (principal); K57.20 Diverticulitis of large intestine with perforation and abscess without bleeding; I10 Essential (primary) hypertension; F17.210 Nicotine dependence, cigarettes, uncomplicated; I25.10 Atherosclerotic heart disease of native coronary artery without angina pectoris; M19.90 Unspecified osteoarthritis, unspecified site; Z01.818 Encounter for other preprocedural examination; Z95.5 Presence of coronary angioplasty implant and graft; Z85.828 Personal history of other malignant neoplasm of skin; Z79.82 Long term (current) use of aspirin
CPT/HCPCS: 45340; 93005; 36415 ×2; 82962; 84132; 85027; 85610; 85730; 80048 ×2; 93010; C1726; J3490; J1815; J2704; 811

== ENCOUNTER 2018-07-09 23:51 | Inpatient (IN) | payer MEDICAID ==
[2018-07-10] MEDS ORDERED: TRANEXAMIC ACID INJ/PF 1,000 MG/10 ML SDV IV ONE ×2 (00:18)
[2018-07-10] MEDS ORDERED: PANTOPRAZOLE SODIUM 40 MG VIAL IV ONE (00:40)
[2018-07-10] MEDS ORDERED: PANTOPRAZOLE SODIUM 40 MG VIAL IV PRN (00:41)
[2018-07-10] MEDS ORDERED: CEFTRIAXONE 1 GM/D5W RTU 1 GM/50 ML RTUPB IV ONE (00:41)
[2018-07-10] MEDS ORDERED: ONDANSETRON HCL INJ/PF 4 MG/2 ML SDV IV ONE (00:43)
[2018-07-10] MEDS ORDERED: MIDAZOLAM 2 MG/2 ML INJ IV ONE (00:51)
--- NOTE | 2018-07-10 00:53 | ER Document Report ---
ED General - General Chief Complaint: Abdominal Pain Stated Complaint: ABDOMINAL PAIN Time Seen by Provider: 07/10/18 00:40 Mode of Arrival: Ambulatory Information source: Patient, [facility] Records Notes: 58-year-old male with congestive heart failure, coronary artery disease, atrial fibrillation, hypertension, diverticulitis with recent colonoscopy which required dilation of the colon to get through the anastomosis on July 02, 2018 and a colectomy and colostomy placement after bowel perforation in March 2018 presents with complaint of hemoptysis, bleeding from the nose and black tarry stool in his ileostomy bag. Patient states that his nose began bleeding at approximately noon today. He states it would bleed intermittently and self resolve but recur when he stood back up. He states shortly afterwards he noticed that his output in his ostomy bag turned black. Patient had a large episode of vomiting blood clots in the lobby of the emergency department. Patient denies headache, nausea, chest pain, abdominal pain. He does complain of dizziness. He is on Plavix and aspirin secondary to coronary artery disease and stent placement. He denies prior similar symptoms. TRAVEL OUTSIDE OF THE [place] IN LAST 30 DAYS: No - HPI Onset: This afternoon Onset/Duration: Sudden Quality of pain: No pain Associated symptoms: Nausea, Vomiting. denies: Chest pain, Diarrhea, Fever, Hoarseness, Shortness of breath Exacerbated by: Denies Relieved by: Denies Similar symptoms previously: No Recently seen / treated by doctor: Yes - Related Data Allergies/Adverse Reactions: No Known Allergies Allergy (Verified 07/10/18 01:14) Past Medical History - General Information source: Patient - Social History Smoking Status: Current Every Day Smoker Cigarette use (# per day): Yes - 5 Smoking Education Provided: Yes - Smoking cessation counseling was provided for 4 minutes at the bedside Frequency of alcohol use: History of heavy alcohol use 1 year ago. Drug Abuse: None Lives with: Family Family History: Reviewed & Not Pertinent, Arthritis, CAD, CVA, DM, Hyperlipidemia, Hypertension, Malignancy, Thyroid Disfunction Patient has suicidal ideation: No Patient has homicidal ideation: No - Past Medical History Cardiac Medical History: Reports: Hx Atrial Fibrillation, Hx Congestive Heart Failure, Hx Heart Attack - MINOR 2014, Hx Hypertension Denies: Hx Coronary Artery Disease Pulmonary Medical History: Denies: Hx Asthma, Hx Bronchitis, Hx COPD, Hx Pneumonia Neurological Medical History: Denies: Hx Cerebrovascular Accident, Hx Seizures Renal/ Medical History: Denies: Hx Peritoneal Dialysis Malignancy Medical History: Reports Hx Skin Cancer GI Medical History: Reports: Hx Diverticulitis Musculoskeletal Medical History: Reports Hx Arthritis Psychiatric Medical History: Denies: Hx Depression Past Surgical History: Reports: Hx Abdominal Surgery - Percutaneous drainage of abscess earlier this month., Hx Cardiac Surgery, Hx Coronary Stent - Immunizations Hx Diphtheria, Pertussis, Tetanus Vaccination: Yes Review of Systems - Review of Systems Notes: REVIEW OF SYSTEMS: CONSTITUTIONAL : Denies fever, chills, or sweats. Denies recent illness. Denies weight loss, recent hospitalizations. EENT: Denies visual changes, eye pain. Denies sore throat, oral lesions, difficulty swallowing. CARDIOVASCULAR: Denies chest pain. Denies palpitations. Denies lower extremity edema. RESPIRATORY: Denies cough. Denies shortness of breath, wheezing. GASTROINTESTINAL: Denies abdominal pain or distention. Denies diarrhea. GENITOURINARY: Denies difficulty urinating, painful urination, frequency, blood in urine, testicular pain or penile discharge. MUSCULOSKELETAL: Denies back or neck pain or stiffness. Denies joint pain or swelling. SKIN: Denies rash, lesions or sores. HEMATOLOGIC : Denies easy bruising or bleeding. LYMPHATIC: Denies swollen glands. NEUROLOGICAL: Denies confusion or altered mental status. Denies loss of consciousness. Denies headache. Denies weakness or paralysis. Denies problems difficulty with ambulation, slurred speech. Denies sensory loss, numbness, or tingling. Denies seizures. PSYCHIATRIC: Denies anxiety or stress. Denies depression, suicidal ideation, or Physical Exam - Vital signs Vitals: Temp Pulse Resp BP Pulse Ox 97.8 F 136 H 18 103/68 99 07/10/18 00:01 07/10/18 00:01 07/10/18 00:01 07/10/18 00:01 07/10/18 00:01 - Notes Notes: PHYSICAL EXAMINATION: GENERAL: Well-appearing, well-nourished and in no acute distress. HEAD: Atraumatic, normocephalic. EYES: Pupils equal round and reactive to light, extraocular movements intact, sclera anicteric, conjunctiva are normal. ENT: Dried blood in the naris and oropharynx. NECK: Normal range of motion, supple without lymphadenopathy LUNGS: Breath sounds clear to auscultation bilaterally and equal. No wheezes rales or rhonchi. HEART: Regular rate and rhythm without murmurs ABDOMEN: Soft, nontender, nondistended abdomen. No guarding, no rebound. No masses appreciated. Black tarry output in the ileostomy. Musculoskeletal: Normal range of motion, no pitting or edema. No cyanosis. NEUROLOGICAL: Cranial nerves grossly intact. Normal speech, normal gait. Normal sensory, motor exams PSYCH: Normal mood, normal affect. SKIN: Warm, Dry, normal turgor, no rashes or lesions noted. Course - Re-evaluation Re-evalutation: Laboratory 07/10/18 07/10/18 07/10/18 00:33 00:33 00:33 WBC 17.9 H RBC 4.03 L Hgb 12.1 L Hct 36.3 L MCV 90 MCH 30.0 MCHC 33.3 RDW 14.8 H Plt Count 205 Seg Neutrophils % 76.2 Lymphocytes % 14.7 Monocytes % 6.6 Eosinophils % 1.8 Basophils % 0.7 Absolute Neutrophils 13.7 H Absolute Lymphocytes 2.6 Absolute Monocytes 1.2 Absolute Eosinophils 0.3 Absolute Basophils 0.1 PT 13.1 INR 0.95 APTT 28.3 Sodium 136.3 L Potassium 5.5 H Chloride 105 Carbon Dioxide 23 Anion Gap 8 BUN 55 H Creatinine 1.30 H Est GFR ( Amer) > 60 Est GFR (Non-Af Amer) 57 L Glucose 208 H Calcium 9.5 Total Bilirubin 0.4 Direct Bilirubin 0.3 Neonat Total Bilirubin Not Reportable Neonat Direct Bilirubin Not Reportable Neonat Indirect Bili Not Reportable AST 46 ALT 67 Alkaline Phosphatase 129 H Total Protein 6.6 Albumin 4.0 Lipase 206.7 Blood Type Antibody Screen 07/10/18 02:05 WBC RBC Hgb Hct MCV MCH MCHC RDW Plt Count Seg Neutrophils % Lymphocytes % Monocytes % Eosinophils % Basophils % Absolute Neutrophils Absolute Lymphocytes Absolute Monocytes Absolute Eosinophils Absolute Basophils PT INR APTT Sodium Potassium Chloride Carbon Dioxide Anion Gap BUN Creatinine Est GFR ( Amer) Est GFR (Non-Af Amer) Glucose Calcium Total Bilirubin Direct Bilirubin Neonat Total Bilirubin Neonat Direct Bilirubin Neonat Indirect Bili AST ALT Alkaline Phosphatase Total Protein Albumin Lipase Blood Type O POSITIVE Antibody Screen NEGATIVE Chest X-Ray 07/10/18 00:51 IMPRESSION: Enteric tube in place. Lungs are clear copyright 2010 [employer]- All Rights Reserved Abdomen/Pelvis CT 07/10/18 00:58 IMPRESSION: Nonspecific, poorly defined area of mixed fat and soft tissue density associated with the anterior left abdomen, appearing to involve the abdominal wall. There is some adjacent skin thickening and subcutaneous induration. Findings may be inflammatory in nature. Neoplastic etiology should also be considered. Right lower quadrants ostomy. No evidence for bowel obstruction. No free air or free fluid. Enteric tube in place. Stable hepatic cysts. TECHNICAL DOCUMENTATION: Quality ID # 436: Final reports with documentation of one or more dose reduction techniques (e.g., Automated exposure control, adjustment of the mA and/or kV according to patient size, use of iterative reconstruction technique) copyright 2010 [employer]- All Rights Reserved Temp Pulse Resp BP Pulse Ox 97.8 F 136 H 20 128/94 H 99 07/10/18 00:01 07/10/18 00:01 07/10/18 01:16 07/10/18 01:16 07/10/18 01:16 58-year-old male presents with epistaxis, hemoptysis and black output to his ostomy that began earlier today. Upon arrival patient was witnessed to have a large episode of hemoptysis in the ED lobby. Patient was noted to be vomiting clots of blood. Patient has dried blood in the right naris but no active bleeding. Oropharynx is without obvious blood. Vital signs reviewed upon ar rival and patient is tachycardic but afebrile, normotensive and not hypoxic. Patient is currently on aspirin and Plavix secondary to cardiac stents. He did recently undergo a colonoscopy and dilation of the colon last week with Dr. Giordano. Immediately upon arrival to large-bore IVs were obtained and patient was placed on assistant product manager. NG tube was placed and 200 cc of blood were suctioned from the patient's stomach. I did talk to Dr. Cruz road freight firer animal nutrition teacher who agrees to consult on the patient. I talked to Dr. Farrell regarding admission and he has agreed to admit the patient to the [facility]. Patient has been reevaluated multiple times. He has no active bleeding from the mouth or nose. He remains tachycardic. CBC does show a leukocytosis of 18. Hemoglobin currently 12.1. CMP does show a mild WYATT. Both gastric occult and stool are positive. It is possible that the patient's epistaxis caused him to have hemoptysis and black output to his ostomy but this is unclear at this time. Patient does have a history of alcohol abuse but states that he has not had a drink in over 1 year. He denies any known history of esophageal varices, peptic ulcer disease. CT of the abdomen and pelvis shows no evidence of free air or free fluid. Chest x-ray within normal limits. 07/10/18 01:04 Patient was administered IV fluids, TXA, Protonix, ceftriaxone. NG tube was placed after Versed administration and aerosolized lidocaine. 07/10/18 01:[address] Dr[address] Viveros road freight firer on-call contacted for consult. Will contact Dr. Farrell partners with Dr. Giordano. 07/10/18 01:[address] Viveros again and was told that his phone went straight to voicemail. 07/10/18 02:58 07/10/18 03:05 - Vital Signs Vital signs: Temp Pulse Resp BP Pulse Ox 97.8 F 136 H 20 128/94 H 99 07/10/18 00:01 07/10/18 00:01 07/10/18 01:16 07/10/18 01:16 07/10/18 01:16 - Laboratory Result Diagrams: 07/10/18 00:33 07/10/18 00:33 Laboratory results interpreted by me: 07/10/18 07/10/18 00:33 00:33 WBC 17.9 H RBC 4.03 L Hgb 12.1 L Hct 36.3 L RDW 14.8 H Absolute Neutrophils 13.7 H Sodium 136.3 L Potassium 5.5 H BUN 55 H Creatinine 1.30 H Est GFR (Non-Af Amer) 57 L Glucose 208 H Alkaline Phosphatase 129 H - Diagnostic Test Radiology reviewed: Image reviewed, Reports reviewed - EKG Interpretation by Me EKG shows normal: Sinus rhythm Rate: Tachycardia Rhythm: MAT When compared to previous EKG there are: Changes noted Critical Care Note - Critical Care Note Total time excluding time spent on procedures (mins): 45 - Minutes of critical care time spent in direct contact evaluating and reevaluating the patient, treating symptoms, reviewing labs and studies and speaking with family and consultants excluding any procedures Discharge - Discharge Clinical Impression: Upper GI bleed, WYATT (acute kidney injury), Epistaxis, Tachycardia Abdominal pain Qualifiers: Abdominal location: unspecified location Qualified Code(s): R10.9 - Unspecified abdominal pain Condition: Good Disposition: ADMITTED INPATIENT Admitting Provider: Surgicalist Unit Admitted: [facility]
[2018-07-10] MEDS ORDERED: NORMAL SALINE 1000 ML 1,000 ML IV ONE (00:54)
[2018-07-10] MEDS ORDERED: LIDOCAINE 2% INJ (20 MG/ML) 20 ML MDV ONE (00:55)
[2018-07-10 00:57] LABS: INTERNATIONAL RATION (INR) 0.95; PROTHROMBIN TIME 13.1 SEC (11.4-15.4)
[2018-07-10 00:58] LABS: PARTIAL THROMBOPLASTIN TIME 28.3 SEC (23.5-35.8)
[2018-07-10 00:59] LABS: ABSOLUTE BASOPHILS # (AUTO) 0.1 10^3/uL (0.0-0.2); ABSOLUTE EOSINOPHILS # (AUTO) 0.3 10^3/uL (0.0-0.6); ABSOLUTE LYMPHOCYTES (AUTO) 2.6 10^3/uL (0.5-4.7); ABSOLUTE MONOCYTES (AUTO) 1.2 10^3/uL (0.1-1.4); ABSOLUTE NEUT (AUTO) 13.7 10^3/uL (1.7-8.2); BASOPHILS % (AUTO) 0.7 % (0-2); EOSINOPHILS % (AUTO) 1.8 % (0-6); HEMATOCRIT 36.3 % (37.9-51.0); HEMOGLOBIN 12.1 g/dL (13.5-17.0); LYMPHOCYTES % (AUTO) 14.7 % (13-45); MEAN CORPUSCULAR HGB CONC 33.3 g/dL (32.0-36.0); MEAN CORPUSCULAR VOLUME 90 fl (80-97); MONOCYTES % (AUTO) 6.6 % (3-13); PLATELET COUNT 205 10^3/uL (150-450); RED BLOOD COUNT 4.03 10^6/uL (4.35-5.55); RED CELL DISTRIBUTION WIDTH 14.8 % (11.5-14.0); SEGMENTED NEUTROPHILS % (AUTO) 76.2 % (42-78); TOTAL CELLS COUNTED % (AUTO) 100 %; WHITE BLOOD COUNT 17.9 10^3/uL (4.0-10.5)
[2018-07-10 01:05] LABS: ALANINE AMINOTRANSFERASE 67 U/L (21-72); ALKALINE PHOSPHATASE 129 U/L (38-126); ANION GAP 8 (5-19); ASPARTATE AMINO TRANSFERASE 46 U/L (17-59); BILIRUBIN,DIRECT 0.3 mg/dL (0.0-0.4); BILIRUBIN,TOTAL 0.4 mg/dL (0.2-1.3); BLOOD UREA NITROGEN 55 mg/dL (7-20); CALCIUM 9.5 mg/dL (8.4-10.2); CARBON DIOXIDE 23 mmol/L (22-30); CHLORIDE 105 mmol/L (98-107); GLUCOSE 208 mg/dL (75-110); LIPASE 206.7 U/L (23-300); POTASSIUM 5.5 mmol/L (3.6-5.0); SODIUM 136.3 mmol/L (137-145); TOTAL PROTEIN 6.6 g/dL (6.3-8.2)
--- NOTE | 2018-07-10 02:01 | RADIOLOGY REPORT (SQ) ---
EXAM DESCRIPTION: CT ABDOMEN PELVIS WITH IV CONTRAST COMPLETED DATE/TME: 07/10/2018 00:58 CLINICAL HISTORY: 58 years, Male, GI bleed COMPARISON: 12/07/2017 CT TECHNIQUE: [id number] Images stored on PACS. All CT scanners at this facility use dose modulation, iterative reconstruction, and/or weight based dosing when appropriate to reduce radiation dose to as low as reasonably achievable (ALARA). [facility]: Dose Right [facility]: CareDose [facility]: Dose Right [facility]: Teradose 4D [facility]: [employer] LIMITATIONS: None. FINDINGS: Limited evaluation of the lung bases is unremarkable. Osseous structures are grossly intact. Enteric tube with the tip in the stomach. Small cystic structure in the left hepatic lobe and right hepatic lobe, unchanged. The spleen, adrenal glands, pancreas, kidneys are unremarkable. The gallbladder is present. Mild atheromatous changes. Right lower quadrant ostomy. Subcutaneous inflammatory changes of the anterior abdomen with skin thickening. There is an underlying poorly defined area of mixed fat and soft tissue density, partially displacing loops of bowel. This measures approximately 12 x 4 x 13. Etiology is indeterminate. This may reflect a focal inflammatory process with interspersed fat, however neoplastic process is not excluded. No free air or free fluid. Findings are new compared with the prior exam.. IMPRESSION: Nonspecific, poorly defined area of mixed fat and soft tissue density associated with the anterior left abdomen, appearing to involve the abdominal wall. There is some adjacent skin thickening and subcutaneous induration. Findings may be inflammatory in nature. Neoplastic etiology should also be considered. Right lower quadrants ostomy. No evidence for bowel obstruction. No free air or free fluid. Enteric tube in place. Stable hepatic cysts. TECHNICAL DOCUMENTATION: Quality ID # 436: Final reports with documentation of one or more dose reduction techniques (e.g., Automated exposure control, adjustment of the mA and/or kV according to patient size, use of iterative reconstruction technique) copyright 2010 [employer]- All Rights Reserved
[2018-07-10] MEDS ORDERED: HYDROMORPHONE HCL INJ/PF 2 MG/ML AMPULE IV ONE (02:02)
--- NOTE | 2018-07-10 02:02 | RADIOLOGY REPORT (SQ) ---
EXAM DESCRIPTION: XR CHEST 1 VIEW COMPLETED DATE/TME: 07/10/2018 00:51 CLINICAL HISTORY: 58 years, Male, GI BLEED, NG TUBE PLACEMENT COMPARISON: 03/25/2018 chest x-ray NUMBER OF VIEWS: 1 TECHNIQUE: Portable chest LIMITATIONS: None. FINDINGS: Heart size is normal. Enteric tube with the tip in the left upper quadrant. Osteopenia. Lungs are clear. No pneumothorax IMPRESSION: Enteric tube in place. Lungs are clear copyright 2010 [employer]- All Rights Reserved
[2018-07-10] MEDS: HYDROMORPHONE HCL INJ/PF 2 MG/ML AMPULE IV PRN ×4 (06:44→22:36)
[2018-07-10] MEDS: NORMAL SALINE 1000 ML 1,000 ML IV PRN ×2 (06:44→20:25)
--- NOTE | 2018-07-10 07:29 | EKG REPORT ---
SEVERITY:- BORDERLINE ECG - SINUS TACHYCARDIA MULTIPLE ATRIAL PREMATURE COMPLEXES : Confirmed by: Joan Zarate MD 10-Jul-2018 07:28:07
[2018-07-10] MEDS ORDERED: PHARMACY COMMUNICATION ORDER MC NR (07:30)
[2018-07-10] MEDS ORDERED: NORMAL SALINE 1000 ML 1,000 ML IV PRN ×2 (07:30→10:49)
--- NOTE | 2018-07-10 07:59 | PDOC H&P ---
History of Present Illness Admission Date/PCP: 07/10/18 02:22 Patient complains of: hemoptysis and dark fluid at ileostomy bag History of Present Illness: CAT HECK is a 58 year old male who is post colon resection for diverticulitis and had baloon dilatation of colon anastomotic anastomosis with A Fib on Plavix, noted blood dripping from right nostril yesterday am followed by hemoptysis then darkfluid at ileostomy bag. Went to ED and noted A Fib with rate 120, Last dose of Plavix yesterday, Coags normal.Hb 12.1 with platelets 205. Past Medical History Cardiac Medical History: Reports: Atrial Fibrillation, Congestive Heart Failure, Myocardial Infarction - MINOR 2014, Hypertension Denies: Coronary Artery Disease Pulmonary Medical History: Denies: Asthma, Bronchitis, Chronic Obstructive Pulmonary Disease (COPD), Pneumonia Neurological Medical History: Denies: Seizures Malignancy Medical History: Reports: Skin Cancer GI Medical History: Reports: Diverticulitis Musculoskeltal Medical History: Reports: Arthritis Psychiatric Medical History: Denies: Depression Hematology: Denies: Anemia Past Surgical History Past Surgical History: Reports: Coronary Stent, Ileostomy, Other - colon resection for diverticulitis colon anastomotic stenosis had baloon d Social History Lives with: Family Smoking Status: Current Every Day Smoker Frequency of Alcohol Use: Rare Hx Recreational Drug Use: Yes - in 1970s denies current alcohol Drugs: Marijuana Hx Prescription Drug Abuse: No Family History Family History: Reviewed & Not Pertinent, Arthritis, CAD, CVA, DM, Hyperlipidemia, Hypertension, Malignancy, Thyroid Disfunction Parental Family History Reviewed: Yes Children Family History Reviewed: No Sibling(s) Family History Reviewed.: No Medication/Allergy Home Medications: Aspirin [Ecotrin 81 mg EC Tablet] 81 mg PO DAILY 04/01/18 Carvedilol [Coreg 25 mg Tablet] 25 mg PO Q12 04/01/18 Clopidogrel Bisulfate [Plavix 75 mg Tablet] 75 mg PO DAILY 04/01/18 Fish Oil/Dha/Epa [Fish Oil 1,200 mg Fish Oil] 1 each PO DAILY 04/01/18 Furosemide [Lasix 40 mg Tablet] 40 mg PO BID 04/01/18 Gabapentin [Neurontin 300 mg Capsule] 300 mg PO Q12 04/01/18 Nitroglycerin [Nitrostat 0.4 mg (1/150 Gr) Tabs 25/Bottle] 1 tab SL Q5MP PRN 04/01/18 Tramadol HCl [Ultram 50 mg Tablet] 50 mg PO Q6 PRN 07/02/18 Allergies/Adverse Reactions: No Known Allergies Allergy (Verified 07/10/18 01:14) Review of Systems Constitutional: PRESENT: weight loss, other - denies fever/chills Nose, Mouth, and Throat: PRESENT: other - nasal bleed right Cardiovascular: PRESENT: other - no chest pains Respiratory: PRESENT: hemoptysis Gastrointestinal: PRESENT: other - no pains Genitourinary: PRESENT: other - no dysuria Neurological: PRESENT: weakness Physical Exam Vital Signs: Temp Pulse Resp BP Pulse Ox 98.1 F 136 H 24 H 111/94 H 98 07/10/18 04:03 07/10/18 00:01 07/10/18 07:10 07/10/18 07:01 07/10/18 07:05 Intake & Output 07/09/18 07/10/18 07/11/18 06:59 06:59 06:59 Intake Total 1150 Output Total 100 Balance 1050 Weight 90.2 kg General appearance: PRESENT: mild distress, obese Head exam: PRESENT: atraumatic Eye exam: PRESENT: conjunctiva pink Mouth exam: PRESENT: dry mucosa Neck exam: PRESENT: full ROM Respiratory exam: PRESENT: clear to auscultation adelaida Cardiovascular exam: PRESENT: irregular rhythm, tachycardia Pulses: PRESENT: normal radial pulses Vascular exam: PRESENT: normal capillary refill GI/Abdominal exam: PRESENT: soft, other - ileostomy with dark fluid colostomy takedown site with some serous drainage Rectal exam: PRESENT: deferred Extremities exam: PRESENT: full ROM Musculoskeletal exam: PRESENT: ambulatory Neurological exam: PRESENT: alert, oriented to person, oriented to place, oriented to time, oriented to situation Psychiatric exam: PRESENT: appropriate affect Skin exam: PRESENT: normal color, warm Results Laboratory Results: 07/10/18 00:33 07/10/18 00:33 07/10/18 07/10/18 07/10/18 00:33 00:33 02:05 WBC 17.9 H RBC 4.03 L Hgb 12.1 L Hct 36.3 L MCV 90 MCH 30.0 MCHC 33.3 RDW 14.8 H Plt Count 205 Seg Neutrophils % 76.2 Lymphocytes % 14.7 Monocytes % 6.6 Eosinophils % 1.8 Basophils % 0.7 Absolute Neutrophils 13.7 H Absolute Lymphocytes 2.6 Absolute Monocytes 1.2 Absolute Eosinophils 0.3 Absolute Basophils 0.1 Sodium 136.3 L Potassium 5.5 H Chloride 105 Carbon Dioxide 23 Anion Gap 8 BUN 55 H Creatinine 1.30 H Est GFR ( Amer) > 60 Est GFR (Non-Af Amer) 57 L Glucose 208 H Calcium 9.5 Total Bilirubin 0.4 AST 46 ALT 67 Alkaline Phosphatase 129 H Total Protein 6.6 Albumin 4.0 Lipase 206.7 Blood Type O POSITIVE Antibody Screen NEGATIVE Impressions: Chest X-Ray 07/10/18 00:51 IMPRESSION: Enteric tube in place. Lungs are clear copyright 2010 [employer]- All Rights Reserved Abdomen/Pelvis CT 07/10/18 00:58 IMPRESSION: Nonspecific, poorly defined area of mixed fat and soft tissue density associated with the anterior left abdomen, appearing to involve the abdominal wall. There is some adjacent skin thickening and subcutaneous induration. Findings may be inflammatory in nature. Neoplastic etiology should also be considered. Right lower quadrants ostomy. No evidence for bowel obstruction. No free air or free fluid. Enteric tube in place. Stable hepatic cysts. TECHNICAL DOCUMENTATION: Quality ID # 436: Final reports with documentation of one or more dose reduction techniques (e.g., Automated exposure control, adjustment of the mA and/or kV according to patient size, use of iterative reconstruction technique) copyright 2010 [employer]- All Rights Reserved Assessment & Plan - Diagnosis (1) WYATT (acute kidney injury) Is this a current diagnosis for this admission?: Yes (2) Epistaxis Is this a current diagnosis for this admission?: Yes (3) Tachycardia Is this a current diagnosis for this admission?: Yes (4) Upper GI bleed Is this a current diagnosis for this admission?: Yes (5) Alcohol use disorder Is this a current diagnosis for this admission?: Yes (6) COPD (chronic obstructive pulmonary disease) Qualifiers: Emphysema type: unspecified Is this a current diagnosis for this admission?: Yes (7) Tobacco abuse Is this a current diagnosis for this admission?: Yes - Time Time Spent: 30 to 50 Minutes - Inpatient Certification Medical Necessity: Need Close Monitoring Due to Risk of Patient Decompensation, Need For IV Fluids, Risk of Complication if Not Cared For in Hospital - Plan Summary Plan Summary: Will consult ENT and GI Monitor H/H Hydrate
--- NOTE | 2018-07-10 08:03 | PDOC CONSULTATION ---
Consultation Consult Date: 07/10/18 Consult reason:: possible GI bleed History of Present Illness Admission Date/PCP: 07/10/18 02:22 History of Present Illness: CAT HECK is a 58 year old male I was called by the ED patient had recent colon resection with dilation of the anastomosis this was done by Dr Yarbrough patient present to ED with nose bleed and reported to have hemoptysis patient has a stable Hgb however has black contents per stoma bag hemodynamically stable asked to evaluate for possible GI bleeding Hgb is the same as that in Oct patient denies any abdominal pain states issue was a very bad nose bleed patient is ASA and anticoagulation Past Medical History Cardiac Medical History: Reports: Atrial Fibrillation, Congestive Heart Failure, Myocardial Infarction - MINOR 2014, Hypertension Denies: Coronary Artery Disease Pulmonary Medical History: Denies: Asthma, Bronchitis, Chronic Obstructive Pulmonary Disease (COPD), Pneumonia Neurological Medical History: Denies: Seizures Malignancy Medical History: Reports: Skin Cancer GI Medical History: Reports: Diverticulitis Musculoskeltal Medical History: Reports: Arthritis Psychiatric Medical History: Denies: Depression Hematology: Denies: Anemia Past Surgical History Past Surgical History: Reports: Coronary Stent, Ileostomy, Other - colon resection for diverticulitis colon anastomotic stenosis had naseem caraballo Social History Lives with: Family Smoking Status: Current Every Day Smoker Frequency of Alcohol Use: Rare Hx Recreational Drug Use: Yes - in 1970s denies current alcohol Drugs: Marijuana Hx Prescription Drug Abuse: No Family History Family History: Reviewed & Not Pertinent, Arthritis, CAD, CVA, DM, Hyperlipidemia, Hypertension, Malignancy, Thyroid Disfunction Parental Family History Reviewed: Yes Children Family History Reviewed: Unknown Sibling(s) Family History Reviewed.: Unknown Medication/Allergy Home Medications: Aspirin [Ecotrin 81 mg EC Tablet] 81 mg PO DAILY 04/01/18 Carvedilol [Coreg 25 mg Tablet] 25 mg PO Q12 04/01/18 Clopidogrel Bisulfate [Plavix 75 mg Tablet] 75 mg PO DAILY 04/01/18 Fish Oil/Dha/Epa [Fish Oil 1,200 mg Fish Oil] 1 each PO DAILY 04/01/18 Furosemide [Lasix 40 mg Tablet] 40 mg PO BID 04/01/18 Gabapentin [Neurontin 300 mg Capsule] 300 mg PO Q12 04/01/18 Nitroglycerin [Nitrostat 0.4 mg (1/150 Gr) Tabs 25/Bottle] 1 tab SL Q5MP PRN 04/01/18 Tramadol HCl [Ultram 50 mg Tablet] 50 mg PO Q6 PRN 07/02/18 Allergies/Adverse Reactions: No Known Allergies Allergy (Verified 07/10/18 01:14) Review of Systems Constitutional: ABSENT: fever(s), headache(s), night sweats, weakness Eyes: ABSENT: visual disturbances Ears: ABSENT: hearing changes Nose, Mouth, and Throat: ABSENT: mouth pain, sore throat Cardiovascular: ABSENT: edema, orthropnea, palpitations Respiratory: PRESENT: hemoptysis. ABSENT: dyspnea Gastrointestinal: ABSENT: dysphagia, nausea, vomiting Genitourinary: ABSENT: dysuria, hematuria Musculoskeletal: ABSENT: deformity, joint swelling Integumentary: ABSENT: lesions Neurological: ABSENT: syncope, tingling, tremor(s), vertigo Endocrine: ABSENT: polydipsia, polyphagia, polyuria Hematologic/Lymphatic: ABSENT: easy bruising Physical Exam Vital Signs: Temp Pulse Resp BP Pulse Ox 98.1 F 136 H 14 111/94 H 97 07/10/18 04:03 07/10/18 00:01 07/10/18 07:50 07/10/18 07:01 07/10/18 07:50 Intake & Output 07/09/18 07/10/18 07/11/18 06:59 06:59 06:59 Intake Total 1150 Output Total 100 Balance 1050 Weight 90.2 kg General appearance: PRESENT: no acute distress, well-developed, well-nourished Head exam: PRESENT: atraumatic, normocephalic Eye exam: PRESENT: PERRLA. ABSENT: nystagmus, periorbital swelling, scleral icterus Mouth exam: PRESENT: moist, neck supple Throat exam: ABSENT: tonsillar exudate, tonsillogmegaly Neck exam: ABSENT: meningismus, tenderness, thyromegaly Respiratory exam: PRESENT: symmetrical. ABSENT: tachypnea, unlabored Cardiovascular exam: PRESENT: +S1, +S2. ABSENT: diastolic murmur GI/Abdominal exam: PRESENT: soft. ABSENT: rebound, rigid, tenderness Musculoskeletal exam: PRESENT: full ROM Neurological exam: PRESENT: oriented to time, oriented to situation, CN II-XII grossly intact Focused psych exam: ABSENT: restlessness Skin exam: PRESENT: normal color. ABSENT: mottled, pallor, urticaria, vesicles Results Laboratory Results: 07/10/18 00:33 07/10/18 00:33 07/10/18 07/10/18 07/10/18 00:33 00:33 02:05 WBC 17.9 H RBC 4.03 L Hgb 12.1 L Hct 36.3 L MCV 90 MCH 30.0 MCHC 33.3 RDW 14.8 H Plt Count 205 Seg Neutrophils % 76.2 Lymphocytes % 14.7 Monocytes % 6.6 Eosinophils % 1.8 Basophils % 0.7 Absolute Neutrophils 13.7 H Absolute Lymphocytes 2.6 Absolute Monocytes 1.2 Absolute Eosinophils 0.3 Absolute Basophils 0.1 Sodium 136.3 L Potassium 5.5 H Chloride 105 Carbon Dioxide 23 Anion Gap 8 BUN 55 H Creatinine 1.30 H Est GFR ( Amer) > 60 Est GFR (Non-Af Amer) 57 L Glucose 208 H Calcium 9.5 Total Bilirubin 0.4 AST 46 ALT 67 Alkaline Phosphatase 129 H Total Protein 6.6 Albumin 4.0 Lipase 206.7 Blood Type O POSITIVE Antibody Screen NEGATIVE Impressions: Chest X-Ray 07/10/18 00:51 IMPRESSION: Enteric tube in place. Lungs are clear copyright 2010 [employer]- All Rights Reserved Abdomen/Pelvis CT 07/10/18 00:58 IMPRESSION: Nonspecific, poorly defined area of mixed fat and soft tissue density associated with the anterior left abdomen, appearing to involve the abdominal wall. There is some adjacent skin thickening and subcutaneous induration. Findings may be inflammatory in nature. Neoplastic etiology should also be considered. Right lower quadrants ostomy. No evidence for bowel obstruction. No free air or free fluid. Enteric tube in place. Stable hepatic cysts. TECHNICAL DOCUMENTATION: Quality ID # 436: Final reports with documentation of one or more dose reduction techniques (e.g., Automated exposure control, adjustment of the mA and/or kV according to patient size, use of iterative reconstruction technique) copyright 2011 [employer]- All Rights Reserved Assessment & Plan - Diagnosis (1) Upper GI bleed Is this a current diagnosis for this admission?: Yes Plan: ? if GI source, will speak with Dr Farrell will need EGD to exclude Risks, benefits and alternatives are discussed with the patient in detail further recommendations to follow - Time Time Spent: 50 to 70 Minutes
[2018-07-10 08:28] LABS: ABSOLUTE BASOPHILS # (AUTO) 0.1 10^3/uL (0.0-0.2); ABSOLUTE EOSINOPHILS # (AUTO) 0.1 10^3/uL (0.0-0.6); ABSOLUTE LYMPHOCYTES (AUTO) 2.6 10^3/uL (0.5-4.7); ABSOLUTE MONOCYTES (AUTO) 1.2 10^3/uL (0.1-1.4); ABSOLUTE NEUT (AUTO) 12.5 10^3/uL (1.7-8.2); BASOPHILS % (AUTO) 0.4 % (0-2); EOSINOPHILS % (AUTO) 0.5 % (0-6); HEMATOCRIT 30.5 % (37.9-51.0); LYMPHOCYTES % (AUTO) 15.7 % (13-45); MEAN CORPUSCULAR HEMOGLOBIN 28.2 pg (27.0-33.4); MEAN CORPUSCULAR HGB CONC 32.4 g/dL (32.0-36.0); MEAN CORPUSCULAR VOLUME 87 fl (80-97); MONOCYTES % (AUTO) 7.1 % (3-13); PLATELET COUNT 298 10^3/uL (150-450); RED BLOOD COUNT 3.51 10^6/uL (4.35-5.55); RED CELL DISTRIBUTION WIDTH 14.7 % (11.5-14.0); SEGMENTED NEUTROPHILS % (AUTO) 76.3 % (42-78); TOTAL CELLS COUNTED % (AUTO) 100 %; WHITE BLOOD COUNT 16.4 10^3/uL (4.0-10.5)
[2018-07-10 08:33] LABS: HEMOGLOBIN 9.9 g/dL (13.5-17.0)
[2018-07-10] MEDS ORDERED: DIPHENHYDRAMINE HCL 50 MG/ML VIAL ONE (08:53)
[2018-07-10] MEDS ORDERED: FLUMAZENIL INJ 0.5 MG/5 ML VIAL ONE (08:53)
[2018-07-10] MEDS ORDERED: ONDANSETRON HCL INJ/PF 4 MG/2 ML SDV ONE (08:53)
[2018-07-10] MEDS ORDERED: GLUCAGON,HUMAN RECOMB 1 MG INJ ONE (08:53)
[2018-07-10] MEDS ORDERED: NALOXONE HCL INJ/PF 0.4 MG/1 ML SDV ONE (08:53)
[2018-07-10] MEDS ORDERED: EPINEPHRINE INJ 1 MG/10 ML DISP.SYRIN ONE (08:53)
[2018-07-10] MEDS ORDERED: MIDAZOLAM 2 MG/2 ML INJ ONE (08:53)
[2018-07-10] MEDS ORDERED: FENTANYL CITRATE INJ/PF 100 MCG/2 ML AMPUL ONE (08:53)
--- NOTE | 2018-07-10 09:43 | Operative Report ---
Operative Report DATE OF SURGERY: 07/10/18 Operative Report: The risks benefits and alternatives of the procedure explained to the patient in detail and informed consent is obtained.A GIF Olympus video scope was inserted into the patient's mouth and hypopharynx, the esophagus is identified intubated and insufflated, the scope was then advanced through the esophagus stomach and duodenum, retroflexion maneuver is done, the esophagus stomach and first and second portions of the duodenum examined. patient had provided a history of epistaxsis and when he got up to endo unit there was an NGT that had been placed. PREOPERATIVE DIAGNOSIS: Patient has had a recent colectomy with dilation of his anastomosis. He came in with epistaxis. Patient is on anticoagulation. He had melena in his colostomy bag. Rule out GI bleed POSTOPERATIVE DIAGNOSIS: Blood is noted in the mouth, hypopharynx and collecting in the valleculae. No evidence of esophageal varices. Clots in the stomach but when these were irrigated there was no specific site of bleeding. Antrum appeared to be normal. Duodenal bulb is normal. Second portion of the duodenum was normal OPERATION: Diagnostic EGD SURGEON: EDIN DE JESUS ANESTHESIA: Moderate Sedation - 2 mg of Versed, 50 mcg of fentanyl. Conscious sedation monitoring time 30 minutes. TISSUE REMOVED OR ALTERED: None. COMPLICATIONS: None. ESTIMATED BLOOD LOSS: Ongoing from nosebleed. INTRAOPERATIVE FINDINGS: As noted above. PROCEDURE: Patient tolerated procedure well. He will be sent back to his room. I have spoken to Dr. Farrell to advise that ENT needs to see this gentleman. I personally would not replace the NG tube at this point because it is unclear exactly where the source of the bleed is. However his esophagus, stomach, and duodenum appeared to be normal. He is swallowing the blood and it is coagulating in his stomach. That explains the blood that was noted when the initial NG tube was placed. Of note the patient did complain when he first presented that he was having a nosebleed
[2018-07-10] MEDS ORDERED: OXYMETAZOLINE HCL 0.05% NASAL SPRAY 15 ML BOTTLE NASL ONE (15:00)
[2018-07-10] MEDS: NICOTINE 21 MG/24 HR PATCH.TD24 TD SCH (15:10)
[2018-07-10 15:52] LABS: APPEARANCE,URINE CLEAR; BILIRUBIN,URINE NEGATIVE (NEGATIVE); COLOR,URINE YELLOW; GLUCOSE, URINE NEGATIVE (NEGATIVE); KETONES,URINE NEGATIVE (NEGATIVE); LEUKOCYTE ESTERASE,URINE NEGATIVE (NEGATIVE); NITRITE,URINE NEGATIVE (NEGATIVE); PROTEIN,URINE NEGATIVE (NEGATIVE); URINE SPECIFIC GRAVITY 1.038; UROBILINOGEN,URINE NEGATIVE mg/dL (<2.0)
[2018-07-11] MEDS: HYDROMORPHONE HCL INJ/PF 2 MG/ML AMPULE IV PRN ×5 (02:38→21:47)
[2018-07-11] MEDS: NORMAL SALINE 1000 ML 1,000 ML IV PRN (08:05)
[2018-07-11] MEDS: NICOTINE 21 MG/24 HR PATCH.TD24 TD SCH (09:10)
[2018-07-11 09:35] LABS: ABSOLUTE EOSINOPHILS # (AUTO) 0.3 10^3/uL (0.0-0.6); ABSOLUTE LYMPHOCYTES (AUTO) 2.4 10^3/uL (0.5-4.7); ABSOLUTE MONOCYTES (AUTO) 0.7 10^3/uL (0.1-1.4); ABSOLUTE NEUT (AUTO) 8.4 10^3/uL (1.7-8.2); BASOPHILS % (AUTO) 0.4 % (0-2); EOSINOPHILS % (AUTO) 2.7 % (0-6); HEMATOCRIT 21.2 % (37.9-51.0); LYMPHOCYTES % (AUTO) 20.2 % (13-45); MEAN CORPUSCULAR HEMOGLOBIN 28.3 pg (27.0-33.4); MEAN CORPUSCULAR HGB CONC 32.4 g/dL (32.0-36.0); MEAN CORPUSCULAR VOLUME 87 fl (80-97); MONOCYTES % (AUTO) 6.3 % (3-13); PLATELET COUNT 181 10^3/uL (150-450); RED BLOOD COUNT 2.43 10^6/uL (4.35-5.55); RED CELL DISTRIBUTION WIDTH 14.7 % (11.5-14.0); SEGMENTED NEUTROPHILS % (AUTO) 70.4 % (42-78); TOTAL CELLS COUNTED % (AUTO) 100 %; WHITE BLOOD COUNT 11.9 10^3/uL (4.0-10.5)
[2018-07-11 09:37] LABS: HEMOGLOBIN 6.9 g/dL (13.5-17.0)
--- NOTE | 2018-07-11 10:02 | DISCHARGE SUMMARY E ---
Discharge Summary NAME: CAT HECK : 1960 AGE: 58Y ADMITTED: 07/10/2018 DISCHARGED: 07/12/2018 FINAL DIAGNOSIS: Epistaxis, partly due to coagulopathy from Plavix. HOSPITAL COURSE: This is a 58-year-old male with a previous colon resection for diverticulitis and has been on Plavix for atrial fib who complained of epistaxis on the right side the night of admission. He apparently swallowed some blood and vomited about 200 mL of dark blood. He was then admitted and an upper endoscopy was done by Dr. Viveros. Dr. Viveros did not see any pathology from the esophagus down to the duodenum. However, he noted some trickling of blood coming from the pharynx. The patient was then seen by ENT, Dr. Cha, who cauterized the bleeder on 07/10/2018. The morning of 07/11/2018 the patient felt better with no more evidence of bleeding. Hb however drop to 6.9. Was given 2 units PRBC with Hb increases to 8.3 and on day of discharge to 8.5. His VS are stable and no complaints on the day of discharge.He will be followed up by ENT in 6 weeks and in the surgical clinic after a week. The patient was advised to hold off taking his Plavix per Dr. Zarate. DICTATING PHYSICIAN: THU PENN M.D. [id number] PHY#: [id number] ID: [id number] JOB#: [id number] ACCT: [id number] cc:THU PENN M.D. E. Edgardo [facility]
--- NOTE | 2018-07-11 10:31 | PDOC PROGRESS REPORT ---
Subjective Progress Note for:: 07/11/18 Subjective:: feels weak when standing up no dizziness Reason For Visit: UPPER GI BLEED, POST COLON RESECTION FOR Physical Exam Vital Signs: Temp Pulse Resp BP Pulse Ox 98.1 F 92 16 119/69 100 07/11/18 07:55 07/11/18 07:55 07/11/18 07:55 07/11/18 07:55 07/11/18 07:55 Intake & Output 07/10/18 07/11/18 07/12/18 06:59 06:59 06:59 Intake Total 1150 2965 Output Total 100 400 Balance 1050 2565 Weight 90.2 kg 94.4 kg General appearance: PRESENT: no acute distress, well-developed, well-nourished Head exam: PRESENT: atraumatic, normocephalic Eye exam: PRESENT: conjunctiva pink, EOMI, PERRLA. ABSENT: scleral icterus Ear exam: PRESENT: normal external ear exam Mouth exam: PRESENT: moist, tongue midline Throat exam: PRESENT: other - pharynx clear Neck exam: ABSENT: carotid bruit, JVD, lymphadenopathy, thyromegaly Respiratory exam: PRESENT: clear to auscultation adelaida. ABSENT: rales, rhonchi, wheezes Cardiovascular exam: PRESENT: RRR. ABSENT: diastolic murmur, rubs, systolic murmur Pulses: PRESENT: normal dorsalis pedis pul Vascular exam: PRESENT: normal capillary refill GI/Abdominal exam: PRESENT: normal bowel sounds, soft, other - abd soft, non tender stoma productive of dark black stool. ABSENT: distended, guarding, mass, organolmegaly, rebound, tenderness Rectal exam: PRESENT: deferred Extremities exam: PRESENT: full ROM. ABSENT: calf tenderness, clubbing, pedal edema Neurological exam: PRESENT: alert, awake, oriented to person, oriented to place, oriented to time, oriented to situation, CN II-XII grossly intact. ABSENT: motor sensory deficit Psychiatric exam: PRESENT: appropriate affect, normal mood. ABSENT: homicidal ideation, suicidal ideation Skin exam: PRESENT: dry, intact, warm. ABSENT: cyanosis, rash Results Laboratory Results: 07/11/18 09:07 07/10/18 00:33 07/10/18 07/11/18 15:17 09:07 WBC 11.9 H RBC 2.43 L Hgb 6.9 L D Hct 21.2 L MCV 87 MCH 28.3 MCHC 32.4 RDW 14.7 H Plt Count 181 Seg Neutrophils % 70.4 Lymphocytes % 20.2 Monocytes % 6.3 Eosinophils % 2.7 Basophils % 0.4 Absolute Neutrophils 8.4 H Absolute Lymphocytes 2.4 Absolute Monocytes 0.7 Absolute Eosinophils 0.3 Absolute Basophils 0.0 Urine Color YELLOW Urine Appearance CLEAR Urine pH 5.0 Ur Specific [place] 1.038 Urine Protein NEGATIVE Urine Glucose (UA) NEGATIVE Urine Ketones NEGATIVE Urine Blood NEGATIVE Urine Nitrite NEGATIVE Ur Leukocyte Esterase NEGATIVE Urine WBC (Auto) 0 Urine RBC (Auto) 1 Impressions: Chest X-Ray 07/10/18 00:51 IMPRESSION: Enteric tube in place. Lungs are clear copyright 2010 [employer]- All Rights Reserved Abdomen/Pelvis CT 07/10/18 00:58 IMPRESSION: Nonspecific, poorly defined area of mixed fat and soft tissue density associated with the anterior left abdomen, appearing to involve the abdominal wall. There is some adjacent skin thickening and subcutaneous induration. Findings may be inflammatory in nature. Neoplastic etiology should also be considered. Right lower quadrants ostomy. No evidence for bowel obstruction. No free air or free fluid. Enteric tube in place. Stable hepatic cysts. TECHNICAL DOCUMENTATION: Quality ID # 436: Final reports with documentation of one or more dose reduction techniques (e.g., Automated exposure control, adjustment of the mA and/or kV according to patient size, use of iterative reconstruction technique) copyright 2011 [employer]- All Rights Reserved Assessment & Plan - Inpatient Certification Medical Necessity: Need Close Monitoring Due to Risk of Patient Decompensation - Plan Summary Plan Summary: pt was previously discharged, however this am labs noted a hemoglobin of 6.9 pt admitted with hemoglobin of 12.1 currently no evidence of ongoing bleeding, however pt weakwhen standing will tnx 1 unit of prbc and obsever pt one more day repeat h/h after tnx and in am
--- NOTE | 2018-07-11 14:37 | CONSULTATION REPORT E ---
Consultation Report NAME: CAT HECK : 1960 AGE: 58Y DATE: 07/10/2018 325 A TO: CASEY PHILLIPS D.O. FROM: Billy SOLORIO, Requesting Physician PRIMARY CARE PROVIDER: There is not one listed; however, the admitting physician for this patient is the surgicalist, so the surgical on-call hospital-based surgical staff, Kingsley Farrell MD, General Surgery. CHIEF COMPLAINT: The patient with acute history of hemoptysis, epistaxis, nausea and vomiting of dark material, and dark fluid located in the ileostomy bag. HISTORY OF PRESENT ILLNESS: This is a 58-year-old white male who is status post colon resection for diverticulitis and had a balloon dilation of the anastomoses. The patient is with history of AFib and is taking Plavix. He noted blood dripping from his right nasal passage yesterday, 07/09, in the morning, followed by hemoptysis, nausea and vomiting of dark blood, and then dark fluid filling his ileostomy bag. He went to the [facility] and was noted to be in AFib with a rate of 120. His last dose of Plavix was yesterday, 07/09. He relates a distant history of epistaxis and denies recent history of nasal trauma. He notes that it has been the right side that is bleeding. PAST MEDICAL HISTORY: 1. Cardiac: History of atrial fibrillation and NE in 2015 and hypertension. 2. Pulmonary history: Unremarkable. 3. Neurological history: Unremarkable. 4. Malignancy history: History of skin cancer. 5. GI history: History of diverticulitis. 6. Musculoskeletal: History of arthritis. 7. Hematologic: Unremarkable. PAST SURGICAL HISTORY: Reports: 1. Coronary stent. 2. Ileostomy and colon resection for diverticulitis with colon anastomotic stenosis, status post balloon dilation. SOCIAL HISTORY: Lives with his Family. Smoking status: Current every day smoker. Alcohol use: Rare. Drug use: Was in the 1970s with use of cocaine and marijuana. Prescription drug abuse: No. FAMILY HISTORY: Reviewed and not pertinent. ALLERGIES: No known drug allergies. MEDICATIONS: Please see the patient's inpatient record and include that list, as it is extensive. REVIEW OF SYSTEMS: CONSTITUTIONAL: Unremarkable. NOSE, MOUTH, AND THROAT: Same as above, with right nasal bleeding. CARDIOVASCULAR: Unremarkable. RESPIRATORY: Reported hemoptysis. GASTROINTESTINAL: Same as above. NEUROLOGICAL: Unremarkable. DERMATOLOGIC: Same as above, with history of skin cancer. PHYSICAL EXAMINATION: VITAL SIGNS: Pulse ox in the high 90s on room air, blood pressure 111/94, respiration rate 24, pulse 136, temperature 98.1 Fahrenheit. GENERAL APPEARANCE: The patient is lying in his bed comfortably, is alert and oriented x3, is in no apparent distress, and is able to speak easily and without difficulty. HEAD: Normocephalic, atraumatic. EYES: Extraocular muscles are intact and the conjunctivae are unremarkable. NOSE: Nose is with dried blood at the nasal vestibule on each side. The anterior rhinoscopy evaluation is notable for a septal perforation measuring approximately 1 x 2 cm in dimension at the right Little's area, and it is with dried blood, crusting, prominent blood vessels at the right side, but no active bleeding is noted. Flexible endoscopic evaluation: At this point, the indications and risks and complications of performing a flexible fiberoptic transnasal evaluation were discussed in detail with the patient verbally, which he voiced an understanding and agreed with. At this point, Afrin and lidocaine were administered transnasally. This was followed by a bilateral transnasal flexible endoscopic evaluation, with the septal perforation noted and findings as above. There were no sinonasal polyps, masses, or other lesions identified. The DIRECTOR LOAN/tim were clear. OP/HP were clear. The epiglottis was unremarkable. The true vocal cords were symmetric and mobile and thickened/with edema bilateral, and the subglottic area appeared grossly unremarkable. There were no upper airway masses or lesions identified or other sources of bleeding noted. The patient tolerated the evaluation well and there were no complications. At this point, the risks and complications of performing nasal cautery were discussed in detail with the patient, which he voiced an understanding of and agreed with. At this point, topical BLT anesthetic was applied around the septal perforation and at the right nasal septum at Little's area. At this point, with nasal speculum and suction, the topical BLT was removed and this was followed by silver nitrate cautery at the right nasal septum in the area of the septal perforation and Little's area. This was followed by application of bacitracin ointment to each side of the septum and septal perforation. The patient tolerated the procedure well and there were no complications. MOUTH: With moist mucous membranes and there is very poor dentition with numerous teeth missing, and the soft palatal tissues are significantly redundant in nature and the uvula is enlarged. NECK: With full range of motion and nontender to palpation, and there is no lymphadenopathy noted. RESPIRATORY/CHEST: There is unremarkable rise and fall of the chest and there is no wheezing noted. CARDIOVASCULAR: Notable for irregular rate and rhythm consistent with history of AFib. MUSCULOSKELETAL: No TMJ, tenderness to palpation. NEUROLOGICAL: Alert and oriented x3 and the cranial nerves 2-12 are grossly intact. SKIN: Warm and otherwise unremarkable. LABORATORY DATA: White blood cell count 17.9, H and H 12 and 36, platelets 205. IMAGING STUDIES: Chest x-ray impression: With enteric tube in place and lungs are clear. ASSESSMENT: 1. Acute right nasal epistaxis. 2. Nasal septal perforation. 3. Chronic tobacco abuse history. 4. COPD. PLAN: This patient underwent upper airway endoscopy for rule out of upper airway/head and neck bleeding. The patient was noted to have a septal perforation, which he had previously been unaware of. There were sources of bleeding identified, which were addressed with silver nitrate chemical cautery without difficulty. The patient is aware that he can follow up as an outpatient with the [facility] ENT office at [address] [place] [address] in [place], [place], which he desires to follow through with. There is no additional workup or treatment required at present from an ENT standpoint. Dr. Phillips otherwise remains available as needed with regard to this patient and his care. Please contact Dr. Phillips with any questions or concerns. The time element for this consult was 40 minutes. The CPT codes for this consult consist of: 1. CPT code 52569 in the setting of a consult with history of epistaxis and a new finding of septal perforation being identified. 2. CPT code 99958 in the setting of an ENT consult specifically requesting rule out of head and neck/upper airway bleeding sources. 3. CPT code for simple anterior nasal cautery. DICTATING PHYSICIAN: CASEY PHILLIPS D.O. [id number] PHY#: [id number] ID: [id number] JOB#: [id number] ACCT: [id number] cc:CASEY PHILLIPS D.O. >
[2018-07-11 16:50] LABS: ABSOLUTE BASOPHILS # (AUTO) 0.1 10^3/uL (0.0-0.2); ABSOLUTE EOSINOPHILS # (AUTO) 0.4 10^3/uL (0.0-0.6); ABSOLUTE LYMPHOCYTES (AUTO) 2.7 10^3/uL (0.5-4.7); ABSOLUTE MONOCYTES (AUTO) 0.9 10^3/uL (0.1-1.4); ABSOLUTE NEUT (AUTO) 7.9 10^3/uL (1.7-8.2); BASOPHILS % (AUTO) 0.5 % (0-2); EOSINOPHILS % (AUTO) 3.3 % (0-6); HEMATOCRIT 22.5 % (37.9-51.0); LYMPHOCYTES % (AUTO) 22.6 % (13-45); MEAN CORPUSCULAR HEMOGLOBIN 28.2 pg (27.0-33.4); MEAN CORPUSCULAR HGB CONC 32.2 g/dL (32.0-36.0); MEAN CORPUSCULAR VOLUME 88 fl (80-97); MONOCYTES % (AUTO) 7.4 % (3-13); PLATELET COUNT 181 10^3/uL (150-450); RED BLOOD COUNT 2.57 10^6/uL (4.35-5.55); RED CELL DISTRIBUTION WIDTH 14.5 % (11.5-14.0); SEGMENTED NEUTROPHILS % (AUTO) 66.2 % (42-78); TOTAL CELLS COUNTED % (AUTO) 100 %
[2018-07-11 16:54] LABS: HEMOGLOBIN 7.3 g/dL (13.5-17.0)
[2018-07-11 23:36] LABS: HEMATOCRIT 24.7 % (37.9-51.0); HEMOGLOBIN 8.3 g/dL (13.5-17.0); MEAN CORPUSCULAR HEMOGLOBIN 29.2 pg (27.0-33.4); MEAN CORPUSCULAR HGB CONC 33.6 g/dL (32.0-36.0); MEAN CORPUSCULAR VOLUME 87 fl (80-97); PLATELET COUNT 187 10^3/uL (150-450); RED BLOOD COUNT 2.84 10^6/uL (4.35-5.55); RED CELL DISTRIBUTION WIDTH 14.2 % (11.5-14.0)
[2018-07-12] MEDS: HYDROMORPHONE HCL INJ/PF 2 MG/ML AMPULE IV PRN ×2 (02:55→08:04)
[2018-07-12] MEDS: NORMAL SALINE 1000 ML 1,000 ML IV PRN (05:42)
[2018-07-12 07:19] LABS: HEMATOCRIT 25.5 % (37.9-51.0); HEMOGLOBIN 8.5 g/dL (13.5-17.0); MEAN CORPUSCULAR HEMOGLOBIN 28.9 pg (27.0-33.4); MEAN CORPUSCULAR HGB CONC 33.3 g/dL (32.0-36.0); MEAN CORPUSCULAR VOLUME 87 fl (80-97); PLATELET COUNT 208 10^3/uL (150-450); RED BLOOD COUNT 2.94 10^6/uL (4.35-5.55); RED CELL DISTRIBUTION WIDTH 14.4 % (11.5-14.0); WHITE BLOOD COUNT 11.7 10^3/uL (4.0-10.5)
[2018-07-12] MEDS: NICOTINE 21 MG/24 HR PATCH.TD24 TD SCH (09:20)
[2018-07-12 10:07] VITALS: BP 100/60
== END 2018-07-12 13:00 | disposition home health service (06) | DRG 813 ==
LOC: ER 23:51 → EH 07-10 02:22 → 3W 07-10 12:37
PROVIDERS: ADMIT Surgery; ATTEND Surgery
PROC: 0DJ08ZZ Inspection of Upper Intestinal Tract, Via Natural or Artificial Opening Endoscopic (ICD-10-PCS; 2018-07-10)
PROC: 30233N1 Transfusion of Nonautologous Red Blood Cells into Peripheral Vein, Percutaneous Approach (ICD-10-PCS; principal; 2018-07-11)
DX: D68.32 Hemorrhagic disorder due to extrinsic circulating anticoagulants (principal); K92.2 Gastrointestinal hemorrhage, unspecified; N17.9 Acute kidney failure, unspecified; R04.0 Epistaxis; T45.525A Adverse effect of antithrombotic drugs, initial encounter; R10.9 Unspecified abdominal pain; I50.9 Heart failure, unspecified; I11.0 Hypertensive heart disease with heart failure; I48.91 Unspecified atrial fibrillation; F17.210 Nicotine dependence, cigarettes, uncomplicated; I25.2 Old myocardial infarction; Y92.098 Other place in other non-institutional residence as the place of occurrence of the external cause; Z93.2 Ileostomy status; Z79.01 Long term (current) use of anticoagulants; Z79.82 Long term (current) use of aspirin; Z79.899 Other long term (current) drug therapy; Z90.49 Acquired absence of other specified parts of digestive tract
CPT/HCPCS: 36415; 36430; 43235; 71045; 74177; 80053; 81001; 83690; 85025; 85027; 85610; 85730; 86850; 86900; 86901; 86920; 93005; 93010; 96361; 96365; 96368; 96375; 99291; 99406; J0171; J0696; J1170; J1200; J1610; J2250; J2310; J2405; J3010; J3490; J7030; P9016; S0164

== ENCOUNTER → 2018-07-31 | Outpatient (CLI) | payer MEDICAID ==
--- NOTE | 2018-07-31 11:08 | RADIOLOGY REPORT (SQ) ---
EXAM DESCRIPTION: CT ABD/PELVIS WITH IV ORAL COMPLETED DATE/TIME: 07/31/2018 10:39 am REASON FOR STUDY: UNSPEC OPEN WOUND OF ABDOMINAL WALL (S31.109A), OTHER INJURY OF UNSPEC BODY S31.10 9A UNSP OPN WND ABD WALL, UNSP Q W/O PENET PERIT CAV, T14.8XXA OTHER INJURY OF UNSPECIFIED BODY RE TRAVIS, INITIAL EN COMPARISON: 12/07/2017 TECHNIQUE: CT scan of the abdomen and pelvis performed using helical scanning technique with dynamic intravenous contrast injection. Oral contrast was administered. Images reviewed with lung, soft tis camila, and bone windows. Reconstructed coronal and sagittal MPR images reviewed. Delayed images for bisi luation of the urinary system also acquired. All images stored on PACS. All CT scanners at this facility use dose modulation, iterative reconstruction, and/or weight based d osing when appropriate to reduce radiation dose to as low as reasonably achievable (ALARA). [facility]: Dose Right [facility]: CareDose [facility]: Dose Right [facility]: Teradose 4D [facility]: Ceram Hyd CONTRAST TYPE AND DOSE: contrast/concentration: Isovue 350.00 mg/ml; Total Contrast Delivered: 100.0 ml; Total Saline Delivered: 72.0 ml RENAL FUNCTION: BUN 28, creatinine 1.17 RADIATION DOSE: CT Rad equipment meets quality standard of care and radiation dose reduction techniq ues were employed. CTDIvol: 14.1 - 15.8 mGy. DLP: 1494 mGy-cm.. LIMITATIONS: None. FINDINGS: LOWER CHEST: Scattered coronary atherosclerosis. No visualized consolidation or suspiciou s nodules or masses. No pericardial effusion%period% LIVER: Stable left hepatic cyst and subcentimeter right hepatic hypodense lesion, likely cyst. No ne w lesions. No intrahepatic ductal dilation. SPLEEN: Normal size. Calcified granuloma. PANCREAS: No masses. No significant calcifications. No adjacent inflammation or peripancreatic fluid collections. Pancreatic duct not dilated. GALLBLADDER: No identified stones by CT criteria. No inflammatory changes to suggest cholecystitis. ADRENAL GLANDS: No significant masses or asymmetry. RIGHT KIDNEY AND URETER: No solid masses. No significant calcifications. No hydronephrosis or hyd roureter. LEFT KIDNEY AND URETER: No solid masses. No significant calcifications. No hydronephrosis or hydr oureter. AORTA AND VESSELS: Scattered aortoiliac atherosclerosis. No aneurysm. Patent celiac, SMA, bilateral renals and DEANDRE. RETROPERITONEUM: No retroperitoneal adenopathy, hemorrhage or masses. BOWEL AND PERITONEAL CAVITY: Postsurgical changes from the left colectomy. There is a loop ileostomy within the right lower quadrant. Fat and mesenteric stranding within the anterior left paramedian a bdomen which extends to the skin surface. This area measures approximately 11.8 x 3.9 cm. No eviden ce of well-formed drainable collection. No evidence of well-formed drainable collection. No evidenc e of free intraperitoneal gas. APPENDIX: Normal. PELVIS: Decompressed urinary bladder. Anastomosis at the level of the sigmoid colon. ABDOMINAL WALL: Right lower quadrant loop ileostomy. Midline wound. No evidence of drainable subcut aneous collection. No discrete mass. BONES: No acute bony abnormality. No suspicious lytic or blastic osseous lesions. Lower lumbar face t arthropathy and spondylosis. Grade 1 retrolisthesis of L5 on S1. OTHER: No other significant finding. IMPRESSION: 1. Postsurgical changes from the partial colectomy with right lower quadrant loop ileos moraima. No evidence of intestinal obstruction or oral contrast extravasation to suggest leak. 2. Left paramedian anterior abdominal fat stranding measuring approximately 11.8 x 3.6 cm. Findings possibly represent phlegmon versus postsurgical change. No evidence of well-formed drainable collec tion. TECHNICAL DOCUMENTATION: JOB ID: [id number] Quality ID # [id number]: Final reports with documentation of one or more dose reduction techniques (e.g., Au tomated exposure control, adjustment of the mA and/or kV according to patient size, use of iterative reconstruction technique) 2010 [employer]- All Rights Reserved Reading location - IP/workstation name: [email or web address]
== END ==
LOC: RAD 09:51
PROVIDERS: ATTEND Surgery
DX: S31.109A Unspecified open wound of abdominal wall, unspecified quadrant without penetration into peritoneal cavity, initial encounter (principal); T14.8XXA Other injury of unspecified body region, initial encounter; X58.XXXA Exposure to other specified factors, initial encounter; Z90.49 Acquired absence of other specified parts of digestive tract; K76.89 Other specified diseases of liver
CPT/HCPCS: 74177

== ENCOUNTER 2018-08-06 07:46 | Day surgery (SDC) | payer MEDICAID ==
[2018-07-30 13:09] LABS: ANION GAP 11 (5-19); BLOOD UREA NITROGEN 28 mg/dL (7-20); CALCIUM 10.4 mg/dL (8.4-10.2); CARBON DIOXIDE 29 mmol/L (22-30); CHLORIDE 103 mmol/L (98-107); GLUCOSE 103 mg/dL (75-110); POTASSIUM 5.3 mmol/L (3.6-5.0); SODIUM 142.6 mmol/L (137-145)
[~2018-08-06 07:46] MED LIST changes: +DEXAMETHASONE SOD PHOSPHATE INJ 4 MG/1 ML VIAL ONE; +EPHEDRINE SULFATE INJ 50 MG/1 ML AMPULE ONE; +FENTANYL CITRATE INJ/PF 100 MCG/2 ML AMPUL ONE; +MIDAZOLAM 2 MG/2 ML INJ ONE; +ONDANSETRON HCL INJ/PF 4 MG/2 ML SDV ONE; +PROPOFOL INJ 200 MG/20 ML VIAL IV ONE
[2018-08-06] MEDS ORDERED: MORPHINE SULFATE 10 MG/ML INJ IV PRN (09:55)
[2018-08-06] MEDS ORDERED: MEPERIDINE HCL/PF INJ 25 MG/1 ML DISP.SYRIN IV PRN (09:55)
[2018-08-06] MEDS ORDERED: DIPHENHYDRAMINE HCL 50 MG/ML VIAL IV PRN (09:55)
[2018-08-06] MEDS ORDERED: FENTANYL CITRATE INJ/PF 100 MCG/2 ML AMPUL IV PRN ×3 (09:55)
[2018-08-06] MEDS ORDERED: PROMETHAZINE HCL INJ 25 MG/1 ML VIAL IV PRN ×2 (09:55)
--- NOTE | 2018-08-06 10:27 | Discharge Summary ---
Discharge Summary (SDC) - Discharge Final Diagnosis: anastomotic colonic stricture Date of Surgery: 08/06/18 Discharge Date: 08/06/18 Condition: Stable Treatment or Instructions: Discharge home. Diet as tolerated. Activity as tolerated. Follow-up with me in 1 week. Doxycycline 100 mg p.o. twice daily times 7 days. Referrals: MEGAN GUO MD [Primary Care Provider] - Discharge Diet: As Tolerated Respiratory Treatments at Home: Deep Breathing/Coughing, Incentive Spirometer Discharge Activity: Activity As Tolerated Home Care Assistance: None Needed Report the Following to Your Physician Immediately: Shortness of Breath, Nausea, Vomiting, Increase in Pain, Fever over 101 Degrees, Unusual Bleeding, Redness, Swelling, Warmth, Increased Soreness
--- NOTE | 2018-08-06 10:32 | Operative Report ---
Nonrecallable Operative Report DATE OF SURGERY: 08/06/18 PREOPERATIVE DIAGNOSIS: Colonic anastomotic stricture POSTOPERATIVE DIAGNOSIS: Same OPERATION: 1. Flexible sigmoidoscopy. 2. Dilation of colonic anastomotic stricture up to 20 mm. SURGEON: LONNY MCCRACKEN ANESTHESIA: LMAC TISSUE REMOVED OR ALTERED: None COMPLICATIONS: Small mucosal tear at the anastomotic stricture after dilation to 20 cm. ESTIMATED BLOOD LOSS: Minimal PROCEDURE: Drains/implants: None. Procedure in detail: After informed consent was obtained, the patient was brought to the operating room and laid in the left lateral decubitus position. The colonoscope was inserted into the rectum. It was passed up the rectum, to the level of the anastomosis. The anastomosis appeared less strictured than last time, however the scope would not pass through the anastomosis. Secondary to this an 18-20 mm balloon was chosen to dilate the stricture. The stricture was dilated to 18 mm and held for 1 minute. The balloon was deflated and the anastomosis was inspected. There is no sign of damage to the mucosa. The balloon was again dilated to 18 mm and held for 1 minute. The balloon was then deflated, and no obvious mucosal damage was identified. The balloon was then inflated to 20 mm and was held for 2 minutes. Upon deflation of the balloon, there was a small mucosal defect at the anastomotic site. The mucosal tear did not appear to be full-thickness. At this time, the procedure was concluded. The scope was removed. All sponge, instrument, and needle counts were correct x2. Condition: Stable.
[2018-08-06 12:28] VITALS: BP 117/75
== END 2018-08-06 12:20 | disposition home or self-care (01) ==
LOC: OROUT 07:46
PROVIDERS: ATTEND Surgery
DX: K56.699 Other intestinal obstruction unspecified as to partial versus complete obstruction (principal); I25.10 Atherosclerotic heart disease of native coronary artery without angina pectoris; F17.210 Nicotine dependence, cigarettes, uncomplicated; I10 Essential (primary) hypertension; Z79.891 Long term (current) use of opiate analgesic; Z95.5 Presence of coronary angioplasty implant and graft; Z85.828 Personal history of other malignant neoplasm of skin
CPT/HCPCS: 45340; 36415 ×2; 84132; 80048; J1100; J2704; 811; J2250; J2405; J3010; J3490

== ENCOUNTER → 2018-08-15 | Outpatient (CLI) | payer MEDICAID ==
--- NOTE | 2018-08-15 12:06 | RADIOLOGY REPORT (SQ) ---
EXAM DESCRIPTION: MRI LUMBAR SPINE WITHOUT COMPLETED DATE/TIME: 08/15/2018 10:57 am REASON FOR STUDY: LOW BACK PAIN (M54.41) M54.41 LUMBAGO WITH SCIATICA, RIGHT SIDE COMPARISON: CT abdomen pelvis 07/31/2018, 07/10/2018 TECHNIQUE: Sagittal and Axial imaging includes T1, T2, STIR and gradient echo sequences. Coronal T2/ HASTE imaging. LIMITATIONS: None. FINDINGS: VISUALIZED UPPER ABDOMEN: Limited evaluation. No acute or suspicious findings suggested. SEGMENTATION: No transitional anatomy. The lowest well-developed disc space is labeled L5-S1. ALIGNMENT: Minimal anterolisthesis of L4 over L5 related to bilateral facet arthropathy VERTEBRAE: Intact. BONE MARROW: Fatty reactive vertebral body endplate changes at L2-3 and L5-S1. DISC SIGNAL: Diffuse decreased T2 weighted intervertebral disc signal with multilevel disc space loss of height POSTERIOR ELEMENTS: Generally intact. No pars defect evident. HARDWARE: None in the spine. CORD AND CONUS: Normal in size and signal intensity. Conus at the T12-L1 level. SOFT TISSUES: No aortic aneurysm seen. No bulky retroperitoneal adenopathy or mass. No paraspinal mas s or fluid. T11-12: Minimal posterior disc bulging, mild bilateral facet and ligament hypertrophy. No central o r foraminal stenosis. T12-L1: Minimal posterior disc bulging. Mild bilateral facet hypertrophy. No central or foraminal stenosis. L1-L2: Mild diffuse posterior disc bulging, moderate bilateral facet and ligament hypertrophy. Borde rline central canal narrowing. Mild bilateral inferior foraminal narrowing without exiting L1 nerve root impingement. L2-L3: Broad diffuse posterior disc bulging, moderate bilateral facet and ligament hypertrophy. Bord lea central canal narrowing. Mild bilateral inferior foraminal narrowing without exiting L2 nerve root impingement. L3-L4: Broad diffuse posterior disc bulging with bulky bilateral facet hypertrophy. Borderline centr al canal narrowing. Mild right, moderate left foraminal narrowing without exit L3 nerve root impinge ment. L4-L5: Grade 1 anterolisthesis of L4 over L5 is present related to bilateral facet arthropathy. Broa d diffuse posterior disc bulging and bulky facet hypertrophy cause borderline central canal narrowing . Mild right foraminal narrowing, moderate left foraminal narrowing without definite exiting L4 nerv e root impingement. Small synovial cysts protruding off the right and left L4-5 facet joints inferio rly without foraminal encroachment. L5-S1: Mild diffuse posterior disc bulge and bony spurring, mild bilateral facet and ligament hypertr ophy. High-grade bilateral foraminal narrowing is present with effacement of the fat around the exit ing L5 nerve roots bilaterally SACRUM: Visualized upper sacrum intact. OTHER: No other significant findings. IMPRESSION: Degenerative changes most pronounced at L4-5 and L5-S1 as above TECHNICAL DOCUMENTATION: JOB ID: [id number] [employer]- All Rights Reserved Reading location - IP/workstation name: [email or web address]
== END ==
LOC: RAD 10:03
PROVIDERS: ATTEND Family Medicine
DX: M54.41 Lumbago with sciatica, right side (principal)
CPT/HCPCS: 72148

== ENCOUNTER 2018-09-27 08:59 | Day surgery (SDC) | payer MEDICAID ==
[~2018-09-27 08:59] MED LIST changes: -DEXAMETHASONE SOD PHOSPHATE INJ 4 MG/1 ML VIAL ONE; -EPHEDRINE SULFATE INJ 50 MG/1 ML AMPULE ONE; -FENTANYL CITRATE INJ/PF 100 MCG/2 ML AMPUL ONE; -LACTATED RINGERS 1000 ML IV PRN; -LIDOCAINE 0.5% INJ-PF (5 MG/ML) 50 ML SDV SUBCUT PRN; -MIDAZOLAM 2 MG/2 ML INJ ONE; -ONDANSETRON HCL INJ/PF 4 MG/2 ML SDV ONE
[2018-09-27] MEDS ORDERED: PROPOFOL INJ 200 MG/20 ML VIAL IV ONE (10:17)
[2018-09-27] MEDS ORDERED: MIDAZOLAM 2 MG/2 ML INJ ONE (10:17)
[2018-09-27 13:16] VITALS: BP 132/78
--- NOTE | 2018-09-30 08:35 | Discharge Summary ---
Discharge Summary (SDC) - Discharge Final Diagnosis: History of diverticulitis, history of anastomotic stricture. Date of Surgery: 09/27/18 Discharge Date: 09/27/18 Condition: Stable Forms: ASU Anesthesia D/C Instruction, Discharge POC-Surgical Service Treatment or Instructions: Discharge home. Diet as tolerated. Activity: Nonstrenuous. Follow-up with me next week in the office. Referrals: LONNY MCCRACKEN MD [ACTIVE STAFF] - 10/03/18 8:15 am (Keep your scheduled follow-up appointment.) Discharge Diet: As Tolerated Respiratory Treatments at Home: Deep Breathing/Coughing, Incentive Spirometer Discharge Activity: Activity As Tolerated Home Care Assistance: None Needed Report the Following to Your Physician Immediately: Increase in Pain, Fever over 101 Degrees, Unusual Bleeding, Swelling, IV Site Infection Signs
--- NOTE | 2018-09-30 08:40 | Operative Report ---
Nonrecallable Operative Report DATE OF SURGERY: 09/27/18 PREOPERATIVE DIAGNOSIS: 1. History of anastomotic stricture. 2. History of complicated diverticulitis POSTOPERATIVE DIAGNOSIS: 1. No evidence of anastomotic stricture. 2. No evidence of active diverticulitis. OPERATION: Flexible sigmoidoscopy SURGEON: LONNY MCCRACKEN ANESTHESIA: LMAC TISSUE REMOVED OR ALTERED: None COMPLICATIONS: None apparent ESTIMATED BLOOD LOSS: None PROCEDURE: Procedure in detail: After informed consent was obtained, the patient was brought into the operating room and laid in the left lateral decubitus position. The endoscope was inserted into the rectum. It was passed up the rectum, sigmoid colon, to the level of the anastomosis. There was a large amount of mucus in the rectum, requiring significant irrigation. Once the mucus was cleared away, the anastomosis was easily identified. There was no evidence of stricture whatsoever. The mucosa was intact. The scope passed easily through the anastomosis. The scope was advanced to approximately 60 cm in the descending colon. There was a moderate amount of "colitis of disuse". There was no sign of active diverticulitis. The scope was then withdrawn, removing air throughout the sigmoid and rectum. The scope was removed, and the procedure was concluded. All sponge, instrument, and needle counts were correct. Condition: Stable.
== END 2018-09-27 13:10 | disposition home or self-care (01) ==
LOC: OROUT 08:59
PROVIDERS: ATTEND Surgery
DX: Z09 Encounter for follow-up examination after completed treatment for conditions other than malignant neoplasm (principal); Z87.19 Personal history of other diseases of the digestive system; Z95.5 Presence of coronary angioplasty implant and graft; Z85.828 Personal history of other malignant neoplasm of skin; I10 Essential (primary) hypertension; I25.10 Atherosclerotic heart disease of native coronary artery without angina pectoris; L91.8 Other hypertrophic disorders of the skin; K43.2 Incisional hernia without obstruction or gangrene; F17.210 Nicotine dependence, cigarettes, uncomplicated; Z79.891 Long term (current) use of opiate analgesic; Z79.899 Other long term (current) drug therapy
CPT/HCPCS: 36415; 84132; G0104; 811; J2250; J2704

== ENCOUNTER 2018-10-31 08:50 | Inpatient (IN) | payer MEDICAID ==
[2018-10-24 09:36] LABS: HEMATOCRIT 42.1 % (37.9-51.0); HEMOGLOBIN 13.6 g/dL (13.5-17.0); MEAN CORPUSCULAR HGB CONC 32.3 g/dL (32.0-36.0); MEAN CORPUSCULAR VOLUME 84 fl (80-97); PLATELET COUNT 181 10^3/uL (150-450); RED BLOOD COUNT 5.04 10^6/uL (4.35-5.55); RED CELL DISTRIBUTION WIDTH 18.7 % (11.5-14.0); WHITE BLOOD COUNT 8.2 10^3/uL (4.0-10.5)
[2018-10-24 10:01] LABS: ANION GAP 7 (5-19); BLOOD UREA NITROGEN 22 mg/dL (7-20); CALCIUM 9.8 mg/dL (8.4-10.2); CARBON DIOXIDE 27 mmol/L (22-30); CHLORIDE 105 mmol/L (98-107); GLUCOSE 122 mg/dL (75-110); POTASSIUM 5.5 mmol/L (3.6-5.0); SODIUM 139.4 mmol/L (137-145)
--- NOTE | 2018-10-24 11:09 | RADIOLOGY REPORT (SQ) ---
EXAM DESCRIPTION: CHEST PA/LATERAL COMPLETED DATE/TIME: 10/24/2018 10:36 am REASON FOR STUDY: PRE-OP COMPARISON: 07/10/2018 EXAM PARAMETERS: NUMBER OF VIEWS: two views TECHNIQUE: Digital Frontal and Lateral radiographic views of the chest acquired. RADIATION DOSE: NA LIMITATIONS: none FINDINGS: LUNGS AND PLEURA: No opacities, masses or pneumothorax. No pleural effusion. MEDIASTINUM AND HILAR STRUCTURES: No masses or contour abnormalities. HEART AND VASCULAR STRUCTURES: Heart normal size. No evidence for failure. BONES: No acute findings. HARDWARE: None in the chest. OTHER: No other significant finding. IMPRESSION: NO SIGNIFICANT RADIOGRAPHIC FINDING IN THE CHEST. TECHNICAL DOCUMENTATION: JOB ID: [id number] [employer] acquired by [employer]- All Rights Reserved Reading location - IP/workstation name: [email or web address]
--- NOTE | 2018-10-24 19:45 | EKG REPORT ---
SEVERITY:- NORMAL ECG - SINUS RHYTHM : Confirmed by: Joan Zarate MD 24-Oct-2018 19:43:48
[~2018-10-31 08:50] MED LIST changes: +CEFOXITIN SODIUM 2 GM in DEXTROSE 5%-WATER 100 ML IV PRN; +LACTATED RINGERS 1000 ML IV PRN; +LIDOCAINE 0.5% INJ-PF (5 MG/ML) 50 ML SDV SUBCUT PRN; -PROPOFOL INJ 200 MG/20 ML VIAL IV ONE
[2018-10-31] MEDS ORDERED: GLYCOPYRROLATE 1 MG/5 ML SYRINGE ONE (14:32)
[2018-10-31] MEDS ORDERED: NEOSTIGMINE METHYLSULFATE 10 MG/10 ML VIAL ONE (14:32)
[2018-10-31] MEDS ORDERED: ROCURONIUM BROMIDE INJ 50 MG/5 ML VIAL IV ONE (14:32)
[2018-10-31] MEDS ORDERED: SUCCINYLCHOLINE CHLORIDE INJ 200 MG/10 ML VIAL ONE (14:32)
[2018-10-31] MEDS ORDERED: MIDAZOLAM 2 MG/2 ML INJ ONE (17:34)
[2018-10-31] MEDS ORDERED: FENTANYL CITRATE INJ/PF 250 MCG/5 ML AMPULE ONE (17:34)
[2018-10-31] MEDS ORDERED: KETOROLAC TROMETHAMINE 60 MG/2 ML SDV ONE (17:34)
[2018-10-31] MEDS ORDERED: ONDANSETRON HCL INJ/PF 4 MG/2 ML SDV ONE (17:35)
[2018-10-31] MEDS ORDERED: PROPOFOL INJ 200 MG/20 ML VIAL IV ONE (17:35)
[2018-10-31] MEDS ORDERED: FENTANYL CITRATE INJ/PF 100 MCG/2 ML AMPUL IV PRN ×3 (17:42)
[2018-10-31] MEDS ORDERED: MORPHINE SULFATE 10 MG/ML INJ IV PRN (17:42)
[2018-10-31] MEDS ORDERED: PROMETHAZINE HCL INJ 25 MG/1 ML VIAL IV PRN (17:42)
[2018-10-31] MEDS ORDERED: DIPHENHYDRAMINE HCL 50 MG/ML VIAL IV PRN (17:42)
[2018-10-31] MEDS ORDERED: MEPERIDINE HCL/PF INJ 25 MG/1 ML DISP.SYRIN IV PRN (17:42)
[2018-10-31] MEDS ORDERED: BUPIVACAINE HCL 0.25 % INJ/PF (2.5 MG/1 ML) 30 ML VIAL ONE (17:53)
[2018-10-31] MEDS ORDERED: ALBUTEROL SULFATE 0.042% NEB (1.25 MG/3 ML) AMPUL NEB PRN (19:57)
[2018-10-31] MEDS ORDERED: HYDROMORPHONE HCL INJ/PF 2 MG/ML AMPULE ONE (20:18)
[2018-10-31] MEDS: DOXYCYCLINE HYCLATE 100 MG TABLET PO SCH (21:57)
[2018-10-31] MEDS: CARVEDILOL 12.5 MG TABLET PO SCH (21:57)
[2018-10-31] MEDS: OXYCODONE-ACETAMINOPHEN 5-325 MG TABLET PO PRN (21:57)
[2018-10-31] MEDS: HEPARIN SOD (PORCINE) 5,000 UNIT/ML 1 ML SYRINGE SUBCUT SCH (21:58)
[2018-11-01] MEDS: HYDROMORPHONE HCL INJ/PF 2 MG/ML AMPULE IV PRN ×5 (00:39→20:10)
[2018-11-01] MEDS: OXYCODONE-ACETAMINOPHEN 5-325 MG TABLET PO PRN ×4 (02:53→22:36)
[2018-11-01] MEDS: HEPARIN SOD (PORCINE) 5,000 UNIT/ML 1 ML SYRINGE SUBCUT SCH ×3 (05:32→22:35)
[2018-11-01 05:46] LABS: ANION GAP 7 (5-19); BLOOD UREA NITROGEN 23 mg/dL (7-20); CALCIUM 9.1 mg/dL (8.4-10.2); CARBON DIOXIDE 26 mmol/L (22-30); CHLORIDE 105 mmol/L (98-107); GLUCOSE 107 mg/dL (75-110); POTASSIUM 4.4 mmol/L (3.6-5.0); SODIUM 137.9 mmol/L (137-145)
[2018-11-01 07:30] LABS: ABSOLUTE BASOPHILS # (AUTO) 0.1 10^3/uL (0.0-0.2); ABSOLUTE EOSINOPHILS # (AUTO) 0.3 10^3/uL (0.0-0.6); ABSOLUTE LYMPHOCYTES (AUTO) 1.6 10^3/uL (0.5-4.7); ABSOLUTE MONOCYTES (AUTO) 0.7 10^3/uL (0.1-1.4); ABSOLUTE NEUT (AUTO) 5.9 10^3/uL (1.7-8.2); BASOPHILS % (AUTO) 0.9 % (0-2); EOSINOPHILS % (AUTO) 3.6 % (0-6); HEMATOCRIT 40.8 % (37.9-51.0); HEMOGLOBIN 13.1 g/dL (13.5-17.0); LYMPHOCYTES % (AUTO) 18.6 % (13-45); MEAN CORPUSCULAR HEMOGLOBIN 25.9 pg (27.0-33.4); MEAN CORPUSCULAR HGB CONC 32.1 g/dL (32.0-36.0); MEAN CORPUSCULAR VOLUME 81 fl (80-97); MONOCYTES % (AUTO) 8.7 % (3-13); PLATELET COUNT 235 10^3/uL (150-450); RED BLOOD COUNT 5.06 10^6/uL (4.35-5.55); RED CELL DISTRIBUTION WIDTH 18.8 % (11.5-14.0); SEGMENTED NEUTROPHILS % (AUTO) 68.2 % (42-78); TOTAL CELLS COUNTED % (AUTO) 100 %; WHITE BLOOD COUNT 8.6 10^3/uL (4.0-10.5)
[2018-11-01] MEDS: FUROSEMIDE 40 MG TABLET PO SCH ×2 (09:29→17:03)
[2018-11-01] MEDS: CARVEDILOL 12.5 MG TABLET PO SCH ×2 (09:29→22:35)
[2018-11-01] MEDS: DOXYCYCLINE HYCLATE 100 MG TABLET PO SCH (10:31)
[2018-11-01] MEDS: 1/2 NORMAL SALINE 1,000 ML IV PRN ×2 (10:39→22:36)
[2018-11-01] MEDS: ONDANSETRON HCL INJ/PF 4 MG/2 ML SDV IV PRN ×2 (10:39→20:11)
[2018-11-01] MEDS: NICOTINE 21 MG/24 HR PATCH.TD24 TD SCH (12:10)
[2018-11-01] MEDS: DOXYCYCLINE HYCLATE 100 MG in DEXTROSE 5%-WATER 250 ML IV SCH ×2 (12:14→22:36)
--- NOTE | 2018-11-01 16:29 | PDOC PROGRESS REPORT ---
Subjective Progress Note for:: 11/01/18 Reason For Visit: S/P ILEOSSTOMY REVERSAL AND ABDOMINAL WALL DRAINAG Physical Exam Vital Signs: Temp Pulse Resp BP Pulse Ox 98.2 F 96 17 163/84 H 91 L 11/01/18 12:11 11/01/18 12:11 11/01/18 12:11 11/01/18 12:11 11/01/18 12:11 Intake & Output 10/31/18 11/01/18 11/02/18 06:59 06:59 06:59 Intake Total 2044 694 Output Total 845 Balance 1199 694 Weight 103 kg Results Laboratory Results: 11/01/18 07:16 11/01/18 05:05 11/01/18 11/01/18 11/01/18 05:05 05:05 07:16 WBC Cancelled 8.6 RBC Cancelled 5.06 Hgb Cancelled 13.1 L Hct Cancelled 40.8 MCV Cancelled 81 MCH Cancelled 25.9 L MCHC Cancelled 32.1 RDW Cancelled 18.8 H Plt Count Cancelled 235 Seg Neutrophils % Cancelled 68.2 Lymphocytes % Cancelled 18.6 Monocytes % Cancelled 8.7 Eosinophils % Cancelled 3.6 Basophils % Cancelled 0.9 Absolute Neutrophils Cancelled 5.9 Absolute Lymphocytes Cancelled 1.6 Absolute Monocytes Cancelled 0.7 Absolute Eosinophils Cancelled 0.3 Absolute Basophils Cancelled 0.1 Sodium 137.9 Potassium 4.4 Chloride 105 Carbon Dioxide 26 Anion Gap 7 BUN 23 H Creatinine 1.29 H Est GFR ( Amer) > 60 Est GFR (Non-Af Amer) 57 L Glucose 107 Calcium 9.1 Impressions: Chest X-Ray 10/24/18 10:33 IMPRESSION: NO SIGNIFICANT RADIOGRAPHIC FINDING IN THE CHEST. Assessment & Plan - Diagnosis (1) Ileostomy in place Is this a current diagnosis for this admission?: Yes (2) History of diverticular abscess Is this a current diagnosis for this admission?: Yes (3) Abdominal wall abscess Is this a current diagnosis for this admission?: Yes - Plan Summary Plan Summary: This is a 58-year-old male status post ileostomy reversal. The patient is passing some flatus and had a small bowel movement today. He did experience nausea and vomiting as well. I will make the patient n.p.o. Restart IV fluids. Okay for ice chips and popsicles. Okay for oral medications. Continue antibiotics for his abdominal wall abscess. Aggressive pulmonary toilet. Out of bed. Discontinue Cheek catheter.
[2018-11-02] MEDS: HYDROMORPHONE HCL INJ/PF 2 MG/ML AMPULE IV PRN ×4 (02:17→18:53)
[2018-11-02] MEDS: HEPARIN SOD (PORCINE) 5,000 UNIT/ML 1 ML SYRINGE SUBCUT SCH ×3 (05:03→21:10)
[2018-11-02] MEDS: OXYCODONE-ACETAMINOPHEN 5-325 MG TABLET PO PRN ×3 (05:03→21:11)
[2018-11-02] MEDS: ONDANSETRON HCL INJ/PF 4 MG/2 ML SDV IV PRN ×4 (05:03→18:54)
[2018-11-02 06:44] LABS: ANION GAP 13 (5-19); BLOOD UREA NITROGEN 17 mg/dL (7-20); CALCIUM 9.1 mg/dL (8.4-10.2); CARBON DIOXIDE 21 mmol/L (22-30); CHLORIDE 102 mmol/L (98-107); POTASSIUM 4.5 mmol/L (3.6-5.0); SODIUM 135.7 mmol/L (137-145)
[2018-11-02 06:45] LABS: GLUCOSE 127 mg/dL (75-110)
[2018-11-02] MEDS: DOXYCYCLINE HYCLATE 100 MG in DEXTROSE 5%-WATER 250 ML IV SCH ×2 (10:11→21:10)
[2018-11-02] MEDS: FUROSEMIDE 40 MG TABLET PO SCH ×2 (10:12→18:53)
[2018-11-02] MEDS: CARVEDILOL 12.5 MG TABLET PO SCH ×2 (10:12→21:11)
[2018-11-02] MEDS: NICOTINE 21 MG/24 HR PATCH.TD24 TD SCH (10:12)
[2018-11-02] MEDS: 1/2 NORMAL SALINE 1,000 ML IV PRN ×2 (10:16→21:10)
--- NOTE | 2018-11-02 12:38 | RADIOLOGY REPORT (SQ) ---
EXAM DESCRIPTION: KUB/ABDOMEN (SINGLE VIEW) COMPLETED DATE/TIME: 11/02/2018 12:28 pm REASON FOR STUDY: distention after ileostomy reversal Z43.9 ENCOUNTER FOR ATTENTION TO UNSPECIFIED ARTIFICIAL OPEN S31.109A UNSP OPN WND ABD WALL, UNSP Q W/O PENET PERIT CAV, R19.03 RIGHT LOWER DENISE DRANT ABDOMINAL SWELLING, MASS AND LUM COMPARISON: None. NUMBER OF VIEWS: One view. TECHNIQUE: Supine radiographic image of the abdomen acquired. LIMITATIONS: None. FINDINGS: BOWEL GAS PATTERN: Mild diffuse gaseous distention throughout the small bowel and colon. CALCIFICATIONS: No suspicious calcifications. SOFT TISSUES: No gross mass or suggestion of organomegaly. HARDWARE: Catheter overlying the lower abdomen. BONES: No acute fracture. Marked degenerative changes in the right hip. No worrisome bone lesions. OTHER: No other significant finding. IMPRESSION: MILD DIFFUSE GASEOUS DISTENTION THROUGHOUT THE SMALL BOWEL AND COLON. TECHNICAL DOCUMENTATION: JOB ID: [id number] [employer]- All Rights Reserved Reading location - IP/workstation name: [email or web address]
--- NOTE | 2018-11-02 12:42 | PDOC PROGRESS REPORT ---
Subjective Progress Note for:: 11/02/18 Reason For Visit: S/P ILEOSSTOMY REVERSAL AND ABDOMINAL WALL DRAINAG Physical Exam Vital Signs: Temp Pulse Resp BP Pulse Ox 97.6 F 90 18 136/87 H 93 11/02/18 08:00 11/02/18 08:47 11/02/18 08:47 11/02/18 08:00 11/02/18 08:47 Intake & Output 11/01/18 11/02/18 11/03/18 06:59 06:59 06:59 Intake Total 2044 2388 1000 Output Total 845 485 Balance 1199 1903 1000 Weight 103 kg 104.8 kg Results Laboratory Results: 11/01/18 07:16 11/02/18 05:10 11/02/18 05:10 Sodium 135.7 L Potassium 4.5 Chloride 102 Carbon Dioxide 21 L Anion Gap 13 BUN 17 Creatinine 0.90 Est GFR ( Amer) > 60 Est GFR (Non-Af Amer) > 60 Glucose 127 H Calcium 9.1 Impressions: Chest X-Ray 10/24/18 10:33 IMPRESSION: NO SIGNIFICANT RADIOGRAPHIC FINDING IN THE CHEST. Assessment & Plan - Diagnosis (1) Ileostomy in place Is this a current diagnosis for this admission?: Yes (2) History of diverticular abscess Is this a current diagnosis for this admission?: Yes (3) Abdominal wall abscess Is this a current diagnosis for this admission?: Yes - Plan Summary Plan Summary: This is a 58-year-old male status post ileostomy reversal. The patient is passing flatus and having bowel movements today. He still c/o nausea and vomiting. Okay for ice chips and popsicles. Okay for oral medications. Continue antibiotics for his abdominal wall abscess. Aggressive pulmonary toilet. Out of bed. Still with complaints of nausea and vomiting, despite the presence of bowel function. The patient has had 2 large liquid bowel movements and passing flatus overnight. Continue with n.p.o. except ice chips and popsicles. KUB obtained. There is air within small bowel and colon. There appears to be air in the rectum. We will continue to monitor closely. If symptoms do not resolve in the next 24 to 48 hours, plan for CT scan.
--- NOTE | 2018-11-02 13:39 | Operative Report ---
Nonrecallable Operative Report DATE OF SURGERY: 10/31/18 PREOPERATIVE DIAGNOSIS: 1. Unwanted ileostomy. 2. Abdominal wall abscess. POSTOPERATIVE DIAGNOSIS: same as above. OPERATION: 1. Takedown/reversal of right lower quadrant ileostomy. 2. incision and drainage of a chronic abdominal wall abscess. SURGEON: LONNY MCCRACKEN ANESTHESIA: GA TISSUE REMOVED OR ALTERED: none COMPLICATIONS: none apparent ESTIMATED BLOOD LOSS: minimal PROCEDURE: Drains/implants: 15 British round Zhen drain in the abdominal wall abscess. Procedure in detail: After informed consent was obtained, the patient was brought to the operating room and laid in the supine position. The ileostomy was closed using 0 silk suture in running locking fashion. Next the abdomen was prepped and draped in a normal sterile fashion. The skin around the ileostomy was incised in elliptical fashion with a 15 blade scalpel. Dissection was carried through the subcutaneous tissues using sharp dissection, blunt dissection, and electrocautery. Once the afferent and afferent limbs of the loop ileostomy were completely freed, they were brought in apposition to one another using the antimesenteric surfaces. Enterotomies were created and a side to side stapled EEA anastomosis was performed with the NELDA-75 stapler. 2 crotch stitches of 3-0 Vicryl suture were placed. Next, the resultant defect was closed using the NELDA-75 stapler. The anastomosis was tested. There was an appropriate lumen present. There was no leakage of air or stool identified. The anastomosis was returned to the abdominal cavity. The fascia was closed using #1 Prolene suture in rhjzti-yj-gukel fashion. The wound was packed with a Xeroform gauze. The middle portion of the skin was loosely reapproximated using 3-0 Vicryl suture. Attention was then turned to drainage of the chronic abdominal abscess. 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 The fistula was laid open, to reveal a large abscess cavity within the abdominal wall. There was purulent material present, but no obvious succus entericus. Once the cavity was adequately washed, a 15 British round Zhen drain was placed through separate stab incision. The skin overlying the abscess was then closed. The subcutaneous tissue was closed using 3-0 Vicryl suture. The overlying skin was closed using 3-0 nylon suture in running horizontal mattress fashion. All sponge, instrument, needle counts were correct x2. Dressings were placed and the procedure was concluded. Condition: Stable.
[2018-11-02] MEDS: CALCIUM CARBONATE 500 MG TAB.CHEW PO PRN (15:14)
[2018-11-03] MEDS: CALCIUM CARBONATE 500 MG TAB.CHEW PO PRN ×2 (00:04→08:55)
[2018-11-03] MEDS: HYDROMORPHONE HCL INJ/PF 2 MG/ML AMPULE IV PRN ×5 (00:04→22:03)
[2018-11-03] MEDS: OXYCODONE-ACETAMINOPHEN 5-325 MG TABLET PO PRN ×5 (03:13→23:36)
[2018-11-03] MEDS: HEPARIN SOD (PORCINE) 5,000 UNIT/ML 1 ML SYRINGE SUBCUT SCH ×3 (05:30→22:03)
[2018-11-03 05:52] LABS: ANION GAP 11 (5-19); BLOOD UREA NITROGEN 20 mg/dL (7-20); CARBON DIOXIDE 25 mmol/L (22-30); CHLORIDE 98 mmol/L (98-107); GLUCOSE 134 mg/dL (75-110); POTASSIUM 4.3 mmol/L (3.6-5.0); SODIUM 133.7 mmol/L (137-145)
[2018-11-03 07:22] LABS: ABSOLUTE LYMPHOCYTES (AUTO) 1.1 10^3/uL (0.5-4.7); ABSOLUTE MONOCYTES (AUTO) 1.2 10^3/uL (0.1-1.4); ABSOLUTE NEUT (AUTO) 5.6 10^3/uL (1.7-8.2); BASOPHILS % (AUTO) 0.2 % (0-2); EOSINOPHILS % (AUTO) 0.4 % (0-6); HEMATOCRIT 42.9 % (37.9-51.0); LYMPHOCYTES % (AUTO) 13.3 % (13-45); MEAN CORPUSCULAR HEMOGLOBIN 26.1 pg (27.0-33.4); MEAN CORPUSCULAR HGB CONC 32.6 g/dL (32.0-36.0); MEAN CORPUSCULAR VOLUME 80 fl (80-97); MONOCYTES % (AUTO) 15.2 % (3-13); RED BLOOD COUNT 5.37 10^6/uL (4.35-5.55); RED CELL DISTRIBUTION WIDTH 19.7 % (11.5-14.0); SEGMENTED NEUTROPHILS % (AUTO) 70.9 % (42-78); TOTAL CELLS COUNTED % (AUTO) 100 %; WHITE BLOOD COUNT 7.9 10^3/uL (4.0-10.5)
[2018-11-03 07:53] LABS: PLATELET COUNT 161 10^3/uL (150-450)
[2018-11-03] MEDS: 1/2 NORMAL SALINE 1,000 ML IV PRN ×2 (08:54→22:02)
[2018-11-03] MEDS: ONDANSETRON HCL INJ/PF 4 MG/2 ML SDV IV PRN ×3 (08:55→18:15)
[2018-11-03] MEDS: DOXYCYCLINE HYCLATE 100 MG in DEXTROSE 5%-WATER 250 ML IV SCH ×2 (09:08→22:02)
[2018-11-03] MEDS: CARVEDILOL 12.5 MG TABLET PO SCH ×2 (09:09→22:03)
[2018-11-03] MEDS: FUROSEMIDE 40 MG TABLET PO SCH ×2 (09:09→18:11)
[2018-11-03] MEDS: NICOTINE 21 MG/24 HR PATCH.TD24 TD SCH (09:12)
--- NOTE | 2018-11-03 10:31 | PDOC PROGRESS REPORT ---
Subjective Progress Note for:: 11/03/18 Reason For Visit: S/P ILEOSSTOMY REVERSAL AND ABDOMINAL WALL DRAINAG Physical Exam Vital Signs: Temp Pulse Resp BP Pulse Ox 97.9 F 101 H 20 126/81 H 95 11/03/18 08:00 11/03/18 08:00 11/03/18 08:00 11/03/18 08:00 11/03/18 08:00 Intake & Output 11/02/18 11/03/18 11/04/18 06:59 06:59 06:59 Intake Total 2388 2972 1000 Output Total 495 1070 Balance 1893 1902 1000 Weight 104.8 kg 105.8 kg Results Laboratory Results: 11/03/18 07:15 11/03/18 05:23 11/03/18 11/03/18 11/03/18 05:23 05:23 07:15 WBC Cancelled 7.9 RBC Cancelled 5.37 Hgb Cancelled 14.0 Hct Cancelled 42.9 MCV Cancelled 80 MCH Cancelled 26.1 L MCHC Cancelled 32.6 RDW Cancelled 19.7 H Plt Count Cancelled 161 Seg Neutrophils % Cancelled 70.9 Lymphocytes % Cancelled 13.3 Monocytes % Cancelled 15.2 H Eosinophils % Cancelled 0.4 Basophils % Cancelled 0.2 Absolute Neutrophils Cancelled 5.6 Absolute Lymphocytes Cancelled 1.1 Absolute Monocytes Cancelled 1.2 Absolute Eosinophils Cancelled 0.0 Absolute Basophils Cancelled 0.0 Sodium 133.7 L Potassium 4.3 Chloride 98 Carbon Dioxide 25 Anion Gap 11 BUN 20 Creatinine 0.99 Est GFR ( Amer) > 60 Est GFR (Non-Af Amer) > 60 Glucose 134 H Calcium 9.0 Impressions: Chest X-Ray 10/24/18 10:33 IMPRESSION: NO SIGNIFICANT RADIOGRAPHIC FINDING IN THE CHEST. KUB X-Ray 11/02/18 11:40 IMPRESSION: MILD DIFFUSE GASEOUS DISTENTION THROUGHOUT THE SMALL BOWEL AND COLON. Assessment & Plan - Diagnosis (1) Ileostomy in place Is this a current diagnosis for this admission?: Yes (2) History of diverticular abscess Is this a current diagnosis for this admission?: Yes (3) Abdominal wall abscess Is this a current diagnosis for this admission?: Yes - Plan Summary Plan Summary: This is a 58-year-old male status post ileostomy reversal. The patient reports passing a large amount of flatus last night and having bowel movements today. He still c/o nausea without vomiting. Okay for ice chips and popsicles. Okay for oral medications. Continue antibiotics for his abdominal wall abscess. Aggressive pulmonary toilet. Out of bed. Still with complaints of nausea and distention, despite the presence of bowel function. The patient has passed a large amount of flatus overnight. Continue with n.p.o. except ice chips and popsicles. Repeat x-rays today. Will continue to monitor closely. If symptoms do not resolve in the next 24 hours, plan for CT scan.
--- NOTE | 2018-11-03 11:23 | RADIOLOGY REPORT (SQ) ---
EXAM DESCRIPTION: ABDOMEN 2 VIEWS COMPLETED DATE/TIME: 11/03/2018 11:04 am REASON FOR STUDY: flat and upright. distenbtion after bowel surgery. Z43.9 ENCOUNTER FOR ATTENTION TO UNSPECIFIED ARTIFICIAL OPEN S31.109A UNSP OPN WND ABD WALL, UNSP Q W/O PENET PERIT CAV, R19.03 RIGHT LOWER QUADRANT ABDOMINAL SWELLING, MASS AND LUM COMPARISON: 11/02/2018. NUMBER OF VIEWS: Two views. TECHNIQUE: Supine and erect/decubitus radiographic images of the abdomen acquired. LIMITATIONS: None. FINDINGS: FREE AIR: None. No abnormal gas collections. LUNG BASES: Clear. BOWEL GAS PATTERN: Diffuse gaseous dilation of the small bowel and colon. No air-fluid levels. CALCIFICATIONS: No suspicious calcifications. SOFT TISSUES: No gross mass or suggestion of organomegaly. HARDWARE: Catheter overlying the lower abdomen. BONES: No acute fracture. No worrisome bone lesions. OTHER: No other significant finding. IMPRESSION: DIFFUSE GASEOUS DILATION OF THE SMALL BOWEL AND COLON, UNCHANGED. TECHNICAL DOCUMENTATION: JOB ID: [id number] [employer]- All Rights Reserved Reading location - IP/workstation name: [email or web address]
--- NOTE | 2018-11-03 14:55 | RADIOLOGY REPORT (SQ) ---
EXAM DESCRIPTION: CT ABD/PELVIS NO ORAL OR IV COMPLETED DATE/TIME: 11/03/2018 2:30 pm REASON FOR STUDY: continued abdominal distention after surgery Z43.9 ENCOUNTER FOR ATTENTION TO UNS PECIFIED ARTIFICIAL OPEN S31.109A UNSP OPN WND ABD WALL, UNSP Q W/O PENET PERIT CAV, R19.03 RIGHT LOWER QUADRANT ABDOMINAL SWELLING, MASS AND LUM COMPARISON: 07/31/2018. TECHNIQUE: CT scan of the abdomen and pelvis performed without intravenous or oral contrast. Images reviewed with lung, soft tissue, and bone windows. Reconstructed coronal and sagittal MPR images revi ewed. All images stored on PACS. All CT scanners at this facility use dose modulation, iterative reconstruction, and/or weight based d osing when appropriate to reduce radiation dose to as low as reasonably achievable (ALARA). [facility]: Dose Right [facility]: CareDose [facility]: Dose Right [facility]: Teradose 4D [facility]: Smart Stantum RADIATION DOSE: CT Rad equipment meets quality standard of care and radiation dose reduction techniq ues were employed. CTDIvol: 16.1 mGy. DLP: 903 mGy-cm.mGy. LIMITATIONS: None. FINDINGS: LOWER CHEST: No significant findings. No nodules or infiltrates. NON-CONTRASTED LIVER, SPLEEN, ADRENALS: Evaluation limited by lack of IV contrast. Stable small hepa tic cysts. No identified significant masses. PANCREAS: No masses. No peripancreatic inflammatory changes. GALLBLADDER: No identified stones by CT criteria. No inflammatory changes to suggest cholecystitis. RIGHT KIDNEY AND URETER: No suspicious masses. Assessment limited by lack of IV contrast. No signif icant calcifications. No hydronephrosis or hydroureter. LEFT KIDNEY AND URETER: No suspicious masses. Assessment limited by lack of IV contrast. No signifi cant calcifications. No hydronephrosis or hydroureter. AORTA AND RETROPERITONEUM: No aneurysm. No retroperitoneal masses or adenopathy. BOWEL AND PERITONEAL CAVITY: Surgical changes. Anterior peritoneal drainage catheter. Bowel anastom osis in the right abdomen at the site of previous ileostomy. Anastomosis at the level of the proxima l rectum. Dilated colon and small bowel proximal to the distal anastomosis. No free fluid or free a ir. APPENDIX: Normal. PELVIS, BLADDER, AND ABDOMINAL WALL:Surgical changes in the abdominal wall. No abnormal masses. No f ree fluid. Bladder normal. BONES: No significant findings. Degenerative changes in the spine. OTHER: No other significant finding. IMPRESSION: 1. SURGICAL CHANGES. DILATED COLON AND SMALL BOWEL PROXIMAL TO THE DISTAL ANASTOMOSIS AT THE PROXIMA L RECTUM. THIS MAY BE DUE TO ANASTOMOTIC NARROWING WITH PARTIAL OBSTRUCTIVE CHANGES. THERE MAY BE A COMPONENT OF ILEUS WELL. 2. NO OTHER SIGNIFICANT OR ACUTE PROCESS IN THE ABDOMEN OR PELVIS. COMMENT: Quality ID # [id number]: Final reports with documentation of one or more dose reduction techniques (e.g., Automated exposure control, adjustment of the mA and/or kV according to patient size, use of iterative reconstruction technique) TECHNICAL DOCUMENTATION: JOB ID: [id number] [employer]- All Rights Reserved Reading location - IP/workstation name: [email or web address]
[2018-11-04] MEDS: HYDROMORPHONE HCL INJ/PF 2 MG/ML AMPULE IV PRN ×5 (04:21→23:05)
[2018-11-04] MEDS: OXYCODONE-ACETAMINOPHEN 5-325 MG TABLET PO PRN ×5 (05:45→23:46)
[2018-11-04] MEDS: HEPARIN SOD (PORCINE) 5,000 UNIT/ML 1 ML SYRINGE SUBCUT SCH ×3 (05:45→21:28)
[2018-11-04 06:14] LABS: ANION GAP 12 (5-19); BLOOD UREA NITROGEN 27 mg/dL (7-20); CALCIUM 9.3 mg/dL (8.4-10.2); CARBON DIOXIDE 28 mmol/L (22-30); CHLORIDE 95 mmol/L (98-107); GLUCOSE 113 mg/dL (75-110); POTASSIUM 4.1 mmol/L (3.6-5.0); SODIUM 134.8 mmol/L (137-145)
--- NOTE | 2018-11-04 06:22 | PDOC PROGRESS REPORT ---
Subjective Progress Note for:: 11/04/18 Reason For Visit: S/P ILEOSSTOMY REVERSAL AND ABDOMINAL WALL DRAINAG Physical Exam Vital Signs: Temp Pulse Resp BP Pulse Ox 98.1 F 91 20 117/74 95 11/04/18 00:00 11/04/18 00:00 11/04/18 00:00 11/04/18 00:00 11/04/18 00:00 Intake & Output 11/02/18 11/03/18 11/04/18 06:59 06:59 06:59 Intake Total 2388 2972 2500 Output Total 495 1070 580 Balance 1893 1902 1920 Weight 104.8 kg 105.8 kg Results Laboratory Results: 11/03/18 07:15 WBC 7.9 RBC 5.37 Hgb 14.0 Hct 42.9 MCV 80 MCH 26.1 L MCHC 32.6 RDW 19.7 H Plt Count 161 Seg Neutrophils % 70.9 Lymphocytes % 13.3 Monocytes % 15.2 H Eosinophils % 0.4 Basophils % 0.2 Absolute Neutrophils 5.6 Absolute Lymphocytes 1.1 Absolute Monocytes 1.2 Absolute Eosinophils 0.0 Absolute Basophils 0.0 Impressions: Chest X-Ray 10/24/18 10:33 IMPRESSION: NO SIGNIFICANT RADIOGRAPHIC FINDING IN THE CHEST. KUB X-Ray 11/02/18 11:40 IMPRESSION: MILD DIFFUSE GASEOUS DISTENTION THROUGHOUT THE SMALL BOWEL AND COLON. Abdomen X-Ray 11/03/18 10:27 IMPRESSION: DIFFUSE GASEOUS DILATION OF THE SMALL BOWEL AND COLON, UNCHANGED. Abdomen/Pelvis CT 11/03/18 13:33 IMPRESSION: 1. SURGICAL CHANGES. DILATED COLON AND SMALL BOWEL PROXIMAL TO THE DISTAL ANASTOMOSIS AT THE PROXIMAL RECTUM. THIS MAY BE DUE TO ANASTOMOTIC NARROWING WITH PARTIAL OBSTRUCTIVE CHANGES. THERE MAY BE A COMPONENT OF ILEUS WELL. 2. NO OTHER SIGNIFICANT OR ACUTE PROCESS IN THE ABDOMEN OR PELVIS. Assessment & Plan - Diagnosis (1) Ileostomy in place Is this a current diagnosis for this admission?: Yes (2) History of diverticular abscess Is this a current diagnosis for this admission?: Yes (3) Abdominal wall abscess Is this a current diagnosis for this admission?: Yes - Plan Summary Plan Summary: This is a 58-year-old male status post ileostomy reversal. The patient reports passing a large amount of flatus last night and having 3 bowel movements overnight. He still c/o distention, but has not had any vomiting. Okay for ice chips and popsicles. Okay for oral medications. Continue antibiotics for his abdominal wall abscess. Aggressive pulmonary toilet. Out of bed. Still with complaints of distention, despite the presence of bowel function. The patient has passed a large amount of flatus overnight. Continue with n.p.o. except ice chips and popsicles. CT scan performed yesterday was reviewed. The small bowel anastomosis is open without evidence of obstruction. The patient does have an area of narrowing at the previous colorectal anastomosis. This is a known finding, and it has been dilated in the past. Upon last examination there was approximately 20 mm worth of luminal diameter, which should be adequate for the movement of air and stool. If the patient's symptoms continue, plan for flexible sigmoidoscopy with possible dilation. Will monitor closely.
[2018-11-04 06:35] LABS: HEMATOCRIT 42.5 % (37.9-51.0); HEMOGLOBIN 13.7 g/dL (13.5-17.0); MEAN CORPUSCULAR HEMOGLOBIN 26.2 pg (27.0-33.4); MEAN CORPUSCULAR HGB CONC 32.2 g/dL (32.0-36.0); MEAN CORPUSCULAR VOLUME 81 fl (80-97); PLATELET COUNT 182 10^3/uL (150-450); RED BLOOD COUNT 5.22 10^6/uL (4.35-5.55); RED CELL DISTRIBUTION WIDTH 19.7 % (11.5-14.0); WHITE BLOOD COUNT 6.2 10^3/uL (4.0-10.5)
[2018-11-04 06:39] LABS: ABSOLUTE LYMPHOCYTES# (MANUAL) 1.6 10^3/uL (0.5-4.7); ABSOLUTE MONOCYTES # (MANUAL) 1.2 10^3/uL (0.1-1.4); ABSOLUTE NEUTROPHILS# (MANUAL) 3.2 10^3/uL (1.7-8.2); BAND NEUTROPHILS % (MANUAL) 7 % (3-5); BASOPHILS % (MANUAL) 1 % (0-2); EOSINOPHILS % (MANUAL) 3 % (0-6); LYMPHOCYTES % (MANUAL) 25 % (13-45); METAMYELOCYTES % (MANUAL) 1 % (0); MONOCYTES % (MANUAL) 20 % (3-13); SEGMENTED NEUTROPHILS % (MAN) 43 % (42-78); TOTAL CELLS COUNTED 100
[2018-11-04 06:40] LABS: TOXIC GRANULATION SLIGHT
[2018-11-04 06:41] LABS: PLATELET CLUMPS PRESENT; PLATELET LARGE PRESENT
[2018-11-04 06:42] LABS: ANISOCYTOSIS 1+; OVALOCYTES SLIGHT; SCHISTOCYTES SLIGHT
[2018-11-04] MEDS: CARVEDILOL 12.5 MG TABLET PO SCH ×2 (09:30→21:29)
[2018-11-04] MEDS: FUROSEMIDE 40 MG TABLET PO SCH ×2 (09:30→17:41)
[2018-11-04] MEDS: NICOTINE 21 MG/24 HR PATCH.TD24 TD SCH (09:31)
[2018-11-04] MEDS: DOXYCYCLINE HYCLATE 100 MG in DEXTROSE 5%-WATER 250 ML IV SCH ×2 (09:39→21:29)
[2018-11-05] MEDS: HYDROMORPHONE HCL INJ/PF 2 MG/ML AMPULE IV PRN ×4 (03:14→21:18)
[2018-11-05] MEDS: OXYCODONE-ACETAMINOPHEN 5-325 MG TABLET PO PRN ×4 (05:10→23:29)
[2018-11-05] MEDS: HEPARIN SOD (PORCINE) 5,000 UNIT/ML 1 ML SYRINGE SUBCUT SCH ×3 (05:10→21:17)
[2018-11-05 06:34] LABS: ALANINE AMINOTRANSFERASE 23 U/L (21-72); ALBUMIN 3.3 g/dL (3.5-5.0); ALKALINE PHOSPHATASE 87 U/L (38-126); ANION GAP 13 (5-19); ASPARTATE AMINO TRANSFERASE 15 U/L (17-59); BILIRUBIN,DIRECT 0.7 mg/dL (0.0-0.4); BILIRUBIN,TOTAL 0.7 mg/dL (0.2-1.3); BLOOD UREA NITROGEN 28 mg/dL (7-20); CALCIUM 9.3 mg/dL (8.4-10.2); CARBON DIOXIDE 28 mmol/L (22-30); CHLORIDE 95 mmol/L (98-107); GLUCOSE 116 mg/dL (75-110); POTASSIUM 4.4 mmol/L (3.6-5.0); SODIUM 135.7 mmol/L (137-145); TOTAL PROTEIN 5.9 g/dL (6.3-8.2)
[2018-11-05] MEDS: FUROSEMIDE 40 MG TABLET PO SCH ×2 (09:14→17:12)
[2018-11-05] MEDS: CARVEDILOL 12.5 MG TABLET PO SCH ×2 (09:14→21:17)
--- NOTE | 2018-11-05 09:14 | PDOC PROGRESS REPORT ---
Subjective Progress Note for:: 11/05/18 Reason For Visit: S/P ILEOSSTOMY REVERSAL AND ABDOMINAL WALL DRAINAG Physical Exam Vital Signs: Temp Pulse Resp BP Pulse Ox 101.1 F H 83 16 126/71 H 96 11/05/18 08:15 11/05/18 08:15 11/05/18 08:15 11/05/18 08:15 11/05/18 08:15 Intake & Output 11/04/18 11/05/18 11/06/18 06:59 06:59 06:59 Intake Total 2500 493 Output Total 580 2000 Balance 1920 -1507 Weight 104.5 kg General appearance: PRESENT: no acute distress, cooperative, obese Head exam: PRESENT: atraumatic, normocephalic Eye exam: PRESENT: EOMI, PERRLA. ABSENT: scleral icterus Respiratory exam: PRESENT: rales, unlabored, wheezes. ABSENT: tachypnea Cardiovascular exam: PRESENT: irregular rhythm GI/Abdominal exam: PRESENT: distended, soft, tenderness Extremities exam: ABSENT: clubbing Musculoskeletal exam: ABSENT: deformity Neurological exam: PRESENT: alert, awake, oriented to person, oriented to place, oriented to time, oriented to situation Psychiatric exam: ABSENT: agitated, anxious, depressed Focused psych exam: ABSENT: delusional Skin exam: ABSENT: cyanosis, erythema, jaundice Results Laboratory Results: 11/04/18 05:26 11/05/18 05:00 11/03/18 11/03/18 11/04/18 05:23 07:15 05:26 WBC 7.9 6.2 RBC 5.37 5.22 Hgb 14.0 13.7 Hct 42.9 42.5 MCV 80 81 MCH 26.1 L 26.2 L MCHC 32.6 32.2 RDW 19.7 H 19.7 H Plt Count 161 182 Seg Neutrophils % STICK INSERTER 70.9 Lymphocytes % STICK INSERTER 13.3 Monocytes % STICK INSERTER 15.2 H Eosinophils % STICK INSERTER 0.4 Basophils % STICK INSERTER 0.2 Absolute Neutrophils STICK INSERTER 5.6 Absolute Lymphocytes STICK INSERTER 1.1 Absolute Monocytes STICK INSERTER 1.2 Absolute Eosinophils STICK INSERTER 0.0 Absolute Basophils STICK INSERTER 0.0 Sodium Potassium Chloride Carbon Dioxide Anion Gap BUN Creatinine Est GFR ( Amer) Est GFR (Non-Af Amer) Glucose Calcium Total Bilirubin AST ALT Alkaline Phosphatase Total Protein Albumin 11/05/18 05:00 WBC RBC Hgb Hct MCV MCH MCHC RDW Plt Count Seg Neutrophils % Lymphocytes % Monocytes % Eosinophils % Basophils % Absolute Neutrophils Absolute Lymphocytes Absolute Monocytes Absolute Eosinophils Absolute Basophils Sodium 135.7 L Potassium 4.4 Chloride 95 L Carbon Dioxide 28 Anion Gap 13 BUN 28 H Creatinine 1.18 Est GFR ( Amer) > 60 Est GFR (Non-Af Amer) > 60 Glucose 116 H Calcium 9.3 Total Bilirubin 0.7 AST 15 L ALT 23 Alkaline Phosphatase 87 Total Protein 5.9 L Albumin 3.3 L Impressions: Chest X-Ray 10/24/18 10:33 IMPRESSION: NO SIGNIFICANT RADIOGRAPHIC FINDING IN THE CHEST. Abdomen X-Ray 11/03/18 10:27 IMPRESSION: DIFFUSE GASEOUS DILATION OF THE SMALL BOWEL AND COLON, UNCHANGED. Abdomen/Pelvis CT 11/03/18 13:33 IMPRESSION: 1. SURGICAL CHANGES. DILATED COLON AND SMALL BOWEL PROXIMAL TO THE DISTAL ANASTOMOSIS AT THE PROXIMAL RECTUM. THIS MAY BE DUE TO ANASTOMOTIC NARROWING WITH PARTIAL OBSTRUCTIVE CHANGES. THERE MAY BE A COMPONENT OF ILEUS WELL. 2. NO OTHER SIGNIFICANT OR ACUTE PROCESS IN THE ABDOMEN OR PELVIS. Assessment & Plan - Diagnosis (1) Ileostomy in place Is this a current diagnosis for this admission?: Yes (2) History of diverticular abscess Is this a current diagnosis for this admission?: Yes (3) Abdominal wall abscess Is this a current diagnosis for this admission?: Yes - Plan Summary Plan Summary: This is a 58-year-old male status post ileostomy reversal. The patient still reports passing flatus and having bowel movements. He still c/o distention, but has not had any vomiting. Okay for oral medications. Continue antibiotics for his abdominal wall abscess. Aggressive pulmonary toilet. Out of bed. Still with complaints of distention, despite the presence of bowel function. The patient has passed flatus overnight. CT scan showed persistent small bowel and colonic dilation. His small bowel anastomosis is open without evidence of obstruction. The patient does have an area of narrowing at the previous colorectal anastomosis. This is a known finding, and it has been dilated in the past. Upon last examination there was approximately 20 mm worth of luminal diameter, which should be adequate for the movement of air and stool. His x-ray today shows persistently dilated loops of small bowel and colon. Plan for flexible sigmoidoscopy with balloon dilation of colorectal anastomosis with decompression of the proximal colon. This is been discussed with the patient at length. Risks/benefits discussed, informed consent obtained, and all questions answered.
--- NOTE | 2018-11-05 09:31 | RADIOLOGY REPORT (SQ) ---
EXAM DESCRIPTION: KUB/ABDOMEN (SINGLE VIEW) COMPLETED DATE/TIME: 11/05/2018 8:05 am REASON FOR STUDY: distention Z43.9 ENCOUNTER FOR ATTENTION TO UNSPECIFIED ARTIFICIAL OPEN S31.109A UNSP OPN WND ABD WALL, UNSP Q W/O PENET PERIT CAV, R19.03 RIGHT LOWER QUADRANT ABDOMINAL SWELLING, MASS AND LUM COMPARISON: CT from 3 days ago. Abdominal radiographs from 11/02/2018. NUMBER OF VIEWS: One view. TECHNIQUE: Supine radiographic image of the abdomen acquired. LIMITATIONS: None. FINDINGS: BOWEL GAS PATTERN: Similar gaseous distention of large and small bowel loops compared to . Relatively diffuse. CALCIFICATIONS: No suspicious calcifications. SOFT TISSUES: No gross mass or suggestion of organomegaly. HARDWARE: Percutaneous drainage catheter projects to the epigastrium. This looks unchanged. BONES: No acute fracture. No worrisome bone lesions. OTHER: No other significant finding. IMPRESSION: Diffuse gaseous distension, similar to prior. TECHNICAL DOCUMENTATION: JOB ID: [id number] [employer]- All Rights Reserved Reading location - IP/workstation name: [email or web address]
[2018-11-05] MEDS: NICOTINE 21 MG/24 HR PATCH.TD24 TD SCH ×2 (10:06→14:19)
[2018-11-05] MEDS: DOXYCYCLINE HYCLATE 100 MG in DEXTROSE 5%-WATER 250 ML IV SCH ×2 (10:07→21:17)
[2018-11-05] MEDS ORDERED: MIDAZOLAM 2 MG/2 ML INJ ONE (10:29)
[2018-11-05] MEDS ORDERED: PROPOFOL INJ 200 MG/20 ML VIAL IV ONE (10:29)
[2018-11-05] MEDS ORDERED: OXYCODONE-ACETAMINOPHEN 5-325 MG TABLET PO PRN (10:33)
[2018-11-05] MEDS ORDERED: ONDANSETRON HCL INJ/PF 4 MG/2 ML SDV IV PRN (10:33)
[2018-11-05] MEDS ORDERED: MEPERIDINE HCL/PF INJ 25 MG/1 ML DISP.SYRIN IV PRN (10:33)
[2018-11-05] MEDS ORDERED: PROMETHAZINE HCL INJ 25 MG/1 ML VIAL IV PRN ×2 (10:33)
[2018-11-05] MEDS ORDERED: FENTANYL CITRATE INJ/PF 100 MCG/2 ML AMPUL IV PRN ×3 (10:33)
[2018-11-05] MEDS ORDERED: MORPHINE SULFATE 10 MG/ML INJ IV PRN (10:33)
[2018-11-05] MEDS ORDERED: DIPHENHYDRAMINE HCL 50 MG/ML VIAL IV PRN (10:33)
--- NOTE | 2018-11-05 12:43 | Operative Report ---
Nonrecallable Operative Report DATE OF SURGERY: 11/05/18 PREOPERATIVE DIAGNOSIS: 1. Persistent distention after ileostomy reversal. 2. History of colorectal anastomotic stricture POSTOPERATIVE DIAGNOSIS: 1. Mild amount of stricture at the colorectal anastomosis. 2. Dilated colon, need for decompression OPERATION: 1. Dilation of mild colorectal anastomotic stricture up to 20 mm. 2. Decompressive colonoscopy. SURGEON: LONNY MCCRACKEN ANESTHESIA: LMAC TISSUE REMOVED OR ALTERED: None COMPLICATIONS: None apparent ESTIMATED BLOOD LOSS: Minimal PROCEDURE: Procedure in detail: After informed consent was obtained, the patient was brought to the operating room and laid in the left lateral decubitus position. The endoscope was inserted into the rectum. It was passed up the rectum, to approximately the level of the rectosigmoid junction. This was at approximately 15 cm. The previous anastomotic area was identified. It was slightly stenotic, but the scope was passed through the stenotic area without difficulty. After noticing a slight amount of stenosis, it was felt prudent to balloon dilate the mildly stenotic area. A 20 mm dilating balloon was inserted into the stenosis. The balloon was dilated, and held for 2 minutes. The balloon was taken down, and the area was easily traversable. There was no damage to the mucosa noted. Next, the colonoscope was advanced up the transverse colon and down the ascending colon. The ileocecal valve and appendiceal orifice were identified in the cecum. There was a large amount of air and stool within the entirety of the colon. Decompressive colonoscopy was undertaken to suction the vast majority of the air and liquid from the colon. The scope was then removed, and the procedure was concluded. All sponge, instrument, needle counts were correct. Condition: Stable.
[2018-11-06] MEDS: HYDROMORPHONE HCL INJ/PF 2 MG/ML AMPULE IV PRN ×5 (01:37→22:13)
[2018-11-06] MEDS: 1/2 NORMAL SALINE 1,000 ML IV PRN (01:38)
[2018-11-06] MEDS: OXYCODONE-ACETAMINOPHEN 5-325 MG TABLET PO PRN ×4 (05:11→23:54)
[2018-11-06] MEDS: HEPARIN SOD (PORCINE) 5,000 UNIT/ML 1 ML SYRINGE SUBCUT SCH ×3 (05:12→22:12)
[2018-11-06] MEDS: DOXYCYCLINE HYCLATE 100 MG in DEXTROSE 5%-WATER 250 ML IV SCH ×2 (09:18→22:12)
[2018-11-06] MEDS: FUROSEMIDE 40 MG TABLET PO SCH ×2 (09:18→17:12)
[2018-11-06] MEDS: CARVEDILOL 12.5 MG TABLET PO SCH ×2 (09:18→22:13)
[2018-11-06] MEDS: NICOTINE 21 MG/24 HR PATCH.TD24 TD SCH (09:19)
--- NOTE | 2018-11-06 17:14 | PDOC PROGRESS REPORT ---
Subjective Progress Note for:: 11/06/18 Reason For Visit: S/P ILEOSSTOMY REVERSAL AND ABDOMINAL WALL DRAINAG Physical Exam Vital Signs: Temp Pulse Resp BP Pulse Ox 98.1 F 83 16 141/72 H 96 11/06/18 16:19 11/06/18 16:19 11/06/18 16:19 11/06/18 16:19 11/06/18 16:19 Intake & Output 11/05/18 11/06/18 11/07/18 06:59 06:59 06:59 Intake Total 1493 1516 1250 Output Total 2000 10 0 Balance -507 1506 1250 Weight 105.7 kg Results Laboratory Results: 11/04/18 05:26 11/05/18 05:00 Impressions: Chest X-Ray 10/24/18 10:33 IMPRESSION: NO SIGNIFICANT RADIOGRAPHIC FINDING IN THE CHEST. Abdomen X-Ray 11/03/18 10:27 IMPRESSION: DIFFUSE GASEOUS DILATION OF THE SMALL BOWEL AND COLON, UNCHANGED. Abdomen/Pelvis CT 11/03/18 13:33 IMPRESSION: 1. SURGICAL CHANGES. DILATED COLON AND SMALL BOWEL PROXIMAL TO THE DISTAL ANASTOMOSIS AT THE PROXIMAL RECTUM. THIS MAY BE DUE TO ANASTOMOTIC NARROWING WITH PARTIAL OBSTRUCTIVE CHANGES. THERE MAY BE A COMPONENT OF ILEUS WELL. 2. NO OTHER SIGNIFICANT OR ACUTE PROCESS IN THE ABDOMEN OR PELVIS. KUB X-Ray 11/05/18 06:00 IMPRESSION: Diffuse gaseous distension, similar to prior. Assessment & Plan - Diagnosis (1) Ileostomy in place Is this a current diagnosis for this admission?: Yes (2) History of diverticular abscess Is this a current diagnosis for this admission?: Yes (3) Abdominal wall abscess Is this a current diagnosis for this admission?: Yes - Plan Summary Plan Summary: This is a 58-year-old male status post ileostomy reversal. The patient reports passing flatus and having bowel movements. He denies distention, and has not had any vomiting. Continue antibiotics for his abdominal wall abscess. Aggressive pulmonary toilet. Out of bed. Tolerating full liquids. Advance to regular diet. Home soon.
[2018-11-07] MEDS: HYDROMORPHONE HCL INJ/PF 2 MG/ML AMPULE IV PRN (04:20)
[2018-11-07] MEDS: OXYCODONE-ACETAMINOPHEN 5-325 MG TABLET PO PRN ×4 (05:36→22:20)
[2018-11-07] MEDS: HEPARIN SOD (PORCINE) 5,000 UNIT/ML 1 ML SYRINGE SUBCUT SCH ×3 (05:36→22:20)
[2018-11-07] MEDS: CARVEDILOL 12.5 MG TABLET PO SCH ×2 (09:43→22:20)
[2018-11-07] MEDS: FUROSEMIDE 40 MG TABLET PO SCH ×2 (09:43→18:29)
[2018-11-07] MEDS: NICOTINE 21 MG/24 HR PATCH.TD24 TD SCH (09:44)
[2018-11-07] MEDS: DOXYCYCLINE HYCLATE 100 MG in DEXTROSE 5%-WATER 250 ML IV SCH (10:04)
[2018-11-07] MEDS ORDERED: ACETAMINOPHEN 325 MG TABLET PO SCH (14:00)
--- NOTE | 2018-11-07 14:47 | PDOC PROGRESS REPORT ---
Subjective Progress Note for:: 11/07/18 Reason For Visit: S/P ILEOSSTOMY REVERSAL AND ABDOMINAL WALL DRAINAG Physical Exam Vital Signs: Temp Pulse Resp BP Pulse Ox 98.7 F 84 18 124/65 96 11/07/18 12:00 11/07/18 12:00 11/07/18 12:00 11/07/18 12:00 11/07/18 12:00 Intake & Output 11/06/18 11/07/18 11/08/18 06:59 06:59 06:59 Intake Total 1516 3290 250 Output Total 10 5 Balance 1506 3285 250 Weight 105.7 kg 107.8 kg Results Laboratory Results: 11/04/18 05:26 11/05/18 05:00 Impressions: Chest X-Ray 10/24/18 10:33 IMPRESSION: NO SIGNIFICANT RADIOGRAPHIC FINDING IN THE CHEST. Abdomen X-Ray 11/03/18 10:27 IMPRESSION: DIFFUSE GASEOUS DILATION OF THE SMALL BOWEL AND COLON, UNCHANGED. Abdomen/Pelvis CT 11/03/18 13:33 IMPRESSION: 1. SURGICAL CHANGES. DILATED COLON AND SMALL BOWEL PROXIMAL TO THE DISTAL ANASTOMOSIS AT THE PROXIMAL RECTUM. THIS MAY BE DUE TO ANASTOMOTIC NARROWING WITH PARTIAL OBSTRUCTIVE CHANGES. THERE MAY BE A COMPONENT OF ILEUS WELL. 2. NO OTHER SIGNIFICANT OR ACUTE PROCESS IN THE ABDOMEN OR PELVIS. KUB X-Ray 11/05/18 06:00 IMPRESSION: Diffuse gaseous distension, similar to prior. Assessment & Plan - Diagnosis (1) Ileostomy in place Is this a current diagnosis for this admission?: Yes (2) History of diverticular abscess Is this a current diagnosis for this admission?: Yes (3) Abdominal wall abscess Is this a current diagnosis for this admission?: Yes - Plan Summary Plan Summary: This is a 58-year-old male status post ileostomy reversal. The patient reports passing flatus and having bowel movements. He denies distention, and has not had any vomiting. Continue antibiotics for his abdominal wall abscess. Aggressive pulmonary toilet. Out of bed. Tolerating regular diet. Home tomorrow.
[2018-11-07] MEDS: DOXYCYCLINE HYCLATE 100 MG TABLET PO SCH (22:20)
[2018-11-08] MEDS: OXYCODONE-ACETAMINOPHEN 5-325 MG TABLET PO PRN ×3 (02:26→10:32)
[2018-11-08] MEDS: HEPARIN SOD (PORCINE) 5,000 UNIT/ML 1 ML SYRINGE SUBCUT SCH (05:46)
[2018-11-08 08:08] VITALS: BP 134/72
[2018-11-08] MEDS: NICOTINE 21 MG/24 HR PATCH.TD24 TD SCH (10:23)
[2018-11-08] MEDS: CARVEDILOL 12.5 MG TABLET PO SCH (10:23)
[2018-11-08] MEDS: FUROSEMIDE 40 MG TABLET PO SCH (10:25)
[2018-11-08] MEDS: DOXYCYCLINE HYCLATE 100 MG TABLET PO SCH (10:27)
--- NOTE | 2018-11-08 10:29 | PDOC DISCHARGE SUMMARY ---
General - Admit/Disc Date/PCP Admission Date/Primary Care Provider: 10/31/18 12:53 MEGAN GUO MD Discharge Date: 11/08/18 - Discharge Diagnosis (1) Ileostomy in place Is this a current diagnosis for this admission?: Yes (2) History of diverticular abscess Is this a current diagnosis for this admission?: Yes (3) Abdominal wall abscess Is this a current diagnosis for this admission?: Yes - Additional Information Resuscitation Status: Full Code Discharge Diet: As Tolerated Discharge Activity: No Lifting Over 10 Pounds Home Medications: Carvedilol [Coreg 25 mg Tablet] 25 mg PO Q12 04/01/18 Furosemide [Lasix 40 mg Tablet] 40 mg PO BID 04/01/18 Colchicine [Mitigare] 0.6 mg PO .ASDIR FOR FLAREUP 10/31/18 Tramadol HCl [Ultram 50 mg Tablet] 50 mg PO Q6HP PRN 10/31/18 History of Present Illness History of Present Illness: CAT HECK is a 58 year old male admitted for reversal of his ileostomy. He also had a chronic abdominal wall infection that was persistently draining. The patient was taken to the operating room to address both of these issues. The patient underwent the operation, and was taken to the floor in stable condition. Hospital Course Hospital Course: Patient was admitted the floor in stable condition. He began having distention, nausea, and vomiting concerning for an ileus versus distal obstruction. The patient had a history of a distal colonic stricture. After several days his ileus was not improved. Secondary to this, the patient was taken to the operating room for flexible sigmoidoscopy with dilation of his colorectal anastomotic stricture. After dilation of the stricture, the patient's GI function improved significantly. He began tolerating a diet. His SEE drain (placed within the abscess cavity) stopped draining. By 11/08/2018, the patient was ambulating, tolerating a diet, stooling, and had reached maximal hospital benefit. At this time it was felt that he is medically fit for discharge. Physical Exam Vital Signs: Temp Pulse Resp BP Pulse Ox 98.2 F 76 18 134/72 H 96 11/08/18 08:00 11/08/18 08:00 11/08/18 08:00 11/08/18 08:00 11/08/18 08:00 Intake & Output 11/07/18 11/08/18 11/09/18 06:59 06:59 06:59 Intake Total 3290 2420 Output Total 5 15 Balance 3285 2405 Weight 107.8 kg 107.2 kg Results Laboratory Results: 11/04/18 05:26 11/05/18 05:00 Impressions: Chest X-Ray 10/24/18 10:33 IMPRESSION: NO SIGNIFICANT RADIOGRAPHIC FINDING IN THE CHEST. Abdomen X-Ray 11/03/18 10:27 IMPRESSION: DIFFUSE GASEOUS DILATION OF THE SMALL BOWEL AND COLON, UNCHANGED. Abdomen/Pelvis CT 11/03/18 13:33 IMPRESSION: 1. SURGICAL CHANGES. DILATED COLON AND SMALL BOWEL PROXIMAL TO THE DISTAL ANASTOMOSIS AT THE PROXIMAL RECTUM. THIS MAY BE DUE TO ANASTOMOTIC NARROWING WITH PARTIAL OBSTRUCTIVE CHANGES. THERE MAY BE A COMPONENT OF ILEUS WELL. 2. NO OTHER SIGNIFICANT OR ACUTE PROCESS IN THE ABDOMEN OR PELVIS. KUB X-Ray 11/05/18 06:00 IMPRESSION: Diffuse gaseous distension, similar to prior. Qualifiers - * PATIENT BEING DISCHARGED WITH ANY OF THE FOLLOWING DIAGNOSIS: No Acute Heart Failure Is this a Heart Failure Patient?: No Plan Discharge Plan: Discharge home. Diet as tolerated. Activity: No lifting greater than 10 pounds x 6 weeks. Follow-up with me in 7 to 10 days. Percocet 10/325 mg p.o. every 6 hours as needed for pain. Shower every day. Dressing changes to abdominal wounds twice daily. Time Spent: Less than 30 Minutes
== END 2018-11-08 12:16 | disposition home or self-care (01) | DRG 330 ==
LOC: INOR 12:53 → 4N 21:03
PROVIDERS: ADMIT Surgery; ATTEND Surgery
PROC: 0W9F0ZX Drainage of Abdominal Wall, Open Approach, Diagnostic (ICD-10-PCS; 2018-10-31)
PROC: 3E0F73Z Introduction of Anti-inflammatory into Respiratory Tract, Via Natural or Artificial Opening (ICD-10-PCS; 2018-10-31)
PROC: 0DQB0ZZ Repair Ileum, Open Approach (ICD-10-PCS; principal; 2018-10-31 13:00)
PROC: 0D7K8ZZ Dilation of Ascending Colon, Via Natural or Artificial Opening Endoscopic (ICD-10-PCS; 2018-11-05)
DX: Z43.2 Encounter for attention to ileostomy (principal); L02.211 Cutaneous abscess of abdominal wall; M10.9 Gout, unspecified; I10 Essential (primary) hypertension; I25.10 Atherosclerotic heart disease of native coronary artery without angina pectoris; F17.210 Nicotine dependence, cigarettes, uncomplicated; Z87.19 Personal history of other diseases of the digestive system; Z95.5 Presence of coronary angioplasty implant and graft; Z85.828 Personal history of other malignant neoplasm of skin; Z79.899 Other long term (current) drug therapy
CPT/HCPCS: 36415; 45378; 71046; 74018; 74019; 74176; 80048; 80053; 840; 84132; 85025; 85027; 902; 93005; 93010; 94799; J0330; J0694; J1170; J1644; J1885; J2250; J2405; J2704; J2710; J3010; J3490; J7060

== ENCOUNTER 2018-12-24 07:57 | Day surgery (SDC) | payer MEDICAID ==
[2018-12-11 10:49] LABS: PROTHROMBIN TIME 13.2 SEC (11.4-15.4)
[2018-12-11 10:50] LABS: PARTIAL THROMBOPLASTIN TIME 31.4 SEC (23.5-35.8)
[2018-12-11 11:24] LABS: ANION GAP 9 (5-19); BLOOD UREA NITROGEN 23 mg/dL (7-20); CARBON DIOXIDE 27 mmol/L (22-30); CHLORIDE 104 mmol/L (98-107); GLUCOSE 133 mg/dL (75-110); POTASSIUM 4.9 mmol/L (3.6-5.0); SODIUM 139.9 mmol/L (137-145)
--- NOTE | 2018-12-11 22:08 | EKG REPORT ---
SEVERITY:- NORMAL ECG - SINUS RHYTHM : Confirmed by: Dionna Ventura 11-Dec-2018 22:07:57
[2018-12-12 09:48] LABS: HEMATOCRIT 42.1 % (37.9-51.0); HEMOGLOBIN 13.8 g/dL (13.5-17.0); MEAN CORPUSCULAR HEMOGLOBIN 26.9 pg (27.0-33.4); MEAN CORPUSCULAR HGB CONC 32.9 g/dL (32.0-36.0); MEAN CORPUSCULAR VOLUME 82 fl (80-97); PLATELET COUNT 203 10^3/uL (150-450); RED BLOOD COUNT 5.13 10^6/uL (4.35-5.55); RED CELL DISTRIBUTION WIDTH 18.4 % (11.5-14.0); WHITE BLOOD COUNT 10.3 10^3/uL (4.0-10.5)
[~2018-12-24 07:57] MED LIST changes: +CEFAZOLIN 1 GM/D5W RTU 1 GM/50 ML RTUPB IV PRN; -CEFOXITIN SODIUM 2 GM in DEXTROSE 5%-WATER 100 ML IV PRN; -LACTATED RINGERS 1000 ML IV PRN; -LIDOCAINE 0.5% INJ-PF (5 MG/ML) 50 ML SDV SUBCUT PRN
[2018-12-24] MEDS ORDERED: CEFAZOLIN 1 GM/D5W RTU 1 GM/50 ML RTUPB IV ONE (08:12)
[2018-12-24] MEDS ORDERED: FENTANYL CITRATE INJ/PF 100 MCG/2 ML AMPUL ONE (09:44)
[2018-12-24] MEDS ORDERED: PROPOFOL INJ 200 MG/20 ML VIAL IV ONE (09:45)
[2018-12-24] MEDS ORDERED: MIDAZOLAM 2 MG/2 ML INJ ONE (09:45)
[2018-12-24] MEDS ORDERED: ONDANSETRON HCL INJ/PF 4 MG/2 ML SDV ONE (09:45)
[2018-12-24] MEDS ORDERED: POVIDONE-IODINE 5% OPH PREP SOLN 30 ML ONE (09:53)
[2018-12-24] MEDS ORDERED: LIDOCAINE 1%/EPINEPHRINE INJ 20 ML VIAL ONE (09:53)
[2018-12-24] MEDS ORDERED: SODIUM BICARBONATE 8.4% INJ 50 MEQ/50 ML DISP.SYRIN ONE (09:53)
[2018-12-24] MEDS ORDERED: FENTANYL CITRATE INJ/PF 100 MCG/2 ML AMPUL IV PRN ×3 (10:51)
[2018-12-24] MEDS ORDERED: DIPHENHYDRAMINE HCL 50 MG/ML VIAL IV PRN (10:51)
--- NOTE | 2018-12-24 11:44 | Operative Report ---
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 Patient was brought into the operating room and placed on the operating room table in a supine position. Patient was then prepped with a Betadine scrub and Betadine solution and draped in a sterile and aseptic manner. The area was then marked. 12 O'clock was marked towards the nose 3 O'clock was marked towards the upper sideburn 6:00 was marked towards the helix 9:00 was marked towards the earlobe The area was then anesthetized with 1% lidocaine with epinephrine and bicarbonate for its anesthetic and hemostatic effects. The area was then excised and marked at 12:00. The specimen was sent for frozen section. The results came back that the deep and lateral margins were free. We had considered a primary closure but this would go against the natural relaxed skin tension lines. A primary closure would be too tight and would have increased chance of dehiscence. This will leave more of a scar so we decided to use a lashon-tragal crescent flap reconstruction which would camouflage the scar better and take tension off of the closure so that would be less chances of complications. The reconstruction that we decided on would allow us to camouflage the scar the best. And will also allow us to use some of the facial skin to cover the defect, taken tension off of the closure. Patient has very thick skin with no mobility in this area and we will have to raise the flap as we do with a facelift in order to get enough mobility so we do not distort the tragus. Then we went ahead and outlined the flap and anesthetized it. We then incised the flap and developed a flap maintaining the subdermal plexus. Then we undermined 360 to allow for plate like scarring and minimize trap door deformity. Throughout the case hemostasis was achieved with the bipolar. We then sutured the flap into its new position using 4-0 Vicryl for the subcutaneous and deep dermis. Skin was closed with a running subcuticular suture stitch using 4-0 PDS with knots being tied on the outside. And 4-0 Prolene suture was used for support and placed in the central area of the incision. We then applied Dermabond followed by a light pressure dressing. Patient was then reversed from anesthesia and taken to the [facility] for recovery. The patient tolerated well. There were no complications. Lesion size was approximately 1.5 cm please see pathology for actual size. Portions of this note may be dictated using [employer] voice recognition software. Occasional variations and spelling and vocabulary could be possible and are unintentional. Additionally, there is a chance that some errors may not be caught or corrected. Please notify the author of any discrepancies noted or if any statements are unclear. Subjective: No complaints Objective: Vital signs stable afebrile No bleeding Dressing intact Assessment and plan: Doing well. Elevate the operative site. Resume medications. Take antibiotics for 1 day Follow-up Full instructions were given to the patient and family and they understand Portions of this note may be dictated using [employer] voice recognition software. Occasional variations and spelling and vocabulary could be possible and are un intentional. Additionally, there is a chance that some errors may not be caught or corrected. Please notify the offer of any discrepancies noted or if any statements are unclear.
--- NOTE | 2018-12-24 11:47 | Discharge Summary ---
Discharge Summary (SDC) - Discharge Final Diagnosis: Basal cell carcinoma of the left tragal area of the ear Date of Surgery: 12/24/18 Condition: Good Treatment or Instructions: Antibiotics for 1 day, then discontinue. Elevate operative area to decrease swelling. Do not strain, or lift heavy objects. Call for excessive bleeding, increased temperature of 101, uncontrolled pain, or excessive nausea or vomiting. You may reach Dr. Moreno through his office at [phone]. In the event of an emergency after hours, then contact Dr. Moreno through [facility]. Return to the office for a postop check on . The time will be scheduled by the nursing staff of [facility] prior to discharge. Please give the patient a copy of their labs and EKG so they can bring this to their PMD. Thank you Portions of this note may be dictated using [employer] voice recognition software. Occasional variations and spelling and vocabulary could be possible and are unintentional. Additionally, there is a chance that some errors may not be caught or corrected. Please notify the offer of any discrepancies noted or if any statements are unclear. Referrals: MEGAN GUO MD [Primary Care Provider] - Discharge Diet: As Tolerated Discharge Activity: No Lifting/Push/Pulling Report the Following to Your Physician Immediately: Unusual Bleeding - Keep head elevated. No bending or straining. No heavy lifting.
[2018-12-24 15:45] VITALS: BP 124/81
== END 2018-12-24 13:10 | disposition home or self-care (01) ==
LOC: OROUT 07:57
PROVIDERS: ATTEND Plastic Surgery
DX: C44.219 Basal cell carcinoma of skin of left ear and external auricular canal (principal); L57.8 Other skin changes due to chronic exposure to nonionizing radiation; F17.210 Nicotine dependence, cigarettes, uncomplicated; I25.10 Atherosclerotic heart disease of native coronary artery without angina pectoris; I11.0 Hypertensive heart disease with heart failure; Z79.899 Other long term (current) drug therapy
CPT/HCPCS: 93005; 36415 ×3; 84132; 85027; 85610; 85730; 80048; 88305 ×2; 88331 ×2; 93010; 14060; J2250; J0690; J3010; J3490 ×3; J2405; J2704; 300; 88307

== ENCOUNTER → 2019-08-14 | Outpatient (CLI) | payer MEDICAID ==
[2019-08-14 10:20] LABS: ABSOLUTE BASOPHILS # (AUTO) 0.1 10^3/uL (0.0-0.2); ABSOLUTE EOSINOPHILS # (AUTO) 0.3 10^3/uL (0.0-0.6); ABSOLUTE LYMPHOCYTES (AUTO) 2.5 10^3/uL (0.5-4.7); ABSOLUTE MONOCYTES (AUTO) 0.7 10^3/uL (0.1-1.4); ABSOLUTE NEUT (AUTO) 4.2 10^3/uL (1.7-8.2); EOSINOPHILS % (AUTO) 3.6 % (0-6); HEMATOCRIT 45.5 % (37.9-51.0); HEMOGLOBIN 15.8 g/dL (13.5-17.0); LYMPHOCYTES % (AUTO) 32.2 % (13-45); MEAN CORPUSCULAR HGB CONC 34.6 g/dL (32.0-36.0); MEAN CORPUSCULAR VOLUME 90 fl (80-97); MONOCYTES % (AUTO) 9.1 % (3-13); PLATELET COUNT 115 10^3/uL (150-450); RED BLOOD COUNT 5.08 10^6/uL (4.35-5.55); RED CELL DISTRIBUTION WIDTH 14.2 % (11.5-14.0); SEGMENTED NEUTROPHILS % (AUTO) 54.1 % (42-78); TOTAL CELLS COUNTED % (AUTO) 100 %; WHITE BLOOD COUNT 7.8 10^3/uL (4.0-10.5)
[2019-08-14 10:46] LABS: APPEARANCE,URINE CLEAR; BILIRUBIN,URINE NEGATIVE (NEGATIVE); COLOR,URINE COLORLESS; GLUCOSE, URINE NEGATIVE (NEGATIVE); KETONES,URINE NEGATIVE (NEGATIVE); LEUKOCYTE ESTERASE,URINE NEGATIVE (NEGATIVE); NITRITE,URINE NEGATIVE (NEGATIVE); PROTEIN,URINE NEGATIVE (NEGATIVE); URINE SPECIFIC GRAVITY 1.003; UROBILINOGEN,URINE NEGATIVE mg/dL (<2.0)
[2019-08-14 11:17] LABS: ANION GAP 6 (5-19); BLOOD UREA NITROGEN 17 mg/dL (7-20); CALCIUM 9.5 mg/dL (8.4-10.2); CARBON DIOXIDE 27 mmol/L (22-30); CHLORIDE 102 mmol/L (98-107); GLUCOSE 139 mg/dL (75-110); POTASSIUM 4.7 mmol/L (3.6-5.0)
--- NOTE | 2019-08-14 12:59 | RADIOLOGY REPORT (SQ) ---
EXAM DESCRIPTION: CHEST PA/LATERAL COMPLETED DATE/TIME: 08/14/2019 10:34 am REASON FOR STUDY: PRE-OP COMPARISON: 10/24/2018 EXAM PARAMETERS: NUMBER OF VIEWS: two views TECHNIQUE: Digital Frontal and Lateral radiographic views of the chest acquired. RADIATION DOSE: NA LIMITATIONS: none FINDINGS: LUNGS AND PLEURA: No opacities, masses or pneumothorax. No pleural effusion. MEDIASTINUM AND HILAR STRUCTURES: No masses or contour abnormalities. HEART AND VASCULAR STRUCTURES: Heart normal size. No evidence for failure. BONES: No acute findings. HARDWARE: None in the chest. OTHER: No other significant finding. IMPRESSION: NO SIGNIFICANT RADIOGRAPHIC FINDING IN THE CHEST. TECHNICAL DOCUMENTATION: JOB ID: [id number] 2011 [employer]- All Rights Reserved Reading location - IP/workstation name: [email or web address]
--- NOTE | 2019-08-14 19:43 | EKG REPORT ---
SEVERITY:- OTHERWISE NORMAL ECG - SINUS RHYTHM ATRIAL PREMATURE COMPLEX : Confirmed by: Joan Zarate MD 14-Aug-2019 19:42:31
== END ==
LOC: OD 09:55
PROVIDERS: ATTEND Orthopaedic Surgery
DX: Z01.810 Encounter for preprocedural cardiovascular examination (principal); Z01.811 Encounter for preprocedural respiratory examination; Z01.812 Encounter for preprocedural laboratory examination; M16.11 Unilateral primary osteoarthritis, right hip; I10 Essential (primary) hypertension
CPT/HCPCS: 36415; 71046; 80048; 81001; 85025; 93005; 93010

== ENCOUNTER → 2019-08-29 | Outpatient (CLI) | payer MEDICAID ==
[2019-08-29 08:47] LABS: ALBUMIN 4.2 g/dL (3.5-5.0); ALKALINE PHOSPHATASE 107 U/L (38-126); ASPARTATE AMINO TRANSFERASE 28 U/L (17-59); BILIRUBIN,DIRECT 0.3 mg/dL (0.0-0.4); BILIRUBIN,TOTAL 0.4 mg/dL (0.2-1.3); CHOLESTEROL 193.31 mg/dL (0-200); TOTAL PROTEIN 7.4 g/dL (6.3-8.2); TRIGLYCERIDES 302 mg/dL (<150)
[2019-08-29 08:58] LABS: DIRECT LDL 102 mg/dL (<100)
[2019-08-29 09:04] LABS: VLDL CHOLESTEROL 60.4 mg/dL (10-31)
== END ==
LOC: OD 07:12
PROVIDERS: ATTEND Specialist
DX: Z01.810 Encounter for preprocedural cardiovascular examination (principal); I11.0 Hypertensive heart disease with heart failure; I50.22 Chronic systolic (congestive) heart failure; I25.10 Atherosclerotic heart disease of native coronary artery without angina pectoris; Z98.61 Coronary angioplasty status; J44.9 Chronic obstructive pulmonary disease, unspecified; E66.9 Obesity, unspecified; F17.210 Nicotine dependence, cigarettes, uncomplicated; F10.188 Alcohol abuse with other alcohol-induced disorder; Z90.49 Acquired absence of other specified parts of digestive tract; Z79.899 Other long term (current) drug therapy
CPT/HCPCS: 36415; 80061; 80076

== ENCOUNTER 2019-09-08 08:45 | Inpatient (IN) | payer MEDICAID ==
[2019-11-21] MEDS ORDERED: VANCOMYCIN HCL 1,000 MG in DEXTROSE 5%-WATER 250 ML IV PRN (15:36)
[2019-11-24] MEDS ORDERED: PANTOPRAZOLE SODIUM 20 MG TABLET.DR PO PRN (05:00)
[2019-11-24] MEDS ORDERED: BUPIVACAINE INJ/PF LIPOSOME/PF 266 MG/20 ML SDV INJ PRN (05:00)
[2019-11-24] MEDS ORDERED: IBUPROFEN 800 MG in NORMAL SALINE 250 ML IV PRN (05:00)
[2019-11-24] MEDS ORDERED: CEFAZOLIN INJ 1 GM VIAL IV PRN (05:00)
[2019-11-24] MEDS ORDERED: LIDOCAINE 0.5% INJ-PF (5 MG/ML) 50 ML SDV SUBCUT PRN (05:00)
[2019-11-24] MEDS ORDERED: LACTATED RINGERS 1000 ML IV PRN (05:00)
[2019-11-24] MEDS ORDERED: OXYCODONE HCL SR 10 MG TABLET PO PRN (05:00)
[2019-11-24] MEDS ORDERED: ONDANSETRON HCL INJ/PF 4 MG/2 ML SDV ONE (06:50)
[2019-11-24] MEDS ORDERED: MIDAZOLAM 2 MG/2 ML INJ ONE (06:50)
[2019-11-24] MEDS ORDERED: TRANEXAMIC ACID INJ/PF 1,000 MG/10 ML SDV ONE (06:50)
[2019-11-24] MEDS ORDERED: PROPOFOL INJ 200 MG/20 ML VIAL IV ONE (06:51)
[2019-11-24] MEDS ORDERED: OXYCODONE HCL SR 10 MG TABLET PO ONE (09:51)
[2019-11-24] MEDS ORDERED: PANTOPRAZOLE SODIUM 20 MG TABLET.DR PO ONE (09:54)
[2019-11-24] MEDS ORDERED: CEFAZOLIN INJ 1 GM VIAL ONE (09:54)
[2019-11-24] MEDS ORDERED: BUPIVACAINE HCL 0.25% /EPINEPHRINE INJ/PF 30 ML SDV ONE (10:45)
--- NOTE | 2019-11-24 11:52 | PDOC PROGRESS REPORT ---
Subjective Progress Note for:: 11/24/19 Reason For Visit: M16.11 UNILATERAL PRIMARY OSTEOARTHRITIS, RIGHT HI Planned right hip arthroplasty Physical Exam Vital Signs: Temp Pulse Resp BP Pulse Ox 36.8 C 76 16 152/97 H 98 11/24/19 08:20 11/24/19 08:20 11/24/19 08:20 11/24/19 08:20 11/24/19 08:20 Intake & Output 11/23/19 11/24/19 11/25/19 06:59 06:59 06:59 Intake Total 250 Balance 250 Weight 104.33 kg General appearance: PRESENT: no acute distress Musculoskeletal exam: PRESENT: other - Upon placing the patient in a left lateral decubitus position on the operating table it becomes clear that there is a significant right inguinal cutaneous infection, presumed fungal with purulent drainage. Results Laboratory Results: 11/24/19 09:14 11/24/19 11/24/19 09:14 09:14 Potassium 4.7 Blood Type O POSITIVE Antibody Screen NEGATIVE Assessment & Plan - Diagnosis (1) Arthritis, hip Is this a current diagnosis for this admission?: Yes Plan: 59-year-old white male with significant right hip osteoarthritis and associated pain and functional disability. At this point I think that proceeding with a hip arthroplasty would the patient at increased risk of a surgical site infection in light of the ipsilateral inguinal infection and skin breakdown. Therefore the case is canceled for now and the patient will be referred to dermatology for treatment of the cutaneous infection. Once this is been cleared he can be rescheduled for the hip arthritis. - Time Time Spent with patient: 15-24 minutes Anticipated discharge: Home Within: Other
[2019-11-24 16:59] VITALS: BP 148/82
--- NOTE | 2019-12-08 13:27 | Discharge Summary ---
Discharge Summary (SDC) - Discharge Final Diagnosis: Hip arthritis Discharge Date: 11/24/19 Condition: Good Forms: ASU Anesthesia D/C Instruction, Discharge POC-Surgical Service Treatment or Instructions: MONITOR FOR NUMBNESS AND TINGLING IN LOWER EXTREMITIES, MONITOR FOR HEADACHES, SHORTNESS OF BREATH, INFECTION FEVER OVER 101F OR GREEN/YELLOW DRAINAGE FOLLOW UP WITH YOUR PRIMARY CARE PROVIDER RELATED TO INFECTION IN GROIN AREA FOLLOW UP WITH DR. JOVEL'S OFFICE ONCE INFECTION TREATED. Referrals: MEGAN GUO MD [Primary Care Provider] - Discharge Diet: Regular Discharge Activity: Activity As Tolerated, Slowly Increase Activity Home Care Assistance: None Needed Report the Following to Your Physician Immediately: Shortness of Breath, Fever over 101 Degrees, Redness, Warmth, Drainage-Yellow, Drainage-Garnica, Drainage- Green, Drainage-Foul Smelling, Numbness, Tingling Sensation
== END 2019-11-24 17:10 | disposition home or self-care (01) | DRG 470 ==
LOC: INOR 11-24 08:14
PROVIDERS: ADMIT Orthopaedic Surgery; ATTEND Orthopaedic Surgery
PROC: 0SR902A Replacement of Right Hip Joint with Metal on Polyethylene Synthetic Substitute, Uncemented, Open Approach (ICD-10-PCS; principal; 2019-11-24 10:30)
DX: M16.11 Unilateral primary osteoarthritis, right hip (principal); I10 Essential (primary) hypertension; F17.210 Nicotine dependence, cigarettes, uncomplicated; Z03.818 Encounter for observation for suspected exposure to other biological agents ruled out; Z79.899 Other long term (current) drug therapy; Z85.828 Personal history of other malignant neoplasm of skin
CPT/HCPCS: 1214; 36415; 84132; 86850; 86900; 86901; 87635; J0690; J1741; J2250; J2405; J2704; J3370; J3490; J7050; J7060

== ENCOUNTER → 2019-11-07 | Outpatient (CLI) | payer MEDICAID ==
[2019-11-07 10:49] LABS: APPEARANCE,URINE CLEAR; BILIRUBIN,URINE NEGATIVE (NEGATIVE); COLOR,URINE YELLOW; GLUCOSE, URINE NEGATIVE (NEGATIVE); KETONES,URINE NEGATIVE (NEGATIVE); LEUKOCYTE ESTERASE,URINE NEGATIVE (NEGATIVE); NITRITE,URINE NEGATIVE (NEGATIVE); PROTEIN,URINE NEGATIVE (NEGATIVE); URINE SPECIFIC GRAVITY 1.011; UROBILINOGEN,URINE NEGATIVE mg/dL (<2.0)
--- NOTE | 2019-11-07 11:01 | RADIOLOGY REPORT (SQ) ---
EXAM DESCRIPTION: CHEST PA/LATERAL IMAGES COMPLETED DATE/TIME: 11/07/2019 10:33 am REASON FOR STUDY: PRE-OP COMPARISON: 08/14/2019 EXAM PARAMETERS: NUMBER OF VIEWS: two views TECHNIQUE: Digital Frontal and Lateral radiographic views of the chest acquired. RADIATION DOSE: NA LIMITATIONS: none FINDINGS: LUNGS AND PLEURA: No opacities, masses or pneumothorax. No pleural effusion. MEDIASTINUM AND HILAR STRUCTURES: No masses or contour abnormalities. HEART AND VASCULAR STRUCTURES: Heart normal size. No evidence for failure. BONES: No acute findings. HARDWARE: None in the chest. OTHER: No other significant finding. IMPRESSION: NO SIGNIFICANT RADIOGRAPHIC FINDING IN THE CHEST. TECHNICAL DOCUMENTATION: JOB ID: [id number] 2010 [employer]- All Rights Reserved Reading location - IP/workstation name: [email or web address]
[2019-11-07 11:14] LABS: HEMOGLOBIN 15.7 g/dL (13.5-17.0); RED BLOOD COUNT 5.02 10^6/uL (4.35-5.55); WHITE BLOOD COUNT 8.3 10^3/uL (4.0-10.5)
[2019-11-07 11:15] LABS: ABSOLUTE LYMPHOCYTES (AUTO) 2.4 10^3/uL (0.5-4.7); ABSOLUTE NEUT (AUTO) 4.9 10^3/uL (1.7-8.2); BASOPHILS % (AUTO) 0.9 % (0-2); EOSINOPHILS % (AUTO) 2.7 % (0-6); HEMATOCRIT 46.2 % (37.9-51.0); LYMPHOCYTES % (AUTO) 28.9 % (13-45); MEAN CORPUSCULAR HEMOGLOBIN 31.3 pg (27.0-33.4); MEAN CORPUSCULAR VOLUME 92 fl (80-97); MONOCYTES % (AUTO) 8.5 % (3-13); PLATELET COUNT 145 10^3/uL (150-450); RED CELL DISTRIBUTION WIDTH 14.5 % (11.5-14.0); TOTAL CELLS COUNTED % (AUTO) 100 %
[2019-11-07 11:16] LABS: ABSOLUTE BASOPHILS # (AUTO) 0.1 10^3/uL (0.0-0.2); ABSOLUTE EOSINOPHILS # (AUTO) 0.2 10^3/uL (0.0-0.6); ABSOLUTE MONOCYTES (AUTO) 0.7 10^3/uL (0.1-1.4)
[2019-11-07 11:17] LABS: ANION GAP 9 (5-19); BLOOD UREA NITROGEN 29 mg/dL (7-20); CALCIUM 9.9 mg/dL (8.4-10.2); CARBON DIOXIDE 26 mmol/L (22-30); CHLORIDE 101 mmol/L (98-107); GLUCOSE 136 mg/dL (75-110); POTASSIUM 4.9 mmol/L (3.6-5.0)
--- NOTE | 2019-11-07 18:51 | EKG REPORT ---
SEVERITY:- NORMAL ECG - SINUS RHYTHM : Confirmed by: Joan Zarate MD 07-Nov-2019 18:50:40
== END ==
LOC: OD 09:41
PROVIDERS: ATTEND Orthopaedic Surgery
DX: Z01.810 Encounter for preprocedural cardiovascular examination (principal); Z01.811 Encounter for preprocedural respiratory examination; Z01.812 Encounter for preprocedural laboratory examination; M18.11 Unilateral primary osteoarthritis of first carpometacarpal joint, right hand; I10 Essential (primary) hypertension
CPT/HCPCS: 36415; 71046; 80048; 81001; 85025; 93005; 93010

== ENCOUNTER → 2020-01-01 | Outpatient (CLI) | payer MEDICAID ==
--- NOTE | 2020-01-01 12:50 | RADIOLOGY REPORT (SQ) ---
EXAM DESCRIPTION: CHEST PA/LATERAL IMAGES COMPLETED DATE/TIME: 01/01/2020 12:40 pm REASON FOR STUDY: PRE-OP COMPARISON: 11/07/2019. EXAM PARAMETERS: NUMBER OF VIEWS: two views TECHNIQUE: Digital Frontal and Lateral radiographic views of the chest acquired. RADIATION DOSE: NA LIMITATIONS: none FINDINGS: LUNGS AND PLEURA: No opacities, masses or pneumothorax. No pleural effusion. MEDIASTINUM AND HILAR STRUCTURES: No masses or contour abnormalities. HEART AND VASCULAR STRUCTURES: Heart normal size. No evidence for failure. BONES: No acute findings. Degenerative changes in the spine. HARDWARE: None in the chest. OTHER: No other significant finding. IMPRESSION: NO SIGNIFICANT RADIOGRAPHIC FINDING IN THE CHEST. TECHNICAL DOCUMENTATION: JOB ID: [id number] 2010 [employer]- All Rights Reserved Reading location - IP/workstation name: [email or web address]
[2020-01-01 12:52] LABS: APPEARANCE,URINE CLEAR; BILIRUBIN,URINE NEGATIVE (NEGATIVE); COLOR,URINE YELLOW; GLUCOSE, URINE NEGATIVE (NEGATIVE); KETONES,URINE NEGATIVE (NEGATIVE); LEUKOCYTE ESTERASE,URINE NEGATIVE (NEGATIVE); NITRITE,URINE NEGATIVE (NEGATIVE); PROTEIN,URINE NEGATIVE (NEGATIVE); UROBILINOGEN,URINE NEGATIVE mg/dL (<2.0)
[2020-01-01 13:05] LABS: ABSOLUTE BASOPHILS # (AUTO) 0.1 10^3/uL (0.0-0.2); ABSOLUTE EOSINOPHILS # (AUTO) 0.3 10^3/uL (0.0-0.6); ABSOLUTE LYMPHOCYTES (AUTO) 2.7 10^3/uL (0.5-4.7); ABSOLUTE MONOCYTES (AUTO) 0.8 10^3/uL (0.1-1.4); ABSOLUTE NEUT (AUTO) 5.9 10^3/uL (1.7-8.2); EOSINOPHILS % (AUTO) 2.8 % (0-6); HEMATOCRIT 47.8 % (37.9-51.0); HEMOGLOBIN 16.2 g/dL (13.5-17.0); LYMPHOCYTES % (AUTO) 27.4 % (13-45); MEAN CORPUSCULAR HEMOGLOBIN 31.8 pg (27.0-33.4); MEAN CORPUSCULAR HGB CONC 33.9 g/dL (32.0-36.0); MEAN CORPUSCULAR VOLUME 94 fl (80-97); MONOCYTES % (AUTO) 8.3 % (3-13); PLATELET COUNT 166 10^3/uL (150-450); RED CELL DISTRIBUTION WIDTH 13.7 % (11.5-14.0); SEGMENTED NEUTROPHILS % (AUTO) 60.5 % (42-78); TOTAL CELLS COUNTED % (AUTO) 100 %; WHITE BLOOD COUNT 9.7 10^3/uL (4.0-10.5)
[2020-01-01 13:10] LABS: ANION GAP 7 (5-19); BLOOD UREA NITROGEN 22 mg/dL (7-20); CALCIUM 9.8 mg/dL (8.4-10.2); CARBON DIOXIDE 29 mmol/L (22-30); CHLORIDE 100 mmol/L (98-107); GLUCOSE 149 mg/dL (75-110); POTASSIUM 5.5 mmol/L (3.6-5.0)
--- NOTE | 2020-01-01 13:23 | EKG REPORT ---
SEVERITY:- NORMAL ECG - SINUS RHYTHM : Confirmed by: Shyam Chavez MD 01-Jan-2020 13:22:25
== END ==
LOC: OD 11:58
PROVIDERS: ATTEND Orthopaedic Surgery
DX: Z01.810 Encounter for preprocedural cardiovascular examination (principal); Z01.811 Encounter for preprocedural respiratory examination; Z01.812 Encounter for preprocedural laboratory examination; M16.11 Unilateral primary osteoarthritis, right hip
CPT/HCPCS: 36415; 71046; 80048; 81001; 85025; 93005; 93010